=== PATIENT | male | born 1930 | race Caucasian/White ===

== ENCOUNTER 2017-09-05 17:10 | Inpatient (IN) | payer MEDICARE, OTHER ==
[~2017-09-05] VITALS: Ht 167.6 cm; Wt 72.6 kg
[2017-09-05] MEDS ORDERED: SOD CHLORIDE 0.9% 1,000 ML IV STA (19:30)
--- NOTE | 2017-09-05 19:33 | ERD ---
ER Documentation Chief Complaint Chief Complaint generalized weakness x 1 year, low heart rate x 2 months HPI This is an 86-year-old male here for generalized weakness and dizziness. He is here with his daughter who states that for the past 2 weeks is progressively getting worse. She says she has been feeling bad for 2 months now. The past 2 weeks however, he is getting gradually more weak to the point where today he has a hard time walking because he feels so weak and and balance. She said is not eating anymore and does not have much water intake as well. She says she thinks his urine output is going lower as well. He is having off-and-on headaches at times but none now. No chest pain or shortness of breath no cough no dysuria. No abdominal pain. The patient says he feels generalized weakness and dizziness when he stands and walks it feels like his legs might give out. The patient walks on his own without a walker. No recent falls. No focal neurological complaints ROS All systems reviewed and are negative except as per history of present illness. Medications Home Meds Reported Medications Metoprolol Succinate* (Toprol XL*) 25 Mg Tab.sr.24h, 25 MG PO DAILY, #30 TAB 09/05/17 Megestrol Acetate* (Megestrol Acetate*) 40 Mg Tablet, 40 MG PO TID, TAB 09/05/17 Finasteride* (Finasteride*) 5 Mg Tablet, 5 MG PO DAILY, TAB 09/05/17 Gemfibrozil* (Gemfibrozil*) 600 Mg Tablet, 600 MG PO DAILY, TAB 09/05/17 Memantine* (Namenda* XR) 28 Mg Cap.spr.24, 28 MG PO DAILY, #30 TAB 09/05/17 Folic Acid* (Folic Acid*) 1 Mg Tablet, 1 MG PO DAILY, TAB 09/05/17 Aspirin/Dipyridamole (Aspirin-Dipyridam ER 25-200 mg) 1 Each Cpmp.12hr, 1 EACH PO BID, CAP 09/05/17 Allergies Allergies: Coded Allergies: No Known Allergy (Unverified , 09/05/17) PMhx/Soc History of Surgery: Yes (Cataracts) Anesthesia Reaction: No Hx Cardiac Disorders: Yes (HTN) Hx Psychiatric Problems: Yes (Dementia, FTT) Hx Alcohol Use: No Hx Substance Use: No Hx Tobacco Use: No Smoking Status: Never smoker FmHx Family History: No coronary disease Physical Exam Vitals Vital Signs Date Time Temp Pulse Resp B/P Pulse Ox O2 Delivery O2 Flow Rate FiO2 09/05/17 21:00 98.8 80 20 141/86 98 Room Air 09/05/17 19:24 87 24 133/74 100 Room Air 09/05/17 17:28 98.0 48 18 160/72 98 Physical Exam Const: Well-developed, well-nourished Head: Atraumatic, normocephalic Eyes: Normal Conjunctiva, PERRLA, EOMI, normal sclera, no nystagmus ENT: Normal External Ears, Nose and Mouth, moist mucus membranes. Neck: Full range of motion. No meningismus, no lymphadenopathy. Resp: Clear to auscultation bilaterally, no wheezing, rhonchi, rales Cardio: Regular rate and rhythm, frequent ectopy consistent with bigeminy , no murmurs, S1 S2 present Abd: Soft, non tender x 4, non distended. Normal bowel sounds, no guarding or rebound, no pulsitile abdominal masses or bruits Skin: No petechiae or rashes, no ecchymosis , no maculopapular rash Back: No midline or flank tenderness Ext: No cyanosis, or edema, FROM x 4, normal inspection, neurovascularly intact x 4 Neur: Awake and alert, STR 5/5 x 4, sensation intact x 4, no focal findings, cerebellum intact Psych: Normal Mood and Affect Result Diagram: 09/05/17194409/05/171944 Results 24 hrs Laboratory Tests Test 09/05/17 19:45 White Blood Count 5.910^3/ul Red Blood Count 4.0710^6/ul Hemoglobin 11.7g/dl Hematocrit 37.4% Mean Corpuscular Volume 91.9fl Mean Corpuscular Hemoglobin 28.7pg Mean Corpuscular Hemoglobin Concent 31.3g/dl Red Cell Distribution Width 14.2% Platelet Count 13058^3/UL Mean Platelet Volume 10.4fl Neutrophils % % Segmented Neutrophils % (Manual) 57% Lymphocytes % % Lymphocytes % (Manual) 21% Monocytes % % Monocytes % (Manual) 4% Eosinophils % % Eosinophils % (Manual) 18% Basophils % % Nucleated Red Blood Cells % 0.0/100WBC Neutrophils # 10^3/ul Absolute Lymphocytes (Manual) 1.210^3/ul Lymphocytes # 10^3/ul Monocytes # 10^3/ul Absolute Monocytes (Manual) 0.210^3/ul Eosinophils # 10^3/ul Basophils # 10^3/ul Nucleated Red Blood Cells # 10^3/ul Platelet Estimate NORMAL Giant Platelets 2% Urine Color MARIELA Urine Clarity SLIGHTLY CLOUDY Urine pH 5.0 Urine Specific [place] 1.039 Urine Ketones TRACEmg/dL Urine Nitrite NEGATIVEmg/dL Urine Bilirubin 1+mg/dL Urine Urobilinogen 2+mg/dL Urine Leukocyte Esterase NEGATIVELeu/ul Urine Microscopic RBC 1/HPF Urine Microscopic WBC 1/HPF Urine Mucus FEW/HPF Urine Hemoglobin NEGATIVEmg/dL Urine Glucose NEGATIVEmg/dL Urine Total Protein 2+mg/dl Sodium Level 144mmol/L Potassium Level 4.0mmol/L Chloride Level 112mmol/L Carbon Dioxide Level 22mmol/L Anion Gap 14 Blood Urea Nitrogen 20mg/dl Creatinine 1.21mg/dl Glucose Level 101mg/dl Calcium Level 8.9mg/dl Total Bilirubin 0.2mg/dl Direct Bilirubin 0.00mg/dl Indirect Bilirubin 0.2mg/dl Aspartate Amino Transf (AST/SGOT) 10IU/L Alanine Aminotransferase (ALT/SGPT) 20IU/L Alkaline Phosphatase 61IU/L Troponin I < 0.012ng/ml Total Protein 6.8g/dl Albumin 3.6g/dl Globulin 3.20g/dl Albumin/Globulin Ratio 1.12 Current Medications Medications (Trade) Dose Ordered Sig/Jose Alberto Route PRN Reason Start Time Stop Time Status Last Admin Dose Admin Sodium Chloride (NS) 1,000 ml @ 1,000 mls/hr Q1H STAT IV 09/05/17 19:30 09/05/17 20:29 DC 09/05/17 19:49 Procedures/MDM EKG: Rate/Rhythm: Normal sinus rhythm with frequent ectopy consistent with bigeminy, left axis deviation, LVH QRS, ST, QT: NORMAL [place], QRS, QT] Impression: Abnormal EKG PROCEDURE: CT Head without contrast. CLINICAL INDICATION: Weakness TECHNIQUE: The study was performed utilizing a GE 64-slice multidetector CT scanner. Direct spiral axial CT images of the brain were obtained from the vertex to the skull base without contrast. Coronal and sagittal reformatted images are provided. The CTDI vol is 42.43 mGy and the DLP is 720.23 mGy-cm. The images were reviewed on a PACS workstation. One or more of the following dose reduction techniques were used: Automated exposure control. Adjustment of the mA and/or kV according to patient size. Use of iterative reconstruction technique. COMPARISON: No prior studies are available for comparison. FINDINGS: Mild diffuse atrophy is seen with a compensatory ventricular enlargement. Mild white matter disease in the periventricular and deep white matter is seen. Bilateral cerebral convexity extra-axial fluid collections are seen which are near CSF attenuation. The largest fluid collection is seen on the right cerebral convexity measuring 1.2 cm off the inner table of the calvarium. Approximately 3 mm of leftward midline shift is seen. The jeffrey-white matter differentiation is maintained. The visualized paranasal sinuses, mastoid air cells, orbits, and calvarium are unremarkable. Vascular calcifications are seen. IMPRESSION: 1. Bilateral cerebral convexity extra-axial fluid collections likely representing chronic subdural hematomas. The possibly of subdural hygromas should also be considered. 2. Approximately 3 mm of leftward midline shift. 3. Mild diffuse volume loss and mild chronic microvascular ischemic changes. Results were discussed with Matheus Vásquez at 09/05/2017 8:14:23 PM RPTAT: HPNM Physician Braulio Date Time Electronically viewed and signed by Physician Braulio on 09/05/2017 20 :15 / CC: MATHEUS VÁSQUEZ DO PROCEDURE: Portable chest x-ray. CLINICAL INDICATION: 86 years of age, male. Abdominal pain. TECHNIQUE: Portable AP view of the chest. COMPARISON: None available. FINDINGS: Atherosclerotic calcification and tortuosity of the thoracic aorta. Borderline heart size. Lungs are clear. Negative for pleural effusion or pneumothorax. Elevation of left diaphragm. There are gas-filled loops of bowel beneath bilateral diaphragms. Old healed fracture deformity left clavicle. IMPRESSION: 1. Negative for evidence of an acute chest process. 2. Nonspecific gas-filled loops of bowel in the upper abdomen. 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 He has no focal neurological deficits. We will admit to the hospital and consult Dr. Rodrigez surgery Departure Diagnosis: Primary Impression: Bilateral subdural hematomas Condition: Stable MATHEUS VÁSQUEZ DO Sep 05, 2017 19:33
[2017-09-05] MEDS ORDERED: FOLI-49 PO (19:47)
[2017-09-05] MEDS ORDERED: ASPI1CPM6 PO (19:47)
[2017-09-05] MEDS ORDERED: MEMA28CA PO (19:48)
[2017-09-05] MEDS ORDERED: FINA5TAB4 PO (19:48)
[2017-09-05] MEDS ORDERED: GEMF600T60 PO (19:48)
[2017-09-05] MEDS ORDERED: METO-335 PO (19:49)
[2017-09-05] MEDS ORDERED: MEGE40TA17 PO (19:49)
--- NOTE | 2017-09-05 20:15 | RADRPT ---
PROCEDURE: CT Head without contrast. CLINICAL INDICATION: Weakness TECHNIQUE: The study was performed utilizing a GE 64-slice multidetector CT scanner. Direct spiral axial CT images of the brain were obtained from the vertex to the skull base without contrast. [place] and sagittal reformatted images are provided. The CTDI vol is 42.43 mGy and the DLP is 720.23 mG y-cm. The images were reviewed on a PACS workstation. One or more of the following dose reduction techniques were used: Automated exposure control. Adjustment of the mA and/or kV according to patient size. Use of iterative reconstruction technique. COMPARISON: No prior studies are available for comparison. FINDINGS: Mild diffuse atrophy is seen with a compensatory ventricular enlargement. Mild white matter disease in the periventricular and deep white matter is seen. Bilateral cerebral convexity extra-axial flui d collections are seen which are near CSF attenuation. The largest fluid collection is seen on the r ight cerebral convexity measuring 1.2 cm off the inner table of the calvarium. Approximately 3 mm of leftward midline shift is seen. The jeffrey-white matter differentiation is maintained. The visualiz ed paranasal sinuses, mastoid air cells, orbits, and calvarium are unremarkable. Vascular calcificat ions are seen. IMPRESSION: 1. Bilateral cerebral convexity extra-axial fluid collections likely representing chronic subdural hematomas. The possibly of subdural hygromas should also be considered. 2. Approximately 3 mm of leftward midline shift. 3. Mild diffuse volume loss and mild chronic microvascular ischemic changes. Results were discussed with Matheus Jackman at 09/05/2017 8:14:23 PM RPTAT: HPNM Physician Braulio Date Time Electronically viewed and signed by Physician Braulio on 09/05/2017 20:15 /
--- NOTE | 2017-09-05 20:15 | RADRPT ---
PROCEDURE: Portable chest x-ray. CLINICAL INDICATION: 86 years of age, male. Abdominal pain. TECHNIQUE: Portable AP view of the chest. COMPARISON: None available. FINDINGS: Atherosclerotic calcification and tortuosity of the thoracic aorta. Borderline heart size. Lungs are clear. Negative for pleural effusion or pneumothorax. Elevation of left diaphragm. There are gas-filled loops of bowel beneath bilateral diaphragms. Old h ealed fracture deformity left clavicle. IMPRESSION: 1. Negative for evidence of an acute chest process. 2. Nonspecific gas-filled loops of bowel in the upper abdomen. RPTAT: HCTS Physician Dwayne Date Time Electronically viewed and signed by Physician Dwayne on 09/05/2017 20:15 CS/
[2017-09-05] MEDS ORDERED: SOD CHLORIDE 0.9% 1,000 ML IV SCH ×2 (21:13→23:55)
[2017-09-05] MEDS ORDERED: ACETAMINOPHEN 325 MG TAB PO PRN (21:30)
[2017-09-05] MEDS ORDERED: ONDANSETRON 4 MG INJ IV PRN (21:30)
[2017-09-06] VITALS (8 sets, daily range): BP systolic 128–155; BP diastolic 62–73; PULSE 43–95; RESP 18–20; TEMP 98.6; Ht 167.6 cm; Wt 72.6 kg
[2017-09-06] MEDS ORDERED: BISACODYL (EC) 5 MG TAB PO PRN
[2017-09-06] MEDS ORDERED: ONDANSETRON 4 MG INJ IV PRN
[2017-09-06] MEDS ORDERED: DOCUSATE SODIUM 100 MG CAP PO PRN
[2017-09-06] MEDS ORDERED: NACL 0.9% 3 ML SYG IV SCH
[2017-09-06] MEDS ORDERED: ACETAMINOPHEN 325 MG TAB PO PRN
[2017-09-06] MEDS: PANTOPRAZOLE 40 MG INJ IV SCH (06:00)
--- NOTE | 2017-09-06 06:18 | HP ---
Date/Time of Note Date/Time of Note DATE: 09/06/17 TIME: 06:07 Assessment/Plan VTE Prophylaxis VTE Prophylaxis Intervention: SCD's Assessment/Plan Chief Complaint/Hosp Course This is a 86-year-old male being admitted to the telemetry floor for: #1 subdural hematomas: This likely appear to be chronic in nature as suggested by the CT scan of the head. There also appears to be a 3 mm midline shift. Because of this likely could be the fall to the patient experienced 3 weeks ago however this also could be from earlier. Neurosurgery was consulted via the ED at the current time will monitor the patient in telemetry as per the recommendation. Will monitor blood pressure. Will put the patient on fall precautions and neuro checks every 4 hours. Zofran as needed for nausea. Will hold any anticoagulation and antiplatelet medication. Further recommendations as per neurosurgery recommendations. We will also consult neurology. Will also obtain an MRI of the brain.PT and OT evaluation. #2 Bradycardia: Patient rhythm was seen to be fluctuating in between the 40s- 60s. He was recently started on metoprolol as per the daughter. At the current time I will hold his medication secondary to his bradycardia. Will consult cardiology. He apparently was getting the medication just for blood pressure. #3 hypertension: We will continue monitor home blood pressure. Retina will hold metoprolol secondary to #2. Will start on another agent as indicated. #4 BPH: At the current time will hold the finasteride. #5 dementia: We will continue Namenda. #6 anemia, normocytic: We will check a fecal occult blood.. #6 DVT GI prophylaxis: SCDs, acid makayla further treatment strategy will be implemented as per the clinical course Problems: HPI/ROS Admit Date/Time Admit Date/Time Hx of Present Illness cc: weakness, dizziness x 2 weeks. PCP: Dr. Camp This is an 86-year-old male here for generalized weakness and dizziness. He is here with his daughter who states that for the past 2 weeks is progressively getting worse. She says she has been feeling bad for 2 months now. The past 2 weeks however, he is getting gradually more weak to the point where today he has a hard time walking because he feels so weak and and off-balance. Of note the daughter does state that the patient approximately fell 3 weeks ago, but it was unwittnessed. She said is not eating that well and does not have much water intake as well. She says she thinks his urine output is going lower as well. He is having off-and-on headaches at times but none now. No chest pain or shortness of breath no cough no dysuria. No abdominal pain. The patient says he feels generalized weakness and dizziness when he stands and walks it feels like his legs might give out. The patient walks on his own without a walker. No recent falls. No focal neurological complaints. Allergies: NKDA Medications: See JAN ROS Const: As per HPI Eyes : No pain discharge or redness or change in visual acuity ENT: No pain, sore throat, congestion, congestion, dysphagia or discharge Respiratory: No shortness of breath, cough, sputum, wheezing, or pleuritic pain Cardiovascular: No chest pain, palpitation, PND, or edema GI : no change in appetite, abdominal pain, nausea, vomiting, diarrhea, constipation, or change in the color his stool Genitourinary: No dysuria, hematuria, flank pain , discharge or CVA tenderness Musculoskeletal: No joint pain, back pain, neck pain, restricted range of motion in neck or joints Skin: No rash, bruising or hives Neuro: As per HPI Endocrine: No polyuria, polydipsia, temperature intolerance Psych: No hallucination, depression, anxiety or suicidal ideation PMH/Family/Social Past Medical History BPH, bradycardia, hypertension, dementia Past Surgical History Bilateral cataract surgery Family History Significant Family History: no pertinent family hx Social History Alcohol Use: none Smoking Status: Never smoker Drug Use: none Exam/Review of Systems Vital Signs Vitals Vital Signs Date Time Temp Pulse Resp B/P Pulse Ox O2 Delivery O2 Flow Rate FiO2 09/06/17 05:51 98.6 73 16 130/79 98 Room Air Exam Exam General: Patient is a well-developed male lying in bed in no acute distress HEENT: Atraumatic, normocephalic. The pupils are equal, round and reactive. Extraocular motor are intact Neck: Supple with full range of motion. No rigidity or meningismus Chest: Nontender Lungs: Clear to auscultation bilaterally no crackles rales or wheezing Heart: Normal S1-S2, Regular rhythm and rate. No overt murmurs appreciated Abdomen: Soft , nontender, nondistended , bowel sounds are present. No guarding no rebound tenderness , No masses or organomegaly. No costovertebral temporal angle mass Extremities: Normal to inspection, no edema no cyanosis Neurologic: Normal mental status, speech is normal cranial nerves II through XII intact, motor and sensory are intact, I did not perform a gait analysis as patient states that he is feeling weak at this time. Additional Comments PROCEDURE: CT Head without contrast. CLINICAL INDICATION: Weakness TECHNIQUE: The study was performed utilizing a GE 64-slice multidetector CT scanner. Direct spiral axial CT images of the brain were obtained from the vertex to the skull base without contrast. Coronal and sagittal reformatted images are provided. The CTDI vol is 42.43 mGy and the DLP is 720.23 mGy-cm. The images were reviewed on a PACS workstation. One or more of the following dose reduction techniques were used: Automated exposure control. Adjustment of the mA and/or kV according to patient size. Use of iterative reconstruction technique. COMPARISON: No prior studies are available for comparison. FINDINGS: Mild diffuse atrophy is seen with a compensatory ventricular enlargement. Mild white matter disease in the periventricular and deep white matter is seen. Bilateral cerebral convexity extra-axial fluid collections are seen which are near CSF attenuation. The largest fluid collection is seen on the right cerebral convexity measuring 1.2 cm off the inner table of the calvarium. Approximately 3 mm of leftward midline shift is seen. The jeffrey-white matter differentiation is maintained. The visualized paranasal sinuses, mastoid air cells, orbits, and calvarium are unremarkable. Vascular calcifications are seen. IMPRESSION: 1. Bilateral cerebral convexity extra-axial fluid collections likely representing chronic subdural hematomas. The possibly of subdural hygromas should also be considered. 2. Approximately 3 mm of leftward midline shift. 3. Mild diffuse volume loss and mild chronic microvascular ischemic changes. Results were discussed with Matheus Vásquez at 09/05/2017 8:14:23 PM RPTAT: HPNM Physician Braulio Date Time Electronically viewed and signed by Sreekanth Braun Physician on 09/05/2017 20 :15 / CC: MATHEUS VÁSQUEZ DO PROCEDURE: Portable chest x-ray. CLINICAL INDICATION: 86 years of age, male. Abdominal pain. TECHNIQUE: Portable AP view of the chest. COMPARISON: None available. FINDINGS: Atherosclerotic calcification and tortuosity of the thoracic aorta. Borderline heart size. Lungs are clear. Negative for pleural effusion or pneumothorax. Elevation of left diaphragm. There are gas-filled loops of bowel beneath bilateral diaphragms. Old healed fracture deformity left clavicle. IMPRESSION: 1. Negative for evidence of an acute chest process. 2. Nonspecific gas-filled loops of bowel in the upper abdomen. RPTAT: HCTS Jeevan Jason Physician Date Time Electronically viewed and signed by Jeevan Jason Physician on 09/05/2017 20: 15 CS/ CC: MATHEUS VÁSQUEZ DO Labs Result Diagram: 09/05/17194409/05/171944 Medications Medications Current Medications Sodium Chloride 1,000 ml @ 80 mls/hr [id number] IV Last administered on t 21:13; Admin Dose 80 MLS/HR; Start 09/05/17 at 21:13; Stop 09/06/17 at 09 :42 Sodium Chloride (NS) 1,000 ml @ 60 mls/hr [id number] IV ; Start 09/05/17 at 23:55 Ondansetron HCl (Zofran Inj) 4 mg Q6H PRN IV NAUSEA AND/OR VOMITING; Start at 00:00 Acetaminophen (Tylenol Tab) 650 mg Q6H PRN PO PAIN LEVEL 1-3 OR FEVER; Start 09/06/17 at 00:00 Docusate Sodium (Colace) 100 mg Q12H PRN PO CONSTIPATION; Start 09/06/17 at 00 :00 Bisacodyl (Dulcolax) 5 mg DAILY PRN PO CONSTIPATION; Start 09/06/17 at 00:00 Pantoprazole (Protonix Iv) 40 mg DAILY@06 IV ; Start 09/06/17 at 06:00 ADALBERTO HAMILTON Sep 06, 2017 06:18
[2017-09-06] MEDS: MEMANTINE 10 MG TAB PO SCH ×2 (09:00→21:22)
[2017-09-06] MEDS: MEGESTROL 40 MG TAB PO SCH ×3 (09:00→21:00)
[2017-09-06] MEDS: FOLIC ACID 1 MG TAB PO SCH (09:00)
--- NOTE | 2017-09-06 11:49 | RADRPT ---
PROCEDURE: MRA Head noncontrast. CLINICAL INDICATION: Subdural hematoma. TECHNIQUE: MRA of the head was performed with 3-D [id number] technique without contrast. MIP r econstructions were provided. COMPARISON: There are no similar studies submitted for comparison. Noncontrast CT of the head from September 05, 2017. FINDINGS: There is limited evaluation for intracranial hemorrhage and evaluation of the brain on MRA. There is a 9 mm right hemispheric subdural hemorrhage with stable 3 mm leftward midline shift given limitati ons. Evaluation is mildly limited due to motion degradation. Carotid arteries: There is limited evaluation of distal right cervical internal carotid artery with minimal flow visualized within this region at the skull base image 103 series 4). Otherwise the bila teral carotid arteries are patent without significant stenosis. Anterior cerebral arteries: Patent bilaterally without evidence of stenosis. Middle cerebral arteries: Patent bilaterally without evidence of stenosis. Posterior cerebral arteries: Patent bilaterally without evidence of stenosis. Anterior communicating artery: Present. Posterior communicating arteries: Not visualized bilaterally. Basilar artery: Patent without evidence of stenosis. Vertebral arteries: Patent bilaterally without evidence of stenosis. Vertebral artery dominance: Right. Aneurysm: No aneurysm is identified. IMPRESSION: Evaluation is mildly limited due to motion degradation. 1. Limited evaluation of distal right cervical internal carotid artery with minimal flow visualized within this region at the skull base. Otherwise the bilateral carotid arteries are patent without s ignificant stenosis. CTA of the head may be performed as clinically warranted. 2. No definite aneurysm. 3. Right hemispheric subdural hemorrhage as detailed above. Further findings as detailed above. RPTAT: PP .Praful Wolff MD, Date Time Electronically viewed and signed by .Praful Wolff MD, MD on 09/06/2017 11:48 .F/
--- NOTE | 2017-09-06 12:04 | CONS ---
Date/Time of Note Date/Time of Note DATE: 09/06/17 TIME: 11:59 Assessment/Plan Assessment/Plan Chief Complaint/Hosp Course 86 yo male w hx of dementia, HTN, chronic subdurals, increasing weakness and falls. Recommend: checking orthostatic vital signs may have autonomic sx associated w Parkinson's MRI Brain w/o contrast pending PT evaluation for gait balance training advised daughter to follow up with neurology as outpatient to further address Parkinson's Problems: Consultation Date/Type/Reason Admit Date/Time 09/06/17 Date of Consultation: Sep 06, 2017 Type of Consultation: Neurology Reason for Consultation evaluation for syncope bradycardia Referring Provider: ADALBERTO HAMILTON Hx of Present Illness 86 yo male with p/w history of dizziness and weakness with falls over the past 3 months difficulty with balance. 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 Per daughter he was started on medications for tremors in the past, she was advised he may have Parkinson's she stopped giving him the medications and is unable to provide the names of medications he was previously on. He was also recently started on metoprolol with bradycardia on this admission HR 40-60's, BB is being held. At home he ambulates without any assistive devices, she denies urinary issues. weakness tremors Social History Alcohol Use: none Smoking Status: Never smoker Drug Use: none Exam/Review of Systems Vital Signs Vitals Vital Signs Date Time Temp Pulse Resp B/P Pulse Ox O2 Delivery O2 Flow Rate FiO2 09/06/17 11:48 98.4 43 20 128/62 98 Room Air Exam awake and alert oriented to hospital daughter not to date follows simple commands masked facies CN: II-XII intact Motor: 5/5 throughout with UE cogwheeling in both extremities pill rolling tremor in left UE Coordination slow bilaterally with mild ataxia Reflexes 1+ throughout Results Result Diagram: 09/06/17 0550 09/06/17 0550 Results 24 hrs Laboratory Tests Test 09/05/17 19:45 09/05/17 21:45 09/06/17 05:50 White Blood Count 5.9 Red Blood Count 4.07 L Hemoglobin 11.7 L 10.4 L Hematocrit 37.4 L 32.9 L Mean Corpuscular Volume 91.9 Mean Corpuscular Hemoglobin 28.7 L Mean Corpuscular Hemoglobin Concent 31.3 L Red Cell Distribution Width 14.2 Platelet Count 147 Mean Platelet Volume 10.4 Neutrophils % Segmented Neutrophils % (Manual) 57 Lymphocytes % Lymphocytes % (Manual) 21 Monocytes % Monocytes % (Manual) 4 Eosinophils % Eosinophils % (Manual) 18 H Basophils % Nucleated Red Blood Cells % 0.0 Neutrophils # Absolute Lymphocytes (Manual) 1.2 Lymphocytes # Monocytes # Absolute Monocytes (Manual) 0.2 L Eosinophils # Basophils # Nucleated Red Blood Cells # Platelet Estimate NORMAL Giant Platelets 2 H Urine Color MARIELA Urine Clarity SLIGHTLY CLOUDY A Urine pH 5.0 Urine Specific [place] 1.039 H Urine Ketones TRACE A Urine Nitrite NEGATIVE Urine Bilirubin 1+ H Urine Urobilinogen 2+ H Urine Leukocyte Esterase NEGATIVE Urine Microscopic RBC 1 Urine Microscopic WBC 1 Urine Mucus FEW A Urine Hemoglobin NEGATIVE Urine Glucose NEGATIVE Urine Total Protein 2+ H Sodium Level 144 144 Potassium Level 4.0 3.7 Chloride Level 112 H 114 H Carbon Dioxide Level 22 20 L Anion Gap 14 14 Blood Urea Nitrogen 20 16 Creatinine 1.21 1.00 Glucose Level 101 75 Calcium Level 8.9 8.4 Total Bilirubin 0.2 0.5 Direct Bilirubin 0.00 0.00 Indirect Bilirubin 0.2 0.5 Aspartate Amino Transf (AST/SGOT) 10 L < 8 L Alanine Aminotransferase (ALT/SGPT) 20 20 Alkaline Phosphatase 61 54 Troponin I < 0.012 Total Protein 6.8 5.9 L Albumin 3.6 3.5 Globulin 3.20 2.40 Albumin/Globulin Ratio 1.12 1.45 Prothrombin Time 13.9 Prothrombin Time Ratio 1.1 INR International Normalized Ratio 1.07 Activated Partial Thromboplast Time 24.7 L Hemoglobin A1c 5.6 Triglycerides Level 78 Cholesterol Level 139 LDL Cholesterol, Calculated 92 HDL Cholesterol 31 Cholesterol/HDL Ratio 4.4 Thyroid Stimulating Hormone (TSH) 2.090 Medications Medications Current Medications Ondansetron HCl (Zofran Inj) 4 mg Q6H PRN IV NAUSEA AND/OR VOMITING; Start at 00:00 Acetaminophen (Tylenol Tab) 650 mg Q6H PRN PO PAIN LEVEL 1-3 OR FEVER; Start 09/06/17 at 00:00 Docusate Sodium (Colace) 100 mg Q12H PRN PO CONSTIPATION; Start 09/06/17 at 00 :00 Bisacodyl (Dulcolax) 5 mg DAILY PRN PO CONSTIPATION; Start 09/06/17 at 00:00 Pantoprazole (Protonix Iv) 40 mg DAILY@06 IV Last administered on 09/06/17 06 :00; Admin Dose 40 MG; Start 09/06/17 at 06:00 Folic Acid (Folic Acid) 1 mg DAILY PO Last administered on 09/06/17 09:00; Admin Dose 1 MG; Start 09/06/17 at 09:00 Megestrol Acetate (Megace) 40 mg TID PO Last administered on 09/06/17 09:00; Admin Dose 40 MG; Start 09/06/17 at 09:00 Memantine (Namenda) 10 mg BID PO Last administered on 09/06/17 09:00; Admin Dose 10 MG; Start 09/06/17 at 09:00 JOYCE IBARRA MD Sep 06, 2017 12:04
[2017-09-06] MEDS ORDERED: POTASSIUM CHLORIDE (SR) 20 MEQ TAB PO STA (17:08)
--- NOTE | 2017-09-06 17:17 | CONS ---
Date/Time of Note Date/Time of Note DATE: 09/06/17 TIME: 17:09 Assessment/Plan Assessment/Plan Chief Complaint/Hosp Course 1. BRADYCARDIA: due to frequent PVC/ventricular bigeminy 2. 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 3. Hypertension 4. Dementia 5. Possible Parkinson disease I will start the patient on amiodarone p.o. to try to reduce the PVCs and bigeminy's. Electrolyte including potassium will be replaced. Magnesium will be checked to be replaced as needed. Follow-up with neurology and neurosurgical recommendations. Echocardiogram has been ordered as well will evaluate once is done and ready to be reviewed. Thank you for his referral. I will continue to follow along with you. VIOLA GARAY MD [facility] Problems: Consultation Date/Type/Reason Admit Date/Time 09/06/17 Date of Consultation: Sep 06, 2017 Type of Consultation: card Reason for Consultation bradycardia Referring Provider: ADALBERTO HAMILTON of Present Illness CC: weakness. dizziness HPI: Thank you for his referral. History was obtained from the patient on discussion with his daughter discussion with his . Charts were reviewed as were discussed with the staff and physicians. This is a pleasant 86-year-old [place] gentleman with history of hypertension who has had increasing fatigue and tiredness and weakness. Patient has history of hypertension and is on metoprolol. According to the family patient has been bradycardic heart rate has been running around 30s and 40s at times. According to the patient has had falls but no symptoms syncopal episode. Patient himself denies any symptoms of shortness of breath chest pain palpitations presyncope to me. He has headache still. Workup including CT has shown subdural hematoma which is appeared to be probably chronic. Because of bradycardia was kindly asked to evaluate and treat the patient. Review of the rhythm strips shows that the patient has very frequent PVCs in a pattern of bigeminy. His pulse has been bradycardic although the heart rate on the monitor does not show so because of the frequent PVCs. ALLERGY NKDA Meds reviewed. SOCIAL HISTORY; NO ACUTE T/E/D. Lives with family. PMH: 1. Hypertension 2. Dementia Family history: No reported early coronary artery disease. ROS: as above only + frequent fall. he denies all others Social History Alcohol Use: none Smoking Status: Never smoker Drug Use: none Exam/Review of Systems Vital Signs Vitals Vital Signs Date Time Temp Pulse Resp B/P Pulse Ox O2 Delivery O2 Flow Rate FiO2 09/06/17 12:11 85 09/06/17 11:48 98.4 20 128/62 98 Room Air Exam General: no acute distress HEENT: NC/AT. pupils are equal. round. NECK: NO JVD. no stridor. CV: bradycardic. systolic murmur; no gallop or rubs. PULM: no wheezing or rhonchi. GI: SOFT, NT, ND, no rebound or guarding Extremity: trace B/L LE edema. no clubbing. neuro: awake and alert, OX2. Psych: calm and pleasant rectal: deferred ECG NSR frequent PVCs with bigeminy Results Result Diagram: 09/06/17 0550 09/06/17 0550 Results 24 hrs Laboratory Tests Test 09/05/17 19:45 09/05/17 21:45 09/06/17 05:50 White Blood Count 5.9 Red Blood Count 4.07 L Hemoglobin 11.7 L 10.4 L Hematocrit 37.4 L 32.9 L Mean Corpuscular Volume 91.9 Mean Corpuscular Hemoglobin 28.7 L Mean Corpuscular Hemoglobin Concent 31.3 L Red Cell Distribution Width 14.2 Platelet Count 147 Mean Platelet Volume 10.4 Neutrophils % Segmented Neutrophils % (Manual) 57 Lymphocytes % Lymphocytes % (Manual) 21 Monocytes % Monocytes % (Manual) 4 Eosinophils % Eosinophils % (Manual) 18 H Basophils % Nucleated Red Blood Cells % 0.0 Neutrophils # Absolute Lymphocytes (Manual) 1.2 Lymphocytes # Monocytes # Absolute Monocytes (Manual) 0.2 L Eosinophils # Basophils # Nucleated Red Blood Cells # Platelet Estimate NORMAL Giant Platelets 2 H Urine Color MARIELA Urine Clarity SLIGHTLY CLOUDY A Urine pH 5.0 Urine Specific [place] 1.039 H Urine Ketones TRACE A Urine Nitrite NEGATIVE Urine Bilirubin 1+ H Urine Urobilinogen 2+ H Urine Leukocyte Esterase NEGATIVE Urine Microscopic RBC 1 Urine Microscopic WBC 1 Urine Mucus FEW A Urine Hemoglobin NEGATIVE Urine Glucose NEGATIVE Urine Total Protein 2+ H Sodium Level 144 144 Potassium Level 4.0 3.7 Chloride Level 112 H 114 H Carbon Dioxide Level 22 20 L Anion Gap 14 14 Blood Urea Nitrogen 20 16 Creatinine 1.21 1.00 Glucose Level 101 75 Calcium Level 8.9 8.4 Total Bilirubin 0.2 0.5 Direct Bilirubin 0.00 0.00 Indirect Bilirubin 0.2 0.5 Aspartate Amino Transf (AST/SGOT) 10 L < 8 L Alanine Aminotransferase (ALT/SGPT) 20 20 Alkaline Phosphatase 61 54 Troponin I < 0.012 Total Protein 6.8 5.9 L Albumin 3.6 3.5 Globulin 3.20 2.40 Albumin/Globulin Ratio 1.12 1.45 Prothrombin Time 13.9 Prothrombin Time Ratio 1.1 INR International Normalized Ratio 1.07 Activated Partial Thromboplast Time 24.7 L Hemoglobin A1c 5.6 Triglycerides Level 78 Cholesterol Level 139 LDL Cholesterol, Calculated 92 HDL Cholesterol 31 Cholesterol/HDL Ratio 4.4 Thyroid Stimulating Hormone (TSH) 2.090 Medications Medications Current Medications Ondansetron HCl (Zofran Inj) 4 mg Q6H PRN IV NAUSEA AND/OR VOMITING; Start at 00:00 Acetaminophen (Tylenol Tab) 650 mg Q6H PRN PO PAIN LEVEL 1-3 OR FEVER; Start 09/06/17 at 00:00 Docusate Sodium (Colace) 100 mg Q12H PRN PO CONSTIPATION; Start 09/06/17 at 00 :00 Bisacodyl (Dulcolax) 5 mg DAILY PRN PO CONSTIPATION; Start 09/06/17 at 00:00 Pantoprazole (Protonix Iv) 40 mg DAILY@06 IV Last administered on 09/06/17 06 :00; Admin Dose 40 MG; Start 09/06/17 at 06:00 Folic Acid (Folic Acid) 1 mg DAILY PO Last administered on 09/06/17 09:00; Admin Dose 1 MG; Start 09/06/17 at 09:00 Megestrol Acetate (Megace) 40 mg TID PO Last administered on 09/06/17 16:46; Admin Dose 40 MG; Start 09/06/17 at 09:00 Memantine (Namenda) 10 mg BID PO Last administered on 09/06/17 09:00; Admin Dose 10 MG; Start 09/06/17 at 09:00 VIOLA GARAY MD Sep 06, 2017 17:17
[2017-09-06] MEDS: AMIODARONE 200 MG TAB PO SCH (21:22)
[2017-09-07] VITALS (8 sets, daily range): BP systolic 142–167; BP diastolic 64–82; PULSE 70–78; RESP 16–18
[2017-09-07] MEDS: PANTOPRAZOLE 40 MG INJ IV SCH (05:57)
--- NOTE | 2017-09-07 07:36 | RADRPT ---
Echocardiogram Report Patient Name: GINGER ARSHAD Gender: Male Date: 1930 Study Date: 06-Sep-2017 Crew Lead: Alivia [facility] Location: 3303 Ref. Physician: VIOLA COLMENARES Quality: Adequate Procedures: Transthoracic echocardiogram with complete 2D, M-Mode, and doppler examination. Indications: Bradycardia. 2D/M Mode Doppler Measurement Value Normal Ranges Measurement Value Normal Ranges LVIDd 2D 4.6 3.5 - 5.6 cm AV Peak Wesley 1.8 m/sec LVIDs 2D 3.1 2.1 - 4.1 cm AV Peak PG 12.0 mmHg FS 2D 32.1 % LVOT Peak Wesley 1.0 m/sec LVPWd 2D 1.3 0.6 - 1.1 cm LVOT Peak PG 4.0 mmHg IVSd 2D 1.3 0.6 - 1.1 cm MV E Peak Wesley 1.1 m/sec IVS/LVPW 2D 1.0 MV A Peak Wesley 0.9 m/sec AoR Diam 2D 3.6 2.0 - 3.7 cm MV E/A 1.2 LA/Ao 2D 1 0 - 1 MV Decel Time 236 msec EDV 2D 96.1 cm3 MV E/A 1.2 ESV 2D 30.1 cm3 MR Peak PG 120.0 mmHg LA Dimen 2D 4.1 2.3 - 4.0 cm MR Peak Wesley 5.5 m/sec TR Peak Wesley 2.9 m/sec TR Peak PG 33.0 mmHg RVSP 43.0 mmHg Findings Left Ventricle: Normal left ventricular cavity size. Mild concentric left ventricular hypertrophy. Mild left ventricular systolic dysfunction. Ejection fraction is visually estimated at 45 %. Abnormal Diastolic Function. Right Ventricle: Mild right ventricular systolic dysfunction. Left Atrium: There is mild enlargement of left atrium. Right Atrium: The right atrium is normal in size. Mitral Valve: Mild mitral leaflet calcification. Mild mitral annular calcification. Mild to moderate mitral valve regurgitation. Aortic Valve: Aortic sclerosis without stenosis. Mild to moderate aortic valve regurgitation. Tricuspid Valve: Normal appearance of the tricuspid valve. Estimated peak PA systolic pressure 43 mmHg. There is mild tricuspid regurgitation. Pulmonic Valve: Pulmonic valve not well visualized. There is trace pulmonic regurgitation. Pericardium: Normal pericardium with no significant pericardial effusion. Aorta: Normal aortic root. IVC: Dilated IVC with respiratory collapse consistent with elevated right atrial pressure. Conclusions 1.Normal left ventricular cavity size. Mild concentric left ventricular hypertrophy. Mild left ventricular systolic dysfunction. Ejection fraction is visually estimated at 45 %. Abnormal Diastolic Function. 2.There is mild enlargement of left atrium. 3.Mild mitral leaflet calcification. Mild mitral annular calcification. Mild to moderate mitral valve regurgitation. 4.Aortic sclerosis without stenosis. Mild to moderate aortic valve regurgitation. 5.Normal appearance of the tricuspid valve. Estimated peak PA systolic pressure 43 mmHg. There is mild tricuspid regurgitation. 6.Dilated IVC with respiratory collapse consistent with elevated right atrial pressure. 7.Normal pericardium with no significant pericardial effusion. Electronically Signed By: Viola Colmenares 07-Sep-2017 07:35:55 -0700 Patient Name: GINGER ARSHAD Study Date: 06-Sep-2017 [id number]
--- NOTE | 2017-09-07 07:36 | RADRPT ---
Echocardiogram Report Patient Name: GINGER ARSHAD Gender: Male Date: 1930 Study Date: 06-Sep-2017 Drug Inspector: Alivia [facility] Location: 3303 Ref. Physician: VIOLA COLMENARES Quality: Adequate Procedures: Transthoracic echocardiogram with complete 2D, M-Mode, and doppler examination. Indications: Bradycardia. 2D/M Mode Doppler Measurement Value Normal Ranges Measurement Value Normal Ranges LVIDd 2D 4.6 3.5 - 5.6 cm AV Peak Wesley 1.8 m/sec LVIDs 2D 3.1 2.1 - 4.1 cm AV Peak PG 12.0 mmHg FS 2D 32.1 % LVOT Peak Wesley 1.0 m/sec LVPWd 2D 1.3 0.6 - 1.1 cm LVOT Peak PG 4.0 mmHg IVSd 2D 1.3 0.6 - 1.1 cm MV E Peak Wesley 1.1 m/sec IVS/LVPW 2D 1.0 MV A Peak Wesley 0.9 m/sec AoR Diam 2D 3.6 2.0 - 3.7 cm MV E/A 1.2 LA/Ao 2D 1 0 - 1 MV Decel Time 236 msec EDV 2D 96.1 cm3 MV E/A 1.2 ESV 2D 30.1 cm3 MR Peak PG 120.0 mmHg LA Dimen 2D 4.1 2.3 - 4.0 cm MR Peak Wesley 5.5 m/sec TR Peak Wesley 2.9 m/sec TR Peak PG 33.0 mmHg RVSP 43.0 mmHg Findings Left Ventricle: Normal left ventricular cavity size. Mild concentric left ventricular hypertrophy. Mild left ventricular systolic dysfunction. Ejection fraction is visually estimated at 45 %. Abnormal Diastolic Function. Right Ventricle: Mild right ventricular systolic dysfunction. Left Atrium: There is mild enlargement of left atrium. Right Atrium: The right atrium is normal in size. Mitral Valve: Mild mitral leaflet calcification. Mild mitral annular calcification. Mild to moderate mitral valve regurgitation. Aortic Valve: Aortic sclerosis without stenosis. Mild to moderate aortic valve regurgitation. Tricuspid Valve: Normal appearance of the tricuspid valve. Estimated peak PA systolic pressure 43 mmHg. There is mild tricuspid regurgitation. Pulmonic Valve: Pulmonic valve not well visualized. There is trace pulmonic regurgitation. Pericardium: Normal pericardium with no significant pericardial effusion. Aorta: Normal aortic root. IVC: Dilated IVC with respiratory collapse consistent with elevated right atrial pressure. Conclusions 1.Normal left ventricular cavity size. Mild concentric left ventricular hypertrophy. Mild left ventricular systolic dysfunction. Ejection fraction is visually estimated at 45 %. Abnormal Diastolic Function. 2.There is mild enlargement of left atrium. 3.Mild mitral leaflet calcification. Mild mitral annular calcification. Mild to moderate mitral valve regurgitation. 4.Aortic sclerosis without stenosis. Mild to moderate aortic valve regurgitation. 5.Normal appearance of the tricuspid valve. Estimated peak PA systolic pressure 43 mmHg. There is mild tricuspid regurgitation. 6.Dilated IVC with respiratory collapse consistent with elevated right atrial pressure. 7.Normal pericardium with no significant pericardial effusion. Electronically Signed By: Viola Colmenares 07-Sep-2017 07:35:55 -0700 Patient Name: GINGER ARSHAD Study Date: 06-Sep-2017 [id number]
--- NOTE | 2017-09-07 07:36 | RADRPT ---
Echocardiogram Report Patient Name: GINGER ARSHAD Gender: Male Date: 1930 Study Date: 06-Sep-2017 Horizontal [employer]oring [employer] Set Up Operator: Alivia [facility] Location: 3303 Ref. Physician: VIOLA COLMENARES Quality: Adequate Procedures: Transthoracic echocardiogram with complete 2D, M-Mode, and doppler examination. Indications: Bradycardia. 2D/M Mode Doppler Measurement Value Normal Ranges Measurement Value Normal Ranges LVIDd 2D 4.6 3.5 - 5.6 cm AV Peak [place] 1.8 m/sec LVIDs 2D 3.1 2.1 - 4.1 cm AV Peak PG 12.0 mmHg FS 2D 32.1 % LVOT Peak [place] 1.0 m/sec LVPWd 2D 1.3 0.6 - 1.1 cm LVOT Peak PG 4.0 mmHg IVSd 2D 1.3 0.6 - 1.1 cm MV E Peak Wesley 1.1 m/sec IVS/LVPW 2D 1.0 MV A Peak Wesley 0.9 m/sec AoR Diam 2D 3.6 2.0 - 3.7 cm MV E/A 1.2 LA/Ao 2D 1 0 - 1 MV Decel Time 236 msec EDV 2D 96.1 cm3 MV E/A 1.2 ESV 2D 30.1 cm3 MR Peak PG 120.0 mmHg LA Dimen 2D 4.1 2.3 - 4.0 cm MR Peak Wesley 5.5 m/sec TR Peak Wesley 2.9 m/sec TR Peak PG 33.0 mmHg RVSP 43.0 mmHg Findings Left Ventricle: Normal left ventricular cavity size. Mild concentric left ventricular hypertrophy. Mild left ventricular systolic dysfunction. Ejection fraction is visually estimated at 45 %. Abnormal Diastolic Function. Right Ventricle: Mild right ventricular systolic dysfunction. Left Atrium: There is mild enlargement of left atrium. Right Atrium: The right atrium is normal in size. Mitral Valve: Mild mitral leaflet calcification. Mild mitral annular calcification. Mild to moderate mitral valve regurgitation. Aortic Valve: Aortic sclerosis without stenosis. Mild to moderate aortic valve regurgitation. Tricuspid Valve: Normal appearance of the tricuspid valve. Estimated peak PA systolic pressure 43 mmHg. There is mild tricuspid regurgitation. Pulmonic Valve: Pulmonic valve not well visualized. There is trace pulmonic regurgitation. Pericardium: Normal pericardium with no significant pericardial effusion. Aorta: Normal aortic root. IVC: Dilated IVC with respiratory collapse consistent with elevated right atrial pressure. Conclusions 1.Normal left ventricular cavity size. Mild concentric left ventricular hypertrophy. Mild left ventricular systolic dysfunction. Ejection fraction is visually estimated at 45 %. Abnormal Diastolic Function. 2.There is mild enlargement of left atrium. 3.Mild mitral leaflet calcification. Mild mitral annular calcification. Mild to moderate mitral valve regurgitation. 4.Aortic sclerosis without stenosis. Mild to moderate aortic valve regurgitation. 5.Normal appearance of the tricuspid valve. Estimated peak PA systolic pressure 43 mmHg. There is mild tricuspid regurgitation. 6.Dilated IVC with respiratory collapse consistent with elevated right atrial pressure. 7.Normal pericardium with no significant pericardial effusion. Electronically Signed By: Viola Colmenares 07-Sep-2017 07:35:55 -0700 Patient Name: GINGER ARSHAD Study Date: 06-Sep-2017 [id number]
[2017-09-07] MEDS: MEMANTINE 10 MG TAB PO SCH (09:10)
[2017-09-07] MEDS: MEGESTROL 40 MG TAB PO SCH (09:11)
[2017-09-07] MEDS: AMIODARONE 200 MG TAB PO SCH (09:11)
[2017-09-07] MEDS: FOLIC ACID 1 MG TAB PO SCH (09:11)
--- NOTE | 2017-09-07 09:25 | CONS ---
Date/Time of Note Date/Time of Note DATE: 09/07/17 TIME: 09:22 Consult Date/Type/Reason Admit Date/Time Sep 05, 2017 at 21:14 Initial Consult Date 09/06/17 Type of Consultation: card Ordering Provider: ADALBERTO HAMILTON Subjective CARDIOLOGY FOLLOW UP: S: D/w staff and rhythm was reviewed. pt remains in NSR but with frequent PVC. NO VT noted no cp or palpitations less dizzy,. d/w daughter. O: General: no acute distress HEENT: NC/AT. pupils are equal. round. NECK: NO JVD. no stridor. CV: bradycardic. systolic murmur; no gallop or rubs. PULM: no wheezing or rhonchi. GI: SOFT, NT, ND, no rebound or guarding Extremity: trace B/L LE edema. no clubbing. neuro: awake and alert, OX2. Psych: calm and pleasant rectal: deferred ECG NSR frequent PVCs with bigeminy Objective Vital Signs Date Time Temp Pulse Resp B/P Pulse Ox O2 Delivery O2 Flow Rate FiO2 09/07/17 07:52 98.3 69 17 145/82 96 09/06/17 11:48 Room Air Results/Medications Result Diagram: 09/06/17 0550 09/07/17 0745 Results 24 hrs Laboratory Tests Test 09/07/17 07:45 Sodium Level 144 Potassium Level 4.1 Chloride Level 114 H Carbon Dioxide Level 20 L Anion Gap 14 Blood Urea Nitrogen 14 Creatinine 0.98 Glucose Level 78 Calcium Level 8.9 Magnesium Level 1.8 Total Bilirubin 0.5 Direct Bilirubin 0.00 Indirect Bilirubin 0.5 Aspartate Amino Transf (AST/SGOT) 11 L Alanine Aminotransferase (ALT/SGPT) 26 Alkaline Phosphatase 49 Total Protein 6.3 Albumin 3.2 L Globulin 3.10 Albumin/Globulin Ratio 1.03 Thyroid Stimulating Hormone (TSH) 1.780 Free Thyroxine 1.58 Medications Current Medications Ondansetron HCl (Zofran Inj) 4 mg Q6H PRN IV NAUSEA AND/OR VOMITING; Start at 00:00 Acetaminophen (Tylenol Tab) 650 mg Q6H PRN PO PAIN LEVEL 1-3 OR FEVER; Start 09/06/17 at 00:00 Docusate Sodium (Colace) 100 mg Q12H PRN PO CONSTIPATION; Start 09/06/17 at 00 :00 Bisacodyl (Dulcolax) 5 mg DAILY PRN PO CONSTIPATION; Start 09/06/17 at 00:00 Pantoprazole (Protonix Iv) 40 mg DAILY@06 IV Last administered on 09/07/17 05: 57; Admin Dose 40 MG; Start 09/06/17 at 06:00 Folic Acid (Folic Acid) 1 mg DAILY PO Last administered on 09/07/17 09:11; Admin Dose 1 MG; Start 09/06/17 at 09:00 Megestrol Acetate (Megace) 40 mg TID PO Last administered on 09/07/17 09:11; Admin Dose 40 MG; Start 09/06/17 at 09:00 Memantine (Namenda) 10 mg BID PO Last administered on 09/07/17 09:10; Admin Dose 10 MG; Start 09/06/17 at 09:00 Amiodarone HCl (Cordarone) 200 mg BID PO Last administered on 09/07/17 09:11; Admin Dose 200 MG; Start 09/06/17 at 21:00 Assessment/Plan Chief Complaint/Hosp Course 1. BRADYCARDIA: due to frequent PVC/ventricular bigeminy 2. 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 3. Hypertension 4. Dementia 5. Possible Parkinson disease cont amiodarone p.o. to try to reduce the PVCs and bigeminy's. off of betabocker Electrolyte including potassium will be replaced prn Follow-up with neurology and neurosurgical recommendations. pt was scheduled to see me in office on 09/22/17 at 3;1`5 for follow up will f/u as outpt. ok to be discharged from cardiac stand point on amiodarone Thank you for his referral. I will continue to follow along with you. VIOLA GARAY MD [facility] Problems: VIOLA GARAY MD Sep 07, 2017 09:25
--- NOTE | 2017-09-07 10:46 | PDOCDIS ---
Discharge Instructions DIAGNOSIS Discharge Diagnosis Subdural hematoma CONDITION Patient Condition: Fair HOME CARE INSTRUCTIONS: Special Diet: Regular FOLLOW UP/APPOINTMENTS Follow-up Plan Follow up with primary care doctor within the next 1-2 weeks Return to the hospital if any concerning symptoms Stop taking aspirin or any blood thinners until you speak with your primary doctor and neurologist RONY AGUILA MD Sep 07, 2017 10:46
--- NOTE | 2017-09-07 12:37 | CONS ---
Date/Time of Note Date/Time of Note DATE: 09/07/17 TIME: 12:36 Assessment/Plan Assessment/Plan Additional Assessment/Plan Date of consultation: 09/06/2017 Requesting physician: Dr. Best with the emergency department Consultation service: Neurosurgery This 86-year-old male with past medical history significant for dementia, bradycardia, hypertension who was brought to the emergency room yesterday because the patient "was sleepy" according to the patient's daughter and . The daughter tells me that her dad is now back to his baseline. He can walk around the house without any assistance or walker. He has had some difficulty with his balance but that has been unchanged for the past number of months. When I asked the daughter that I was told that her dad has had multiple falls recently, the daughter tells me that the patient has only had "2 falls" over the past several months. The patient's daughter and deny noticing any focal weakness with the patient. He has not had any loss of consciousness, convulsions or seizures. They are asking whether they are able to take her dad home today. Past medical history: Please see above plus BPH Surgical history: Bilateral cataract surgery Social history: According to the family the patient does not smoke tobacco, does not drink alcoholic beverages and does not use illicit or recreational drugs. Family history: Noncontributory Allergies: No known drug allergies Review of systems: The patient is trached at this time and unable to speak. There have been no reported history of seizures. Physical examination: The patient is seen at bedside next to his family members including his and daughter. He is Singaporean speaking only. He is awake and alert and looks around. He looks comfortable. He has a flat affect. His face is symmetric. The patient is oriented to his name and place only. The patient is able to move his upper and lower extremities with a strength of at least 4 out of 5 bilaterally and equally. Muscle bulk is normal bilateral upper and lower extremities. Patient has some rigidity of bilateral upper extremities. There is a resting tremor of his upper extremities. Deep tendon reflexes are 1+ bilateral upper and lower extremities. Sensation to light touch appears to be grossly normal bilateral upper and lower extremities. Gait testing has been deferred per family's request. Imaging: The patient has a CT of the head without contrast that shows some cerebral atrophy. 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 There is mild effacement of the sulci on the right. He has no significant right to left midline shift. Basal cisterns are open. Assessment/plan: This is an elderly male with baseline history of dementia who lives at home with one of his daughters. The patient has had reportedly difficulty with his balance and 2 falls most recently. On examination the patient does have some signs and symptoms of possible Parkinson's disease that has also been alluded to in the neurology consult. The patient's bilateral extra-axial fluid collections likely chronic subdural hematomas greater on the right and left can further contribute to the patient's decreased balance. I have discussed with the patient's family about possible benefit from lilia hole craniectomy for evacuation of the subdural hematomas. However the patient's family tells me that they feel that the patient is currently at his baseline and the reason that they brought him in which was mostly related to him being sleepy yesterday has now resolved. They would like to take him home as soon as possible. I have relayed this information to the patient's nurse so that they can also contact the admitting hospitalist as well. Since the patient's family does not wish any acute neurosurgical intervention at this time, the patient can be discharged from a neurosurgical perspective. The patient can follow-up with neurosurgery in the next 2-3 weeks for reassessment and to rediscuss whether the patient can benefit from the evacuation of the chronic subdural hematoma especially on the right side. If the patient's neurologic exam does change the patient's family is to bring him back to the emergency department as soon as possible. GLORIA WISEMAN MD Sep 07, 2017 12:37
--- NOTE | 2017-09-07 15:57 | DS ---
Date/Time of Note Date/Time of Note DATE: 09/07/17 TIME: 15:56 Discharge Summary Admission/Discharge Info Admit Date/Time Sep 05, 2017 at 21:14 Discharge Date/Time Sep 07, 2017 at 14:00 Discharge Diagnosis Subdural hematoma Hx of Present Illness cc: weakness, dizziness x 2 weeks. PCP: Dr. Camp This is an 86-year-old male here for generalized weakness and dizziness. He is here with his daughter who states that for the past 2 weeks is progressively getting worse. She says she has been feeling bad for 2 months now. The past 2 weeks however, he is getting gradually more weak to the point where today he has a hard time walking because he feels so weak and and off-balance. Of note the daughter does state that the patient approximately fell 3 weeks ago, but it was unwittnessed. She said is not eating that well and does not have much water intake as well. She says she thinks his urine output is going lower as well. He is having off-and-on headaches at times but none now. No chest pain or shortness of breath no cough no dysuria. No abdominal pain. The patient says he feels generalized weakness and dizziness when he stands and walks it feels like his legs might give out. The patient walks on his own without a walker. No recent falls. No focal neurological complaints. Allergies: NKDA Medications: See [facility] Hospital Course 1. BRADYCARDIA: due to frequent PVC/ventricular bigeminy 2. 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 3. Hypertension 4. Dementia 5. Possible Parkinson disease cont amiodarone p.o. to try to reduce the PVCs and bigeminy's. off of betabocker Electrolyte including potassium will be replaced prn Follow-up with neurology and neurosurgical recommendations. pt was scheduled to see me in office on 09/22/17 at 3;1`5 for follow up will f/u as outpt. ok to be discharged from cardiac stand point on amiodarone Thank you for his referral. I will continue to follow along with you. VIOLA GARAY MD [facility] The pateint was found to have a chronic SDH. He was evaluated by Hugh Nayak and [place] who decided there was no need for acute surgical intervention. He was discharged with instruction to follow up with neurology and neurosurgery for further management of this problem Home Meds Reported Medications Megestrol Acetate* (Megestrol Acetate*) 40 Mg Tablet, 40 MG PO TID, TAB 09/05/17 Finasteride* (Finasteride*) 5 Mg Tablet, 5 MG PO DAILY, TAB 09/05/17 Gemfibrozil* (Gemfibrozil*) 600 Mg Tablet, 600 MG PO DAILY, TAB 09/05/17 Memantine* (Namenda* XR) 28 Mg Cap.spr.24, 28 MG PO DAILY, #30 TAB 09/05/17 Discontinued Reported Medications Metoprolol Succinate* (Toprol XL*) 25 Mg Tab.sr.24h, 25 MG PO DAILY, #30 TAB 09/05/17 Folic Acid* (Folic Acid*) 1 Mg Tablet, 1 MG PO DAILY, TAB 09/05/17 Aspirin/Dipyridamole (Aspirin-Dipyridam ER 25-200 mg) 1 Each Cpmp.12hr, 1 EACH PO BID, CAP 09/05/17 Follow-up Plan Follow up with primary care doctor within the next 1-2 weeks Return to the hospital if any concerning symptoms Stop taking aspirin or any blood thinners until you speak with your primary doctor and neurologist Primary Care Provider Care Physician No Primary Pending Labs Laboratory Tests Test 09/07/17 07:45 Sodium Level 144mmol/L (135-144) Potassium Level 4.1mmol/L (3.5-5.1) Chloride Level 114mmol/L (97-110) Carbon Dioxide Level 20mmol/L (21-31) Anion Gap 14 (8-16) Blood Urea Nitrogen 14mg/dl (7-20) Creatinine 0.98mg/dl (0.61-1.24) Glucose Level 78mg/dl (70-220) Calcium Level 8.9mg/dl (8.4-10.2) Magnesium Level 1.8mg/dl (1.7-2.5) Total Bilirubin 0.5mg/dl (0.2-1.3) Direct Bilirubin 0.00mg/dl (0.00-0.20) Indirect Bilirubin 0.5mg/dl (0-1.1) Aspartate Amino Transf (AST/SGOT) 11IU/L (15-46) Alanine Aminotransferase (ALT/SGPT) 26IU/L (13-69) Alkaline Phosphatase 49IU/L (42-121) Total Protein 6.3g/dl (6.1-8.1) Albumin 3.2g/dl (3.3-4.9) Globulin 3.10g/dl (1.3-3.2) Albumin/Globulin Ratio 1.03 Thyroid Stimulating Hormone (TSH) 1.780MIU/L (0.465-4.680) Free Thyroxine 1.58ng/dl (0.85-1.93) RONY AGUILA MD Sep 07, 2017 15:57
[2017-09-07] MEDS ORDERED: AMIO100T4 PO ×2 (16:14→16:16)
[2017-09-08] MEDS ORDERED: PANTOPRAZOLE (EC) 40 MG TAB PO SCH (06:00)
== END 2017-09-07 14:00 | disposition home or self-care (01) | DRG 87 ==
LOC: E/R 17:10 → UNDOADMIN 21:14 → MS3 21:14 → TEL 09-06 19:20
PROVIDERS: ADMIT Family Medicine; ATTEND Family Medicine
DX: S06.5X0A Traumatic subdural hemorrhage without loss of consciousness, initial encounter (principal); G20 Parkinson's disease; F03.90 Unspecified dementia, unspecified severity, without behavioral disturbance, psychotic disturbance, mood disturbance, and anxiety; R00.1 Bradycardia, unspecified; I10 Essential (primary) hypertension; I49.3 Ventricular premature depolarization; R27.8 Other lack of coordination; W18.30XA Fall on same level, unspecified, initial encounter; Y92.009 Unspecified place in unspecified non-institutional (private) residence as the place of occurrence of the external cause
CPT/HCPCS: 36415; 70450; 70544; 71010; 80053; 80061; 81001; 83036; 83735; 84439; 84443; 84484; 85014; 85018; 85025; 85610; 85730; 93005; 93306; 96374; C9113; J7030

== ENCOUNTER 2019-04-03 10:03 | Inpatient (IN) | payer MEDICARE, OTHER ==
[~2019-04-03] VITALS: Ht 170.2 cm; Wt 67.2 kg
[~2019-04-03 10:03] MED LIST: AMIO100T4 PO; FINA5TAB4 PO; GEMF600T8 PO; MEGE40TA2 PO; MEMA28CA PO
[2019-04-03 13:15] VITALS: BP 123/69; PULSE 78; RESP 20
[2019-04-03] MEDS ORDERED: AMAN100C96 PO (15:04)
[2019-04-03] MEDS ORDERED: DONE10TA7 PO (15:04)
[2019-04-03] MEDS ORDERED: RAMI2.5C36 PO (15:04)
[2019-04-03] MEDS ORDERED: FOLI-49 PO (15:04)
[2019-04-03] MEDS ORDERED: SIN50200 PO (15:04)
--- NOTE | 2019-04-03 15:07 | HP ---
Date/Time of Note Date/Time of Note DATE: 04/03/19 TIME: 14:55 Assessment/Plan VTE Prophylaxis SCD contraindicated: other (on.) Pharmacological prophylaxis: other (Will hold until GI procedures done.) Lines/Catheters IV Catheter Type (from Nrs): Peripheral IV Central line still needed: No Urinary Cath still in place: No Reason Cath still needed: urinary retention Assessment/Plan Assessment/Plan 1. Melena last 7 days on and off still continues. 2. Weight loss more than 15 pounds during the last 2 months 3. Status post fall due to the severe weakness deconditioning and muscular wasting 4. Anemia chronic disease with a recent loss 5. Status post right-sided school trepanation with removal of subdural hematoma in the [facility] about 1/2 years ago. Patient had a subdural hematoma on the left side to which was not peak and it was not removed.6. 6. Ischemic heart disease angina. 7. Unstable gait with recurrent episodes of fall. 8. Deconditioning 9. Status post cataract ectomy 10. Constant snacking and chewing movements involuntarily being unable to stop mainly during last 3-4 months. 11. Bradycardia with history of syncopal episodes 12 osteoporosis and osteoarthritis 13. Dizziness 14. Hearing impairment 15. Dysphagia on and off 16. BPH with episodes of urinary incontinence 17. Dyslipidemia HPI/ROS Admit Date/Time Admit Date/Time April 03, 2019 at 12:57 Hx of Present Illness Melena. Diarrhea. Weight loss. Altered level of consciousness on and off. Unable to get up. History of falls. I was called by his for patient that the patient can come to the office if I can see him at home. I made a home visit on Tuesday and found the patient being sitting in arm chair being weak fatigued with poor concentration. According to the and daughter of patient the patient had a dark stool for the last week including the day where he was there. Positive for anorexia nausea however no vomiting. The patient had multiple other medical problems please see the problem list, I have decided to admit the patient mainly secondary to establishing the cause of upper GI bleeding change of mental status anemia and because of her recurrent falls. ROS Subjective hx not possible: other (Most information is taken from the and the daughter with patient he is able to provide only limited information with being a very pleasant respectful man.) Constitutional: fatigue, nausea, poor po, weight change; No no complaints, No improved, No chills, No diaphoresis, No disoriented, No febrile, No other Eyes: redness (Paleness.); No no complaints, No pain, No discharge, No visual change, No other ENT: bleeding, congestion, dysphagia; No no complaints, No pain, No discharge, No sore throat, No other Respiratory: cough, pleuritic pain, shortness of breath; No no complaints, No pain, No sputum, No wheezing, No other Cardiovascular: chest pain, edema, lightheadedness, orthopenea, palpitations; No no complaints, No paroxysmal nocturnal dyspnea, No other Gastrointestinal: blood (In the form of melena.), diarrhea, flatus, nausea, passing stool, vomiting; No no complaints, No pain, No constipation, No decreased appetite, No other Genitourinary: dysuria; No no complaints, No bleeding, No discharge, No flank pain, No hematuria, No other Musculoskeletal: back pain, bone/joint pain, neck pain; No no complaints, No restricted range of motion, No swelling, No other Skin: No no complaints, No bruising, No erythema, No laceration, No pruritis, No rash, No skin lesions, No other Neurologic: dizziness, headache, syncope; No no complaints, No confusion, No focal-weakness, No seizure, No other Endocrine: polyuria, polydypsia; No no complaints, No dry skin, No temp intolerance, No weight change, No other Lymphatic: No no complaints, No adenopathy, No tender nodes, No lymphadema, No other Psychological: anxiety, other (Forgetful depressed.); No no complaints, No nl mood/affect, No confusion, No depression, No suicidal Immunologic: No no complaints, No immunodeficiency, No pruritis, No rhinitis, No urticaria, No other PMH/Family/Social Past Medical History Medical History: angina, congestive heart failure, coronary artery disease, GERD, GI bleed, hepatitis, high cholesterol, hypertension, peptic ulcer disease, urinary tract infection Coded Allergies: No Known Allergy (Unverified , 09/05/17) Past Surgical History Past Surgical Hx: other (Status post cataract ectomy. Status post right temporoparietal trepanation and removal of subdural hematoma.) Family History Significant Family History: no pertinent family hx, heart disease, COPD, hypertension Social History Alcohol Use: none Smoking Status: Former smoker Drug Use: none Exam/Review of Systems Vital Signs Vitals Vital Signs Date Temp Pulse Resp B/P (MAP) Pulse Ox O2 O2 Flow FiO2 Time Delivery Rate 04/03/19 98.3 78 20 123/69 98 13:15 (87) Exam Constitutional: alert, oriented (Not in time.), well developed, non-verbal, distress, frail, other Psych: anxiety; No no complaints, No nl mood/affect, No confusion, No depression, No suicidal, No other Head: normocephalic, atraumatic; No lacerations, No hematomas, No other Eyes: PERRL; No nl conjunctiva, No nl lids, No nl sclera, No icteric, No fundi, disc, No other ENMT: nl external ears & nose; No nl lips & teeth, No nl nasal mucosa & septum, No mucosa pink and moist, No intubated, No tympanic membranes, No other Neck: jvd, bruits, thyromegaly, nuchal rigidity; No supple, No non-tender, No masses, No other Respiratory: clear to auscultation, normal air movement, diminished breath sounds; No congested cough, No crackles/rales, No intercostal retraction, No labored breathing, No respirations, No tactile fremitus, No wheezing, No other Cardiovascular: regular rate and rhythm, bruits, edema, jugular venous distention (JVD), systolic murmur Gastrointestinal: soft, ascites; No nl liver, spleen, No non-tender, No bowel sounds, No distended, No firm, No hepatomegaly, No mass, No rebound or guarding, No splenomegaly, No surgical scars, No tender, No other Genitourinary - Male: nl penis, nl scrotum Musculoskeletal: joint tenderness, muscle tone, muscle weakness; No nl extremities to inspection, No nl gait and stance, No range of motion, No spine non-tender, No swelling, No other Extremities: normal pulses; No calf tenderness, No cyanosis, No clubbing, No edema, No pitting pedal edema, No palpable cord, No tenderness, No other 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: RIB[employer] IN[employer] II-XII intact, numbness; No nl mental status, No nl speech, No nl strength, No confused, No DTR's symmetric, No focal weakness, No lethargic, No reflexes, No unresponsive, No other Skin: nl turgor; No rash or lesions, No diaphoresis, No ecchymosis, No laceration, No puncture, No other Lymph: No nl lymph nodes, No enlarged, No nontender, No other BROOKLYNN OCASIO MD April 03, 2019 15:06
[2019-04-03 15:15] VITALS: Ht 170.2 cm; Wt 67.2 kg
[2019-04-03] MEDS ORDERED: BARIUM SULF 2% 450 ML BTL (BERRY SMOOTHIE) PO ONE (16:30)
--- NOTE | 2019-04-03 18:46 | CONS ---
DATE OF ADMISSION: 04/03/2019 DATE OF CONSULTATION: 04/03/2019 HISTORY OF PRESENT ILLNESS: An 88-year-old gentleman was admitted directly from home for altered lev el of consciousness and passing black colored stool for the last 3 to 4 days. The patient also is an orexic and lost significant weight. 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 No nausea, no vomiting. PAST MEDICAL HISTORY: He had evacuation of the subdural hematoma, unstable gait with recurrent falls , ischemic heart disease, hearing impairment, BPH, dyslipidemia. ALLERGIES: NONE. REVIEW OF SYSTEMS: As per the and daughter by the side of the patient, no much information is g athered other than what is described in the history of present illness. SOCIAL HISTORY: Former smoker, does not drink. No recreational drug. PHYSICAL EXAMINATION: GENERAL: Alert, awake, not in distress. VITAL SIGNS: Stable. HEENT: Unremarkable. NECK: Supple, no thyromegaly, no lymphadenopathy. CARDIOVASCULAR: No murmur, gallop or click. LUNGS: Clear. ABDOMEN: Benign. EXTREMITIES: No edema. CENTRAL NERVOUS SYSTEM: Grossly within normal limits. LABORATORY DATA: The patient is a direct admit. No lab is available at this point. IMPRESSION: 1. stool. 2. Weakness. 3. Weight loss of 15 pounds. 4. Anorexia. 5. Status post subdural hematoma evacuation. 6. Intermittent dysphagia. 7. Benign prostatic hypertrophy. 8. Gastrectomy. 9. Unstable gait. 10. Ischemic heart disease. PLAN: At this point, is to continue with PPI, review the labs, monitor hemoglobin and hematocrit and will proceed with EGD. Dictated By: WADE HARRIS/ROCK Conf#: [id number] DID#: [id number] CC: BROOKLYNN OCASIO MD;*EndCC*
[2019-04-03] MEDS ORDERED: SOD CHLORIDE 0.9% 100 ML ONE (19:27)
[2019-04-03] MEDS ORDERED: IODIXANOL LOCM 100 ML BTL ONE (19:27)
[2019-04-03 20:28] VITALS: BP 159/77; PULSE 72; RESP 18
[2019-04-03] MEDS: PANTOPRAZOLE 40 MG INJ IV SCH (20:36)
[2019-04-04] VITALS (12 sets, daily range): BP systolic 113–162; BP diastolic 61–74; PULSE 60–73; RESP 10–23
[2019-04-04] MEDS: LEVETIRACETAM 250 MG TAB PO SCH ×3 (00:11→20:13)
[2019-04-04] MEDS: DEXTROSE 5%-0.9% NACL 1,000 ML IV SCH (06:23)
[2019-04-04] MEDS: PANTOPRAZOLE 40 MG INJ IV SCH ×2 (06:28→17:06)
[2019-04-04] MEDS ORDERED: LIDOCAINE 2% (SDV) 5 ML INJ ONE (07:00)
--- NOTE | 2019-04-04 07:28 | PN ---
Date/Time of Note Date/Time of Note DATE: 04/04/19 TIME: 07:20 Assessment/Plan VTE Prophylaxis Risk score (from Ns)>0 risk: 5 SCD applied (from [facility]): Yes SCD contraindicated: other (on.) Pharmacological prophylaxis: other (no) Lines/Catheters IV C[facility]ter Type (from [facility] [place] [employer] line still needed: No Urinary Cath still in place: No Reason Cath still needed: urinary retention Assessment/Plan Assessment/Plan 1. Melena last 7 days on and off still continues. 2. Weight loss more than 15 pounds during the last 2 months 3. Status post fall due to the severe weakness deconditioning and muscular wasting 4. Anemia chronic disease with a recent loss-iron level 28. 5. Status post right-sided adal trepanation with removal of subdural hematoma in the [facility] about 1/2 years ago. Patient had a subdural hematoma on the left side too.New on the top of the old subdural hematoma onthe right on mri. 6. Ischemic heart disease angina. 7. Unstable gait with recurrent episodes of fall. 8. Deconditioning 9. Status post cataract ectomy 10. Constant snacking and chewing movements involuntarily being unable to stop mainly during last 3-4 months. 11. Bradycardia with history of syncopal episodes 12 osteoporosis and osteoarthritis 13. Dizziness 14. Hearing impairment 15. Dysphagia on and off 16. BPH with episodes of urinary incontinence 17. Dyslipidemia 18.S/p left clavicular FX(old, healed). Result Diagram: 04/03/19181804/03/191818 Results 24hrs Laboratory Tests Test 04/03/19 18:19 04/03/19 20:30 White Blood Count 6.3 Red Blood Count 3.63 L Hemoglobin 10.9 L Hematocrit 34.5 L Mean Corpuscular Volume 95.0 Mean Corpuscular Hemoglobin 30.0 Mean Corpuscular Hemoglobin Concent 31.6 L Red Cell Distribution Width 14.0 Platelet Count 204 # Mean Platelet Volume 9.1 Immature Granulocytes % 0.300 Neutrophils % 61.0 Lymphocytes % 21.3 Monocytes % 8.1 Eosinophils % 8.7 H Basophils % 0.6 Nucleated Red Blood Cells % 0.0 Immature Granulocytes # 0.020 Neutrophils # 3.9 Lymphocytes # 1.4 Monocytes # 0.5 Eosinophils # 0.6 H Basophils # 0.0 Nucleated Red Blood Cells # 0.0 Prothrombin Time 13.7 Prothrombin Time Ratio 1.1 INR International Normalized Ratio 1.04 Sodium Level 140 Potassium Level 4.3 Chloride Level 107 Carbon Dioxide Level 26 Anion Gap 7 Blood Urea Nitrogen 16 Creatinine 1.15 Est Glomerular Filtrat Rate mL/min Glucose Level 89 Calcium Level 8.8 Magnesium Level 2.1 Iron Level 28 L Total Iron Binding Capacity 238 L Percent Iron Saturation 12 L Total Bilirubin 0.5 Direct Bilirubin 0.00 Indirect Bilirubin 0.5 Aspartate Amino Transf (AST/SGOT) 10 L Alanine Aminotransferase (ALT/SGPT) 9 L Alkaline Phosphatase 71 Total Protein 6.5 Albumin 3.5 Globulin 3.00 Albumin/Globulin Ratio 1.16 Carcinoembryonic Antigen 0.9 Prostate Specific Antigen 0.9 Thyroid Stimulating Hormone (TSH) 2.530 Urine Color STRAW Urine Clarity CLEAR Urine pH 6.0 Urine Specific [place] 1.008 Urine Ketones NEGATIVE Urine Nitrite NEGATIVE Urine Bilirubin NEGATIVE Urine Urobilinogen NEGATIVE Urine Leukocyte Esterase NEGATIVE Urine Microscopic RBC 1 Urine Microscopic WBC 0 Urine Hemoglobin 1+ H Urine Glucose NEGATIVE Urine Total Protein NEGATIVE Subjective 24 Hr Interval Summary Free Text/Dictation Weakness. Forgetfulness. Constitutional: improved, poor po, requiring O2; No no complaints, No chills, No diaphoresis, No disoriented, No febrile, No requiring IVF, No other Eyes: No no complaints, No pain, No discharge, No redness, No visual change, No other ENT: No no complaints, No bleeding, No pain, No congestion, No discharge, No dysphagia, No sore throat, No other Respiratory: pleuritic pain; No no complaints, No pain, No cough, No shortness of breath, No sputum, No wheezing, No other Cardiovascular: chest pain, orthopenea; No no complaints, No edema, No lightheadedness, No palpitations, No paroxysmal nocturnal dyspnea, No other Gastrointestinal: No no complaints, No pain, No blood, No constipation, No decreased appetite, No diarrhea, No flatus, No nausea, No passing stool, No vomiting, No other Genitourinary: dysuria; No no complaints, No bleeding, No discharge, No flank pain, No hematuria, No other Musculoskeletal: back pain, bone/joint pain; No no complaints, No neck pain, No restricted range of motion, No swelling, No other Neurologic: confusion, dizziness; No no complaints, No focal-weakness, No headache, No syncope, No seizure, No other Exam/Review of Systems Exam Vitals Vital Signs Date Temp Pulse Resp B/P (MAP) Pulse Ox O2 O2 Flow FiO2 Time Delivery Rate 04/04/19 98.4 73 18 126/61 97 01:32 (82) Constitutional: alert, oriented ( in time and place on and off.), well developed, frail; No non-verbal, No distress, No obese, No other Psych: anxiety, confusion (on and off.); No no complaints, No nl mood/affect, No depression, No suicidal, No other Head: normocephalic, atraumatic Eyes: EOMI, nl lids, PERRL, icteric (pale.); No nl conjunctiva, No nl sclera, No fundi, disc, No other ENMT: nl external ears & nose, nl lips & teeth (dentures.), nl nasal mucosa & septum, tympanic membranes; No mucosa pink and moist, No intubated, No other Neck: bruits, nuchal rigidity; No supple, No non-tender, No jvd, No masses, No thyromegaly, No other Respiratory: clear to auscultation, diminished breath sounds; No normal air movement, No congested cough, No crackles/rales, No intercostal retraction, No labored breathing, No respirations, No tactile fremitus, No wh eezing, No other Cardiovascular: regular rate and rhythm, nl pulses, bruits, systolic murmur; No diastolic murmur, No edema, No gallop, No irregular rhythm, No jugular venous distention (JVD), No murmurs/extra sounds, No rub, No S3, No S4, No other Gastrointestinal: soft, nl liver, spleen, bowel sounds, distended; No non-tender, No ascites, No firm, No hepatomegaly, No mass, No rebound or guarding, No splenomegaly, No surgical scars, No tender, No other Genitourinary - Male: nl penis, nl scrotum; No CVA tenderness, No discharge, No other Musculoskeletal: nl extremities to inspection, joint tenderness, muscle tone, muscle weakness Extremities: normal pulses; No calf tenderness, No cyanosis, No clubbing, No edema, No pitting pedal edema, No palpable cord, No tenderness, No other 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: NEWSPAPER OR PERIODICAL EDITOR II-XII intact (hearing impairment.), confused; No nl mental status, No nl speech, No nl strength, No DTR's symmetric, No focal weakness, No lethargic, No numbness, No reflexes, No unresponsive, No other Skin: nl turgor (decreased.); No rash or lesions, No diaphoresis, No ecchymosis, No laceration, No puncture, No other Lymph: nl lymph nodes; No enlarged, No nontender, No other Results Results 24hrs Laboratory Tests Test 04/03/19 18:19 04/03/19 20:30 White Blood Count 6.3 Red Blood Count 3.63 L Hemoglobin 10.9 L Hematocrit 34.5 L Mean Corpuscular Volume 95.0 Mean Corpuscular Hemoglobin 30.0 Mean Corpuscular Hemoglobin Concent 31.6 L Red Cell Distribution Width 14.0 Platelet Count 204 # Mean Platelet Volume 9.1 Immature Granulocytes % 0.300 Neutrophils % 61.0 Lymphocytes % 21.3 Monocytes % 8.1 Eosinophils % 8.7 H Basophils % 0.6 Nucleated Red Blood Cells % 0.0 Immature Granulocytes # 0.020 Neutrophils # 3.9 Lymphocytes # 1.4 Monocytes # 0.5 Eosinophils # 0.6 H Basophils # 0.0 Nucleated Red Blood Cells # 0.0 Prothrombin Time 13.7 Prothrombin Time Ratio 1.1 INR International Normalized Ratio 1.04 Sodium Level 140 Potassium Level 4.3 Chloride Level 107 Carbon Dioxide Level 26 Anion Gap 7 Blood Urea Nitrogen 16 Creatinine 1.15 Est Glomerular Filtrat Rate mL/min Glucose Level 89 Calcium Level 8.8 Magnesium Level 2.1 Iron Level 28 L Total Iron Binding Capacity 238 L Percent Iron Saturation 12 L Total Bilirubin 0.5 Direct Bilirubin 0.00 Indirect Bilirubin 0.5 Aspartate Amino Transf (AST/SGOT) 10 L Alanine Aminotransferase (ALT/SGPT) 9 L Alkaline Phosphatase 71 Total Protein 6.5 Albumin 3.5 Globulin 3.00 Albumin/Globulin Ratio 1.16 Carcinoembryonic Antigen 0.9 Prostate Specific Antigen 0.9 Thyroid Stimulating Hormone (TSH) 2.530 Urine Color STRAW Urine Clarity CLEAR Urine pH 6.0 Urine Specific [place] 1.008 Urine Ketones NEGATIVE Urine Nitrite NEGATIVE Urine Bilirubin NEGATIVE Urine Urobilinogen NEGATIVE Urine Leukocyte Esterase NEGATIVE Urine Microscopic RBC 1 Urine Microscopic WBC 0 Urine Hemoglobin 1+ H Urine Glucose NEGATIVE Urine Total Protein NEGATIVE Medications Medication Current Medications Pantoprazole (Protonix Iv) 40 mg BID@06,18 IV Last administered on 04/04/19at 06:28; Admin Dose 40 MG; Start 04/03/19 at 20:00 Levetiracetam (Keppra) 250 mg BID PO Last administered on 04/04/19at 00:11; Admin Dose 250 MG; Start 04/03/19 at 23:30 Dextrose/Sodium Chloride 1,000 ml @ 50 mls/hr Q20H IV Last administered on at 06:23; Admin Dose 50 MLS/HR; Start 04/04/19 at 06:00 BROOKLYNN OCASIO MD April 04, 2019 07:28
--- NOTE | 2019-04-04 08:54 | RADRPT ---
Vent Rate: 68 bpm RR Interval: 880 msec VA Interval: 154 msec QRS Duration: 90 msec QT Interval: 516 msec QTC Interval: 550 msec P-R-T [place]: 19 - -31 - 33 degrees Sinus rhythm. with PVC, Ventricular trigeminy... Left axis deviation... Low voltage, precordial leads...precordial leads <1.0mV Consider anterior infarct...Q >30mS in V2-V5 Prolonged QT interval...QTc >500mS ABNORMAL ECG Electronically Signed By: Desmond Colmenares
--- NOTE | 2019-04-04 11:56 | PREAC ---
Date/Time of Note Date/Time of Note DATE: 04/04/19 TIME: 11:53 Anesthesia Eval and Record Evaluation Time Pre-Procedure Interview DATE: 04/04/19 TIME: 11:53 Age 88 Sex male NPO: 8 hrs Preoperative diagnosis MELENA, WEIGHT LOSS, DYSPHAGIA Planned procedure EGD Past Medical History Past Medical History: Includes Cardio: Dyslipidemia, Other (ISCHEMIC HEART DISEASE, EF 45%, MILD LV DYSFUNCTION ) Neuro: Other (S/P SUBDURAL HEMATOMA EVACUATION ) Musculoskeletal: Other (GENERALIZED WEAKNESS ) Renal: BPH GI: Other (ANOREXIA) Surgery & Anesthesia Issues No known issue Meds Anticoagulation: No Beta Mayur within 24 hr: No Reason Beta Mayur not given: Pt. not on B-Mayur Active Scripts Amiodarone Hcl* (Amiodarone Hcl*) 100 Mg Tablet, 100 MG PO DAILY, #30 TAB Prov:RONY AGUILA MD 09/07/17 Reported Medications Amantadine Hcl* (Amantadine Hcl*) 100 Mg Capsule, 100 MG PO BID, #60 CAP 04/03/19 Carbidopa-Levodopa* (Sinemet CR*) 50-200 Mg Tabsr, 1 TAB PO TID, TAB 04/03/19 Folic Acid* (Folic Acid*) 1 Mg Tablet, 1 MG PO DAILY, TAB 04/03/19 Donepezil* (Donepezil*) 10 Mg Tablet, 10 MG PO DAILY, #30 TAB 04/03/19 Ramipril (Ramipril) 2.5 Mg Capsule, 2.5 MG PO DAILY, CAP 04/03/19 Megestrol Acetate* (Megestrol Acetate*) 40 Mg Tablet, 40 MG PO TID, TAB 09/05/17 Finasteride* (Finasteride*) 5 Mg Tablet, 5 MG PO DAILY, TAB 09/05/17 Gemfibrozil* (Gemfibrozil*) 600 Mg Tablet, 600 MG PO DAILY, TAB 09/05/17 Memantine* (Namenda* XR) 28 Mg Cap.spr.24, 28 MG PO DAILY, #30 TAB 09/05/17 Current Medications Pantoprazole (Protonix Iv) 40 mg BID@06,18 IV Last administered on 04/04/19at 06:28; Admin Dose 40 MG; Start 04/03/19 at 20:00 Levetiracetam (Keppra) 250 mg BID PO Last administered on 04/04/19at 00:11; Admin Dose 250 MG; Start 04/03/19 at 23:30 Dextrose/Sodium Chloride 1,000 ml @ 50 mls/hr Q20H IV Last administered on 04/04/19at 06:23; Admin Dose 50 MLS/HR; Start 04/04/19 at 06:00 Ferric Sodium Gluconate Complex 125 mg/Sodium Chloride 100 ml @ 100 mls/hr DAILY@1300 IVPB ; Start 04/04/19 at 13:00; Stop 04/06/19 at 13:59 Meds reviewed: Yes Allergies Coded Allergies: No Known Allergy (Unverified , 09/05/17) Allergies Reviewed: Yes Labs/Studies Labs Reviewed: Reviewed by anesthesiologist Result Diagram: 04/03/19 1819 04/03/191818 Laboratory Tests 04/03/19 18:19 test: N/A Studies: ECG, 2D Echo (2016) Pre-procedure Exam Last vitals Vital Signs Date Temp Pulse Resp B/P (MAP) Pulse Ox O2 O2 Flow FiO2 Time Delivery Rate 04/04/19 98.3 60 17 132/63 97 Room Air 07:57 (86) Airway: Adequate mouth opening, Adequate thyromental dist Mallampati: Mallampati II Teeth: Normal Lung: Normal Heart: Normal ASA Physical Status ASA physical status: 3 Emergency: E Planned Anesthetic General/MAC: MAC, TIVA Planned Pain Management Parenteral pain med Pre-operative Attestations Prior to commencing anesthesia and surgery, the patient was re-evaluated, there was verification of: *The patient's identity *The results of appropriate recent lab work and preoperative vital signs *The above evaluation not changing prior to induction *Anesthetic plan, risk benefits, alternative and complications discussed with patient/family; questions answered; patient/family understands, accepts and wishes to proceed. RICK MARQUIS April 04, 2019 11:56
[2019-04-04] MEDS ORDERED: PROPOFOL 20 ML ONE (12:23)
--- NOTE | 2019-04-04 13:15 | PAC ---
Date/Time of Note Date/Time of Note DATE: 04/04/19 TIME: 13:15 Post-Anesthesia Notes Post-Anesthesia Note Last documented vital signs Vital Signs Date Temp Pulse Resp B/P (MAP) Pulse Ox O2 O2 Flow FiO2 Time Delivery Rate 04/04/19 62 18 136/71 100 Nasal 2.0 13:10 (92) Cannula 04/04/19 97.9 13:00 Activity: WNL Respiratory function: WNL Cardiovascular function: WNL Mental status: Baseline Pain reasonably controlled: Yes Hydration appropriate: Yes Nausea/Vomiting absent: Yes RICK MARQUIS April 04, 2019 13:15
[2019-04-04] MEDS ORDERED: ONDANSETRON 4 MG INJ IV PRN (13:30)
[2019-04-04] MEDS ORDERED: FENTAnyl 50 MCG/ML VIAL IV PRN ×3 (13:30)
[2019-04-04] MEDS: SOD FERRIC GLUC COMPLX 125 MG in SOD CHLORIDE 0.9% 100 ML IVPB SCH (14:50)
--- NOTE | 2019-04-04 15:48 | CONS ---
DATE OF ADMISSION: 04/03/2019 DATE OF CONSULTATION: HISTORY OF PRESENT ILLNESS: The patient is 88 years old who has a past medical history of subdural h ematoma about 6 months ago in which the patient went to [facility], in which the patient was admitted to the hospital with acute dizzy spells, GI bleed, weight loss, several falls in the last f ew weeks with muscle wasting, anemia, ischemic heart disease, syncopal attack, dizziness. MEDICATIONS: Include: 1. Protonix 40 mg IV once a day. 2. IV fluid. 3. Sodium chloride as needed. 4. Valium as needed prior to CT scan. The patient is accompanied by his family today. SOCIAL HISTORY: The patient does not smoke. He is a former smoker, does not drink, does not use any street drugs. FAMILY HISTORY: Notable for heart disease. No history of hypertension, COPD or heart disease. PAST SURGICAL HISTORY: Status post cataract surgery, right temporoparietal subdural hematoma removal . PAST MEDICAL HISTORY: Includes angina, congestive heart failure, coronary artery disease, GERD, GI b leed, hepatitis, hypercholesterolemia, hypertension, peptic ulcer disease, urinary tract infection. PHYSICAL EXAMINATION: NEUROLOGIC: The patient is alert, awake and follows simple commands; however, difficult to follow se cond or third-step commands. CRANIAL NERVES: Cranial nerve II: Pupils are equal both sides, reactive to light. Cranial nerves I II, IV and : Extraocular muscles are intact without nystagmus. Cranial nerve V: Equal sensation to face. Cranial nerve VII: Symmetrical face. Cranial nerve VIII: Decreased hearing bilaterally. Cranial IX and X: Elevates palate. Cranial XI: Elevates shoulder, 5/5. Cranial nerve XII: With straight tongue. 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 Sensation is decreased for glove and sock area for light to uch and temperature. COORDINATION: [id number] test intact. HEART: Regular rate and rhythm. LUNGS: Equal breath sounds. ABDOMEN: Soft, relaxed. ASSESSMENT AND PLAN: 1. The patient is an 88-year-old status post history of subdural hematoma 6 months ago with surgical removal. Follow up the patient with electroencephalogram. 2. Gait difficulty probably secondary to #1. Follow up the patient with fall precaution for now and seizure precaution. Follow up the patient with physical therapy, probably secondary to muscle weakn ess and follow up the patient with electromyogram as an outpatient when he is stable enough. 3. Underlying gastrointestinal bleed in which the patient is scheduled for colonoscopy and he is n.p .o. after midnight. 4. The fact that the patient has hypercholesterolemia, hypertension and dyslipidemia with the possib ility of underlying transient ischemic attack; however because of the gastrointestinal bleed and subd ural hematoma, we will hold any antiplatelet medication for now. Again thank you, Dr. Ocasio, for asking me to see the patient with you. Dictated By: JESSICA MILLER MD NA/NTS Conf#: [id number] DID#: [id number] CC: BROOKLYNN OCASIO MD;*EndCC*
[2019-04-04] MEDS ORDERED: IOHEXOL 300MG/ML 150 ML BTL ONE (20:42)
[2019-04-04] MEDS ORDERED: SOD CHLORIDE 0.9% 100 ML ONE (20:42)
--- NOTE | 2019-04-04 21:02 | HKNOTE ---
DATE OF SERVICE: HISTORY OF PRESENT ILLNESS: The patient is 88 years old status post dizziness, subdural hematoma, ga it difficulty, acute dizzy spells, and GI bleed with loss. CURFRENT MEDICATIONS: 1. Keppra 250 mg twice a day. 2. Protonix 40 mg once a day. 3. Zofran 4 mg every 4 hours. 4. Fentanyl 75 mg once a day as protocol. PHYSICAL EXAMINATION: GENERAL: Today, the patient is alert, awake, oriented, following simple commands. NEUROLOGIC: Cranial nerve II: Pupils equal on both sides, reactive to light. Cranial nerves III, I V and : Extraocular muscles are intact without nystagmus. Cranial nerve V: Equal sensation to fa ce. Cranial nerve VII: Symmetrical face. Cranial nerve VIII: Decreased hearing bilaterally. Cran ial IX, X, and XI: : Elevates shoulder 5/5. Cranial nerve XII: With straight tongue. 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 Sensation decreased for glove and sock area for light t ouch and temperature. Coordination: [id number] test intact. HEART: Regular rate and rhythm. LUNGS: Equal breath sounds. ABDOMEN: Soft, relaxed. ASSESSMENT AND PLAN: 1. The patient is 88 years old status post subdural hematoma 6 months ago with surgical interference . 2. Possibility of underlying seizure. We will start the patient on Keppra 250 mg twice a day. Foll ow up the patient with electroencephalogram on seizure precaution from now and MRI over her brain or CAT scan if she is not compatible with MRI. 3. Gait difficulty. Follow up the patient with physical therapy and gait balance and keep the patie nt under fall precautions. 4. Underlying GI bleeding in which the patient is waiting for colonoscopy. 5. Status post dyslipidemia, hypertension, and hypercholesterolemia with the possibility of underlyi ng transient ischemic; however, the patient had GI bleed and subdural hematoma in which we did not st art any medication for TIA at this point. Dictated By: JESSICA MILLER MD NA/NTS Conf#: [id number] DID#: [id number] CC: BROOKLYNN OCASIO MD;*EndCC*
[2019-04-05] VITALS (10 sets, daily range): BP systolic 110–161; BP diastolic 55–78; PULSE 69–86; RESP 16–18
[2019-04-05] MEDS: DEXTROSE 5%-0.9% NACL 1,000 ML IV SCH ×2 (02:00→09:12)
[2019-04-05] MEDS: PANTOPRAZOLE 40 MG INJ IV SCH ×2 (06:03→17:54)
[2019-04-05] MEDS: LEVETIRACETAM 250 MG TAB PO SCH ×2 (09:09→20:24)
--- NOTE | 2019-04-05 09:11 | PN ---
Date/Time of Note Date/Time of Note DATE: 04/05/19 TIME: 09:05 Assessment/Plan VTE Prophylaxis Risk score (from Ns)>0 risk: 3 SCD applied (from Ns): Yes SCD contraindicated: other (on.) Pharmacological prophylaxis: other (Planning a craniotomy.) Lines/Catheters IV Catheter Type (from [facility]): Peripheral IV Central line still needed: No Urinary Cath still in place: No Reason Cath still needed: urinary retention Assessment/Plan Assessment/Plan 1. Melena on and off still continues. 2. Weight loss more than 15 pounds during the last 2 months 3. Status post fall due to the severe weakness deconditioning and muscular wasting 4. Anemia chronic disease with a recent loss-iron level 28. Total drop of hematocrit 2 points during the last 2 days. 5. Status post right-sided adal trepanation with removal of subdural hematoma in the [facility] about 1-2 years ago. Patient had a subdural hematoma on the left side too.New on the top of the old subdural hematoma on the right on mri. CT no new findings. 6. Ischemic heart disease angina. 7. Unstable gait with recurrent episodes of fall. 8. Deconditioning 9. Status post cataract ectomy 10. Constant snacking and chewing movements involuntarily being unable to stop mainly during last 3-4 months. 11. Bradycardia with history of syncopal episodes 12 osteoporosis and osteoarthritis 13. Dizziness 14. Hearing impairment 15. Dysphagia on and off 16. BPH with episodes of urinary incontinence 17. Dyslipidemia 18.S/p left clavicular FX(old, healed). 19. 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 Diverticulosis. 21. 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 22. Progressive memory impairment. Result Diagram: 04/05/19 0509 04/03/19 1819 Results 24hrs Laboratory Tests Test 04/05/19 05:09 White Blood Count 5.6 Red Blood Count 3.46 L Hemoglobin 10.2 L Hematocrit 32.3 L Mean Corpuscular Volume 93.4 Mean Corpuscular Hemoglobin 29.5 Mean Corpuscular Hemoglobin Concent 31.6 L Red Cell Distribution Width 14.0 Platelet Count 198 Mean Platelet Volume 9.1 Immature Granulocytes % 0.400 Neutrophils % 57.7 Lymphocytes % 24.0 Monocytes % 7.8 Eosinophils % 9.4 H Basophils % 0.7 Nucleated Red Blood Cells % 0.0 Immature Granulocytes # 0.020 Neutrophils # 3.2 Lymphocytes # 1.4 Monocytes # 0.4 Eosinophils # 0.5 Basophils # 0.0 Nucleated Red Blood Cells # 0.0 Carcinoembryonic Antigen 0.8 Subjective 24 Hr Interval Summary Free Text/Dictation Weakness. Inability to control involuntary movements of the jaw and repeated movements of chewing. According to patient he does not know how it is coming. And he is not aware how it is going away. He has no control. Constitutional: improved, poor po, requiring O2; No no complaints, No chills, No diaphoresis, No disoriented, No febrile, No requiring IVF, No other Eyes: No no complaints, No pain, No discharge, No redness, No visual change, No other ENT: dysphagia (Hearing impairment.), other; No no complaints, No bleeding, No pain, No congestion, No discharge, No sore throat Respiratory: No no complaints, No pain, No cough, No pleuritic pain, No shortness of breath, No sputum, No wheezing, No other Cardiovascular: chest pain, lightheadedness, orthopenea, palpitations; No no complaints, No edema, No paroxysmal nocturnal dyspnea, No other Gastrointestinal: constipation, flatus, nausea, passing stool; No no complaints, No pain, No blood, No decreased appetite, No diarrhea, No v omiting, No other Genitourinary: dysuria; No no complaints, No bleeding, No discharge, No flank pain, No hematuria, No other Musculoskeletal: back pain, bone/joint pain; No no complaints, No neck pain, No restricted range of motion, No swelling, No other Skin: erythema, pruritis, rash; No no complaints, No bruising, No laceration, No skin lesions, No other Neurologic: confusion, headache; No no complaints, No dizziness, No focal-weakness, No syncope, No seizure, No other Endocrine: No no complaints, No polyuria, No polydypsia, No dry skin, No temp intolerance, No other Lymphatic: No no complaints, No adenopathy, No tender nodes, No lymphadema, No other Psychological: anxiety, confusion; No no complaints, No nl mood/affect, No depression, No suicidal, No other Immunologic: No no complaints, No immunodeficiency, No pruritis, No rhinitis, No urticaria, No other Exam/Review of Systems Exam Vitals Vital Signs Date Temp Pulse Resp B/P (MAP) Pulse Ox O2 O2 Flow FiO2 Time Delivery Rate 04/05/19 97.3 69 18 139/72 97 08:32 (94) 04/04/19 Nasal 2.0 14:50 Cannula Intake and Output 04/04/19 04/04/19 04/05/19 1515:00 23:00 07:00 IntakeIntake Total 1300 ml 300 ml BalanceBalance 1300 ml 300 ml Constitutional: alert, oriented (Not in a time place. The daughter with patient is 24 hours nearby of the father. On and off he thinks that he is at home), well developed, distress, frail Psych: anxiety, confusion; No no complaints, No nl mood/affect, No depression, No suicidal, No other Head: normocephalic, atraumatic; No lacerations, No hematomas, No other Eyes: nl conjunctiva, nl lids, PERRL; No EOMI, No nl sclera, No icteric, No fundi, disc, No other ENMT: nl nasal mucosa & septum, mucosa pink and moist; No nl external ears & nose, No nl lips & teeth, No intubated, No tympanic membranes, No other Neck: jvd, bruits, thyromegaly, nuchal rigidity; No supple, No non-tender, No masses, No other Respiratory: normal air movement; No clear to auscultation, No congested cough, No crackles/rales, No diminished breath sounds, No intercostal retraction, No labored breathing, No respirations, No tactile fremitus, No wheezing, No other Cardiovascular: regular rate and rhythm, bruits; No nl pulses, No diastolic murmur, No edema, No gallop, No irregular rhythm, No jugular venous distention (JVD), No murmurs/extra sounds, No rub, No systolic murmur, No S3, No S4, No other Gastrointestinal: soft, nl liver, spleen, bowel sounds, distended; No non-tender, No ascites, No firm, No hepatomegaly, No mass, No rebound or guarding, No splenomegaly, No surgical scars, No tender, No other Genitourinary - Male: nl penis, nl scrotum Musculoskeletal: joint tenderness, muscle tone, muscle weakness; No nl extremities to inspection, No nl gait and stance, No range of motion, No spine non-tender, No swelling, No other Extremities: normal pulses; No calf tenderness, No cyanosis, No clubbing, No edema, No pitting pedal agustin ma, No palpable cord, No tenderness, No other 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: COLD MEAT CHEF II-XII intact (Hearing impairment visual impairment swallowing impairment.), nl speech (Slurred speech.), nl strength (Decreased muscular tone.); No nl mental status, No confused, No DTR's symmetric, No focal weakness, No lethargic, No numbness, No reflexes, No unresponsive, No other Skin: nl turgor (Decreased.); No rash or lesions, No diaphoresis, No ecchymosis, No laceration, No punc ture, No other Lymph: nl lymph nodes; No enlarged, No nontender, No other Results Results 24hrs Laboratory Tests Test 04/05/19 05:09 White Blood Count 5.6 Red Blood Count 3.46 L Hemoglobin 10.2 L Hematocrit 32.3 L Mean Corpuscular Volume 93.4 Mean Corpuscular Hemoglobin 29.5 Mean Corpuscular Hemoglobin Concent 31.6 L Red Cell Distribution Width 14.0 Platelet Count 198 Mean Platelet Volume 9.1 Immature Granulocytes % 0.400 Neutrophils % 57.7 Lymphocytes % 24.0 Monocytes % 7.8 Eosinophils % 9.4 H Basophils % 0.7 Nucleated Red Blood Cells % 0.0 Immature Granulocytes # 0.020 Neutrophils # 3.2 Lymphocytes # 1.4 Monocytes # 0.4 Eosinophils # 0.5 Basophils # 0.0 Nucleated Red Blood Cells # 0.0 Carcinoembryonic Antigen 0.8 Medications Medication Current Medications Pantoprazole (Protonix Iv) 40 mg BID@06,18 IV Last administered on 04/05/19at 06:03; Admin Dose 40 MG; Start 04/03/19 at 20:00 Levetiracetam (Keppra) 250 mg BID PO Last administered on 04/04/19at 20:13; Admin Dose 250 MG; Start 04/03/19 at 23:30 Dextrose/Sodium Chloride 1,000 ml @ 50 mls/hr Q20H IV Last administered on 04/04/19at 06:23; Admin Dose 50 MLS/HR; Start 04/04/19 at 06:00 Ferric Sodium Gluconate Complex 125 mg/Sodium Chloride 100 ml @ 100 mls/hr DAILY@1300 IVPB Last administered on 04/04/19at 14:50; Admin Dose 100 MLS/HR; Start 04/04/19 at 13:00; Stop 04/06/19 at 13:59 BROOKLYNN OCASIO MD April 05, 2019 09:11
--- NOTE | 2019-04-05 12:14 | CONS ---
Assessment/Plan Assessment/Plan Assessment/Plan (Daily) IMPRESSION: 1. _Melanotic stool. 2. Weakness. 3. Weight loss of 15 pounds. 4. Anorexia. 5. Status post subdural hematoma evacuation. 6. Intermittent dysphagia. 7. Benign prostatic hypertrophy. 8. Gastrectomy. 9. Unstable gait. 10. Ischemic heart disease. 11. New subdural hematoma Plan Neurosurgical consult has been called Patient will need colonoscopy in the near future Consultation Date/Type/Reason Admit Date/Time April 03, 2019 at 12:57 Initial Consult Date Date/Time of Note DATE: 04/05/19 TIME: 12:13 24 HR Interval Summary Constitutional: no complaints Exam/Review of Systems Exam Vitals Vital Signs Date Temp Pulse Resp B/P (MAP) Pulse Ox O2 O2 Flow FiO2 Time Delivery Rate 04/05/19 97.3 69 18 139/72 97 08:32 (94) 04/04/19 Nasal 2.0 14:50 Cannula Intake and Output 04/04/19 04/04/19 04/05/19 1515:00 23:00 07:00 IntakeIntake Total 1300 ml 300 ml BalanceBalance 1300 ml 300 ml Constitutional: alert, oriented, well developed Psych: no complaints, nl mood/affect Head: normocephalic, atraumatic Eyes: nl conjunctiva, EOMI, nl lids, nl sclera, PERRL ENMT: nl external ears & nose, nl lips & teeth, nl nasal mucosa & septum Neck: supple, non-tender Respiratory: clear to auscultation, normal air movement Cardiovascular: regular rate and rhythm, nl pulses Gastrointestinal: soft, nl liver, spleen, non-tender Musculoskeletal: nl extremities to inspection, nl gait and stance Extremities: normal pulses 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: CONFECTIONERY MAKER II-XII intact, nl mental status, nl speech, nl strength Skin: nl turgor; No rash or lesions Lymph: nl lymph nodes Results Result Diagram: 04/05/19 0509 04/03/19 1819 Results 24hrs Laboratory Tests Test 04/05/19 05:09 White Blood Count 5.6 Red Blood Count 3.46 L Hemoglobin 10.2 L Hematocrit 32.3 L Mean Corpuscular Volume 93.4 Mean Corpuscular Hemoglobin 29.5 Mean Corpuscular Hemoglobin Concent 31.6 L Red Cell Distribution Width 14.0 Platelet Count 198 Mean Platelet Volume 9.1 Immature Granulocytes % 0.400 Neutrophils % 57.7 Lymphocytes % 24.0 Monocytes % 7.8 Eosinophils % 9.4 H Basophils % 0.7 Nucleated Red Blood Cells % 0.0 Immature Granulocytes # 0.020 Neutrophils # 3.2 Lymphocytes # 1.4 Monocytes # 0.4 Eosinophils # 0.5 Basophils # 0.0 Nucleated Red Blood Cells # 0.0 Carcinoembryonic Antigen 0.8 Medications Medication Current Medications Pantoprazole (Protonix Iv) 40 mg BID@06,18 IV Last administered on 04/05/19at 06:03; Admin Dose 40 MG; Start 04/03/19 at 20:00 Levetiracetam (Keppra) 250 mg BID PO Last administered on 04/05/19at 09:09; Admin Dose 250 MG; Start 04/03/19 at 23:30 Dextrose/Sodium Chloride 1,000 ml @ 50 mls/hr Q20H IV Last administered on 04/05/19at 09:12; Admin Dose 50 MLS/HR; Start 04/04/19 at 06:00 Ferric Sodium Gluconate Complex 125 mg/Sodium Chloride 100 ml @ 100 mls/hr SOPHIE LY@1300 IVPB Last administered on 04/04/19at 14:50; Admin Dose 100 MLS/HR; Start 04/04/19 at 13:00; Stop 04/06/19 at 13:59 WADE SHARMA MD April 05, 2019 12:14
[2019-04-05] MEDS: SOD FERRIC GLUC COMPLX 125 MG in SOD CHLORIDE 0.9% 100 ML IVPB SCH (13:18)
--- NOTE | 2019-04-05 22:24 | CONS ---
Assessment/Plan Assessment/Plan Assessment/Plan (Daily) Date of consultation:04/05/2019 Requesting physician:Dr. Enriquez Consulting service: Neurosurgery This is a 88-year-old male with multiple medical problems including baseline dementia and Parkinson's disease who developed weight loss, diarrhea and dark stool suspected to be melena as well as altered level of consciousness in the past several weeks. Neurosurgery was consulted after the patient was found to have a left frontal parietal temporal subdural hematoma. The patient apparently underwent GI workup of his suspected bloody stool and was not found to have a source of GI bleeding with scoping. According to the patient's daughter and brother who are at bedside, the patient at baseline has dementia and has difficulty recalling family members at times. He is able to take a few steps with the walker with assistance but requires significant help to do his activities of daily living. He also has Parkinson's at baseline and takes Parkinson's medications. The family has noted several minor falls recently due to gait difficulty and imbalance. They have not noticed any loss of consciousness, convulsions or seizures. The patient's speech also seems to be somewhat depressed compared to a few weeks ago. The patient was apparently found to have a right frontal parietal subdural hematoma approximately 2 years ago where he underwent a right-sided craniotomy for evacuation of the subdural hematoma at another hospital with some improvement of his symptomatology. The family has noticed over the past several weeks further depressed speech, fu rther decreased balance and difficulty with gait and overall weakness and fatigue. Past medical history: Coronary artery disease, Parkinson's disease, dementia, bradycardia with syncope, osteoporosis hearing impairment, dysphagia, BPH with urinary incontinence, dyslipidemia, GERD, hepatitis (of unknown kind), hypertension, prior history of UTI, cataract surgery, right frontoparietal craniotomy for evacuation of subdural hematoma Allergies:No known drug allergies Review of systems: The patient is unable to respond to questions involving review of systems coherently. Family history: Not contributory Social history: Former smoker, no current history of use of EtOH, illicit or recreational drugs. Physical examination: This is a elderly male sitting in bed. The patient wakes up to voice, looks around and can say his first and last name. He is not oriented to the date or place. The patient overall seems to be quite deconditioned and fragile. His language is not fluent. Face is symmetric. Extraocular movements are grossly normal. Pupils are equally round and reactive to light bilaterally. Tongue is midline. Muscle bulk is symmetrically diminished bilateral upper and lower extremity's. There is some rigidity of his hands bilaterally. Deep tendon reflexes are 1+ bilateral upper and lower extremities. Sensory testing is not readily reproducible in the patient. Motor strength left upper and lower extremities is 4 out of 5 proximally and distally. Motor strength right upper and lower extremity is 4- out of 5 proximally and distally. There is no Zoya sign present bilaterally. Toe testing is equivocal. There is a right pronator drift. Gait testing has been deferred as the patient has difficulty ambulating. Imaging: MRI brain without contrast and CT of head without contrast: There is overall moderate generalized brain atrophy with prior evidence of lacunar infarcts involving the coronary radiata and the cerebellar hemispheres. There is prior evidence right frontoparietal craniotomy. 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 The basal cisterns are open. Assessment/plan: I have reviewed the above imaging studies in great detail with the patient's son and daughter. The patient himself has dementia and is unable to fully comprehend his condition. 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 However, the patient at baseline has dementia, Parkinson's and pre-existing gait difficulty. The patient can be a candidate for neurosurgical intervention i.e. left frontoparietal bur hole craniectomy versus full craniotomy for evacuation of the subdural hematoma. This operation may help improve some of the patient's new neurologic deterioration. I have discussed the risks and benefits of the above operation in great detail to the patient's daughter and son with the risks including bleeding, infection, weakness, numbness, paralysis, bowel or bladder dysfunction, comatose state, difficulty with vision, difficulty with speech, cerebrospinal fluid leak failure of improvement of symptoms or worsening of symptoms, need for further surgeries including redo craniotomy for evacuation of hematoma or need for cerebrospinal fluid diversion i.e. POOL HALL INSPECTOR shunt as well as those risks associated with surgery and general anesthesia including deep venous thrombosis, pulmonary embolism, heart attack, stroke and . The patient's son and daughter fully understand the above discussion. They would like to discuss the above issues in further detail amongst themselves as well as speak with the patient's primary care physician, Dr. Enriquez. They will get back to me with their decision. If the family decides to proceed with the above opera tion, I would then recommend obtaining preoperative cardiac clearance as well. GLORIA WISEMAN MD April 05, 2019 22:24
[2019-04-06] VITALS (9 sets, daily range): BP systolic 116–153; BP diastolic 61–78; PULSE 62–82; RESP 18
--- NOTE | 2019-04-06 02:57 | CONS ---
DATE OF ADMISSION: 04/03/2019 DATE OF CONSULTATION: 04/05/2019 TYPE OF CONSULTATION: Cardiology. REASON FOR CONSULTATION: History of bradycardia, recurrent falls, syncopal episodes. REQUESTING PHYSICIAN: Brooklynn Enriquez MD HISTORY OF PRESENT ILLNESS: Mr. Mckeon is an 88-year-old male with history of subdural hematomas, ischemic heart disease, bradycardia, syncopal episodes, hearing impairment, BPH, dyslipidemia, unstable gait, who presented with melena on and off for week with associated weight loss of 15 pounds for 2 months and now recent fall. The patient subsequently presented to [facility] on 04/03/2019 where upon arrival, temperature was 98.3, blood pressure 124/65, pulse 78, respiratory rate 20, saturating 98%. The patient's labs were notable for white blood cell count of 10.3, hemoglobin 10.9, platelet count 204, sodium 140, potassium 4.3, creatinine 1.1, BUN 16, AST 10, ALT 9, magnesium 2.1, TSH of 2.53, INR of 1.1. UA negative. The patient underwent chest x-ray revealing atherosclerosis, old healed fracture of the mid left clavicle; abdominal pelvic CT that revealed extensive motion artifact, aortic atherosclerotic calcifications, sigmoid diverticulosis without diverticulitis, mild retained fecal material, mildly enlarged prostate, no bowel obstruction. The patient's labs today were notable for UA, sodium 140, potassium 4.3, creatinine 1.1, AST 10, ALT 9, hemoglobin 10.3, white cell count 5.6, platelet count 198. The patient's electrocardiogram revealed sinus rhythm, rate of 68, normal axis, normal intervals, with frequent PVCs, nonspecific ST-T abnormalities diffusely. The patient was subsequently admitted to the floor and since admit to the floor, he was monitored, white blood cell count went from 10.9 to 10.2, MCV of 95. The patient has been evaluated by the neurology services and GI service with plans for patient to undergo colonoscopy. PAST MEDICAL HISTORY: As above in HPI. MEDICATIONS CURRENTLY IN HOSPITAL: 1. Sodium chloride. 2. IV fluid hydration 50 mL an hour. 3. Keppra 250 mg b.i.d. 4. Protonix 40 mg IV b.i.d. ALLERGIES: NO KNOWN DRUG ALLERGIES. SOCIAL HISTORY: No current tobacco, EtOH or illicit drug use. FAMILY HISTORY: No history of sudden cardiac or early CAD. REVIEW OF SYSTEMS: As above in HPI. CONSTITUTIONAL: No fevers, chills. PULMONARY: No current shortness of breath. CARDIOVASCULAR: History of bradycardia. GASTROINTESTINAL: No vomiting. GENITOURINARY: Melena. PSYCHIATRIC: No documented psych history. NEUROLOGIC: Recurrent falls, subdural hematomas, gait difficulty. PHYSICAL EXAMINATION: VITAL SIGNS: Temperature 97.9, blood pressure 130/71, pulse 70, respiratory rate 16, satting 100%. GENERAL: The patient is alert, awake, in no acute distress. NECK: JVP is approximately 8 to 9 cm of water. CHEST: Fair air movement throughout. HEART: Regular rate and rhythm. Normal S1, S2, I/ systolic murmur. Nondisplaced PMI. ABDOMEN: Positive bowel sounds, soft. EXTREMITIES: No edema, 1+ pulses, posterior tibial. LABORATORIES: Most recently today, white blood cell count 5.6, hemoglobin 10.3, platelet 198. Sodium 140, potassium 4.3, creatinine 1.1, BUN 16, AST 10, ALT 9. INR 1.1. IMAGING STUDIES: As above in HPI with brain MRI from 04/04/2019 revealing large left subdural hematomas of varying ages a moderate, generalized volume loss, microvascular changes. Head CT revealing mixed subacute and chronic left subdural hematomas, generalized atrophy. IMPRESSION: 1. Abnormal electrocardiogram, assess for acute coronary syndrome. 2. History of bradycardia with recurrent falls and a recent fall. 3. History of subdural hematomas with varying ages of subdural hematomas by MRI and CT. 4. Premature ventricular contractions on EKG. Assess for acute coronary syndrome. 5. Melena consistent with gastrointestinal bleed. 6. Anemia. 7. Recent weight loss of 15 pounds over 2 months. 8. Dizziness recurrent. 9. Osteoporosis. 10. Degenerative joint disease. RECOMMENDATIONS: 1. At this time, we would check serial EKGs to discern the patient's current rhythm. 2. We would check TSH to assess subclinical hyperthyroidism is not contributing to bouts of bradyarrhythmias. 3. Pending colonoscopy for evaluation of melena. 4. Follow the patient's hemoglobin closely. 5. Check orthostatics as possible to assess for orthostasis considering the patient's fall. 6. Complete the patient's rule out myocardial infarction to ensure this patient's EKG abnormalities and PVCs are not due to any recent acute coronary syndromes. 7. Check a 2D echo to further assess the patient's ejection fraction, wall motion, rule out any major valve abnormalities. 8. Keep patient's potassium greater than 4 and magnesium greater than 2 as possible. Thank you for allowing me to take part to take part in the care of this patient. I will continue to follow him very closely with you with further recommendations will be made as the patient progresses his inpatient hospital clinical course. Dictated By: RACHEAL BARKSDALE/ROCK Conf#: [id number] DID#: [id number] CC: VIOLA GARAY MD; BROOKLYNN ENRIQUEZ MD;*JohnCC* MTDD
--- NOTE | 2019-04-06 03:40 | HKNOTE ---
DATE OF SERVICE: HISTORY OF PRESENT ILLNESS: The patient is 88 years old status post dizzy spells, subdural hematoma, possible seizure, in which I ordered for the patient MRI as well as EEG. 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 Madhu Onofre, neurosurgery. The patie nt also was admitted with melena, in which the patient was seen by Dr. Hurd for melena, weight loss of 15 pounds, anorexia, in which we will hold the colonoscopy until we get the head fixed and see ab out the neurosurgery plan. CURRENT MEDICATIONS: Include: 1. Keppra 250 mg twice a day. 2. Protonix 40 mg once a day. 3. Zofran 4 mg every 4 hours as needed. 4. Fentanyl 75 mcg once a day as needed. PHYSICAL EXAMINATION: NEUROLOGIC: Today, the patient is alert, awake and follows simple commands, looks confused, have dif ficulty following second or third-step commands. CRANIAL NERVES: Cranial nerve II: Pupils are equal on both sides, reactive to light. Cranial nerve s III, IV and : Extraocular muscles are intact. No nystagmus. Cranial nerve V: Equal sensation to face. Cranial nerve VII: Symmetrical face. Cranial nerve VIII: Decreased hearing bilaterally. Cranial nerve IX and X: Elevates palate. Cranial nerve XI: Elevates shoulder 5/5. Cranial nerve XII: With straight tongue. 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 Sensation decreased for glove and sock area for light touch and temperature. COORDINATION: [id number] test is intact. CARDIOVASCULAR: Regular rate and rhythm. LUNGS: Equal breath sounds. ABDOMEN: Soft, relaxed. ASSESSMENT AND PLAN: 1. The patient is 88 years old status post subdural hematoma with possible 9 mm acute collection wit h maximum 2.5 cm at the left frontoparietal temporal convexity, in which the patient is followed by [facility], Dr. Madhu Onofre for more evaluation. 2. Underlying seizure. We will keep the patient on Keppra 250 mg twice a day and keep the patient u nder seizure precaution and we will follow up the patient with EEG. 3. Gait difficulty, probably secondary to all of the above. Follow up the patient with physical the rapy and ambulation with assistance and fall precaution. 4. Status post melena, in which the patient might follow with colonoscopy. 5. Underlying lacunar infarction with possible transient ischemic attack; however because of subdura l hematoma as well as the gastrointestinal bleed, we will hold any medication for antiplatelet or ant icoagulant at this point and we will follow up the patient with neurosurgery. Again thank you, Dr. Enriquez, for asking me to see the patient with you. Dictated By: JESSICA MILLER MD NA/NTS Conf#: [id number] DID#: [id number] CC: BROOKLYNN ENRIQUEZ MD; VIOLA GARAY MD;*EndCC*
[2019-04-06] MEDS: DEXTROSE 5%-0.9% NACL 1,000 ML IV SCH (06:04)
[2019-04-06] MEDS: PANTOPRAZOLE 40 MG INJ IV SCH ×2 (06:04→18:05)
--- NOTE | 2019-04-06 07:06 | RADRPT ---
Vent Rate: 73 bpm RR Interval: 820 msec SC Interval: 163 msec QRS Duration: 91 msec QT Interval: 461 msec QTC Interval: 509 msec P-R-T [place]: 34 - -19 - 57 degrees Sinus rhythm..with Ventricular premature complex. nonspecific T wave abnormalities Prolonged QT interval Electronically Signed By: Desmond Colmenares
--- NOTE | 2019-04-06 08:58 | PN ---
Date/Time of Note Date/Time of Note DATE: 04/06/19 TIME: 08:57 Assessment/Plan VTE Prophylaxis Risk score (from Nsg)>0 risk: 3 SCD applied (from Ns): Yes SCD contraindicated: other (on.) Pharmacological prophylaxis: other (prep. for surgery.) Lines/Catheters IV Catheter Type (from [facility]): Peripheral IV Central line still needed: No Urinary Cath still in place: No Reason Cath still needed: urinary retention Assessment/Plan Assessment/Plan 1. Melena on and off still continues. 2. Weight loss more than 15 pounds during the last 2 months 3. Status post fall due to the severe weakness deconditioning and muscular wasting 4. Anemia chronic disease with a recent loss-iron level 28. 5. Status post right-sided adal trepanation with removal of subdural hematoma in the [facility] about 1/2 years ago. Patient had a subdural hematoma on the left side too.New on the top of the old subdural hematoma on the left on mri. 6. Ischemic heart disease angina. 7. Unstable gait with recurrent episodes of fall. 8. Deconditioning 9. Status post cataract ectomy 10. Constant snacking and chewing movements involuntarily being unable to stop mainly during last 3-4 months. 11. Bradycardia with history of syncopal episodes 12 osteoporosis and osteoarthritis 13. Dizziness 14. Hearing impairment 15. Dysphagia on and off 16. BPH with episodes of urinary incontinence 17. Dyslipidemia 18.S/p left clavicular FX(old, healed). Result Diagram: 04/05/19 0509 04/03/19 1819 Results 24hrs Laboratory Tests Test 04/06/19 00:24 04/06/19 04:53 Troponin I < 0.012 < 0.012 Triglycerides Level 75 Cholesterol Level 111 LDL Cholesterol, Calculated 67 HDL Cholesterol 29 L Cholesterol/HDL Ratio 3.8 Subjective 24 Hr Interval Summary Free Text/Dictation Lethargic arousable. Barely expresses sounds in the form of the morning thank you. Become evident that he recognized me and he responds better to the questions of her daughter which was nearby. Subjective hx not possible: other (Unobtainable. He denies fever and chills denies nausea vomiting he wants to sleep.) Constitutional: disoriented, poor po, requiring IVF, requiring O2; No no complaints, No improved, No chills, No diaphoresis, No febrile, No other Exam/Review of Systems Exam Vitals Vital Signs Date Temp Pulse Resp B/P (MAP) Pulse Ox O2 O2 Flow FiO2 Time Delivery Rate 04/06/19 97.8 74 18 135/69 98 07:33 (91) 04/04/19 Nasal 2.0 14:50 Cannula Intake and Output 04/05/19 04/05/19 04/06/19 1515:00 23:00 07:00 IntakeIntake Total 640 ml 970 ml 650 ml BalanceBalance 640 ml 970 ml 650 ml Constitutional: frail, other (Lethargic arousable.); No alert, No oriented, No well developed, No non-verbal, No distress, No obese Psych: No no complaints, No nl mood/affect, No anxiety, No confusion, No depression, No suicidal, No other Head: normocephalic, atraumatic; No lacerations, No hematomas, No other Eyes: nl lids; No nl conjunctiva, No EOMI, No nl sclera, No PERRL, No icteric, No fundi, disc, No other ENMT: No nl external ears & nose, No nl lips & teeth, No nl nasal mucosa & septum, No mucosa pink and moist, No intubated, No tympanic membranes, No other Neck: jvd, bruits; No supple, No non-tender, No masses, No thyromegaly, No nuchal rigidity, No other Respiratory: congested cough; No clear to auscultation, No normal air movement, No crackles/rales, No diminished breath sounds, No intercostal retraction, No labored breathing, No respirations, No tactile fremitus, No wheezing, No other Cardiovascular: regular rate and rhythm, edema, systolic murmur; No nl pulses, No bruits, No diastolic murmur, No gallop, No irregular rhythm, No jugular venous distention (JVD), No murmurs/extra sounds, No rub, No S3, No S4, No other Gastrointestinal: soft, distended; No nl liver, spleen, No non-tender, No ascites, No bowel sounds, No firm, No hepatomegaly, No mass, No rebound or guarding, No splenomegaly, No surgical scars, No tender, No other Genitourinary - Male: nl penis, nl scrotum; No CVA tenderness, No discharge, No other Musculoskeletal: joint tenderness; No nl extremities to inspection, No nl gait and stance, No muscle tone, No muscle weakness, No range of motion, No spine non-tender, No swelling, No other Extremities: No normal pulses, No calf tenderness, No cyanosis, No clubbing, No edema, No pitting pedal edema, No palpable cord, No tenderness, No other 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: 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 (Evidence of hearing impairment visual impairment denies weakness of extremities reflexes unable to elicit, brachioradialis triceps.); No nl mental status, No nl speech, No nl strength, No confused, No DTR's symmetric, No focal weakness, No lethargic, No numbness, No reflexes, No unresponsive, No other Skin: nl turgor; No rash or lesions, No diaphoresis, No ecchymosis, No laceration, No puncture, No other Lymph: nl lymph nodes; No enlarged, No nontender, No other Results Results 24hrs Laboratory Tests Test 04/06/19 00:24 04/06/19 04:53 Troponin I < 0.012 < 0.012 Triglycerides Level 75 Cholesterol Level 111 LDL Cholesterol, Calculated 67 HDL Cholesterol 29 L Cholesterol/HDL Ratio 3.8 Medications Medication Current Medications Pantoprazole (Protonix Iv) 40 mg BID@06,18 IV Last administered on 04/06/19at 06:04; Admin Dose 40 MG; Start 04/03/19 at 20:00 Levetiracetam (Keppra) 250 mg BID PO Last administered on 04/05/19at 20:24; Admin Dose 250 MG; Start 04/03/19 at 23:30 Dextrose/Sodium Chloride 1,000 ml @ 50 mls/hr Q20H IV Last administered on 03/09 06:04; Admin Dose 50 MLS/HR; Start 04/04/19 at 06:00 Ferric Sodium Gluconate Complex 125 mg/Sodium Chloride 100 ml @ 100 mls/hr DAILY@1300 IVPB Last administered on 04/05/19at 13:18; Admin Dose 100 MLS/HR; Start 04/04/19 at 13:00; Stop 04/06/19 at 13:59 BROOKLYNN OCASIO MD April 06, 2019 08:58
--- NOTE | 2019-04-06 09:07 | CONS ---
Consult Date/Type/Reason Admit Date/Time April 03, 2019 at 12:57 Initial Consult Date Type of Consultation: cv Reason for Consultation cv preop Requesting Provider: GLORIA WISEMAN MD Date/Time of Note DATE: 04/06/19 TIME: 09:00 Subjective Interventional cardiology progress note Subjective: Case discussed with the daughter. Case discussed with staff. Discussed with Dr. Rodrigez who stated that patient may need to have neurosurgical intervention for his subdural hematoma. Cardiovascular preop evaluation was requested. Patient is very well-known to me from previous admission to the hospital as well as office visits. No report of any chest pain or pressure. No report of syncope or presyncope however patient has been for a long time very unsteady and has had multiple falls. No report of any PND orthopnea Objective: General: no acute distress HEENT: NC/AT. pupils are equal. round. NECK: NO JVD. no stridor. CV: Bradycardic with frequent extra beats noted. systolic murmur; no gallop or rubs. PULM: no wheezing or rhonchi. GI: SOFT, NT, ND, no rebound or guarding Extremity: trace B/L LE edema. no clubbing. neuro: awake and alert, responds appropriately. Psych: calm and pleasant rectal: deferred : normal EKG done today shows normal sinus rhythm with PVC. Nonspecific T wave abnormalities Of the old chart shows that echocardiogram done in my office on 10/02/2018 has shown ejection fraction about 40 to 45% LVH with mild to moderate aortic insufficiency diastolic dysfunction mild MR and TR MRI of the brain done April 04, 2019 shows: MRI of the brain demonstrates a large left subdural hematoma with varying ages however there is a 9 mm acute component with the overall measurement measuring up to 2.2 cm resulting in diffuse left cerebral mass effect with minimal [id number] midline shift. 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 Objective Vitals Vital Signs Date Temp Pulse Resp B/P (MAP) Pulse Ox O2 O2 Flow FiO2 Time Delivery Rate 04/06/19 97.8 74 18 135/69 98 07:33 (91) 04/04/19 Nasal 2.0 14:50 Cannula Intake and Output 04/05/19 04/05/19 04/06/19 1515:00 23:00 07:00 IntakeIntake Total 640 ml 970 ml 650 ml BalanceBalance 640 ml 970 ml 650 ml Results/Medications Result Diagram: 04/05/19 0509 04/03/19 1819 Results 24 hrs Laboratory Tests Test 04/06/19 00:24 04/06/19 04:53 Troponin I < 0.012 < 0.012 Triglycerides Level 75 Cholesterol Level 111 LDL Cholesterol, Calculated 67 HDL Cholesterol 29 L Cholesterol/HDL Ratio 3.8 Home Meds Active Scripts Amiodarone Hcl* (Amiodarone Hcl*) 100 Mg Tablet, 100 MG PO DAILY, #30 TAB Prov:RONY AGUILA MD 09/07/17 Reported Medications Amantadine Hcl* (Amantadine Hcl*) 100 Mg Capsule, 100 MG PO BID, #60 CAP 04/03/19 Carbidopa-Levodopa* (Sinemet CR*) 50-200 Mg Tabsr, 1 TAB PO TID, TAB 04/03/19 Folic Acid* (Folic Acid*) 1 Mg Tablet, 1 MG PO DAILY, TAB 04/03/19 Donepezil* (Donepezil*) 10 Mg Tablet, 10 MG PO DAILY, #30 TAB 04/03/19 Ramipril (Ramipril) 2.5 Mg Capsule, 2.5 MG PO DAILY, CAP 04/03/19 Megestrol Acetate* (Megestrol Acetate*) 40 Mg Tablet, 40 MG PO TID, TAB 09/05/17 Finasteride* (Finasteride*) 5 Mg Tablet, 5 MG PO DAILY, TAB 09/05/17 Gemfibrozil* (Gemfibrozil*) 600 Mg Tablet, 600 MG PO DAILY, TAB 09/05/17 Memantine* (Namenda* XR) 28 Mg Cap.spr.24, 28 MG PO DAILY, #30 TAB 09/05/17 Medications Current Medications Pantoprazole (Protonix Iv) 40 mg BID@06,18 IV Last administered on 04/06/19at 06:04; Admin Dose 40 MG; Start 04/03/19 at 20:00 Levetiracetam (Keppra) 250 mg BID PO Last administered on 04/05/19at 20:24; Admin Dose 250 MG; Start 04/03/19 at 23:30 Dextrose/Sodium Chloride 1,000 ml @ 50 mls/hr Q20H IV Last administered on 04/06/19at 06:04; Admin Dose 50 MLS/HR; Start 04/04/19 at 06:00 Ferric Sodium Gluconate Complex 125 mg/Sodium Chloride 100 ml @ 100 mls/hr DAILY@1300 IVPB Last administered on 04/05/19at 13:18; Admin Dose 100 MLS/HR; Start 04/04/19 at 13:00; Stop 04/06/19 at 13:59 Assessment/Plan Hospital Course (Demo Recall) 1. Cardiovascular preop evaluation 2. Recurrent subdural hematoma and falls 3. History of marked bradycardia mostly secondary to frequent PVCs: Previously has been significantly improved on amiodarone p.o. 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 Aortic insufficiency 6. Anemia 7. Chronic kidney disease 8. Ventricular arrhythmias with very frequent PVCs as well as bigeminy's Recommendations I will resume patient's home cardiac medications including amiodarone 100 mg p.o. daily as well as ramipril No further cardiac work-up would be indicated prior to his neurosurgical intervention. Patient has multiple risk factors and advanced age he would place him at moderate risk of cardiovascular event. However no further cardiac work- up would be felt to be beneficial to the patient prior to the needed procedure. From anesthesia standpoint patient has had very frequent PVCs and episodes of marked bradycardia but he has been tolerating it well with no recurrent symptoms with it. I expect that the anesthesiologist will also note very frequent PVCs and bigeminy's during the surgery though. We will correct electrolyte including potassium magnesium and try to keep his magnesium level more than 2 to minimize arrhythmias as much as possible. Thank you for his referral. We will continue to follow along with you VIOLA GARAY MD [facility] VIOLA GARAY MD April 06, 2019 09:07
[2019-04-06] MEDS: LEVETIRACETAM 250 MG TAB PO SCH ×2 (09:13→21:13)
--- NOTE | 2019-04-06 09:17 | RADRPT ---
Echocardiogram Report Patient Name: GINGER ARSHADPatient ID: [id number] : 1930 (88y 6m)Study Date: 04/06/2019 8:05:19 AM Gender: MAccession #: [id number] Tech: Yaakov Reinoso [facility] Location: 9266 Ref.Physician: VIOLA COLMENARES Height(Cm): BSA: Weight(Kg): Quality: Technically Difficult StudyOrder Physician: RACHEAL FLORES Account #: Procedures: Echocardiographic Report: Transthoracic echocardiogram with complete 2D, M-Mode, and doppler examination. Indications: Cardiomyopathy. Measurements: 2D/M Mode Doppler Measurement Value Normal Range Measurement Value Normal Range LVIDd 2D 4.1 [ 4.2 - 5.8 ] cm AV Peak Wesley 1.7 [ 100.0 - 170.0 ] cm/sec LVIDs 2D 2.7 [ 2.5 - 4.0 ] cm AV Peak PG 11.0 [ 2.0 - 9.0 ] mmHg LVPWd 2D 1.0 [ 0.6 - 1.0 ] cm AI Peak PG 58.0 mmHg IVSd 2D 1.1 [ 0.6 - 1.0 ] cm AI Peak Wesley 3.8 cm/sec AoR Diam 2D 3.5 [ 2.6 - 3.4 ] cm AI PHT 655.0 msec EDV 2D 73.8 [ 62.0 - 150.0 ] ml LVOT Peak Wesley 0.8 [ 70.0 - 110.0 ] cm/sec ESV 2D 28.0 [ 21.0 - 61.0 ] ml LVOT Peak PG 3.0 [ 2.0 - 6.0 ] mmHg EF 2D 62.1 [ 52.0 - 72.0 ] percent MV E Peak Wesley 0.7 [ 60.0 - 130.0 ] cm/sec LA Dimen 2D 3.1 [ 3.0 - 4.0 ] cm MV A Peak Wesley 1.2 [ 100.0 - 120.0 ] cm/sec MV E/A 0.6 [ 0.8 - 1.5 ] ratio MV Decel Time 275 [ 104 - 258 ] msec Lat E` Wesley 0.1 [ 10.0 - 15.0 ] cm/sec Lateral E/E` 12.5 [ 1.0 - 2.0 ] ratio MV E/A 0.6 [ 0.8 - 1.5 ] ratio TR Peak Wesley 1.8 [ 100.0 - 280.0 ] cm/sec TR Peak PG 13.0 mmHg RVSP 23.0 [ 10.0 - 36.0 ] mmHg RA Pressure 10.0 mmHg Findings: Left Ventricle: Normal left ventricular cavity size. Mild concentric left ventricular hypertrophy. Mild left ventricular systolic dysfunction. Paradoxical septal motion consistent with IVCD or bundle branch block. Ejection fraction is visually estimated at 45-50 %. Tissue Doppler/Mitral Doppler indices are consistent with impaired relaxation (Stage I diastolic dysfunction). Right Ventricle: Normal right ventricular size. Normal right ventricular systolic function. Left Atrium: The left atrium is normal in size. Right Atrium: The right atrium is normal in size. Mitral Valve: Mitral valve leaflets appear mildly thickened. Mild mitral annular calcification. Trace mitral regurgitation. Aortic Valve: No hemodynamically significant aortic stenosis by doppler. Aortic cusps appear mildly calcified. Mild to moderate aortic valve regurgitation. Tricuspid Valve: Normal appearance of the tricuspid valve. The estimated Peak RVSP is 23 mmHg. There is trace tricuspid regurgitation. Pulmonic Valve: Pulmonic valve not well visualized. Pericardium: Normal pericardium with no significant pericardial effusion. Aorta: Normal aortic root. IVC: Normal size and normal respiratory collapse consistent with normal right atrial pressure. Conclusions: Normal left ventricular cavity size. Mild concentric left ventricular hypertrophy. Mild left ventricular systolic dysfunction. Paradoxical septal motion consistent with IVCD or bundle branch block. Ejection fraction is visually estimated at 45-50 %. Tissue Doppler/Mitral Doppler indices are consistent with impaired relaxation (Stage I diastolic dysfunction). Mitral valve leaflets appear mildly thickened. Mild mitral annular calcification. Trace mitral regurgitation. No hemodynamically significant aortic stenosis by doppler. Aortic cusps appear mildly calcified. Mild to moderate aortic valve regurgitation. Normal appearance of the tricuspid valve. The estimated Peak RVSP is 23 mmHg. There is trace tricuspid regurgitation. Normal size and normal respiratory collapse consistent with normal right atrial pressure. Electronically Signed By: Viola Colmenares 2019-04-06 09:17:27 PDT
[2019-04-06] MEDS ORDERED: MAGNESIUM SULFATE 2 GM/50 ML 50 ML IVPB ONE (10:30)
[2019-04-06] MEDS: AMIODARONE 200 MG TAB PO SCH (10:34)
--- NOTE | 2019-04-06 12:06 | CONS ---
Assessment/Plan Assessment/Plan Assessment/Plan (Daily) Date of progress note: 04/06/2019 The patient's neurologic status remains unchanged. The patient is oriented to his first and last name only. He opens his eyes spontaneously intermittently and seems to respond to simple one-step commands including moving his upper and lower extremities. The patient overall seems to be quite deconditioned and fragile. His language is not fluent. Face is symmetric. Extraocular movements are grossly normal. Pupils are equally round and reactive to light bilaterally. Muscle bulk is symmetrically diminished bilateral upper and lower extremity's. There is some rigidity of his hands bilaterally. Motor strength left upper and lower extremities is 4 out of 5 proximally and distally. Motor strength right upper and lower extremity is 4- out of 5 proximally and distally. Gait testing has been deferred as the patient has difficulty ambulating. His hemoglobin is stable at 10. I have again discussed the risks and benefits of left frontoparietal bur hole craniectomy versus full craniotomy for evacuation of the subdural hematoma in detail with the patient's son and daughter. The patient's children fully understand the above discussion and wish to proceed with the surgery tomorrow. The patient has already been evaluated by his regular run boat operator in an inpatient setting and been cleared for surgery tomorrow. The patient's children have had all their questions answered. GLORIA WISEMAN MD April 06, 2019 12:06
[2019-04-06] MEDS: SOD FERRIC GLUC COMPLX 125 MG in SOD CHLORIDE 0.9% 100 ML IVPB SCH (13:25)
--- NOTE | 2019-04-06 16:12 | CONS ---
Assessment/Plan Assessment/Plan Assessment/Plan (Daily) Assessment/Plan Assessment/Plan Assessment/Plan (Daily) IMPRESSION: 1. _Melanotic stool. 2. Weakness. 3. Weight loss of 15 pounds. 4. Anorexia. 5. Status post subdural hematoma evacuation. 6. Intermittent dysphagia. 7. Benign prostatic hypertrophy. 8. Gastrectomy. 9. Unstable gait. 10. Ischemic heart disease. 11. New subdural hematoma Plan Neurosurgical consult has been called Patient is scheduled for surgery tomorrow for the evacuation of subdural he matoma Consultation Date/Type/Reason Admit Date/Time April 03, 2019 at 12:57 Initial Consult Date Requesting Provider: GLORIA WISEMAN MD Date/Time of Note DATE: 04/06/19 TIME: 16:11 24 HR Interval Summary Constitutional: no complaints Exam/Review of Systems Exam Vitals Vital Signs Date Temp Pulse Resp B/P (MAP) Pulse Ox O2 O2 Flow FiO2 Time Delivery Rate 04/06/19 98.2 74 18 129/74 99 13:35 (92) 04/04/19 Nasal 2.0 14:50 Cannula Intake and Output 04/05/19 04/05/19 04/06/19 1515:00 23:00 07:00 IntakeIntake Total 640 ml 970 ml 650 ml BalanceBalance 640 ml 970 ml 650 ml Constitutional: alert, oriented, well developed Psych: no complaints, nl mood/affect Head: normocephalic, atraumatic Eyes: nl conjunctiva, EOMI, nl lids, nl sclera, PERRL ENMT: nl external ears & nose, nl lips & teeth, nl nasal mucosa & septum Neck: supple, non-tender Respiratory: clear to auscultation, normal air movement Cardiovascular: regular rate and rhythm, nl pulses Gastrointestinal: soft, nl liver, spleen, non-tender Musculoskeletal: nl extremities to inspection, nl gait and stance Extremities: normal pulses 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: DISPATCH MACHINE RUNNER II-XII intact, nl mental status, nl speech, nl strength Skin: nl turgor; No rash or lesions Lymph: nl lymph nodes Results Result Diagram: 04/05/19 0509 04/03/19 1819 Results 24hrs Laboratory Tests Test 04/06/19 00:24 04/06/19 04:53 04/06/19 11:45 Troponin I < 0.012 < 0.012 < 0.012 Triglycerides Level 75 Cholesterol Level 111 LDL Cholesterol, Calculated 67 HDL Cholesterol 29 L Cholesterol/HDL Ratio 3.8 Medications Medication Current Medications Pantoprazole (Protonix Iv) 40 mg BID@06,18 IV Last administered on 04/06/19at 06:04; Admin Dose 40 MG; Start 04/03/19 at 20:00 Levetiracetam (Keppra) 250 mg BID PO Last administered on 04/06/19at 09:13; Admin Dose 250 MG; Start 04/03/19 at 23:30 Dextrose/Sodium Chloride 1,000 ml @ 50 mls/hr Q20H IV Last administered on 04/06/19at 06:04; Admin Dose 50 MLS/HR; Start 04/04/19 at 06:00 Amiodarone HCl (Cordarone) 200 mg DAILY PO Last administered on 04/06/19at 10:34; Admin Dose 200 MG; Start 04/06/19 at 09:30 Losartan Potassium (Cozaar) 12.5 mg DAILY PO ; Start 04/07/19 at 09:00 WADE SHARMA MD April 06, 2019 16:12
[2019-04-07] VITALS (21 sets, daily range): BP systolic 121–165; BP diastolic 61–99; PULSE 65–113; RESP 10–22
[2019-04-07] MEDS: PANTOPRAZOLE 40 MG INJ IV SCH ×2 (06:10→19:40)
[2019-04-07] MEDS: LEVETIRACETAM 250 MG TAB PO SCH ×2 (08:28→21:00)
[2019-04-07] MEDS: LOSARTAN 25 MG TAB PO SCH (08:29)
[2019-04-07] MEDS: AMIODARONE 200 MG TAB PO SCH (08:29)
--- NOTE | 2019-04-07 09:50 | CONS ---
Assessment/Plan Assessment/Plan Assessment/Plan (Daily) Assessment/Plan (Daily) IMPRESSION: 1. _Melanotic stool. Stool for occult blood was positive 2. Weakness. 3. Weight loss of 15 pounds. 4. Anorexia. 5. Status post subdural hematoma evacuation. 6. Intermittent dysphagia. 7. Benign prostatic hypertrophy. 8. Gastrectomy. 9. Unstable gait. History of multiple falls 10. Ischemic heart disease. 11. New subdural hematoma Plan Neurosurgical consult has been called Patient is scheduled for surgery today for the evacuation of subdural hematoma Consultation Date/Type/Reason Admit Date/Time April 03, 2019 at 12:57 Initial Consult Date Requesting Provider: GLORIA WISEMAN MD Date/Time of Note DATE: 04/07/19 TIME: 09:49 24 HR Interval Summary Free Text/Dictation Discussed with her daughter no complaints no GI bleeding Constitutional: no complaints Exam/Review of Systems Exam Vitals Vital Signs Date Temp Pulse Resp B/P (MAP) Pulse Ox O2 O2 Flow FiO2 Time Delivery Rate 04/07/19 98.8 74 20 121/76 97 Room Air 07:23 (91) 04/04/19 2.0 14:50 Intake and Output 04/06/19 04/06/19 04/07/19 1515:00 23:00 07:00 IntakeIntake Total 150 ml 650 ml 300 ml BalanceBalance 150 ml 650 ml 300 ml Constitutional: alert, oriented, well developed Psych: no complaints, nl mood/affect Head: normocephalic, atraumatic Eyes: nl conjunctiva, EOMI, nl lids, nl sclera, PERRL ENMT: nl external ears & nose, nl lips & teeth, nl nasal mucosa & septum Neck: supple, non-tender Respiratory: clear to auscultation, normal air movement Cardiovascular: regular rate and rhythm, nl pulses Gastrointestinal: soft, nl liver, spleen, non-tender Musculoskeletal: nl extremities to inspection, nl gait and stance Extremities: normal pulses 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: WASHER ENGINEER II-XII intact, nl mental status, nl speech, nl strength Skin: nl turgor; No rash or lesions Lymph: nl lymph nodes Results Result Diagram: 04/07/19 0612 04/07/19 0612 Results 24hrs Laboratory Tests Test 04/06/19 11:45 04/07/19 06:12 Troponin I < 0.012 White Blood Count 6.2 Red Blood Count 3.44 L Hemoglobin 10.1 L Hematocrit 32.3 L Mean Corpuscular Volume 93.9 Mean Corpuscular Hemoglobin 29.4 Mean Corpuscular Hemoglobin Concent 31.3 L Red Cell Distribution Width 14.2 Platelet Count 201 Mean Platelet Volume 8.9 Immature Granulocytes % 0.300 Neutrophils % 59.0 Lymphocytes % 23.1 Monocytes % 8.3 Eosinophils % 8.5 H Basophils % 0.8 Nucleated Red Blood Cells % 0.0 Immature Granulocytes # 0.020 Neutrophils # 3.7 Lymphocytes # 1.4 Monocytes # 0.5 Eosinophils # 0.5 Basophils # 0.1 Nucleated Red Blood Cells # 0.0 Sodium Level 140 Potassium Level 4.0 Chloride Level 112 H Carbon Dioxide Level 23 Anion Gap 5 Blood Urea Nitrogen 14 Creatinine 0.91 Est Glomerular Filtrat Rate mL/min Glucose Level 85 Calcium Level 8.4 Magnesium Level 2.2 Total Bilirubin 0.6 Direct Bilirubin 0.00 Indirect Bilirubin 0.6 Aspartate Amino Transf (AST/SGOT) < 8 L Alanine Aminotransferase (ALT/SGPT) 10 L Alkaline Phosphatase 58 Total Protein 5.5 L Albumin 3.0 L Globulin 2.50 Albumin/Globulin Ratio 1.20 Medications Medication Current Medications Pantoprazole (Protonix Iv) 40 mg BID@06,18 IV Last administered on 04/07/19at 06:10; Admin Dose 40 MG; Start 04/03/19 at 20:00 Levetiracetam (Keppra) 250 mg BID PO Last administered on 04/07/19at 08:28; Admin Dose 250 MG; Start 04/03/19 at 23:30 Amiodarone HCl (Cordarone) 200 mg DAILY PO Last administered on 04/07/19at 08:29; Admin Dose 200 MG; Start 04/06/19 at 09:30 Losartan Potassium (Cozaar) 12.5 mg DAILY PO Last administered on 04/07/19at 08:29; Admin Dose 12.5 MG; Start 04/07/19 at 09:00 WADE SHARMA MD Apr 07, 2019 09:50
--- NOTE | 2019-04-07 16:15 | CONS ---
Assessment/Plan Assessment/Plan Assessment/Plan (Daily) Date of progress note: 04/07/2019 The patient's neurologic status remains unchanged. The patient is oriented to his first and last name only. He opens his eyes spontaneously intermittently and seems to respond to simple one-step commands including moving his upper and lower extremities with baseline right hemiparesis as before. The patient's son and daughter are at bedside. I have again discussed the risks and benefits (as I had previosuly) of left frontoparietal bur hole craniectomy versus full craniotomy for evacuation of the subdural hematoma in detail with the patient's son and daughter. The risks include bleeding, infection, weakness, numbness, paralysis, bowel or bladder dysfunction, comatose state, difficulty with vision, difficulty with speech, cerebrospinal fluid leak failure of improvement of symptoms or worsening of symptoms, need for further surgeries including redo craniotomy for evacuation of recurrent hematoma or need for cerebrospinal fluid diversion i.e. TALENT AGENT shunt as well as those risks associated with surgery and g eneral anesthesia including deep venous thrombosis, pulmonary embolism, heart attack, stroke and . The patient's son and daughter at bedside fully understand the above discussion and wish to proceed with the surgery today. The patient's admitting physician, Dr. Enriquez also agrees with the plan. GLORIA WISEMAN MD Apr 07, 2019 16:15
--- NOTE | 2019-04-07 16:21 | PREAC ---
Date/Time of Note Date/Time of Note DATE: 04/07/19 TIME: 16:12 Anesthesia Eval and Record Evaluation Time Pre-Procedure Interview DATE: 04/07/19 TIME: 16:12 Age 88 Sex male NPO: 8 hrs Preoperative diagnosis Lt frontal subdural Hematoma Planned procedure Lt fronto-parietal Burhole placement craniotomy Past Medical History Past Medical History: Includes Cardio: HTN, Dyslipidemia Pulm: COPD Surgery & Anesthesia Issues No known issue Meds Anticoagulation: No Beta Mayur within 24 hr: No Reason Beta Mayur not given: Pt. not on B-Mayur Active Scripts Amiodarone Hcl* (Amiodarone Hcl*) 100 Mg Tablet, 100 MG PO DAILY, #30 TAB Prov:RONY AGUILA MD 09/07/17 Reported Medications Amantadine Hcl* (Amantadine Hcl*) 100 Mg Capsule, 100 MG PO BID, #60 CAP 04/03/19 Carbidopa-Levodopa* (Sinemet CR*) 50-200 Mg Tabsr, 1 TAB PO TID, TAB 04/03/19 Folic Acid* (Folic Acid*) 1 Mg Tablet, 1 MG PO DAILY, TAB 04/03/19 Donepezil* (Donepezil*) 10 Mg Tablet, 10 MG PO DAILY, #30 TAB 04/03/19 Ramipril (Ramipril) 2.5 Mg Capsule, 2.5 MG PO DAILY, CAP 04/03/19 Megestrol Acetate* (Megestrol Acetate*) 40 Mg Tablet, 40 MG PO TID, TAB 09/05/17 Finasteride* (Finasteride*) 5 Mg Tablet, 5 MG PO DAILY, TAB 09/05/17 Gemfibrozil* (Gemfibrozil*) 600 Mg Tablet, 600 MG PO DAILY, TAB 09/05/17 Memantine* (Namenda* XR) 28 Mg Cap.spr.24, 28 MG PO DAILY, #30 TAB 09/05/17 Current Medications Pantoprazole (Protonix Iv) 40 mg BID@06,18 IV Last administered on 04/07/19at 06:10; Admin Dose 40 MG; Start 04/03/19 at 20:00 Levetiracetam (Keppra) 250 mg BID PO Last administered on 04/07/19at 08:28; Admin Dose 250 MG; Start 04/03/19 at 23:30 Amiodarone HCl (Cordarone) 200 mg DAILY PO Last administered on 04/07/19at 08:29; Admin Dose 200 MG; Start 04/06/19 at 09:30 Losartan Potassium (Cozaar) 12.5 mg DAILY PO Last administered on 04/07/19at 08:29; Admin Dose 12.5 MG; Start 04/07/19 at 09:00 Meds reviewed: Yes Allergies Coded Allergies: No Known Allergy (Unverified , 09/05/17) Allergies Reviewed: Yes Labs/Studies Labs Reviewed: Reviewed by anesthesiologist Result Diagram: 04/07/1912 04/07/19611 Laboratory Tests 04/07/19 06:12 test: N/A Studies: ECG Pre-procedure Exam Last vitals Vital Signs Date Temp Pulse Resp B/P (MAP) Pulse Ox O2 O2 Flow FiO2 Time Delivery Rate 04/07/19 98.4 69 20 139/61 98 Room Air 15:21 (87) 04/04/19 2.0 14:50 Airway: Adequate mouth opening, Adequate thyromental dist Mallampati: Mallampati II Teeth: Normal Lung: Normal Heart: Normal ASA Physical Status ASA physical status: 4 Emergency: E Planned Anesthetic General/MAC: ETT Planned Pain Management Parenteral pain med Pre-operative Attestations Prior to commencing anesthesia and surgery, the patient was re-evaluated, there was verification of: *The patient's identity *The results of appropriate recent lab work and preoperative vital signs *The above evaluation not changing prior to induction *Anesthetic plan, risk benefits, alternative and complications discussed with patient/family; questions answered; patient/family understands, accepts and wishes to proceed. MILI AMADO MD Apr 07, 2019 16:21
[2019-04-07] MEDS ORDERED: MIDAZOLAM 1 MG/ML 2 ML INJ ONE (16:36)
[2019-04-07] MEDS ORDERED: FENTAnyl 50 MCG/ML VIAL ONE (16:36)
[2019-04-07] MEDS ORDERED: THROMBIN 5000 UNIT VIAL ONE (16:40)
[2019-04-07] MEDS ORDERED: GELATIN SIZE 100 SPONGE ONE (16:40)
[2019-04-07] MEDS ORDERED: LIDOCAINE 0.5% (SDV) 50 ML INJ ONE (16:41)
[2019-04-07] MEDS ORDERED: BUPIVACAINE 0.5%/EPI (SDV) 30 ML INJ ONE (16:41)
[2019-04-07] MEDS ORDERED: POLYMYXIN/BACITRACIN 1L IRRIG ONE (16:41)
[2019-04-07] MEDS ORDERED: POLYMYXIN B 500000 UNIT INJ ONE (17:59)
[2019-04-07] MEDS ORDERED: BACITRACIN/POLYMYXIN 28.35 GM OINT TOP ONE (18:14)
[2019-04-07] MEDS ORDERED: POLYMYXIN/BACITRACIN 1L IRRIG IRR ONE (18:25)
[2019-04-07] MEDS ORDERED: BACITRACIN 50000 UNITS INJ IRR ONE (18:26)
[2019-04-07] MEDS ORDERED: ETOMIDATE 20 MG INJ ONE (18:30)
[2019-04-07] MEDS ORDERED: NEOSTIGMINE 3 MG/3 ML SYRINGE ONE (18:30)
[2019-04-07] MEDS ORDERED: GLYCOPYRROLATE 0.4 MG INJ ONE (18:30)
[2019-04-07] MEDS ORDERED: LIDOCAINE 2% (SDV) 5 ML INJ ONE (18:30)
[2019-04-07] MEDS ORDERED: CEFAZOLIN 1 GM INJ ONE (18:30)
[2019-04-07] MEDS ORDERED: ROCURONIUM 50 MG INJ ONE (18:30)
[2019-04-07] MEDS ORDERED: ONDANSETRON 4 MG INJ ONE (18:31)
--- NOTE | 2019-04-07 18:47 | SIPON ---
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
--- NOTE | 2019-04-07 18:48 | OPR ---
Date/Time of Note Date/Time of Note DATE: 04/07/19 TIME: 18:47 Operative Report Procedure Date: Apr 07, 2019 Preoperative Diagnosis Please see below. Postoperative Diagnosis Please see below. Operation/Procedure Performed Please see below. Surgeon see signature line Transitions Manager None Anesthesia Type: general Estimated Blood Loss: 0 - 10 ml's (10cc) Transfusion none Specimen None Grafts/Implants none Tubes/Drains Please see below. Complications none Pt Condition Post Procedure: stable Disposition: other (ICU) Procedure Description Date of operation: 04/07/2019 Operating surgeon: Madhu Wiseman M.D. 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 The risks and benefits of the above operation were again explained to the patient's daughter and son in great detail who are at bedside in the preoperative area. They understand that the patient can have recurrent subdural hematomas which may require further operative intervention in addition to the other risks associated with surgery including bleeding, infection weakness, numbness, paralysis, difficulty with vision, difficulty with speech, comatose state, failure of improvement of symptoms or worsening of symptoms, need for further surgeries, as well as those risks associated with surgery and general anesthesia including deep venous thrombosis, pulmonary embolism, heart attack, stroke and . The family fully understands the above discussion and wish to have the patient proceed with the above surgery. The patient at baseline has dementia and does not fully understand his condition. Description of operative procedure: The patient was brought to the operating room and placed supine on the operating table. After general anesthesia was obtained, the patient's head was placed on a doughnut foam and his head was rotated towards the right exposing the left tommy-scalp. A small linear incision at the left frontal just behind the hairline and over the left parietal region close to the parietal boss along the left superior temporal line was marked. After the skin was prepped and draped under standard sterile fashion, local anesthetics were infiltrated into the 2 marked incisions. The skin was then incised down to the level of the skull at both incisions. Self-retaining retractors were placed inside. Using the high-speed drill we then performed bur hole craniectomies down to the level of the dura at both sides. The dura was coagulated and opened up in a cruciate fashion. Dark red blood consistent with subacute subdural hematoma was seen coming out under relatively low pressure. The craniectomies were slightly extended to make the opening bigger. The dural opening was also extended. We encountered several layers of pseudomembrane over both the left frontal and parietal craniectomies and the pseudomembranes were coagulated and opened revealing more subdural hematoma. We then began irrigating the subdural space with antibiotic solution by inserting a red David feeding catheter into the subdural spaces without resistance. More subacute subdural blood was seen coming out. Subsequently, yellowish subdural fluid consistent with chronic subdural hematoma was then seen coming out. Over a l iter of antibiotic solution was irrigated into the subdural spaces onto clear fluid was seen coming out from the subdural spaces. The underlying brain became completely pulsatile and decompressed however the brain did not readily expand out and fill the large subdural space likely related to the patient's cerebral atrophy at baseline. A size 10 round JULIA drain was then inserted through the left frontal opening into the subdural space without resistance and the other end of it was brought out of the skin away from the incision site. A piece of Gelfoam was placed over each of the craniectomy sites after the subdural space was filled with irrigation to eliminate air in the subdural space as much as possible. The galeal layer was reapproximated with interrupted sutures. The galea layer was reapproximated with interrupted sutures. The skin was reapproximated with a simple running Rapide 3-0 suture at both incision sites. Antibiotic ointment was placed over each of the incision sites. The left subdural drain was secured to the skin at its exit site with a suture and connected to a JULIA bulb and activated. The patient was then woken up, extubated and transported to the ICU in stable condition. The patient was awake and moving his upper and lower extremities similar to his preoperative baseline in the ICU. Estimated blood loss: 10 cc Blood products administered: None Packs/drains: Size 10 JULIA drain Type of anesthesia: General Incision: Left frontal and parietal Skin closure: Simple running Rapide 3-0 suture Wound classification: Clean Specimen removed: None Patient's condition: Stable Prognosis: Good MADHU WISEMAN MD Apr 07, 2019 18:47
--- NOTE | 2019-04-07 18:54 | PAC ---
Date/Time of Note Date/Time of Note DATE: 04/07/19 TIME: 18:53 Post-Anesthesia Notes Post-Anesthesia Note Last documented vital signs Vital Signs Date Temp Pulse Resp B/P (MAP) Pulse Ox O2 O2 Flow FiO2 Time Delivery Rate 04/07/19 98.0 18:51 04/07/19 69 20 139/61 98 Room Air 15:21 (87) 04/04/19 2.0 14:50 Activity: WNL Respiratory function: WNL Cardiovascular function: WNL Mental status: Baseline Pain reasonably controlled: Yes Hydration appropriate: Yes Nausea/Vomiting absent: Yes Comments BP:146/67, P:78, Spo2:100%, T:98,8 MILI AMADO MD Apr 07, 2019 18:54
[2019-04-07] MEDS ORDERED: HYDROCODONE/APAP (5/325) TAB PO PRN (19:00)
[2019-04-07] MEDS ORDERED: morphine 2 MG INJ IV PRN (19:00)
[2019-04-07] MEDS ORDERED: ONDANSETRON 4 MG INJ IV PRN ×2 (19:00)
[2019-04-07] MEDS ORDERED: NALOXONE (0.4 MG/ML) INJ IV PRN (19:00)
[2019-04-07] MEDS ORDERED: BISACODYL 10 MG SUPP PR PRN (19:00)
[2019-04-07] MEDS ORDERED: LABETALOL HCL 20MG INJ IV PRN (19:00)
[2019-04-07] MEDS ORDERED: HYDROmorphONE 1 MG/5 ML IV SYRINGE IV PRN ×2 (19:00)
[2019-04-07] MEDS ORDERED: DIPHENHYDRAMINE 50 MG INJ IV PRN (19:00)
[2019-04-07] MEDS ORDERED: FENTAnyl 50 MCG/ML VIAL IV PRN (19:00)
[2019-04-07] MEDS ORDERED: METOCLOPRAMIDE 10 MG INJ IV PRN (19:00)
[2019-04-07] MEDS ORDERED: hydrALAzine 20 MG INJ IV PRN (19:00)
[2019-04-07] MEDS: D5W-0.45 NACL + KCL 20 MEQ 1,000 ML IV SCH (19:40)
[2019-04-07] MEDS: CEFAZOLIN 1 GM/50 ML (PMX) 50 ML IVPB SCH (19:40)
[2019-04-07] MEDS: DOCUSATE SODIUM 100 MG CAP PO SCH (21:00)
[2019-04-07] MEDS: NEOMYC/POLYMYX/BACIT 30 GM OINT TOP SCH (23:25)
[2019-04-07] MEDS: HYDROmorphONE 0.5 MG/0.5 ML SYG IV PRN (23:27)
[2019-04-08] VITALS (22 sets, daily range): BP systolic 116–157; BP diastolic 58–99; PULSE 83–104; RESP 8–17
[2019-04-08] MEDS: CEFAZOLIN 1 GM/50 ML (PMX) 50 ML IVPB SCH ×2 (03:49→10:34)
[2019-04-08] MEDS: HYDROmorphONE 0.5 MG/0.5 ML SYG IV PRN ×2 (03:50→09:11)
[2019-04-08] MEDS: PANTOPRAZOLE 40 MG INJ IV SCH ×2 (06:15→17:40)
[2019-04-08] MEDS: D5W-0.45 NACL + KCL 20 MEQ 1,000 ML IV SCH ×2 (06:15→16:34)
[2019-04-08] MEDS: DOCUSATE SODIUM 100 MG CAP PO SCH ×2 (09:00→20:09)
[2019-04-08] MEDS: LEVETIRACETAM 250 MG TAB PO SCH ×2 (09:00→20:09)
[2019-04-08] MEDS: LOSARTAN 25 MG TAB PO SCH (09:00)
[2019-04-08] MEDS: AMIODARONE 200 MG TAB PO SCH (09:00)
[2019-04-08] MEDS: NEOMYC/POLYMYX/BACIT 30 GM OINT TOP SCH ×2 (09:11→21:00)
--- NOTE | 2019-04-08 12:19 | PN ---
Date/Time of Note Date/Time of Note DATE: 04/08/19 TIME: 11:57 Assessment/Plan VTE Prophylaxis Risk score (from Ns)>0 risk: 9 [place] [facility] [place] contraindicated: other Pharmacological prophylaxis: LMWH Lines/Catheters IV Catheter Type (from [facility]): Peripheral IV Central line still needed: No Urinary Cath still in place: Yes Reason Cath still needed: urinary retention Assessment/Plan Assessment/Plan 1. Melena on and off still continues. 2. Weight loss more than 15 pounds during the last 2 months 3. Status post fall due to the severe weakness deconditioning and muscular wasting 4. Anemia chronic disease with a recent loss-iron level 28. 5. Status post right-sided adal trepanation with removal of subdural hematoma in the [facility] about 1/2 years ago. Patient had a subdural hematoma on the left side too.New on the top of the old subdural hematoma on the left on mri.S/P trephination and 2-3 cc of serous fluid in a bag. 6. Ischemic heart disease angina. 7. Unstable gait with recurrent episodes of fall. 8. Deconditioning 9. Status post cataract ectomy 10. Constant snacking and chewing movements involuntarily being unable to stop mainly during last 3-4 months. 11. Bradycardia with history of syncopal episodes 12 osteoporosis and osteoarthritis 13. Dizziness 14. Hearing impairment 15. Dysphagia on and off 16. BPH with episodes of urinary incontinence 17. Dyslipidemia 18.S/p left clavicular FX(old, healed). Result Diagram: 04/08/19 0457 04/08/19 0721 Results 24hrs Laboratory Tests Test 04/07/19 15:30 04/07/19 22:39 04/08/19 04:57 04/08/19 07:21 Urine Color YELLOW Urine Clarity CLEAR Urine pH 6.0 Urine Specific [place] 1.015 Urine Ketones NEGATIVE Urine Nitrite NEGATIVE Urine Bilirubin NEGATIVE Urine Urobilinogen 1+ H Urine Leukocyte Esterase NEGATIVE Urine Microscopic RBC 3 Urine Microscopic WBC 2 Urine Hemoglobin 1+ H Urine Glucose NEGATIVE Urine Total Protein NEGATIVE Sodium Level 140 139 Potassium Level 4.2 4.1 Chloride Level 111 H 108 Carbon Dioxide Level 23 25 Anion Gap 6 6 Blood Urea Nitrogen 13 11 Creatinine 0.97 0.91 Est Glomerular Filtrat Rate mL/min Glucose Level 98 117 Calcium Level 8.4 8.3 L Phosphorus Level 3.7 Magnesium Level 2.1 White Blood Count 6.8 Red Blood Count 3.19 L Hemoglobin 9.4 L Hematocrit 30.5 L Mean Corpuscular Volume 95.6 Mean Corpuscular 29.5 Hemoglobin Mean Corpuscular 30.8 L Hemoglobin Concent Red Cell Distribution 14.0 Width Platelet Count 180 Mean Platelet Volume 9.2 Immature Granulocytes % 0.400 Neutrophils % 71.9 Lymphocytes % 12.6 L Monocytes % 8.0 Eosinophils % 6.5 Basophils % 0.6 Nucleated Red Blood 0.0 Cells % Immature Granulocytes # 0.030 Neutrophils # 4.9 Lymphocytes # 0.9 Monocytes # 0.5 Eosinophils # 0.4 Basophils # 0.0 Nucleated Red Blood 0.0 Cells # Subjective 24 Hr Interval Summary Free Text/Dictation No complains. Constitutional: improved, disoriented, poor po, requiring O2; No no complaints, No chills, No diaphoresis, No febrile, No requiring IVF, No other Eyes: No no complaints, No pain, No discharge, No redness, No visual change, No other ENT: No no complaints, No bleeding, No pain, No congestion, No discharge, No dysphagia, No sore throat, No other Respiratory: cough; No no complaints, No pain, No pleuritic pain, No shortness of breath, No sputum, No wheezing, No other Cardiovascular: chest pain, palpitations; No no complaints, No edema, No lightheadedness, No orthopenea, No paroxysmal nocturnal dyspnea, No other Gastrointestinal: constipation, flatus, nausea; No no complaints, No pain, No blood, No decreased appetite, No diarrhea, No passing stool, No vomiting, No other Genitourinary: No no complaints, No bleeding, No dysuria, No discharge, No flank pain, No hematuria, No other Musculoskeletal: No no complaints, No back pain, No bone/joint pain, No neck pain, No restricted range of motion, No swelling, No other Skin: pruritis, rash; No no complaints, No bruising, No erythema, No laceration, No skin lesions, No other Neurologic: No no complaints, No confusion, No dizziness, No focal-weakness, No headache, No syncope, No seizure, No other Exam/Review of Systems Exam Vitals Vital Signs Date Temp Pulse Resp B/P (MAP) Pulse Ox O2 O2 Flow FiO2 Time Delivery Rate 04/08/19 104 14 143/99 100 Nasal 2.0 11:00 (114) Cannula 04/08/19 99.2 08:00 Intake and Output 04/07/19 04/07/19 04/08/19 1515:00 23:00 07:00 IntakeIntake Total 50 ml 1385 ml 715 ml OutputOutput Total 660 ml 705 ml BalanceBalance 50 ml 725 ml 10 ml Constitutional: alert, oriented (in people and place. Not in time.), well developed, frail; No non-verbal, No distress, No obese, No other Psych: No no complaints, No nl mood/affect, No anxiety, No confusion, No depression, No suicidal, No other Head: No normocephalic, No atraumatic, No lacerations, No hematomas, No other Eyes: EOMI, nl lids, PERRL ENMT: nl nasal mucosa & septum; No nl external ears & nose, No nl lips & teeth, No mucosa pink and moist, No intubated, No tympanic membranes, No other Neck: supple, bruits, nuchal rigidity (mild.); No non-tender, No jvd, No masses, No thyromegaly, No other Respiratory: clear to auscultation, normal air movement; No congested cough, No crackles/rales, No diminished breath sounds, No intercostal retraction, No labored breathing, No respirations, No tactile fremitus, No wheezing, No other Cardiovascular: nl pulses, systolic murmur; No regular rate and rhythm, No bruits, No diastolic murmur, No edema, No gal lop, No irregular rhythm, No jugular venous distention (JVD), No murmurs/extra sounds, No rub, No S3, No S4, No other Gastrointestinal: soft, nl liver, spleen, non-tender, bowel sounds; No ascites, No distended, No firm, No hepatomegaly, No mass, No rebound or guarding, No splenomegaly, No surgical scars, No tender, No other Genitourinary - Male: nl penis, nl scrotum; No CVA tenderness, No discharge, No other Musculoskeletal: joint tenderness, muscle tone, muscle weakness; No nl extremities to inspection, No nl gait and stance, No range of motion, No spine non-tender, No swelling, No other Extremities: normal pulses; No calf tenderness, No cyanosis, No clubbing, No edema, No pitting pedal edema, No palpable cord, No tenderness, No other 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: [employer]-X[employer] intact, nl mental status, nl strength (weak.), lethargic (on and off.); No nl speech, No confused, No DTR's symmetric, No focal weakness, No numbness, No reflexes, No unresponsive, No other Skin: nl turgor Lymph: No nl lymph nodes, No enlarged, No nontender, No other Results Results 24hrs Laboratory Tests Test 04/07/19 15:30 04/07/19 22:39 04/08/19 04:57 04/08/19 07:21 Urine Color YELLOW Urine Clarity CLEAR Urine pH 6.0 Urine Specific [place] 1.015 Urine Ketones NEGATIVE Urine Nitrite NEGATIVE Urine Bilirubin NEGATIVE Urine Urobilinogen 1+ H Urine Leukocyte Esterase NEGATIVE Urine Microscopic RBC 3 Urine Microscopic WBC 2 Urine Hemoglobin 1+ H Urine Glucose NEGATIVE Urine Total Protein NEGATIVE Sodium Level 140 139 Potassium Level 4.2 4.1 Chloride Level 111 H 108 Carbon Dioxide Level 23 25 Anion Gap 6 6 Blood Urea Nitrogen 13 11 Creatinine 0.97 0.91 Est Glomerular Filtrat Rate mL/min Glucose Level 98 117 Calcium Level 8.4 8.3 L Phosphorus Level 3.7 Magnesium Level 2.1 White Blood Count 6.8 Red Blood Count 3.19 L Hemoglobin 9.4 L Hematocrit 30.5 L Mean Corpuscular Volume 95.6 Mean Corpuscular 29.5 Hemoglobin Mean Corpuscular 30.8 L Hemoglobin Concent Red Cell Distribution 14.0 Width Platelet Count 180 Mean Platelet Volume 9.2 Immature Granulocytes % 0.400 Neutrophils % 71.9 Lymphocytes % 12.6 L Monocytes % 8.0 Eosinophils % 6.5 Basophils % 0.6 Nucleated Red Blood 0.0 Cells % Immature Granulocytes # 0.030 Neutrophils # 4.9 Lymphocytes # 0.9 Monocytes # 0.5 Eosinophils # 0.4 Basophils # 0.0 Nucleated Red Blood 0.0 Cells # Medications Medication Current Medications Pantoprazole (Protonix Iv) 40 mg BID@06,18 IV Last administered on 04/08/19at 06:15; Admin Dose 40 MG; Start 04/03/19 at 20:00 Levetiracetam (Keppra) 250 mg BID PO Last administered on 04/07/19 08:28; Admin Dose 250 MG; Start 04/03/19 at 23:30 Amiodarone HCl (Cordarone) 200 mg DAILY PO Last administered on 04/07/19 08:29; Admin Dose 200 MG; Start 04/06/19 at 09:30 Losartan Potassium (Cozaar) 12.5 mg DAILY PO Last administered on 04/07/19 08:29; Admin Dose 12.5 MG; Start 04/07/19 at 09:00 Potassium Chloride/Dextrose/ Sod Cl 1,000 ml @ 100 mls/hr Q10H IV Last administered on 04/08/19 06:15; Admin Dose 100 MLS/HR; Start 04/07/19 at 18:32 Acetaminophen/ Hydrocodone Bitart ([place] (5/325)) 1 tab Q4H PRN PO .PAIN 1-5; Start 04/07/19 at 19:00 Hydromorphone HCl (Dilaudid) 0.2 mg Q1H PRN IV .BREAKTHROUGH PAIN Last administered on 04/08/19at 09:11; Admin Dose 0.2 MG; Start 04/07/19 at 19:00 Ondansetron HCl (Zofran Inj) 4 mg Q6H PRN IV NAUSEA/VOMITING; Start 04/07/19 at 19:00 Bisacodyl (Dulcolax Supp) 10 mg DAILY PRN [place] .CONSTIPATION; Start 04/07/19 at 19:00 Docusate Sodium (Colace) 100 mg BID PO ; Start 04/07/19 at 21:00 Naloxone HCl (Narcan) 0.2 mg Q2M PRN IV .RR 8 BREATHS/MIN OR LESS; Start 04/07/19 at 19:00 Neomycin/ Polymyxin/ Bacitracin (Neosporin Topical Oint) 1 applic BID TOP Last administered on 04/08/19 09:11; Admin Dose 1 APPLIC; Start 04/07/19 at 21:00 BROOKLYNN OCASIO MD Apr 08, 2019 12:09
[2019-04-08] MEDS: CLONIDINE 0.1 MG/24 HR PATCH TRANSDERM SCH (12:26)
[2019-04-09] VITALS (12 sets, daily range): BP systolic 120–147; BP diastolic 64–89; PULSE 88–103; RESP 17–20
[2019-04-09] MEDS: D5W-0.45 NACL + KCL 20 MEQ 1,000 ML IV SCH ×3 (03:00→20:32)
[2019-04-09] MEDS: PANTOPRAZOLE 40 MG INJ IV SCH ×2 (06:17→17:50)
--- NOTE | 2019-04-09 07:14 | PN ---
DATE: 04/08/2019 SUBJECTIVE: The patient is sleepy. He is transferred to intensive care unit after the surgery on hi s head. OBJECTIVE: VITAL SIGNS: Stable. ABDOMEN: Benign. LUNGS: Clear. EXTREMITIES: No edema. CENTRAL NERVOUS SYSTEM: The patient moves eyes, does not communicate because of the language barrier . IMPRESSION: 1. Status post left frontoparietal lilia hole craniotomy and evacuation of subdural hematoma. 2. Anemia. 3. Positive stool guaiac. 4. History of multiple falls. 5. Benign prostatic hypertrophy. 6. Hearing impairment. PLAN: To continue postoperative care, continue to monitor hematocrit and also monitor for active GI bleeding. Dictated By: WADE SHARMA MD PJ/NTS Conf#: [id number] DID#: [id number] CC: VIOLA GARAY MD; BROOKLYNN OCASIO MD;*EndCC*
--- NOTE | 2019-04-09 07:39 | CONS ---
Assessment/Plan Assessment/Plan Hospital Course (Demo Recall) 88 yo male with melena, s/p EGD and left frontoparietal lilia hole craniotomy and evacuation of subdural hematoma 1. Status post left frontoparietal lilia hole craniotomy and evacuation of subdu ral hematoma. 2. Anemia. 3. Positive stool guaiac. 4. History of multiple falls. 5. Benign prostatic hypertrophy. 6. Hearing impairment. 7. Chronic gastritis 8. Positive Gram negative rods in urine Gastric biopsies: -- Moderate superficial chronic gastritis with focal lymphoid hyperplasia. -- A Giemsa stain with an appropriate control, is negative for H. pylori organisms (please see comment). -- No dysplasia or intestinal metaplasia is identified. PLAN: PPI Normal CEA levels Consider colonoscopy once pt stable and if continues to have severe anemia and melanotic stools, brought up the possibility of doing colonoscopy at some point, daughter does not want. We will monitor the situation Monitor HH and for active GI bleeding Pt examined and plan of care discussed with Dr. Hurd Consultation Date/Type/Reason Admit Date/Time April 03, 2019 at 12:57 Initial Consult Date Requesting Provider: GLORIA WISEMAN MD Date/Time of Note DATE: 04/09/19 TIME: 07:32 24 HR Interval Summary Free Text/Dictation Pending am labs. No bm since 04/07. Spoke with daughter who states he is improving neurologically, has been tolerating PO diet. I also spoke with daughter about the possibility of doing a colonoscopy which she does not want to do. Exam/Review of Systems Exam Vitals Vital Signs Date Temp Pulse Resp B/P (MAP) Pulse Ox O2 O2 Flow FiO2 Time Delivery Rate 04/09/19 98.5 93 18 134/64 95 04:15 (87) 04/08/19 Nasal 2.0 20:00 Cannula Intake and Output 04/08/19 04/08/19 04/09/19 1515:00 23:00 07:00 IntakeIntake Total 760 ml 420 ml 40 ml OutputOutput Total 800 ml 300 ml 800 ml BalanceBalance -40 ml 120 ml -760 ml Constitutional: alert Eyes: nl sclera, PERRL Respiratory: normal air movement Cardiovascular: regular rate and rhythm Gastrointestinal: soft, non-tender, bowel sounds 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: other (pt does not respond to my commands or questions) Results Result Diagram: 04/08/19 0457 04/08/19 0721 Medications Medication Current Medications Pantoprazole (Protonix Iv) 40 mg BID@06,18 IV Last administered on 04/09/19at 0 6:17; Admin Dose 40 MG; Start 04/03/19 at 20:00 Levetiracetam (Keppra) 250 mg BID PO Last administered on 04/08/19 20:09; Admin Dose 250 MG; Start 04/03/19 at 23:30 Amiodarone HCl (Cordarone) 200 mg DAILY PO Last administered on 04/07/19 08:29; Admin Dose 200 MG; Start 04/06/19 at 09:30 Losartan Potassium (Cozaar) 12.5 mg DAILY PO Last administered on 04/07/19 08:29; Admin Dose 12.5 MG; Start 04/07/19 at 09:00 Potassium Chloride/Dextrose/ Sod Cl 1,000 ml @ 100 mls/hr Q10H IV Last administered on 04/09/19 03:00; Admin Dose 100 MLS/HR; Start 04/07/19 at 18:32 Acetaminophen/ Hydrocodone Bitart ([place] (5/325)) 1 tab Q4H PRN PO .PAIN 1-5 Last administered on 04/08/19 15:55; Admin Dose 1 TAB; Start 04/07/19 at 19:00 Hydromorphone HCl (Dilaudid) 0.2 mg Q1H PRN IV .BREAKTHROUGH PAIN Last admin istered on 04/08/19 09:11; Admin Dose 0.2 MG; Start 04/07/19 at 19:00 Ondansetron HCl (Zofran Inj) 4 mg Q6H PRN IV NAUSEA/VOMITING; Start 04/07/19 at 19:00 Bisacodyl (Dulcolax Supp) 10 mg DAILY PRN [place] .CONSTIPATION; Start 04/07/19 at 19:00 Docusate Sodium (Colace) 100 mg BID PO Last administered on 04/08/19 20:09; Admin Dose 100 MG; Start 04/07/19 at 21:00 Naloxone HCl (Narcan) 0.2 mg Q2M PRN IV .RR 8 BREATHS/MIN OR LESS; Start 04/07/19 at 19:00 Neomycin/ Polymyxin/ Bacitracin (Neosporin Topical Oint) 1 applic BID TOP Last administered on 04/08/19at 21:00; Admin Dose 1 APPLIC; Start 04/07/19 at 21:00 Clonidine HCl (Catapres-Tts 1 Patch) 1 patch [place]@1000 TRANSDERM Last administered on 04/08/19at 12:26; Admin Dose 1 PATCH; Start 04/08/19 at 12:00 MELYSSA LERMA Apr 09, 2019 07:39
[2019-04-09] MEDS: DOCUSATE SODIUM 100 MG CAP PO SCH ×3 (08:35→21:16)
[2019-04-09] MEDS: LEVETIRACETAM 250 MG TAB PO SCH ×2 (08:36→21:13)
[2019-04-09] MEDS: AMIODARONE 200 MG TAB PO SCH (08:36)
[2019-04-09] MEDS: NEOMYC/POLYMYX/BACIT 30 GM OINT TOP SCH ×2 (08:37→21:18)
[2019-04-09] MEDS: LOSARTAN 25 MG TAB PO SCH (08:37)
--- NOTE | 2019-04-09 15:46 | CONS ---
Consult Date/Type/Reason Admit Date/Time April 03, 2019 at 12:57 Initial Consult Date Type of Consultation: cv Requesting Provider: GLORIA WISEMAN MD Date/Time of Note DATE: 04/09/19 TIME: 15:42 Subjective Interventional cardiology progress note Subjective: Case discussed with the daughter. Case discussed with staff. TELE WAS reviewed. pt remains in NSR/ sinus tachy s/p burhole and evacuation of SDH on 04/07/19 pt does not talk today per daughter report Objective: General: no acute distress HEENT: NC, s/p burhole .. pupils are equal. round. NECK: NO JVD. no stridor. CV: RRR. systolic murmur; no gallop or rubs. PULM: no wheezing or rhonchi. GI: SOFT, NT, ND, no rebound or guarding Extremity: trace B/L LE edema. no clubbing. neuro: awake and follows basic command and moves extremities. but does not speak Psych: calm and pleasant rectal: deferred : normal EKG done today shows normal sinus rhythm with PVC. Nonspecific T wave abnor malities Of the old chart shows that echocardiogram done in my office on 10/02/2018 has shown ejection fraction about 40 to 45% LVH with mild to moderate aortic insufficiency diastolic dysfunction mild MR and TR MRI of the brain done April 04, 2019 shows: MRI of the brain demonstrates a large left subdural hematoma with varying ages however there is a 9 mm acute component with the overall measurement measuring up to 2.2 cm resulting in diffuse left cerebral mass effect with minimal [id number] midline shift. 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 Objective Vitals Vital Signs Date Temp Pulse Resp B/P (MAP) Pulse Ox O2 O2 Flow FiO2 Time Delivery Rate 04/09/19 91 12:01 04/09/19 98.2 18 138/72 98 Room Air 11:53 (94) 04/09/19 2.0 08:00 Intake and Output 04/08/19 04/08/19 04/09/19 1515:00 23:00 07:00 IntakeIntake Total 760 ml 420 ml 40 ml OutputOutput Total 800 ml 300 ml 800 ml BalanceBalance -40 ml 120 ml -760 ml Results/Medications Result Diagram: 04/09/19 0711 04/09/19 0711 Results 24 hrs Laboratory Tests Test 04/09/19 07:11 White Blood Count 8.5 # Red Blood Count 3.58 L Hemoglobin 10.5 L Hematocrit 33.4 L Mean Corpuscular Volume 93.3 Mean Corpuscular Hemoglobin 29.3 Mean Corpuscular Hemoglobin Concent 31.4 L Red Cell Distribution Width 13.6 Platelet Count 198 Mean Platelet Volume 9.2 Immature Granulocytes % 0.600 H Neutrophils % 73.8 Lymphocytes % 11.5 L Monocytes % 8.1 Eosinophils % 5.6 Basophils % 0.4 Nucleated Red Blood Cells % 0.0 Immature Granulocytes # 0.050 H Neutrophils # 6.3 Lymphocytes # 1.0 Monocytes # 0.7 Eosinophils # 0.5 Basophils # 0.0 Nucleated Red Blood Cells # 0.0 Sodium Level 135 Potassium Level 4.4 Chloride Level 105 Carbon Dioxide Level 22 Anion Gap 8 Blood Urea Nitrogen 11 Creatinine 0.89 Est Glomerular Filtrat Rate mL/min Glucose Level 121 Calcium Level 8.4 Magnesium Level 1.7 Total Bilirubin 1.0 Direct Bilirubin 0.00 Indirect Bilirubin 1.0 Aspartate Amino Transf (AST/SGOT) 10 L Alanine Aminotransferase (ALT/SGPT) 14 Alkaline Phosphatase 66 Total Protein 5.9 L Albumin 3.1 L Globulin 2.80 Albumin/Globulin Ratio 1.10 Home Meds Active Scripts Amiodarone Hcl* (Amiodarone Hcl*) 100 Mg Tablet, 100 MG PO DAILY, #30 TAB Prov:RONY AGUILA MD 09/07/17 Reported Medications Amantadine Hcl* (Amantadine Hcl*) 100 Mg Capsule, 100 MG PO BID, #60 CAP 04/03/19 Carbidopa-Levodopa* (Sinemet CR*) 50-200 Mg Tabsr, 1 TAB PO TID, TAB 04/03/19 Folic Acid* (Folic Acid*) 1 Mg Tablet, 1 MG PO DAILY, TAB 04/03/19 Donepezil* (Donepezil*) 10 Mg Tablet, 10 MG PO DAILY, #30 TAB 04/03/19 Ramipril (Ramipril) 2.5 Mg Capsule, 2.5 MG PO DAILY, CAP 04/03/19 Megestrol Acetate* (Megestrol Acetate*) 40 Mg Tablet, 40 MG PO TID, TAB 10/30/17 Finasteride* (Finasteride*) 5 Mg Tablet, 5 MG PO DAILY, TAB 09/05/17 Gemfibrozil* (Gemfibrozil*) 600 Mg Tablet, 600 MG PO DAILY, TAB 09/05/17 Memantine* (Namenda* XR) 28 Mg Cap.spr.24, 28 MG PO DAILY, #30 TAB 09/05/17 Medications Current Medications Pantoprazole (Protonix Iv) 40 mg BID@06,18 IV Last administered on 04/09/19 06:17; Admin Dose 40 MG; Start 04/03/19 at 20:00 Levetiracetam (Keppra) 250 mg BID PO Last administered on 04/09/19 08:36; Admin Dose 250 MG; Start 04/03/19 at 23:30 Amiodarone HCl (Cordarone) 200 mg DAILY PO Last administered on 04/09/19 08:36; Admin Dose 200 MG; Start 04/06/19 at 09:30 Losartan Potassium (Cozaar) 12.5 mg DAILY PO Last administered on 04/09/19 08:37; Admin Dose 12.5 MG; Start 04/07/19 at 09:00 Potassium Chloride/Dextrose/ Sod Cl 1,000 ml @ 100 mls/hr Q10H IV Last adm inistered on 04/09/19 13:09; Admin Dose 100 MLS/HR; Start 04/07/19 at 18:32 Acetaminophen/ Hydrocodone Bitart ([place] (5/325)) 1 tab Q4H PRN PO .PAIN 1-5 Last administered on 04/08/19 15:55; Admin Dose 1 TAB; Start 04/07/19 at 19:00 Hydromorphone HCl (Dilaudid) 0.2 mg Q1H PRN IV .BREAKTHROUGH PAIN Last administered on 04/08/19 09:11; Admin Dose 0.2 MG; Start 04/07/19 at 19:00 Ondansetron HCl (Zofran Inj) 4 mg Q6H PRN IV NAUSEA/VOMITING; Start 04/07/19 at 19:00 Bisacodyl (Dulcolax Supp) 10 mg DAILY PRN [place] .CONSTIPATION; Start 04/07/19 at 19:00 Docusate Sodium (Colace) 100 mg BID PO Last administered on 6/2/19at 20:09; Admin Dose 100 MG; Start 04/07/19 at 21:00 Naloxone HCl (Narcan) 0.2 mg Q2M PRN IV .RR 8 BREATHS/MIN OR LESS; Start 04/07/19 at 19:00 Neomycin/ Polymyxin/ Bacitracin (Neosporin Topical Oint) 1 applic BID TOP Last administered on 04/09/19 08:37; Admin Dose 1 APPLIC; Start 04/07/19 at 21:00 Clonidine HCl (Catapres-Tts 1 Patch) 1 patch [place]@1000 TRANSDERM Last administered on 04/08/19at 12:26; Admin Dose 1 PATCH; Start 04/08/19 at 12:00 Assessment/Plan Hospital Course (Demo Recall) 1. Cardiovascular preop evaluation, now s/p Left frontal and parietal burhole craniectomy for evacuation of SDH 04/07/19 2. Recurrent subdural hematoma and falls 3. History of marked bradycardia mostly secondary to frequent PVCs: Previously has been significantly improved on amiodarone p.o. 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 Aortic insufficiency 6. Anemia 7. Chronic kidney disease 8. Ventricular arrhythmias with very frequent PVCs as well as bigeminy's Recommendations correct lytes prn will order CT head now. cont tele monitoring Thank you for his referral. We will continue to follow along with you VIOLA GARAY MD [facility] VIOLA GARAY MD Apr 09, 2019 15:46
[2019-04-09] MEDS ORDERED: MAGNESIUM SULFATE 3 GM in DEXTROSE 5% 100 ML IVPB ONE (16:30)
[2019-04-09] MEDS: ACETAMINOPHEN 500 MG TAB PO PRN (18:37)
--- NOTE | 2019-04-09 20:16 | PN ---
Date/Time of Note Date/Time of Note DATE: 04/09/19 TIME: 20:11 Assessment/Plan VTE Prophylaxis Risk score (from Ns)>0 risk: 5 SCD applied (from [facility]): Yes SCD contraindicated: other (on.) Pharmacological prophylaxis: NA/contraindicated, other Pharm contraindication: bleeding, hemorrhagic infarct, other (Subdural hematoma.) Lines/Catheters IV C[facility]ter Type (from [facility]): Peripheral IV Central line still needed: No Urinary Cath still in place: Yes Reason Cath still needed: urinary retention Assessment/Plan Assessment/Plan 1. Melena on and off still continues. 2. Weight loss more than 15 pounds during the last 2 months 3. Status post fall due to the severe weakness deconditioning and muscular wasting 4. Anemia chronic disease with a recent loss-iron level 28. 5. Status post right-sided adal trepanation with removal of subdural hematoma in the [facility] about 1/2 years ago. Patient had a subdural hematoma on the left side too.New on the top of the old subdural hematoma on the left on mri.S/P trephination and 2-3 cc of serous fluid in a bag. Altered level of consciousness but continues to be responsive without focal symptoms And CT evidence of recommendation of the fluid possible hemorrhagic component. 6. Ischemic heart disease angina. 7. Unstable gait with recurrent episodes of fall. 8. Deconditioning 9. Status post cataract ectomy 10. Constant snacking and chewing movements involuntarily being unable to stop mainly during last 3-4 months. 11. Bradycardia with history of syncopal episodes 12 osteoporosis and osteoarthritis 13. Dizziness 14. Hearing impairment 15. Dysphagia on and off 16. BPH with episodes of urinary incontinence 17. Dyslipidemia 18.S/p left clavicular FX(old, healed). Result Diagram: 04/09/19 0711 04/09/19 0711 Results 24hrs Laboratory Tests Test 04/09/19 07:11 White Blood Count 8.5 # Red Blood Count 3.58 L Hemoglobin 10.5 L Hematocrit 33.4 L Mean Corpuscular Volume 93.3 Mean Corpuscular Hemoglobin 29.3 Mean Corpuscular Hemoglobin Concent 31.4 L Red Cell Distribution Width 13.6 Platelet Count 198 Mean Platelet Volume 9.2 Immature Granulocytes % 0.600 H Neutrophils % 73.8 Lymphocytes % 11.5 L Monocytes % 8.1 Eosinophils % 5.6 Basophils % 0.4 Nucleated Red Blood Cells % 0.0 Immature Granulocytes # 0.050 H Neutrophils # 6.3 Lymphocytes # 1.0 Monocytes # 0.7 Eosinophils # 0.5 Basophils # 0.0 Nucleated Red Blood Cells # 0.0 Sodium Level 135 Potassium Level 4.4 Chloride Level 105 Carbon Dioxide Level 22 Anion Gap 8 Blood Urea Nitrogen 11 Creatinine 0.89 Est Glomerular Filtrat Rate mL/min Glucose Level 121 Calcium Level 8.4 Magnesium Level 1.7 Total Bilirubin 1.0 Direct Bilirubin 0.00 Indirect Bilirubin 1.0 Aspartate Amino Transf (AST/SGOT) 10 L Alanine Aminotransferase (ALT/SGPT) 14 Alkaline Phosphatase 66 Total Protein 5.9 L Albumin 3.1 L Globulin 2.80 Albumin/Globulin Ratio 1.10 Subjective 24 Hr Interval Summary Free Text/Dictation He is alert but unable to talk but he is able to respond to questions with 1-2 words yes no head movements. Denies fever chills denies nausea vomiting denies headache denies dizziness. Constitutional: no complaints, improved (Initial improvement now got more obtunded.), poor po, requiring O2; No chills, No diaphoresis, No disoriented, No febrile, No requiring IVF, No other Eyes: No no complaints, No pain, No discharge, No redness, No visual change, No other ENT: congestion; No no complaints, No bleeding, No pain, No discharge, No dysphagia, No sore throat, No other Respiratory: cough, pleuritic pain; No no complaints, No pain, No shortness of breath, No sputum, No wheezing, No other Cardiovascular: No no complaints, No chest pain, No edema, No lightheadedness, No orthopenea, No palpitations, No paroxysmal nocturnal dyspnea, No other Gastrointestinal: No no complaints, No pain, No blood, No constipation, No decreased appetite, No diarrhea, No flatus, No nausea, No passing stool, No vomiting, No other Neurologic: confusion (Oriented her daughter who is nearby the father almost 24 hours a day become more confused and sleepy today after that the CT of the head was ordered which showed a recommendation of the fluid.); No no complaints, No dizziness, No focal-weakness, No headache, No syncope, No seizure, No other Exam/Review of Systems Exam Vitals Vital Signs Date Temp Pulse Resp B/P (MAP) Pulse Ox O2 O2 Flow FiO2 Time Delivery Rate 04/09/19 98.4 99 20 127/68 97 Room Air 16:04 (87) 04/09/19 2.0 08:00 Intake and Output 04/08/19 04/08/19 04/09/19 1515:00 23:00 07:00 IntakeIntake Total 760 ml 420 ml 40 ml OutputOutput Total 800 ml 300 ml 800 ml BalanceBalance -40 ml 120 ml -760 ml Constitutional: alert, other (Is able to communicate with family members with very low voice and with me getting to sleep after about 1 to 2 minutes of being alert.); No oriented, No well developed, No non-verbal, No distress, No frail, No obese Psych: confusion; No no complaints, No nl mood/affect, No anxiety, No depression, No suicidal, No other Head: normocephalic, atraumatic, other (Left frontotemporal area trephination site without signs of infection.) Eyes: EOMI, nl lids, PERRL; No nl conjunctiva, No nl sclera, No icteric, No fundi, disc, No other ENMT: nl external ears & nose, nl nasal mucosa & septum; No nl lips & teeth, No mucosa pink and moist, No intubated, No tympanic membranes, No other Neck: jvd, thyromegaly, nuchal rigidity; No supple, No non-tender, No bruits, No masses, No other Respiratory: clear to auscultation, normal air movement, congested cough, diminished breath sounds; No crackles/rales, No intercostal retraction, No labored breathing, No respirations, No tactile fremitus, No wheezing, No other Cardiovascular: regular rate and rhythm; No nl pulses, No bruits, No diastolic murmur, No edema, No gallop, No irregular rhythm, No jugular venous distention (JVD), No murmurs/extra sounds, No rub, No systolic murmur, No S3, No S4, No other Gastrointestinal: soft, nl liver, spleen, bowel sounds; No non-tender, No ascites, No distended, No firm, No hepatomegaly, No mass, No rebound or guarding, No splenomegaly, No surgical scars, No tender, No other Genitourinary - Male: nl penis, nl scrotum Musculoskeletal: joint tenderness; No nl extremities to inspection, No nl gait and stance, No muscle tone, No muscle weakness, No range of motion, No spine non-tender, No swelling, No other Extremities: normal pulses; No calf tenderness, No cyanosis, No clubbing, No edema, No pitting pedal edema, No palpable cord, No tenderness, No other 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: SUPERVIS[employer] CHANNEL PROCESS II-XII intact, nl speech (Very expresses couple of words. It appears that he understands the questions. Yes and no question he is answering by head movements), confused (On and off.); No nl mental status, No nl strength, No DTR's symmetric, No focal weakness, No lethargic, No numbness, No reflexes, No unresponsive, No other Results Results 24hrs Laboratory Tests Test 04/09/19 07:11 White Blood Count 8.5 # Red Blood Count 3.58 L Hemoglobin 10.5 L Hematocrit 33.4 L Mean Corpuscular Volume 93.3 Mean Corpuscular Hemoglobin 29.3 Mean Corpuscular Hemoglobin Concent 31.4 L Red Cell Distribution Width 13.6 Platelet Count 198 Mean Platelet Volume 9.2 Immature Granulocytes % 0.600 H Neutrophils % 73.8 Lymphocytes % 11.5 L Monocytes % 8.1 Eosinophils % 5.6 Basophils % 0.4 Nucleated Red Blood Cells % 0.0 Immature Granulocytes # 0.050 H Neutrophils # 6.3 Lymphocytes # 1.0 Monocytes # 0.7 Eosinophils # 0.5 Basophils # 0.0 Nucleated Red Blood Cells # 0.0 Sodium Level 135 Potassium Level 4.4 Chloride Level 105 Carbon Dioxide Level 22 Anion Gap 8 Blood Urea Nitrogen 11 Creatinine 0.89 Est Glomerular Filtrat Rate mL/min Glucose Level 121 Calcium Level 8.4 Magnesium Level 1.7 Total Bilirubin 1.0 Direct Bilirubin 0.00 Indirect Bilirubin 1.0 Aspartate Amino Transf (AST/SGOT) 10 L Alanine Aminotransferase (ALT/SGPT) 14 Alkaline Phosphatase 66 Total Protein 5.9 L Albumin 3.1 L Globulin 2.80 Albumin/Globulin Ratio 1.10 Medications Medication Current Medications Pantoprazole (Protonix Iv) 40 mg BID@06,18 IV Last administered on 04/09/19at 17 :50; Admin Dose 40 MG; Start 04/03/19 at 20:00 Levetiracetam (Keppra) 250 mg BID PO Last administered on 04/09/19 08:36; Admin Dose 250 MG; Start 04/03/19 at 23:30 Amiodarone HCl (Cordarone) 200 mg DAILY PO Last administered on 04/09/19 08:36; Admin Dose 200 MG; Start 04/06/19 at 09:30 Losartan Potassium (Cozaar) 12.5 mg DAILY PO Last administered on 04/09/19 08:37; Admin Dose 12.5 MG; Start 04/07/19 at 09:00 Potassium Chloride/Dextrose/ Sod Cl 1,000 ml @ 100 mls/hr Q10H IV Last administered on 04/09/19 13:09; Admin Dose 100 MLS/HR; Start 04/07/19 at 18:32 Acetaminophen/ Hydrocodone Bitart ([place] (5/325)) 1 tab Q4H PRN PO .PAIN 4-5 Last administered on 04/08/19 15:55; Admin Dose 1 TAB; Start 04/07/19 at 19:00 Hydromorphone HCl (Dilaudid) 0.2 mg Q1H PRN IV .BREAKTHROUGH PAIN Last admini stered on 04/08/19 09:11; Admin Dose 0.2 MG; Start 04/07/19 at 19:00 Ondansetron HCl (Zofran Inj) 4 mg Q6H PRN IV NAUSEA/VOMITING; Start 04/07/19 at 19:00 Bisacodyl (Dulcolax Supp) 10 mg DAILY PRN [place] .CONSTIPATION; Start 04/07/19 at 19:00 Docusate Sodium (Colace) 100 mg BID PO Last administered on 04/08/19 20:09; Admin Dose 100 MG; Start 04/07/19 at 21:00 Naloxone HCl (Narcan) 0.2 mg Q2M PRN IV .RR 8 BREATHS/MIN OR LESS; Start 04/07/19 at 19:00 Neomycin/ Polymyxin/ Bacitracin (Neosporin Topical Oint) 1 applic BID TOP Last administered on 04/09/19 08:37; Admin Dose 1 APPLIC; Start 04/07/19 at 21:00 Clonidine HCl (Catapres-Tts 1 Patch) 1 patch Castaneda@1000 TRANSDERM Last administered on 6/2/19at 12:26; Admin Dose 1 PATCH; Start 04/08/19 at 12:00 Acetaminophen (Tylenol Tab) 500 mg Q6H PRN PO MILD PAIN(1-3)OR ELEVATED TEMP Last administered on 04/09/19at 18:37; Admin Dose 500 MG; Start 04/09/19 at 18:30 BROOKLYNN OCASIO MD Apr 09, 2019 20:16
[2019-04-09] MEDS: ALBUMIN HUMAN 25% 100 ML IV SCH (21:16)
--- NOTE | 2019-04-09 23:04 | CONS ---
Assessment/Plan Assessment/Plan Assessment/Plan (Daily) Date of progress note: 04/08/2019 The patient is POD#1 status post left frontal and parietal bur hole craniectomy for evacuation of subdural hematoma in the ICU. The patient has been flat in bed and the patient's left subdural drain was initially putting out red tinged drainage overnight but has now changed to yellowish clear fluid more consistent with CSF. His daughter is at bedside and tells me that her dad is now speaking more readily and more easily. He is awake and alert and looks around and oriented to first and last name. He moves his upper and lower extremities equally. His postop CT of the head shows evacuation of the hyperdense extra-axial fluid over the left frontoparietal region. There is now some pneumocephalus as well as hypodense fluid more consistent with CSF in the left frontoparietal subdural space. The [id number] midline shift has also diminished. The left subdural drain has been removed at bedside. The patient no longer needs to be flat in bed. He may sit up. Physical therapy can be started. From a neurosurgical standpoint, the patient may be transferred out of the ICU later today. GLORIA WISEMAN MD Apr 09, 2019 23:04
--- NOTE | 2019-04-09 23:05 | CONS ---
Assessment/Plan Assessment/Plan Assessment/Plan (Daily) Date of progress note: 04/09/2019 The patient is POD#2 status post left frontal and parietal bur hole craniectomy for evacuation of subdural hematoma in the ICU. The patient has now been transferred out of the ICU. The patient's daughter tells me that starting this morning the patient has been less talkative and less alert and moving his upper and lower extremities less than yesterday. The patient received some pain medications yesterday but does not appear to have had any pain medications today. The patient seems to be comfortably resting and according to the daughter being as he does every night at home. He readily wakes up to voice and looks around prior to going back to sleep. He can say his first name only but slowly. He is able to follow simple one-step commands with bilateral upper and lower extremities with motor strength of at least 3 out of 5. The patient's left frontal and parietal incisions are clean dry and intact. A new CT of the head without contrast was ordered by the patient's dehydrogenation operator this morning given the patient's change in status. I have reviewed the above imaging studies in detail with the patient's daughter and shown her the actual images. The new CT scan does not show any evidence of hyper dense fluid in the left frontoparietal area. There is some pneumocephalus related to the patient's recent surgery. There is hypodense fluid in the left frontal parietal subdural space at is most consistent with CSF. This is likely related to the patient's older age and less elasticity of his brain with less ability for his brain to reexpand and fill the subdural space. I would not recommend any acute neurosurgical intervention at this point. I have further asked the daughter about the patient's baseline history of dementia and Parkinson's and she tells me that he takes multiple medications for his dementia and Parkinson's including carbidopa/levodopa. However the patient has not been started on these medications since his hospital admission. I have spoken to the patient's nurse and these medications will be restarted overnight. These 2 conditions untreated with his baseline medications can certainly contribute to his current condition. The patient will be again reassessed. GLORIA WISEMAN MD Apr 09, 2019 23:05
[2019-04-10] VITALS (12 sets, daily range): BP systolic 110–131; BP diastolic 59–66; PULSE 18–88; RESP 18–20
[2019-04-10] MEDS: AMANTADINE 100 MG CAP PO SCH ×3 (00:49→21:24)
[2019-04-10] MEDS: ACETAMINOPHEN 500 MG TAB PO PRN (01:43)
[2019-04-10] MEDS: CARBIDOPA/LEVODOPA 50-200 (CR) TAB PO SCH ×4 (01:43→21:24)
[2019-04-10] MEDS: DONEPEZIL 10 MG TAB PO SCH (01:56)
[2019-04-10] MEDS: D5W-0.45 NACL + KCL 20 MEQ 1,000 ML IV SCH ×2 (03:29→17:20)
[2019-04-10] MEDS: ALBUMIN HUMAN 25% 100 ML IV SCH ×2 (04:55→11:53)
[2019-04-10] MEDS: PANTOPRAZOLE 40 MG INJ IV SCH ×2 (06:03→17:20)
--- NOTE | 2019-04-10 07:53 | CONS ---
Assessment/Plan Assessment/Plan Hospital Course (Demo Recall) 88 yo male with melena, s/p EGD and left frontoparietal lilia hole craniotomy and evacuation of subdural hematoma 1. Status post left frontoparietal lilia hole craniotomy and evacuation of subdu ral hematoma. -Per CT 04/09: New midline shift from left to right, New mildly increased left subdural mixed attenuation collection status post removal of the drain. Cannot exclude an acute versus recent hemorrhagic component at the left parietal subdural space. 2. Anemia. -HH has trended up and stable 3. Positive stool guaiac. -Normal CEA levels 4. History of multiple falls. 5. Benign prostatic hypertrophy. 6. Hearing impairment. 7. Chronic gastritis 8. Positive Gram negative rods in urine Follow up CT 04/09: IMPRESSION: 1. Interval removal of previously seen left subdural drain. 2. New mildly increased left subdural mixed attenuation collection status post removal of the drain. 3. Cannot exclude an acute versus recent hemorrhagic component at the left parietal subdural space. 4. 4 mm [id number] midline shift, new over interval. Gastric biopsies: -- Moderate superficial chronic gastritis with focal lymphoid hyperplasia. -- A Giemsa stain with an appropriate control, is negative for H. pylori organisms (please see comment). -- No dysplasia or intestinal metaplasia is identified. PLAN: Aspiration precautions PPI Consider colonoscopy once pt stable and if continues to have severe anemia and melanotic stools, brought up the possibility of doing colonoscopy at some point, daughter does not want. We will monitor the situation Monitor HH and for active GI bleeding Pt examined and plan of care discussed with Dr. Hurd Consultation Date/Type/Reason Admit Date/Time April 03, 2019 at 12:57 Initial Consult Date Requesting Provider: GLORIA WISEMAN MD Date/Time of Note DATE: 04/10/19 TIME: 07:51 24 HR Interval Summary Free Text/Dictation Daughter states he did not speak to her yesterday but did speak the day before. Subdural drain was DC d on 04/[address] done 04/09 shows: 1. Interval removal of previously seen left subdural drain. 2. New mildly increased left subdural mixed attenuation collection status post removal of the drain. 3. Cannot exclude an acute versus recent hemorrhagic component at the left parietal subdural space. 4. 4 mm [id number] midline shift, new over interval. D eloisa states pt had a small bm last night which she states RN said was black. His HH is stable and increased from yesterday. He is tolerating soft PO diet which daughter feeds him. Exam/Review of Systems Exam Vitals Vital Signs Date Temp Pulse Resp B/P (MAP) Pulse Ox O2 O2 Flow FiO2 Time Delivery Rate 04/10/19 97.4 80 20 121/65 98 07:35 (83) 04/09/19 Nasal 2.0 20:50 Cannula Intake and Output 04/09/19 04/09/19 04/10/19 1515:00 23:00 07:00 IntakeIntake Total 1000 ml 1100 ml OutputOutput Total 1500 ml 1700 ml BalanceBalance -500 ml -600 ml Constitutional: other (Pt is asleep, NAD) Head: normocephalic ENMT: nl lips & teeth Respiratory: normal air movement Gastrointestinal: soft, non-tender, bowel sounds Results Result Diagram: 04/09/19 0711 04/09/19 0711 Medications Medication Current Medications Pantoprazole (Protonix Iv) 40 mg BID@06,18 IV Last administered on 04/10/19 06:03; Admin Dose 40 MG; Start 04/03/19 at 20:00 Levetiracetam (Keppra) 250 mg BID PO Last administered on 04/09/19 21:13; Admin Dose 250 MG; Start 04/03/19 at 23:30 Amiodarone HCl (Cordarone) 200 mg DAILY PO Last administered on 04/09/19 08:36; Admin Dose 200 MG; Start 04/06/19 at 09:30 Losartan Potassium (Cozaar) 12.5 mg DAILY PO Last administered on 04/09/19 08:37; Admin Dose 12.5 MG; Start 04/07/19 at 09:00 Potassium Chloride/Dextrose/ Sod Cl 1,000 ml @ 100 mls/hr Q10H IV Last administered on 04/10/19 03:29; Admin Dose 100 MLS/HR; Start 04/07/19 at 18:32 Hydromorphone HCl (Dilaudid) 0.2 mg Q1H PRN IV .BREAKTHROUGH PAIN Last administered on 04/08/19 09:11; Admin Dose 0.2 MG; Start 04/07/19 at 19:00 Ondansetron HCl (Zofran Inj) 4 mg Q6H PRN IV NAUSEA/VOMITING; Start 04/07/19 at 19:00 Bisacodyl (Dulcolax Supp) 10 mg DAILY PRN [place] .CONSTIPATION; Start 04/07/19 at 19:00 Docusate Sodium (Colace) 100 mg BID PO Last administered on 04/09/19at 21:16; Admin Dose 100 MG; Start 04/07/19 at 21:00 Naloxone HCl (Narcan) 0.2 mg Q2M PRN IV .RR 8 BREATHS/MIN OR LESS; Start 04/07/19 at 19:00 Neomycin/ Polymyxin/ Bacitracin (Neosporin Topical Oint) 1 applic BID TOP Last administered on 04/09/19at 21:18; Admin Dose 1 APPLIC; Start 04/07/19 at 21:00 Clonidine HCl (Catapres-Tts 1 Patch) 1 patch Castaneda@1000 TRANSDERM Last administered on 04/08/19at 12:26; Admin Dose 1 PATCH; Start 04/08/19 at 12:00 Acetaminophen (Tylenol Tab) 500 mg Q6H PRN PO MILD PAIN(1-3)OR ELEVATED TEMP Last administered on 04/10/19at 01:43; Admin Dose 500 MG; Start 04/09/19 at 18:30 Ferric Sodium Gluconate Complex 125 mg/Sodium Chloride 100 ml @ 100 mls/hr DAILY@1300 IVPB ; Start 04/10/19 at 13:00; Stop 04/12/19 at 13:59 Albumin Human 100 ml @ 100 mls/hr Q8H IV Last administered on 04/10/19at 04:55; Admin Dose 100 MLS/HR; Start 04/09/19 at 20:30; Stop 04/10/19 at 13:29 Amantadine HCl (Symmetrel) 100 mg BID PO Last administered on 04/10/19at 00:49; Admin Dose 100 MG; Start 04/09/19 at 23:30 Miscellaneous Information 28 mg DAILY PO ; Start 04/10/19 at 09:00; Status UNV Benazepril HCl (Lotensin) 10 mg DAILY PO ; Start 04/10/19 at 09:00 Carbidopa/Levodopa (Sinemet Cr (50/ 200)) 1 tab TID PO Last administered on 04/10/19at 01:43; Admin Dose 1 TAB; Start 04/10/19 at 01:40 Donepezil HCl (Aricept) 10 mg DAILY PO Last administered on 04/10/19at 01:56; Admin Dose 10 MG; Start 04/10/19 at 01:30 MELYSSA LERMA Apr 10, 2019 07:53
[2019-04-10] MEDS ORDERED: DONEPEZIL 10 MG TAB PO SCH (09:00)
[2019-04-10] MEDS ORDERED: RAMIPRIL 2.5 MG PO SCH (09:00)
[2019-04-10] MEDS ORDERED: CARBIDOPA/LEVODOPA 50-200 (CR) TAB PO SCH (09:00)
--- NOTE | 2019-04-10 09:09 | PN ---
Date/Time of Note Date/Time of Note DATE: 04/10/19 TIME: 09:08 Assessment/Plan VTE Prophylaxis Risk score (from Ns)>0 risk: 13 SCD applied (from [facility] [place]): Yes SCD contraindicated: other Pharmacological prophylaxis: other (Subdural hematoma.) Pharm contraindication: surgical contra, other Lines/Catheters IV Catheter Type (from [facility]): Peripheral IV Central line still needed: No Urinary Cath still in place: Yes Reason Cath still needed: urinary retention Assessment/Plan Assessment/Plan 1. Melena on and off still continues. 2. Weight loss more than 15 pounds during the last 2 months 3. Status post fall due to the severe weakness deconditioning and muscular wasting 4. Anemia chronic disease with a recent loss-iron level 28. 5. Status post right-sided adal trepanation with removal of subdural hematoma in the [facility] about 1/2 years ago. Patient had a subdural hematoma on the left side too.New on the top of the old subdural hematoma on the left on mri.S/P trephination and 2-3 cc of serous fluid in a bag. Altered level of consciousness but continues to be responsive without focal symptoms And CT evidence of recommendation of the fluid possible hemorrhagic component. 6. Ischemic heart disease angina. 7. Unstable gait with recurrent episodes of fall. 8. Deconditioning 9. Status post cataract ectomy 10. Constant snacking and chewing movements involuntarily being unable to stop mainly during last 3-4 months. 11. Bradycardia with history of syncopal episodes 12 osteoporosis and osteoarthritis 13. Dizziness 14. Hearing impairment 15. Dysphagia on and off 16. BPH with episodes of urinary incontinence 17. Dyslipidemia 18.S/p left clavicular FX(old, healed). Result Diagram: 04/10/19 0731 04/10/19 0731 Results 24hrs Laboratory Tests Test 04/10/19 07:31 White Blood Count 6.5 # Red Blood Count 2.89 L Hemoglobin 8.8 L Hematocrit 27.1 L Mean Corpuscular Volume 93.8 Mean Corpuscular Hemoglobin 30.4 Mean Corpuscular Hemoglobin Concent 32.5 Red Cell Distribution Width 13.8 Platelet Count 168 Mean Platelet Volume 8.8 Immature Granulocytes % 0.600 H Neutrophils % 65.3 Lymphocytes % 18.0 Monocytes % 9.2 Eosinophils % 6.6 Basophils % 0.3 Nucleated Red Blood Cells % 0.0 Immature Granulocytes # 0.040 H Neutrophils # 4.2 Lymphocytes # 1.2 Monocytes # 0.6 Eosinophils # 0.4 Basophils # 0.0 Nucleated Red Blood Cells # 0.0 Sodium Level 136 Potassium Level 4.3 Chloride Level 105 Carbon Dioxide Level 24 Anion Gap 7 Blood Urea Nitrogen 15 Creatinine 0.97 Est Glomerular Filtrat Rate mL/min Glucose Level 105 Calcium Level 8.2 L Magnesium Level 2.2 Total Bilirubin 0.8 Direct Bilirubin 0.00 Indirect Bilirubin 0.8 Aspartate Amino Transf (AST/SGOT) < 8 L Alanine Aminotransferase (ALT/SGPT) 10 L Alkaline Phosphatase 46 Total Protein 5.6 L Albumin 3.3 Globulin 2.30 Albumin/Globulin Ratio 1.43 Subjective 24 Hr Interval Summary Free Text/Dictation Lethargic. Arousable. Able to express couple words. Smiles. Denies fever denies chills. Denies any visual changes. Family nearby; very tense. Discussed. Constitutional: improved, poor po, requiring IVF, requiring O2, other (Comparing with yesterday he is more communicable smiling showing emotions and able to answer yes no type questions.); No no complaints, No chills, No diaphoresis, No disoriented, No febrile Eyes: No no complaints, No pain, No discharge, No redness, No visual change, No other ENT: No no complaints, No bleeding, No pain, No congestion, No discharge, No dysphagia, No sore throat, No other Respiratory: cough, shortness of breath; No no complaints, No pain, No pleuritic pain, No sputum, No wheezing, No other Cardiovascular: No no complaints, No chest pain, No edema, No lightheadedness, No orthopenea, No palpitations, No paroxysmal nocturnal dyspnea, No other Neurologic: confusion; No no complaints, No dizziness, No focal-weakness, No headache, No syncope, No seizure, No other Lymphatic: No no complaints, No adenopathy, No tender nodes, No lymphadema, No other Psychological: anxiety; No no complaints, No nl mood/affect, No confusion, No depression, No suicidal, No other Immunologic: No no complaints, No immunodeficiency, No pruritis, No rhinitis, No urticaria, No other Exam/Review of Systems Exam Vitals Vital Signs Date Temp Pulse Resp B/P (MAP) Pulse Ox O2 O2 Flow FiO2 Time Delivery Rate 04/10/19 79 08:14 04/10/19 97.4 20 121/65 98 07:35 (83) 04/09/19 Nasal 2.0 20:50 Cannula Intake and Output 04/09/19 04/09/19 04/10/19 1515:00 23:00 07:00 IntakeIntake Total 1000 ml 1100 ml OutputOutput Total 1500 ml 1700 ml BalanceBalance -500 ml -600 ml Constitutional: distress, frail, other (Lethargic.); No alert, No oriented, No well developed, No non-verbal, No obese Psych: anxiety, confusion; No no complaints, No nl mood/affect, No depression, No suicidal, No other Head: normocephalic, atraumatic Eyes: EOMI, nl lids, PERRL ENMT: nl nasal mucosa & septum, tympanic membranes; No nl external ears & nose, No nl lips & teeth, No mucosa pink and moist, No intubated, No other Neck: bruits; No supple, No non-tender, No jvd, No masses, No thyromegaly, No nuchal rigidity, No other Respiratory: normal air movement, congested cough, diminished breath sounds; No clear to auscultation, No crackles/rales, No intercostal retraction, No labored breathing, No respirations, No tactile fremitus, No wheezing, No other Cardiovascular: regular rate and rhythm, jugular venous distention (JVD); No nl pulses, No bruits, No diastolic murmur, No edema, No gallop, No irregular rhythm, No murmurs/extra sounds, No rub, No systolic murmur, No S3, No S4, No other Gastrointestinal: soft, non-tender, bowel sounds, distended, rebound or guarding; No nl liver, spleen, No ascites, No firm, No hepatomegaly, No mass, No splenomegaly, No surgical scars, No tender, No other Genitourinary - Male: nl penis, nl scrotum Musculoskeletal: joint tenderness; No nl extremities to inspection, No nl gait and stance, No muscle tone, No muscle weakness, No range of motion, No spine non-tender, No swelling, No other Extremities: cyanosis (Week, cold.); No normal pulses, No calf tenderness, No clubbing, No edema, No pitting pedal edema, No palpable cord, No tenderness, No other 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: POLICE SPECIALIST II-XII intact, nl mental status (Lethargic able to respond to yes no type questions no focal deficit.); No nl speech, No nl strength, No confused, No DTR's symmetric, No focal weakness, No lethargic, No numbness, No reflexes, No unresponsive, No other Skin: nl turgor (Decreased.), ecchymosis; No rash or lesions, No diaphoresis, No laceration, No puncture, No other Lymph: No nl lymph nodes, No enlarged, No nontender, No other Results Results 24hrs Laboratory Tests Test 04/10/19 07:31 White Blood Count 6.5 # Red Blood Count 2.89 L Hemoglobin 8.8 L Hematocrit 27.1 L Mean Corpuscular Volume 93.8 Mean Corpuscular Hemoglobin 30.4 Mean Corpuscular Hemoglobin Concent 32.5 Red Cell Distribution Width 13.8 Platelet Count 168 Mean Platelet Volume 8.8 Immature Granulocytes % 0.600 H Neutrophils % 65.3 Lymphocytes % 18.0 Monocytes % 9.2 Eosinophils % 6.6 Basophils % 0.3 Nucleated Red Blood Cells % 0.0 Immature Granulocytes # 0.040 H Neutrophils # 4.2 Lymphocytes # 1.2 Monocytes # 0.6 Eosinophils # 0.4 Basophils # 0.0 Nucleated Red Blood Cells # 0.0 Sodium Level 136 Potassium Level 4.3 Chloride Level 105 Carbon Dioxide Level 24 Anion Gap 7 Blood Urea Nitrogen 15 Creatinine 0.97 Est Glomerular Filtrat Rate mL/min Glucose Level 105 Calcium Level 8.2 L Magnesium Level 2.2 Total Bilirubin 0.8 Direct Bilirubin 0.00 Indirect Bilirubin 0.8 Aspartate Amino Transf (AST/SGOT) < 8 L Alanine Aminotransferase (ALT/SGPT) 10 L Alkaline Phosphatase 46 Total Protein 5.6 L Albumin 3.3 Globulin 2.30 Albumin/Globulin Ratio 1.43 Medications Medication Current Medications Pantoprazole (Protonix Iv) 40 mg BID@06,18 IV Last administered on 04/10/19at 06:03; Admin Dose 40 MG; Start 04/03/19 at 20:00 Levetiracetam (Keppra) 250 mg BID PO Last administered on 04/09/19at 21:13; Admin Dose 250 MG; Start 04/03/19 at 23:30 Amiodarone HCl (Cordarone) 200 mg DAILY PO Last administered on 04/09/19 08:36; Admin Dose 200 MG; Start 04/06/19 at 09:30 Losartan Potassium (Cozaar) 12.5 mg DAILY PO Last administered on 04/09/19 08:37; Admin Dose 12.5 MG; Start 04/07/19 at 09:00 Potassium Chloride/Dextrose/ Sod Cl 1,000 ml @ 100 mls/hr Q10H IV Last administered on 04/10/19 03:29; Admin Dose 100 MLS/HR; Start 04/07/19 at 18:32 Hydromorphone HCl (Dilaudid) 0.2 mg Q1H PRN IV .BREAKTHROUGH PAIN Last administered on 04/08/19 09:11; Admin Dose 0.2 MG; Start 04/07/19 at 19:00 Ondansetron HCl (Zofran Inj) 4 mg Q6H PRN IV NAUSEA/VOMITING; Start 04/07/19 at 19:00 Bisacodyl (Dulcolax Supp) 10 mg DAILY PRN [place] .CONSTIPATION; Start 04/07/19 at 19:00 Docusate Sodium (Colace) 100 mg BID PO Last administered on 04/09/19 21:16; Admin Dose 100 MG; Start 04/07/19 at 21:00 Naloxone HCl (Narcan) 0.2 mg Q2M PRN IV .RR 8 BREATHS/MIN OR LESS; Start 04/07/19 at 19:00 Neomycin/ Polymyxin/ Bacitracin (Neosporin Topical Oint) 1 applic BID TOP Last administered on 04/09/19 21:18; Admin Dose 1 APPLIC; Start 04/07/19 at 21:00 Clonidine HCl (Catapres-Tts 1 Patch) 1 patch Castaneda@1000 TRANSDERM Last admini stered on 04/08/19 12:26; Admin Dose 1 PATCH; Start 04/08/19 at 12:00 Acetaminophen (Tylenol Tab) 500 mg Q6H PRN PO MILD PAIN(1-3)OR ELEVATED TEMP Last administered on 04/10/19 01:43; Admin Dose 500 MG; Start 04/09/19 at 18:30 Ferric Sodium Gluconate Complex 125 mg/Sodium Chloride 100 ml @ 100 mls/hr DAILY@1300 IVPB ; Start 04/10/19 at 13:00; Stop 04/12/19 at 13:59 Albumin Human 100 ml @ 100 mls/hr Q8H IV Last administered on 04/10/19at 04:55; Admin Dose 100 MLS/HR; Start 04/09/19 at 20:30; Stop 04/10/19 at 13:29 Amantadine HCl (Symmetrel) 100 mg BID PO Last administered on 04/10/19at 00:49; Admin Dose 100 MG; Start 04/09/19 at 23:30 Memantine (Namenda) 10 mg BID PO ; Start 04/10/19 at 09:00 Benazepril HCl (Lotensin) 10 mg DAILY PO ; Start 04/10/19 at 09:00 Carbidopa/Levodopa (Sinemet Cr (50/ 200)) 1 tab TID PO Last administered on 04/10/19at 01:43; Admin Dose 1 TAB; Start 04/10/19 at 01:40 Donepezil HCl (Aricept) 10 mg DAILY PO Last administered on 04/10/19at 01:56; Admin Dose 10 MG; Start 04/10/19 at 01:30 BROOKLYNN OCASIO MD Apr 10, 2019 09:09
[2019-04-10] MEDS: MEMANTINE 10 MG TAB PO SCH ×2 (09:11→21:24)
[2019-04-10] MEDS: LEVETIRACETAM 250 MG TAB PO SCH ×2 (09:11→21:24)
[2019-04-10] MEDS: DOCUSATE SODIUM 100 MG CAP PO SCH ×2 (09:12→21:24)
[2019-04-10] MEDS: LOSARTAN 25 MG TAB PO SCH (09:12)
[2019-04-10] MEDS: BENAZEPRIL 10 MG TAB PO SCH (09:12)
--- NOTE | 2019-04-10 09:12 | CONS ---
Consult Date/Type/Reason Admit Date/Time April 03, 2019 at 12:57 Initial Consult Date Type of Consultation: cv Requesting Provider: GLORIA ONOFRE MD Date/Time of Note DATE: 04/10/19 TIME: 09:10 Subjective Interventional cardiology progress note Subjective: Case discussed with the daughter. Case discussed with staff. Dw PHYSICIANS including Dr Onofre and Dr Camp. TELE WAS reviewed. pt remains in NSR with occasinoal but less frequent PVC Patient is more verbal and able to speak now s/p burhole and evacuation of SDH on 04/07/19 pt does not talk today per daughter report Objective: General: no acute distress HEENT: NC, s/p burhole .. pupils are equal. round. NECK: NO JVD. no stridor. CV: RRR. systolic murmur; no gallop or rubs. PULM: no wheezing or rhonchi. GI: SOFT, NT, ND, no rebound or guarding Extremity: trace B/L LE edema. no clubbing. neuro: awake and alert. Responds appropriately Psych: calm and pleasant rectal: deferred : normal EKG done today shows normal sinus rhythm with PVC. Nonspecific T wave abnormalities Of the old chart shows that echocardiogram done in my office on 10/02/2018 has shown ejection fraction about 40 to 45% LVH with mild to moderate aortic insufficiency diastolic dysfunction mild MR and TR MRI of the brain done April 04, 2019 shows: MRI of the brain demonstrates a large left subdural hematoma with varying ages however there is a 9 mm acute component with the overall measurement measuring up to 2.2 cm resulting in diffuse left cerebral mass effect with minimal [id number] midline shift. 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 Objective Vitals Vital Signs Date Temp Pulse Resp B/P (MAP) Pulse Ox O2 O2 Flow FiO2 Time Delivery Rate 04/10/19 79 08:14 04/10/19 97.4 20 121/65 98 07:35 (83) 04/09/19 Nasal 2.0 20:50 Cannula Intake and Output 04/09/19 04/09/19 04/10/19 1515:00 23:00 07:00 IntakeIntake Total 1000 ml 1100 ml OutputOutput Total 1500 ml 1700 ml BalanceBalance -500 ml -600 ml Results/Medications Result Diagram: 04/10/19 0731 04/10/19 0731 Results 24 hrs Laboratory Tests Test 04/10/19 07:31 White Blood Count 6.5 # Red Blood Count 2.89 L Hemoglobin 8.8 L Hematocrit 27.1 L Mean Corpuscular Volume 93.8 Mean Corpuscular Hemoglobin 30.4 Mean Corpuscular Hemoglobin Concent 32.5 Red Cell Distribution Width 13.8 Platelet Count 168 Mean Platelet Volume 8.8 Immature Granulocytes % 0.600 H Neutrophils % 65.3 Lymphocytes % 18.0 Monocytes % 9.2 Eosinophils % 6.6 Basophils % 0.3 Nucleated Red Blood Cells % 0.0 Immature Granulocytes # 0.040 H Neutrophils # 4.2 Lymphocytes # 1.2 Monocytes # 0.6 Eosinophils # 0.4 Basophils # 0.0 Nucleated Red Blood Cells # 0.0 Sodium Level 136 Potassium Level 4.3 Chloride Level 105 Carbon Dioxide Level 24 Anion Gap 7 Blood Urea Nitrogen 15 Creatinine 0.97 Est Glomerular Filtrat Rate mL/min Glucose Level 105 Calcium Level 8.2 L Magnesium Level 2.2 Total Bilirubin 0.8 Direct Bilirubin 0.00 Indirect Bilirubin 0.8 Aspartate Amino Transf (AST/SGOT) < 8 L Alanine Aminotransferase (ALT/SGPT) 10 L Alkaline Phosphatase 46 Total Protein 5.6 L Albumin 3.3 Globulin 2.30 Albumin/Globulin Ratio 1.43 Home Meds Active Scripts Amiodarone Hcl* (Amiodarone Hcl*) 100 Mg Tablet, 100 MG PO DAILY, #30 TAB Prov:RONY AGUILA MD 09/07/17 Reported Medications Amantadine Hcl* (Amantadine Hcl*) 100 Mg Capsule, 100 MG PO BID, #60 CAP 04/03/19 Carbidopa-Levodopa* (Sinemet CR*) 50-200 Mg Tabsr, 1 TAB PO TID, TAB 04/03/19 Folic Acid* (Folic Acid*) 1 Mg Tablet, 1 MG PO DAILY, TAB 04/03/19 Donepezil* (Donepezil*) 10 Mg Tablet, 10 MG PO DAILY, #30 TAB 04/03/19 Ramipril (Ramipril) 2.5 Mg Capsule, 2.5 MG PO DAILY, CAP 04/03/19 Megestrol Acetate* (Megestrol Acetate*) 40 Mg Tablet, 40 MG PO TID, TAB 09/05/17 Finasteride* (Finasteride*) 5 Mg Tablet, 5 MG PO DAILY, TAB 09/05/17 Gemfibrozil* (Gemfibrozil*) 600 Mg Tablet, 600 MG PO DAILY, TAB 09/05/17 Memantine* (Namenda* XR) 28 Mg Cap.spr.24, 28 MG PO DAILY, #30 TAB 09/05/17 Medications Current Medications Pantoprazole (Protonix Iv) 40 mg BID@06,18 IV Last administered on 04/10/19 06:03; Admin Dose 40 MG; Start 04/03/19 at 20:00 Levetiracetam (Keppra) 250 mg BID PO Last administered on 04/09/19 21:13; Admin Dose 250 MG; Start 04/03/19 at 23:30 Amiodarone HCl (Cordarone) 200 mg DAILY PO Last administered on 04/09/19 08:36; Admin Dose 200 MG; Start 04/06/19 at 09:30 Losartan Potassium (Cozaar) 12.5 mg DAILY PO Last administered on 04/09/19 08:37; Admin Dose 12.5 MG; Start 04/07/19 at 09:00 Potassium Chloride/Dextrose/ Sod Cl 1,000 ml @ 100 mls/hr Q10H IV Last administered on 04/10/19 03:29; Admin Dose 100 MLS/HR; Start 04/07/19 at 18:32 Hydromorphone HCl (Dilaudid) 0.2 mg Q1H PRN IV .BREAKTHROUGH PAIN Last administered on 04/08/19 09:11; Admin Dose 0.2 MG; Start 04/07/19 at 19:00 Ondansetron HCl (Zofran Inj) 4 mg Q6H PRN IV NAUSEA/VOMITING; Start 04/07/19 at 19:00 Bisacodyl (Dulcolax Supp) 10 mg DAILY PRN [place] .CONSTIPATION; Start 04/07/19 at 19:00 Docusate Sodium (Colace) 100 mg BID PO Last administered on 04/09/19 21:16; Admin Dose 100 MG; Start 04/07/19 at 21:00 Naloxone HCl (Narcan) 0.2 mg Q2M PRN IV .RR 8 BREATHS/MIN OR LESS; Start 04/07/19 at 19:00 Neomycin/ Polymyxin/ Bacitracin (Neosporin Topical Oint) 1 applic BID TOP Last administered on 04/09/19at 21:18; Admin Dose 1 APPLIC; Start 04/07/19 at 21:00 Clonidine HCl (Catapres-Tts 1 Patch) 1 patch Castaneda@1000 TRANSDERM Last administered on 04/08/19at 12:26; Admin Dose 1 PATCH; Start 04/08/19 at 12:00 Acetaminophen (Tylenol Tab) 500 mg Q6H PRN PO MILD PAIN(1-3)OR ELEVATED TEMP Last administered on 04/10/19at 01:43; Admin Dose 500 MG; Start 04/09/19 at 18:30 Ferric Sodium Gluconate Complex 125 mg/Sodium Chloride 100 ml @ 100 mls/hr DAILY@1300 IVPB ; Start 04/10/19 at 13:00; Stop 04/12/19 at 13:59 Albumin Human 100 ml @ 100 mls/hr Q8H IV Last administered on 04/10/19at 04:55; Admin Dose 100 MLS/HR; Start 04/09/19 at 20:30; Stop 04/10/19 at 13:29 Amantadine HCl (Symmetrel) 100 mg BID PO Last administered on 04/10/19at 00:49; Admin Dose 100 MG; Start 04/09/19 at 23:30 Memantine (Namenda) 10 mg BID PO ; Start 04/10/19 at 09:00 Benazepril HCl (Lotensin) 10 mg DAILY PO ; Start 04/10/19 at 09:00 Carbidopa/Levodopa (Sinemet Cr (50/ 200)) 1 tab TID PO Last administered on 04/10/19at 01:43; Admin Dose 1 TAB; Start 04/10/19 at 01:40 Donepezil HCl (Aricept) 10 mg DAILY PO Last administered on 04/10/19at 01:56; Admin Dose 10 MG; Start 04/10/19 at 01:30 Assessment/Plan Hospital Course (Demo Recall) 1. Cardiovascular preop evaluation, now s/p Left frontal and parietal burhole craniectomy for evacuation of SDH 04/07/19 2. Recurrent subdural hematoma and falls 3. History of marked bradycardia mostly secondary to frequent PVCs: Previously has been significantly improved on amiodarone p.o. 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 Aortic insufficiency 6. Anemia 7. Chronic kidney disease 8. Ventricular arrhythmias with very frequent PVCs as well as bigeminy's 9. Parkinson disease Recommendations correct lytes prn Follow-up with neurosurgery recommendation cont tele monitoring Continue with the Parkinson medication to be adjusted as per internal medicine. Consider neurology consultation as well Thank you for his referral. We will continue to follow along with you VIOLA GARAY MD [facility] VIOLA GARAY MD Apr 10, 2019 09:11
[2019-04-10] MEDS: NEOMYC/POLYMYX/BACIT 30 GM OINT TOP SCH ×2 (09:13→21:23)
[2019-04-10] MEDS: AMIODARONE 200 MG TAB PO SCH (09:13)
[2019-04-10] MEDS: SOD FERRIC GLUC COMPLX 125 MG in SOD CHLORIDE 0.9% 100 ML IVPB SCH (13:13)
--- NOTE | 2019-04-10 17:43 | CONS ---
DATE OF ADMISSION: 04/03/2019 DATE OF CONSULTATION: REASON FOR CONSULTATION: Shortness of breath. Thank you, Dr. Ocasio, for this consultation. HISTORY OF PRESENT ILLNESS: This is a 60-year-old gentleman with a history of Parkinson disease, mul tiple ground level fall, found to have subdural hematoma requiring emergent evacuation. The patient has a history of similar falls, status post trepidation with removal of right subdural hematoma 6 mon ths ago. He has experienced some mild respiratory distress and dyspnea over the past few days, possi oswaldo secondary to aspiration. He denies any fever or chills; however, has been a poor historian. PAST MEDICAL HISTORY: 1. GI bleed, workup for melena at present. 2. Anemia of chronic disease. 3. History of subdural hematomas. 4. Parkinson disease. 5. Coronary artery disease. 6. Prior history of tobacco use. MEDICATIONS: Per chart. ALLERGIES: NONE. SOCIAL HISTORY: Nonsmoker, no alcohol, no history of drug use. FAMILY HISTORY: Noncontributory. SYSTEMS REVIEW: A 12-point review of systems currently negative other than that mentioned above. PHYSICAL EXAMINATION: GENERAL: Well-nourished, well-developed gentleman, comfortable at rest, in no acute distress. VITAL SIGNS: Currently afebrile, pulse is 85, blood pressure 110/59, O2 saturation 96% on 2 L nasal cannula. NECK: Supple. No JVD or lymphadenopathy. CARDIAC: S1, S2, no added sounds or murmurs. CHEST: Diminished air entry bilaterally. ABDOMEN: Soft, nontender. No guarding or rebound. EXTREMITIES: No cyanosis, clubbing, edema. NEUROLOGIC: Generalized weakness. LABORATORY DATA: White count 6.5, hemoglobin 8.8, platelets 168. BUN 15, creatinine 0.97. Urinalys is unremarkable. DIAGNOSTIC STUDIES: Chest CT performed on 04/04 demonstrated coronary artery disease with calcificat ion. No focal infiltrates. IMPRESSION: 1. Likely mild congestive heart failure. 2. Coronary artery disease. 3. Subdural hematomas. 4. Parkinson disease with multiple falls. PLAN: Consider a more palliative approach given the patient's multiple comorbidities including discu ssion about code status. Dictated By: IAN NARVAEZ/ROCK Conf#: [id number] [facility]#: [id number] CC: BROOKLYNN OCASIO MD;*End*
[2019-04-11] VITALS (10 sets, daily range): BP systolic 110–134; BP diastolic 58–68; PULSE 51–85; RESP 16–18
[2019-04-11] MEDS: PANTOPRAZOLE 40 MG INJ IV SCH ×2 (04:29→17:00)
[2019-04-11] MEDS: ACETAMINOPHEN 500 MG TAB PO PRN (04:29)
[2019-04-11] MEDS: DONEPEZIL 10 MG TAB PO SCH (08:43)
[2019-04-11] MEDS: LEVETIRACETAM 250 MG TAB PO SCH ×2 (08:43→21:21)
[2019-04-11] MEDS: CARBIDOPA/LEVODOPA 50-200 (CR) TAB PO SCH ×3 (08:43→21:21)
[2019-04-11] MEDS: AMANTADINE 100 MG CAP PO SCH ×2 (08:43→21:21)
[2019-04-11] MEDS: DOCUSATE SODIUM 100 MG CAP PO SCH ×2 (08:43→21:21)
[2019-04-11] MEDS: AMIODARONE 200 MG TAB PO SCH (08:44)
[2019-04-11] MEDS: BENAZEPRIL 10 MG TAB PO SCH (08:45)
[2019-04-11] MEDS: MEMANTINE 10 MG TAB PO SCH ×2 (08:51→21:21)
[2019-04-11] MEDS: NEOMYC/POLYMYX/BACIT 30 GM OINT TOP SCH ×2 (08:52→21:21)
[2019-04-11] MEDS: LOSARTAN 25 MG TAB PO SCH (08:58)
--- NOTE | 2019-04-11 09:19 | PN ---
Date/Time of Note Date/Time of Note DATE: 04/11/19 TIME: 09:15 Assessment/Plan VTE Prophylaxis Risk score (from Ns)>0 risk: 6 SCD applied (from Ns): Yes SCD contraindicated: other (on.) Pharmacological prophylaxis: other (Subdural hematoma.) Pharm contraindication: bleeding Lines/Catheters IV C[facility]ter Type [facility]from [facility] [place] line still needed: No Urinary Cath still in place: Yes Reason Cath still needed: urinary retention Assessment/Plan Assessment/Plan 1. Melena on and off still continues. 2. Weight loss more than 15 pounds during the last 2 months 3. Status post fall due to the severe weakness deconditioning and muscular wasting 4. Anemia chronic disease with a recent loss-iron level 28. Hematocrit is 27. 5. Status post right-sided adal trepanation with removal of subdural hematoma in the [facility] about 1/2 years ago. Patient had a subdural hematoma on the left side too.New on the top of the old subdural hematoma on the left on mri.S/P trephination and 2-3 cc of serous fluid in a bag. Altered level of consciousness but continues to be responsive without focal symptoms And CT evidence of recommendation of the fluid possible hemorrhagic component. Recommendation of his cerebrospinal fluid in the left subdural area after removal of the hematoma. 6. Ischemic heart disease angina. 7. Unstable gait with recurrent episodes of fall. 8. Deconditioning 9. Status post cataract ectomy 10. Constant snacking and chewing movements involuntarily being unable to stop mainly during last 3-4 months. 11. Bradycardia with history of syncopal episodes 12 osteoporosis and osteoarthritis 13. Dizziness 14. Hearing impairment 15. Dysphagia on and off 16. BPH with episodes of urinary incontinence 17. Dyslipidemia 18.S/p left clavicular FX(old, healed). Result Diagram: 04/10/19 0731 04/10/19 0731 Subjective 24 Hr Interval Summary Free Text/Dictation Discussed with Dr. Molina the strategy of weight and watch. Explained the daughter current strategy. The patient denies pain no dizziness. He continues to be lethargic arousable. Able to respond yes and no type questions and with very slow but audible voice response to simple questions too. Constitutional: no complaints, requiring O2; No improved, No chills, No diaphoresis, No disoriented, No febrile, No poor po, No requiring IVF, No other Exam/Review of Systems Exam Vitals Vital Signs Date Temp Pulse Resp B/P (MAP) Pulse Ox O2 O2 Flow FiO2 Time Delivery Rate 04/11/19 70 08:39 04/11/19 98.0 18 114/62 98 Room Air 07:52 (79) 04/11/19 2.0 07:49 Intake and Output 04/10/19 04/10/19 04/11/19 1515:00 23:00 07:00 IntakeIntake Total 100 ml 1600 ml 400 ml OutputOutput Total 3 ml BalanceBalance 100 ml 1597 ml 400 ml Constitutional: frail; No alert, No oriented, No well developed, No non-verbal, No distress, No obese, No other Psych: No no complaints, No nl mood/affect, No anxiety, No confusion, No depression, No suicidal, No other Head: normocephalic, atraumatic; No lacerations, No hematomas, No other Eyes: EOMI, PERRL; No nl conjunctiva, No nl lids, No nl sclera, No icteric, No fundi, disc, No other ENMT: nl external ears & nose, nl lips & teeth, nl nasal mucosa & septum, mucosa pink and moist; No intubated, No tympanic membranes, No other Neck: supple; No non-tender, No jvd, No bruits, No masses, No thyromegaly, No nuchal rigidity, No other Respiratory: No clear to auscultation, No normal air movement, No congested cough, No crackles/rales, No diminished breath sounds, No intercostal retraction, No labored breathing, No respirations, No tactile fremitus, No wheezing, No other Cardiovascular: regular rate and rhythm, bruits; No nl pulses, No diastolic murmur, No edema, No gallop, No irregular rhythm, No jugular venous distention (JVD), No murmurs/extra sounds, No rub, No systolic murmur, No S3, No S4, No other Gastrointestinal: No soft, No nl liver, spleen, No non-tender, No ascites, No bowel sounds, No distended, No firm, No hepatomegaly, No mass, No rebound or guarding, No splenomegaly, No surgical scars, No tender, No other Genitourinary - Male: nl penis, nl scrotum Musculoskeletal: muscle tone, muscle weakness; No nl extremities to inspection, No nl gait and stance, No joint tenderness, No range of motion, No spine non-tender, No swelling, No other 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: BENZOL OPERATOR II-XII intact; No nl mental status, No nl speech, No nl strength, No confused, No DTR's symmetric, No focal weakness, No lethargic, No numbness, No reflexes, No unresponsive, No other Medications Medication Current Medications Pantoprazole (Protonix Iv) 40 mg BID@06,18 IV Last administered on 04/11/19 04:29; Admin Dose 40 MG; Start 04/03/19 at 20:00 Levetiracetam (Keppra) 250 mg BID PO Last administered on 04/11/19 08:43; Admin Dose 250 MG; Start 04/03/19 at 23:30 Amiodarone HCl (Cordarone) 200 mg DAILY PO Last administered on 04/11/19 08:44; Admin Dose 200 MG; Start 04/06/19 at 09:30 Losartan Potassium (Cozaar) 12.5 mg DAILY PO Last administered on 04/11/19 08:58; Admin Dose 12.5 MG; Start 04/07/19 at 09:00 Hydromorphone HCl (Dilaudid) 0.2 mg Q1H PRN IV .BREAKTHROUGH PAIN Last administered on 04/08/19 09:11; Admin Dose 0.2 MG; Start 04/07/19 at 19:00 Ondansetron HCl (Zofran Inj) 4 mg Q6H PRN IV NAUSEA/VOMITING; Start 04/07/19 at 19:00 Bisacodyl (Dulcolax Supp) 10 mg DAILY PRN [place] .CONSTIPATION; Start 04/07/19 at 19:00 Docusate Sodium (Colace) 100 mg BID PO Last administered on 04/10/19 21:24; Admin Dose 100 MG; Start 04/07/19 at 21:00 Naloxone HCl (Narcan) 0.2 mg Q2M PRN IV .RR 8 BREATHS/MIN OR LESS; Start 04/07/19 at 19:00 Neomycin/ Polymyxin/ Bacitracin (Neosporin Topical Oint) 1 applic BID TOP Last administered on 04/11/19 08:52; Admin Dose 1 APPLIC; Start 04/07/19 at 21:00 Clonidine HCl (Catapres-Tts 1 Patch) 1 patch Castaneda@1000 TRANSDERM Last administered on 04/08/19 12:26; Admin Dose 1 PATCH; Start 04/08/19 at 12:00 Acetaminophen (Tylenol Tab) 500 mg Q6H PRN PO MILD PAIN(1-3)OR ELEVATED TEMP Last administered on 04/11/19 04:29; Admin Dose 500 MG; Start 04/09/19 at 18:30 Ferric Sodium Gluconate Complex 125 mg/Sodium Chloride 100 ml @ 100 mls/hr DAILY@1300 IVPB Last administered on 04/10/19 13:13; Admin Dose 100 MLS/HR; Start 04/10/19 at 13:00; Stop 04/12/19 at 13:59 Amantadine HCl (Symmetrel) 100 mg BID PO Last administered on 04/11/19 08:43; Admin Dose 100 MG; Start 04/09/19 at 23:30 Memantine (Namenda) 10 mg BID PO Last administered on 04/11/19 08:51; Admin Dose 10 MG; Start 04/10/19 at 09:00 Benazepril HCl (Lotensin) 10 mg DAILY PO Last administered on 04/11/19 08:45; Admin Dose 10 MG; Start 04/10/19 at 09:00 Carbidopa/Levodopa (Sinemet Cr (50/ 200)) 1 tab TID PO Last administered on 04/11/19 08:43; Admin Dose 1 TAB; Start 04/10/19 at 01:40 Donepezil HCl (Aricept) 10 mg DAILY PO Last administered on 04/11/19 08:43; Admin Dose 10 MG; Start 04/10/19 at 01:30 BROOKLYNN OCASIO MD Apr 11, 2019 09:19
--- NOTE | 2019-04-11 09:31 | CONS ---
Consult Date/Type/Reason Admit Date/Time April 03, 2019 at 12:57 Initial Consult Date Type of Consultation: cv Requesting Provider: GLORIA WISEMAN MD Date/Time of Note DATE: 04/11/19 TIME: 09:29 Subjective Interventional cardiology progress note Subjective: Case discussed with the daughter. Case discussed with staff. Dw physicians TELE WAS reviewed. pt remains in NSR with occasional PVC Patient did not sleep well last night and is a sleeping up her daughter's report. Events noted s/p burhole and evacuation of SDH on 04/07/19 Objective: General: no acute distress HEENT: NC, s/p burhole .. pupils are equal. round. NECK: NO JVD. no stridor. CV: RRR. systolic murmur; no gallop or rubs. PULM: no wheezing or rhonchi. GI: SOFT, NT, ND, no rebound or guarding Extremity: trace B/L LE edema. no clubbing. neuro: Sleeping but arousable and responds appropriately Psych: calm and pleasant rectal: deferred : normal EKG done today shows normal sinus rhythm with PVC. Nonspecific T wave abnormalities Of the old chart shows that echocardiogram done in my office on 10/02/2018 has shown ejection fraction about 40 to 45% LVH with mild to moderate aortic insufficiency diastolic dysfunction mild MR and TR MRI of the brain done April 04, 2019 shows: MRI of the brain demonstrates a large left subdural hematoma with varying ages however there is a 9 mm acute component with the overall measurement measuring up to 2.2 cm resulting in diffuse left cerebral mass effect with minimal [id number]-[id number] midline shift. 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 Objective Vitals Vital Signs Date Temp Pulse Resp B/P (MAP) Pulse Ox O2 O2 Flow FiO2 Time Delivery Rate 04/11/19 70 08:39 04/11/19 98.0 18 114/62 98 Room Air 07:52 (79) 04/11/19 2.0 07:49 Intake and Output 04/10/19 04/10/19 04/11/19 1515:00 23:00 07:00 IntakeIntake Total 100 ml 1600 ml 400 ml OutputOutput Total 3 ml BalanceBalance 100 ml 1597 ml 400 ml Results/Medications Result Diagram: 04/10/19 0731 04/10/19 0731 Home Meds Active Scripts Amiodarone Hcl* (Amiodarone Hcl*) 100 Mg Tablet, 100 MG PO DAILY, #30 TAB Prov:RONY AGUILA MD 09/07/17 Reported Medications Amantadine Hcl* (Amantadine Hcl*) 100 Mg Capsule, 100 MG PO BID, #60 CAP 04/03/19 Carbidopa-Levodopa* (Sinemet CR*) 50-200 Mg Tabsr, 1 TAB PO TID, TAB 04/03/19 Folic Acid* (Folic Acid*) 1 Mg Tablet, 1 MG PO DAILY, TAB 04/03/19 Donepezil* (Donepezil*) 10 Mg Tablet, 10 MG PO DAILY, #30 TAB 04/03/19 Ramipril (Ramipril) 2.5 Mg Capsule, 2.5 MG PO DAILY, CAP 04/03/19 Megestrol Acetate* (Megestrol Acetate*) 40 Mg Tablet, 40 MG PO TID, TAB 09/05/17 Finasteride* (Finasteride*) 5 Mg Tablet, 5 MG PO DAILY, TAB 09/05/17 Gemfibrozil* (Gemfibrozil*) 600 Mg Tablet, 600 MG PO DAILY, TAB 09/05/17 Memantine* (Namenda* XR) 28 Mg Cap.spr.24, 28 MG PO DAILY, #30 TAB 09/05/17 Medications Current Medications Pantoprazole (Protonix Iv) 40 mg BID@06,18 IV Last administered on 04/11/19at 04:29; Admin Dose 40 MG; Start 04/03/19 at 20:00 Levetiracetam (Keppra) 250 mg BID PO Last administered on 04/11/19at 08:43; Admin Dose 250 MG; Start 04/03/19 at 23:30 Amiodarone HCl (Cordarone) 200 mg DAILY PO Last administered on 04/11/19at 08:44; Admin Dose 200 MG; Start 04/06/19 at 09:30 Losartan Potassium (Cozaar) 12.5 mg DAILY PO Last administered on 04/11/19at 08:58; Admin Dose 12.5 MG; Start 04/07/19 at 09:00 Hydromorphone HCl (Dilaudid) 0.2 mg Q1H PRN IV .BREAKTHROUGH PAIN Last administered on 04/08/19 09:11; Admin Dose 0.2 MG; Start 04/07/19 at 19:00 Ondansetron HCl (Zofran Inj) 4 mg Q6H PRN IV NAUSEA/VOMITING; Start 04/07/19 at 19:00 Bisacodyl (Dulcolax Supp) 10 mg DAILY PRN [place] .CONSTIPATION; Start 04/07/19 at 19:00 Docusate Sodium (Colace) 100 mg BID PO Last administered on 04/10/19 21:24; Admin Dose 100 MG; Start 04/07/19 at 21:00 Naloxone HCl (Narcan) 0.2 mg Q2M PRN IV .RR 8 BREATHS/MIN OR LESS; Start 04/07/19 at 19:00 Neomycin/ Polymyxin/ Bacitracin (Neosporin Topical Oint) 1 applic BID TOP Last administered on 04/11/19 08:52; Admin Dose 1 APPLIC; Start 04/07/19 at 21:00 Clonidine HCl (Catapres-Tts 1 Patch) 1 patch Castaneda@1000 TRANSDERM Last administered on 04/08/19 12:26; Admin Dose 1 PATCH; Start 04/08/19 at 12:00 Acetaminophen (Tylenol Tab) 500 mg Q6H PRN PO MILD PAIN(1-3)OR ELEVATED TEMP Last administered on 04/11/19 04:29; Admin Dose 500 MG; Start 04/09/19 at 18:30 Ferric Sodium Gluconate Complex 125 mg/Sodium Chloride 100 ml @ 100 mls/hr DAILY@1300 IVPB Last administered on 04/10/19 13:13; Admin Dose 100 MLS/HR; Start 04/10/19 at 13:00; Stop 04/12/19 at 13:59 Amantadine HCl (Symmetrel) 100 mg BID PO Last administered on 04/11/19 08:43; Admin Dose 100 MG; Start 04/09/19 at 23:30 Memantine (Namenda) 10 mg BID PO Last administered on 04/11/19 08:51; Admin Dose 10 MG; Start 04/10/19 at 09:00 Benazepril HCl (Lotensin) 10 mg DAILY PO Last administered on 04/11/19 08:45; Admin Dose 10 MG; Start 04/10/19 at 09:00 Carbidopa/Levodopa (Sinemet Cr (50/ 200)) 1 tab TID PO Last administered on 04/11/19at 08:43; Admin Dose 1 TAB; Start 04/10/19 at 01:40 Donepezil HCl (Aricept) 10 mg DAILY PO Last administered on 04/11/19at 08:43; A dmin Dose 10 MG; Start 04/10/19 at 01:30 Assessment/Plan Hospital Course (Demo Recall) 1. Cardiovascular preop evaluation, now s/p Left frontal and parietal burhole craniectomy for evacuation of SDH 04/07/19 2. Recurrent subdural hematoma and falls 3. History of marked bradycardia mostly secondary to frequent PVCs: Previously has been significantly improved on amiodarone p.o. 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 Aortic insufficiency 6. Anemia 7. Chronic kidney disease 8. Ventricular arrhythmias with very frequent PVCs as well as bigeminy's 9. Parkinson disease Recommendations correct lytes prn Follow-up with neurosurgery recommendation cont tele monitoring Continue with the Parkinson medication to be adjusted as per internal medicine. Thank you for his referral. We will continue to follow along with you VIOLA GARAY MD [facility] VIOLA GARAY MD Apr 11, 2019 09:31
[2019-04-11] MEDS: SOD FERRIC GLUC COMPLX 125 MG in SOD CHLORIDE 0.9% 100 ML IVPB SCH (13:07)
--- NOTE | 2019-04-11 15:58 | CONS ---
Assessment/Plan Assessment/Plan Assessment/Plan (Daily) Assessment/Plan Assessment/Plan Hospital Course (Demo Recall) 88 yo male with melena, s/p EGD and left frontoparietal lilia hole craniotomy and evacuation of subdural hematoma 1. Status post left frontoparietal lilia hole craniotomy and evacuation of subdural hematoma. -Per CT 04/09: New midline shift from left to right, New mildly increased left subdural mixed attenuation collection status post removal of the drain. Cannot exclude an acute versus recent hemorrhagic component at the left parietal subdural space. 2. Anemia. -HH has trended up and stable 3. Positive stool guaiac. -Normal CEA levels 4. History of multiple falls. 5. Benign prostatic hypertrophy. 6. Hearing impairment. 7. Chronic gastritis 8. Positive Gram negative rods in urine Follow up CT 04/09: IMPRESSION: 1. Interval removal of previously seen left subdural drain. 2. New mildly increased left subdural mixed attenuation collection status post removal of the drain. 3. Cannot exclude an acute versus recent hemorrhagic component at the left parietal subdural space. 4. 4 mm [id number] midline shift, new over interval. Gastric biopsies: -- Moderate superficial chronic gastritis with focal lymphoid hyperplasia. -- A Giemsa stain with an appropriate control, is negative for H. pylori organisms (please see comment). -- No dysplasia or intestinal metaplasia is identified. PLAN: Aspiration precautions PPI Consider colonoscopy once pt stable and if continues to have severe anemia and melanotic stools, brought up the possibility of doing colonoscopy at some point, daughter does not want. We will monitor the situation Monitor HH and for active GI bleeding. Hematocrit dropped down to 27. We will monitor H&H Consultation Date/Type/Reason Admit Date/Time April 03, 2019 at 12:57 Initial Consult Date Requesting Provider: GLORIA WISEMAN MD Date/Time of Note DATE: 04/11/19 TIME: 15:57 24 HR Interval Summary Free Text/Dictation Discussed with the daughter patient has no abdominal pain no nausea no vomiting no gross GI bleeding Exam/Review of Systems Exam Vitals Vital Signs Date Temp Pulse Resp B/P (MAP) Pulse Ox O2 O2 Flow FiO2 Time Delivery Rate 04/11/19 97.6 66 16 110/58 99 Room Air 15:37 (75) 04/11/19 2.0 07:49 Intake and Output 04/10/19 04/10/19 04/11/19 1515:00 23:00 07:00 IntakeIntake Total 100 ml 1600 ml 400 ml OutputOutput Total 3 ml BalanceBalance 100 ml 1597 ml 400 ml Constitutional: alert Neck: supple, non-tender Musculoskeletal: nl extremities to inspection, nl gait and stance Results Result Diagram: 04/10/19 0731 04/10/19 0731 Medications Medication Current Medications Pantoprazole (Protonix Iv) 40 mg BID@,18 IV Last administered on 04/11/19 04:29; Admin Dose 40 MG; Start 04/03/19 at 20:00 Levetiracetam (Keppra) 250 mg BID PO Last administered on 04/11/19 08:43; Admin Dose 250 MG; Start 04/03/19 at 23:30 Amiodarone HCl (Cordarone) 200 mg DAILY PO Last administered on 04/11/19 08:44; Admin Dose 200 MG; Start 04/06/19 at 09:30 Losartan Potassium (Cozaar) 12.5 mg DAILY PO Last administered on 04/11/19 08:58; Admin Dose 12.5 MG; Start 04/07/19 at 09:00 Hydromorphone HCl (Dilaudid) 0.2 mg Q1H PRN IV .BREAKTHROUGH PAIN Last administered on 04/08/19 09:11; Admin Dose 0.2 MG; Start 04/07/19 at 19:00 Ondansetron HCl (Zofran Inj) 4 mg Q6H PRN IV NAUSEA/VOMITING; Start 04/07/19 at 19:00 Bisacodyl (Dulcolax Supp) 10 mg DAILY PRN [place] .CONSTIPATION; Start 04/07/19 at 19:00 Docusate Sodium (Colace) 100 mg BID PO Last administered on 04/10/19 21:24; Admin Dose 100 MG; Start 04/07/19 at 21:00 Naloxone HCl (Narcan) 0.2 mg Q2M PRN IV .RR 8 BREATHS/MIN OR LESS; Start 04/07/19 at 19:00 Neomycin/ Polymyxin/ Bacitracin (Neosporin Topical Oint) 1 applic BID TOP Last administered on 04/11/19 08:52; Admin Dose 1 APPLIC; Start 04/07/19 at 21:00 Clonidine HCl (Catapres-Tts 1 Patch) 1 patch Castaneda@1000 TRANSDERM Last administered on 04/08/19 12:26; Admin Dose 1 PATCH; Start 04/08/19 at 12:00 Acetaminophen (Tylenol Tab) 500 mg Q6H PRN PO MILD PAIN(1-3)OR ELEVATED TEMP Last administered on 04/11/19 04:29; Admin Dose 500 MG; Start 04/09/19 at 18:30 Ferric Sodium Gluconate Complex 125 mg/Sodium Chloride 100 ml @ 100 mls/hr DAILY@1300 IVPB Last administered on 04/11/19 13:07; Admin Dose 100 MLS/HR; Start 04/10/19 at 13:00; Stop 04/12/19 at 13:59 Amantadine HCl (Symmetrel) 100 mg BID PO Last administered on 04/11/19 08:43; Admin Dose 100 MG; Start 04/09/19 at 23:30 Memantine (Namenda) 10 mg BID PO Last administered on 04/11/19 08:51; Admin Dos e 10 MG; Start 04/10/19 at 09:00 Benazepril HCl (Lotensin) 10 mg DAILY PO Last administered on 04/11/19 08:45; Admin Dose 10 MG; Start 04/10/19 at 09:00 Carbidopa/Levodopa (Sinemet Cr (50/ 200)) 1 tab TID PO Last administered on 04/11/19 13:07; Admin Dose 1 TAB; Start 04/10/19 at 01:40 Donepezil HCl (Aricept) 10 mg DAILY PO Last administered on 04/11/19 08:43; Admin Dose 10 MG; Start 04/10/19 at 01:30 WADE SHARMA MD Apr 11, 2019 15:58
[2019-04-12] VITALS (11 sets, daily range): BP systolic 115–147; BP diastolic 62–73; PULSE 62–79; RESP 16–18
[2019-04-12] MEDS: PANTOPRAZOLE 40 MG INJ IV SCH ×2 (05:49→18:13)
--- NOTE | 2019-04-12 08:07 | CONS ---
Consult Date/Type/Reason Admit Date/Time April 03, 2019 at 12:57 Initial Consult Date Type of Consultation: cv Requesting Provider: GLORIA WISEMAN MD Date/Time of Note DATE: 04/12/19 TIME: 08:06 Subjective Interventional cardiology progress note Subjective: Case discussed with the daughter. d/w staff TELE WAS reviewed. pt remains in NSR with occasional PVC no cp or pressure or palpitations Events noted s/p burhole and evacuation of SDH on 04/07/19 Objective: General: no acute distress HEENT: NC, s/p burhole .. pupils are equal. round. NECK: NO JVD. no stridor. CV: RRR. systolic murmur; no gallop or rubs. PULM: no wheezing or rhonchi. GI: SOFT, NT, ND, no rebound or guarding Extremity: trace B/L LE edema. no clubbing. neuro: awake and alert and responds appropriately Psych: calm and pleasant rectal: deferred : normal EKG done today shows normal sinus rhythm with PVC. Nonspecific T wave abnormalities Of the old chart shows that echocardiogram done in my office on 10/02/2018 has shown ejection fraction about 40 to 45% LVH with mild to moderate aortic insufficiency diastolic dysfunction mild MR and TR MRI of the brain done April 04, 2019 shows: MRI of the brain demonstrates a large left subdural hematoma with varying ages however there is a 9 mm acute component with the overall measurement measuring up to 2.2 cm resulting in diffuse left cerebral mass effect with minimal [id number] midline shift. 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 Objective Vitals Vital Signs Date Temp Pulse Resp B/P (MAP) Pulse Ox O2 O2 Flow FiO2 Time Delivery Rate 04/12/19 98.2 62 18 142/67 93 Room Air 07:41 (92) 04/11/19 2.0 07:49 Intake and Output 04/11/19 04/11/19 04/12/19 1515:00 23:00 07:00 IntakeIntake Total 400 ml 200 ml BalanceBalance 400 ml 200 ml Results/Medications Result Diagram: 04/10/1973004/10/19730 Home Meds Active Scripts Amiodarone Hcl* (Amiodarone Hcl*) 100 Mg Tablet, 100 MG PO DAILY, #30 TAB Prov:RONY AGUILA MD 09/07/17 Reported Medications Amantadine Hcl* (Amantadine Hcl*) 100 Mg Capsule, 100 MG PO BID, #60 CAP 04/03/19 Carbidopa-Levodopa* (Sinemet CR*) 50-200 Mg Tabsr, 1 TAB PO TID, TAB 04/03/19 Folic Acid* (Folic Acid*) 1 Mg Tablet, 1 MG PO DAILY, TAB 04/03/19 Donepezil* (Donepezil*) 10 Mg Tablet, 10 MG PO DAILY, #30 TAB 04/03/19 Ramipril (Ramipril) 2.5 Mg Capsule, 2.5 MG PO DAILY, CAP 04/03/19 Megestrol Acetate* (Megestrol Acetate*) 40 Mg Tablet, 40 MG PO TID, TAB 09/05/17 Finasteride* (Finasteride*) 5 Mg Tablet, 5 MG PO DAILY, TAB 09/05/17 Gemfibrozil* (Gemfibrozil*) 600 Mg Tablet, 600 MG PO DAILY, TAB 09/05/17 Memantine* (Namenda* XR) 28 Mg Cap.spr.24, 28 MG PO DAILY, #30 TAB 09/05/17 Medications Current Medications Pantoprazole (Protonix Iv) 40 mg BID@06,18 IV Last administered on 04/12/19at 05:49; Admin Dose 40 MG; Start 04/03/19 at 20:00 Levetiracetam (Keppra) 250 mg BID PO Last administered on 04/11/19at 21:21; Admin Dose 250 MG; Start 04/03/19 at 23:30 Amiodarone HCl (Cordarone) 200 mg DAILY PO Last administered on 04/11/19at 08:44; Admin Dose 200 MG; Start 04/06/19 at 09:30 Losartan Potassium (Cozaar) 12.5 mg DAILY PO Last administered on 04/11/19at 08:58; Admin Dose 12.5 MG; Start 04/07/19 at 09:00 Hydromorphone HCl (Dilaudid) 0.2 mg Q1H PRN IV .BREAKTHROUGH PAIN Last administered on 04/08/19at 09:11; Admin Dose 0.2 MG; Start 04/07/19 at 19:00 Ondansetron HCl (Zofran Inj) 4 mg Q6H PRN IV NAUSEA/VOMITING; Start 04/07/19 at 19:00 Bisacodyl (Dulcolax Supp) 10 mg DAILY PRN [place] .CONSTIPATION; Start 04/07/19 at 19:00 Docusate Sodium (Colace) 100 mg BID PO Last administered on 04/11/19 21:21; Admin Dose 100 MG; Start 04/07/19 at 21:00 Naloxone HCl (Narcan) 0.2 mg Q2M PRN IV .RR 8 BREATHS/MIN OR LESS; Start 04/07/19 at 19:00 Neomycin/ Polymyxin/ Bacitracin (Neosporin Topical Oint) 1 applic BID TOP Last administered on 04/11/19 21:21; Admin Dose 1 APPLIC; Start 04/07/19 at 21:00 Clonidine HCl (Catapres-Tts 1 Patch) 1 patch Castaneda@1000 TRANSDERM Last administered on 04/08/19 12:26; Admin Dose 1 PATCH; Start 04/08/19 at 12:00 Acetaminophen (Tylenol Tab) 500 mg Q6H PRN PO MILD PAIN(1-3)OR ELEVATED TEMP Last administered on 04/11/19 04:29; Admin Dose 500 MG; Start 04/09/19 at 18:30 Ferric Sodium Gluconate Complex 125 mg/Sodium Chloride 100 ml @ 100 mls/hr DAILY@1300 IVPB Last administered on 04/11/19 13:07; Admin Dose 100 MLS/HR; Start 04/10/19 at 13:00; Stop 04/12/19 at 13:59 Amantadine HCl (Symmetrel) 100 mg BID PO Last administered on 04/11/19 21:21; Admin Dose 100 MG; Start 04/09/19 at 23:30 Memantine (Namenda) 10 mg BID PO Last administered on 04/11/19 21:21; Admin Dose 10 MG; Start 04/10/19 at 09:00 Benazepril HCl (Lotensin) 10 mg DAILY PO Last administered on 04/11/19 08:45; Admin Dose 10 MG; Start 04/10/19 at 09:00 Carbidopa/Levodopa (Sinemet Cr (50/ 200)) 1 tab TID PO Last administered on 6/5/19at 21:21; Admin Dose 1 TAB; Start 04/10/19 at 01:40 Donepezil HCl (Aricept) 10 mg DAILY PO Last administered on 04/11/19at 08:43; Admin Dose 10 MG; Start 04/10/19 at 01:30 Assessment/Plan Hospital Course (Demo Recall) 1. Cardiovascular preop evaluation, now s/p Left frontal and parietal burhole craniectomy for evacuation of SDH 04/07/19 2. Recurrent subdural hematoma and falls 3. History of marked bradycardia mostly secondary to frequent PVCs: Previously has been significantly improved on amiodarone p.o. 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 Aortic insufficiency 6. Anemia 7. Chronic kidney disease 8. Ventricular arrhythmias with very frequent PVCs as well as bigeminy's 9. Parkinson disease Recommendations correct lytes prn Follow-up with neurosurgery recommendation cont tele monitoring Continue with the Parkinson medication to be adjusted as per internal medicine. PT as tolerated Thank you for his referral. We will continue to follow along with you VIOLA GARAY MD [facility] VIOLA GARAY MD Apr 12, 2019 08:07
[2019-04-12] MEDS: DOCUSATE SODIUM 100 MG CAP PO SCH ×2 (09:00→21:00)
[2019-04-12] MEDS: AMANTADINE 100 MG CAP PO SCH ×2 (09:24→21:32)
[2019-04-12] MEDS: AMIODARONE 200 MG TAB PO SCH (09:25)
[2019-04-12] MEDS: LEVETIRACETAM 250 MG TAB PO SCH ×2 (09:25→21:32)
[2019-04-12] MEDS: BENAZEPRIL 10 MG TAB PO SCH (09:26)
[2019-04-12] MEDS: DONEPEZIL 10 MG TAB PO SCH (09:26)
[2019-04-12] MEDS: MEMANTINE 10 MG TAB PO SCH ×2 (09:26→21:32)
[2019-04-12] MEDS: LOSARTAN 25 MG TAB PO SCH (09:27)
[2019-04-12] MEDS: CARBIDOPA/LEVODOPA 50-200 (CR) TAB PO SCH ×3 (09:33→21:32)
[2019-04-12] MEDS: NEOMYC/POLYMYX/BACIT 30 GM OINT TOP SCH ×2 (09:33→21:33)
--- NOTE | 2019-04-12 09:39 | PN ---
Date/Time of Note Date/Time of Note DATE: 04/12/19 TIME: 09:38 Assessment/Plan VTE Prophylaxis Risk score (from Ns)>0 risk: 6 SCD applied (from Ns): Yes SCD contraindicated: other Pharmacological prophylaxis: LMWH Pharm contraindication: bleeding Lines/Catheters IV [facility]from [facility] [place] [employer] line still needed: Yes Urinary Cath still in place: No Reason Cath still needed: urinary retention Assessment/Plan Assessment/Plan 1. Melena on and off still continues. 2. Weight loss more than 15 pounds during the last 2 months 3. Status post fall due to the severe weakness deconditioning and muscular wasting 4. Anemia chronic disease with a recent loss-iron level 28. 5. Status post right-sided adal trepanation with removal of subdural hematoma in the [facility] about 1/2 years ago. Patient had a subdural hematoma on the left side too.New on the top of the old subdural hematoma on the left on mri.S/P trephination and 2-3 cc of serous fluid in a bag. Altered level of consciousness but continues to be responsive without focal symptoms And CT evidence of recommendation of the fluid possible hemorrhagic component. 6. Ischemic heart disease angina. 7. Unstable gait with recurrent episodes of fall. 8. Deconditioning 9. Status post cataract ectomy 10. Constant snacking and chewing movements involuntarily being unable to stop mainly during last 3-4 months. 11. Bradycardia with history of syncopal episodes 12 osteoporosis and osteoarthritis 13. Dizziness 14. Hearing impairment 15. Dysphagia on and off 16. BPH with episodes of urinary incontinence 17. Dyslipidemia 18.S/p left clavicular FX(old, healed). Result Diagram: 04/10/19 0731 04/10/19 0731 Subjective 24 Hr Interval Summary Free Text/Dictation Lethargic.Responds verbaL COMMAND.Gets sleeppy. Asked a daughter to bring his cloths to wear them, but he bearily elevates his hands. Subjective hx not possible: pt critical Constitutional: disoriented, poor po, requiring O2; No no complaints, No improved, No chills, No diaphoresis, No febrile, No requiring IVF, No other Eyes: No no complaints, No pain, No discharge, No redness, No visual change, No other ENT: No no complaints, No bleeding, No pain, No congestion, No discharge, No dysphagia, No sore throat, No other Respiratory: No no complaints, No pain, No cough, No pleuritic pain, No shortness of breath, No sputum, No wheezing, No other Cardiovascular: No no complaints, No chest pain, No edema, No lightheadedness, No orthopenea, No palpitations, No paroxysmal nocturnal dyspnea, No other Gastrointestinal: No no complaints, No pain, No blood, No constipation, No decreased appetite, No diarrhea, No flatus, No nausea, No passing stool, No vomiting, No other Genitourinary: dysuria; No no complaints, No bleeding, No discharge, No flank pain, No hematuria, No other Musculoskeletal: bone/joint pain; No no complaints, No back pain, No neck pain, No restricted range of motion, No swelling, No other Skin: No no complaints, No bruising, No erythema, No laceration, No pruritis, No rash, No skin lesions, No other Neurologic: confusion; No no complaints, No dizziness, No focal-weakness, No headache, No syncope, No seizure, No other Exam/Review of Systems Exam Vitals Vital Signs Date Temp Pulse Resp B/P (MAP) Pulse Ox O2 O2 Flow FiO2 Time Delivery Rate 04/12/19 79 08:00 04/12/19 98.2 18 142/67 93 Room Air 07:41 (92) 04/11/19 2.0 07:49 Intake and Output 04/11/19 04/11/19 04/12/19 1515:00 23:00 07:00 IntakeIntake Total 400 ml 200 ml BalanceBalance 400 ml 200 ml Constitutional: well developed, frail, other (zarousable.); No alert, No oriented, No non-verbal, No distress, No obese Psych: anxiety; No no complaints, No nl mood/affect, No confusion, No depression, No suicidal, No other Head: normocephalic, atraumatic Eyes: EOMI; No nl conjunctiva, No nl lids, No nl sclera, No PERRL, No icteric, No fundi, disc, No other ENMT: No nl external ears & nose, No nl lips & teeth, No nl nasal mucosa & septum, No mucosa pink and moist, No intubated, No tympanic membranes, No other Neck: supple, jvd, bruits; No non-tender, No masses, No thyromegaly, No nuchal rigidity, No other Respiratory: crackles/rales; No clear to auscultation, No normal air movement, No congested cough, No diminished breath sounds, No intercostal retraction, No labored breathing, No respirations, No tactile fremitus, No wheezing, No other Cardiovascular: regular rate and rhythm, bruits, systolic murmur; No nl pulses, No diastolic murmur, No edema, No gallop, No irregular rhythm, No jugular venous distention (JVD), No murmurs/extra sounds, No rub, No S3, No S4, No other Gastrointestinal: soft, nl liver, spleen, bowel sounds, distended; No non-tender, No ascites, No firm, No hepatomegaly, No mass, No rebound or guarding, No splenomegaly, No surgical scars, No tender, No other Genitourinary - Male: nl penis, nl scrotum; No CVA tenderness, No discharge, No other Musculoskeletal: muscle tone, muscle weakness Extremities: normal pulses 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: 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, numbness; No nl mental status, No nl speech, No nl strength, No confused, No DTR's symmetric, No focal weakness, No reflexes, No unresponsive, No other Medications Medication Current Medications Pantoprazole (Protonix Iv) 40 mg BID@06,18 IV Last administered on 04/12/19 05:49; Admin Dose 40 MG; Start 04/03/19 at 20:00 Levetiracetam (Keppra) 250 mg BID PO Last administered on 04/12/19 09:25; Admin Dose 250 MG; Start 04/03/19 at 23:30 Amiodarone HCl (Cordarone) 200 mg DAILY PO Last administered on 04/12/19 09:25; Admin Dose 200 MG; Start 04/06/19 at 09:30 Losartan Potassium (Cozaar) 12.5 mg DAILY PO Last administered on 04/12/19 09:27; Admin Dose 12.5 MG; Start 04/07/19 at 09:00 Hydromorphone HCl (Dilaudid) 0.2 mg Q1H PRN IV .BREAKTHROUGH PAIN Last administered on 04/08/19 09:11; Admin Dose 0.2 MG; Start 04/07/19 at 19:00 Ondansetron HCl (Zofran Inj) 4 mg Q6H PRN IV NAUSEA/VOMITING; Start 04/07/19 at 19:00 Bisacodyl (Dulcolax Supp) 10 mg DAILY PRN [place] .CONSTIPATION; Start 04/07/19 at 19:00 Docusate Sodium (Colace) 100 mg BID PO Last administered on 04/11/19 21:21; Admin Dose 100 MG; Start 04/07/19 at 21:00 Naloxone HCl (Narcan) 0.2 mg Q2M PRN IV .RR 8 BREATHS/MIN OR LESS; Start 04/07/19 at 19:00 Neomycin/ Polymyxin/ Bacitracin (Neosporin Topical Oint) 1 applic BID TOP Last administered on 04/12/19 09:33; Admin Dose 1 APPLIC; Start 04/07/19 at 21:00 Clonidine HCl (Catapres-Tts 1 Patch) 1 patch Castaneda@1000 TRANSDERM Last administered on 04/08/19 12:26; Admin Dose 1 PATCH; Start 04/08/19 at 12:00 Acetaminophen (Tylenol Tab) 500 mg Q6H PRN PO MILD PAIN(1-3)OR ELEVATED TEMP Last administered on 04/11/19 04:29; Admin Dose 500 MG; Start 04/09/19 at 18:30 Ferric Sodium Gluconate Complex 125 mg/Sodium Chloride 100 ml @ 100 mls/hr DAILY@1300 IVPB Last administered on 04/11/19 13:07; Admin Dose 100 MLS/HR; Start 04/10/19 at 13:00; Stop 04/12/19 at 13:59 Amantadine HCl (Symmetrel) 100 mg BID PO Last administered on 04/12/19 09:24; Admin Dose 100 MG; Start 04/09/19 at 23:30 Memantine (Namenda) 10 mg BID PO Last administered on 04/12/19 09:26; Admin Dose 10 MG; Start 04/10/19 at 09:00 Benazepril HCl (Lotensin) 10 mg DAILY PO Last administered on 04/12/19 09:26; Admin Dose 10 MG; Start 04/10/19 at 09:00 Carbidopa/Levodopa (Sinemet Cr (50/ 200)) 1 tab TID PO Last administered on 04/12/19at 09:33; Admin Dose 1 TAB; Start 04/10/19 at 01:40 Donepezil HCl (Aricept) 10 mg DAILY PO Last administered on 04/12/19at 09:26; Admin Dose 10 MG; Start 04/10/19 at 01:30 BROOKLYNN OCASIO MD Apr 12, 2019 09:39
[2019-04-12] MEDS: SOD FERRIC GLUC COMPLX 125 MG in SOD CHLORIDE 0.9% 100 ML IVPB SCH (14:03)
--- NOTE | 2019-04-12 21:14 | CONS ---
Assessment/Plan Assessment/Plan Assessment/Plan (Daily) Assessment/Plan Hospital Course (Demo Recall) 88 yo male with melena, s/p EGD and left frontoparietal lilia hole craniotomy and evacuation of subdural hematoma 1. Status post left frontoparietal lilia hole craniotomy and evacuation of subdural hematoma. -Per CT 04/09: New midline shift from left to right, New mildly increased left subdural mixed attenuation collection status post removal of the drain. Cannot exclude an acute versus recent hemorrhagic component at the left parietal subdural space. 2. Anemia. -HH has trended up and stable 3. Positive stool guaiac. -Normal CEA levels 4. History of multiple falls. 5. Benign prostatic hypertrophy. 6. Hearing impairment. 7. Chronic gastritis 8. Positive Gram negative rods in urine Follow up CT 04/09: IMPRESSION: 1. Interval removal of previously seen left subdural drain. 2. New mildly increased left subdural mixed attenuation collection status post removal of the drain. 3. Cannot exclude an acute versus recent hemorrhagic component at the left parietal subdural space. 4. 4 mm [id number] midline shift, new over interval. Gastric biopsies: -- Moderate superficial chronic gastritis with focal lymphoid hyperplasia. -- A Giemsa stain with an appropriate control, is negative for H. pylori organisms (please see comment). -- No dysplasia or intestinal metaplasia is identified. PLAN: Aspiration precautions PPI Consider colonoscopy once pt stable and if continues to have severe anemia and melanotic stools, brought up the possibility of doing colonoscopy at some point, daughter does not want. We will monitor the situation Monitor HH and for active GI bleeding. Hematocrit dropped down to 27. We will monitor H&H Clinically patient looks much better. Educated the family regarding the color of the stool Consultation Date/Type/Reason Admit Date/Time April 03, 2019 at 12:57 Initial Consult Date Requesting Provider: GLORIA WISEMAN MD Date/Time of Note DATE: 04/12/19 TIME: 21:14 24 HR Interval Summary Free Text/Dictation Cussed with the no further bleeding Constitutional: improved Exam/Review of Systems Exam Vitals Vital Signs Date Temp Pulse Resp B/P (MAP) Pulse Ox O2 O2 Flow FiO2 Time Delivery Rate 04/12/19 98.0 75 16 125/64 96 20:21 (84) 04/12/19 Room Air 15:54 04/12/19 2.0 08:00 Intake and Output 04/11/19 04/11/19 04/12/19 1515:00 23:00 07:00 IntakeIntake Total 400 ml 200 ml BalanceBalance 400 ml 200 ml Constitutional: alert, oriented, well developed Psych: no complaints, nl mood/affect Head: normocephalic, atraumatic Eyes: nl conjunctiva, EOMI, nl lids, nl sclera, PERRL ENMT: nl external ears & nose, nl lips & teeth, nl nasal mucosa & septum Neck: supple, non-tender Respiratory: clear to auscultation, normal air movement Cardiovascular: regular rate and rhythm, nl pulses Gastrointestinal: soft, nl liver, spleen, non-tender Musculoskeletal: nl extremities to inspection, nl gait and stance Extremities: normal pulses 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: MATHEMATICAL STATISTICIAN II-XII intact, nl mental status, nl speech, nl strength Skin: nl turgor; No rash or lesions Lymph: nl lymph nodes Results Result Diagram: 04/10/1931 04/10/19 0731 Results 24hrs Laboratory Tests Test 04/12/19 17:15 Urine Color YELLOW Urine Clarity CLEAR Urine pH 6.0 Urine Specific [place] 1.013 Urine Ketones TRACE A Urine Nitrite NEGATIVE Urine Bilirubin NEGATIVE Urine Urobilinogen 1+ H Urine Leukocyte Esterase NEGATIVE Urine Microscopic RBC 1 Urine Microscopic WBC 1 Urine Hemoglobin 1+ H Urine Glucose NEGATIVE Urine Total Protein NEGATIVE Medications Medication Current Medications Pantoprazole (Protonix Iv) 40 mg BID@06,18 IV Last administered on 04/12/19 18:13; Admin Dose 40 MG; Start 04/03/19 at 20:00 Levetiracetam (Keppra) 250 mg BID PO Last administered on 04/12/19 09:25; Admin Dose 250 MG; Start 04/03/19 at 23:30 Amiodarone HCl (Cordarone) 200 mg DAILY PO Last administered on 04/12/19 09:25; Admin Dose 200 MG; Start 04/06/19 at 09:30 Losartan Potassium (Cozaar) 12.5 mg DAILY PO Last administered on 04/12/19at 09:27; Admin Dose 12.5 MG; Start 04/07/19 at 09:00 Hydromorphone HCl (Dilaudid) 0.2 mg Q1H PRN IV .BREAKTHROUGH PAIN Last adminis tered on 04/08/19 09:11; Admin Dose 0.2 MG; Start 04/07/19 at 19:00 Ondansetron HCl (Zofran Inj) 4 mg Q6H PRN IV NAUSEA/VOMITING; Start 04/07/19 at 19:00 Bisacodyl (Dulcolax Supp) 10 mg DAILY PRN [place] .CONSTIPATION; Start 04/07/19 at 19:00 Docusate Sodium (Colace) 100 mg BID PO Last administered on 04/11/19 21:21; Admin Dose 100 MG; Start 04/07/19 at 21:00 Naloxone HCl (Narcan) 0.2 mg Q2M PRN IV .RR 8 BREATHS/MIN OR LESS; Start 04/07/19 at 19:00 Neomycin/ Polymyxin/ Bacitracin (Neosporin Topical Oint) 1 applic BID TOP Last administered on 04/12/19 09:33; Admin Dose 1 APPLIC; Start 04/07/19 at 21:00 Clonidine HCl (Catapres-Tts 1 Patch) 1 patch Castaneda@1000 TRANSDERM Last administered on 04/08/19 12:26; Admin Dose 1 PATCH; Start 04/08/19 at 12:00 Acetaminophen (Tylenol Tab) 500 mg Q6H PRN PO MILD PAIN(1-3)OR ELEVATED TEMP Last administered on 04/11/19 04:29; Admin Dose 500 MG; Start 04/09/19 at 18:30 Amantadine HCl (Symmetrel) 100 mg BID PO Last administered on 04/12/19 09:24; Admin Dose 100 MG; Start 04/09/19 at 23:30 Memantine (Namenda) 10 mg BID PO Last administered on 04/12/19 09:26; Admin Dose 10 MG; Start 04/10/19 at 09:00 Benazepril HCl (Lotensin) 10 mg DAILY PO Last administered on 04/12/19 09:26; Admin Dose 10 MG; Start 04/10/19 at 09:00 Carbidopa/Levodopa (Sinemet Cr (50/ 200)) 1 tab TID PO Last administered on 04/12/19 13:08; Admin Dose 1 TAB; Start 04/10/19 at 01:40 Donepezil HCl (Aricept) 10 mg DAILY PO Last administered on 04/12/19at 09:26; Admin Dose 10 MG; Start 04/10/19 at 01:30 WADE SHARMA MD Apr 12, 2019 21:14
[2019-04-13] VITALS (12 sets, daily range): BP systolic 104–138; BP diastolic 56–76; PULSE 55–81; RESP 16–20
[2019-04-13] MEDS: PANTOPRAZOLE 40 MG INJ IV SCH ×2 (06:15→17:38)
--- NOTE | 2019-04-13 08:19 | CONS ---
Consult Date/Type/Reason Admit Date/Time April 03, 2019 at 12:57 Initial Consult Date Type of Consultation: cv Requesting Provider: GLORIA WISEMAN MD Date/Time of Note DATE: 04/13/19 TIME: 08:16 Subjective Interventional cardiology progress note Subjective: Case discussed with the daughter. d/w staff TELE WAS reviewed. pt remains in NSR with rare PVC no cp or pressure or palpitations Events noted s/p burhole and evacuation of SDH on 04/07/19 Objective: General: no acute distress HEENT: NC, s/p burhole .. pupils are equal. round. NECK: NO JVD. no stridor. CV: RRR. systolic murmur; no gallop or rubs. PULM: no wheezing or rhonchi. GI: SOFT, NT, ND, no rebound or guarding Extremity: trace B/L LE edema. no clubbing. neuro: awake and alert and responds appropriately Psych: calm and pleasant rectal: deferred : normal EKG done today shows normal sinus rhythm with PVC. Nonspecific T wave abnormalities Of the old chart shows that echocardiogram done in my office on 10/02/2018 has shown ejection fraction about 40 to 45% LVH with mild to moderate aortic insufficiency diastolic dysfunction mild MR and TR MRI of the brain done April 04, 2019 shows: MRI of the brain demonstrates a large left subdural hematoma with varying ages however there is a 9 mm acute component with the overall measurement measuring up to 2.2 cm resulting in diffuse left cerebral mass effect with minimal [id number] midline shift. 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 Objective Vitals Vital Signs Date Temp Pulse Resp B/P (MAP) Pulse Ox O2 O2 Flow FiO2 Time Delivery Rate 04/13/19 98.4 68 16 138/71 97 Room Air 07:56 (93) 04/12/19 2.0 20:30 Intake and Output 04/12/19 04/12/19 04/13/19 1515:00 23:00 07:00 IntakeIntake Total 100 ml BalanceBalance 100 ml Results/Medications Result Diagram: 04/10/19 0731 04/10/19 0731 Results 24 hrs Laboratory Tests Test 04/12/19 17:15 Urine Color YELLOW Urine Clarity CLEAR Urine pH 6.0 Urine Specific [place] 1.013 Urine Ketones TRACE A Urine Nitrite NEGATIVE Urine Bilirubin NEGATIVE Urine Urobilinogen 1+ H Urine Leukocyte Esterase NEGATIVE Urine Microscopic RBC 1 Urine Microscopic WBC 1 Urine Hemoglobin 1+ H Urine Glucose NEGATIVE Urine Total Protein NEGATIVE Home Meds Active Scripts Amiodarone Hcl* (Amiodarone Hcl*) 100 Mg Tablet, 100 MG PO DAILY, #30 TAB Prov:RONY AGUILA MD 09/07/17 Reported Medications Amantadine Hcl* (Amantadine Hcl*) 100 Mg Capsule, 100 MG PO BID, #60 CAP 04/03/19 Carbidopa-Levodopa* (Sinemet CR*) 50-200 Mg Tabsr, 1 TAB PO TID, TAB 04/03/19 Folic Acid* (Folic Acid*) 1 Mg Tablet, 1 MG PO DAILY, TAB 04/03/19 Donepezil* (Donepezil*) 10 Mg Tablet, 10 MG PO DAILY, #30 TAB 04/03/19 Ramipril (Ramipril) 2.5 Mg Capsule, 2.5 MG PO DAILY, CAP 04/03/19 Megestrol Acetate* (Megestrol Acetate*) 40 Mg Tablet, 40 MG PO TID, TAB 09/05/17 Finasteride* (Finasteride*) 5 Mg Tablet, 5 MG PO DAILY, TAB 09/05/17 Gemfibrozil* (Gemfibrozil*) 600 Mg Tablet, 600 MG PO DAILY, TAB 09/05/17 Memantine* (Namenda* XR) 28 Mg Cap.spr.24, 28 MG PO DAILY, #30 TAB 09/05/17 Medications Current Medications Pantoprazole (Protonix Iv) 40 mg BID@06,18 IV Last administered on 04/13/19at 06:15; Admin Dose 40 MG; Start 04/03/19 at 20:00 Levetiracetam (Keppra) 250 mg BID PO Last administered on 04/12/19at 21:32; Admin Dose 250 MG; Start 04/03/19 at 23:30 Amiodarone HCl (Cordarone) 200 mg DAILY PO Last administered on 04/12/19at 09:25; Admin Dose 200 MG; Start 04/06/19 at 09:30 Losartan Potassium (Cozaar) 12.5 mg DAILY PO Last administered on 04/12/19at 09:27; Admin Dose 12.5 MG; Start 04/07/19 at 09:00 Hydromorphone HCl (Dilaudid) 0.2 mg Q1H PRN IV .BREAKTHROUGH PAIN Last administered on 04/08/19 09:11; Admin Dose 0.2 MG; Start 04/07/19 at 19:00 Ondansetron HCl (Zofran Inj) 4 mg Q6H PRN IV NAUSEA/VOMITING; Start 04/07/19 at 19:00 Bisacodyl (Dulcolax Supp) 10 mg DAILY PRN [place] .CONSTIPATION; Start 04/07/19 at 19:00 Docusate Sodium (Colace) 100 mg BID PO Last administered on 04/11/19 21:21; Admin Dose 100 MG; Start 04/07/19 at 21:00 Naloxone HCl (Narcan) 0.2 mg Q2M PRN IV .RR 8 BREATHS/MIN OR LESS; Start 04/07/19 at 19:00 Neomycin/ Polymyxin/ Bacitracin (Neosporin Topical Oint) 1 applic BID TOP Last administered on 04/12/19 21:33; Admin Dose 1 APPLIC; Start 04/07/19 at 21:00 Clonidine HCl (Catapres-Tts 1 Patch) 1 patch Castaneda@1000 TRANSDERM Last administered on 04/08/19 12:26; Admin Dose 1 PATCH; Start 04/08/19 at 12:00 Acetaminophen (Tylenol Tab) 500 mg Q6H PRN PO MILD PAIN(1-3)OR ELEVATED TEMP Last administered on 04/11/19 04:29; Admin Dose 500 MG; Start 04/09/19 at 18:30 Amantadine HCl (Symmetrel) 100 mg BID PO Last administered on 04/12/19 21:32; Admin Dose 100 MG; Start 04/09/19 at 23:30 Memantine (Namenda) 10 mg BID PO Last administered on 04/12/19 21:32; Admin Dose 10 MG; Start 04/10/19 at 09:00 Benazepril HCl (Lotensin) 10 mg DAILY PO Last administered on 04/12/19 09:26; Admin Dose 10 MG; Start 04/10/19 at 09:00 Carbidopa/Levodopa (Sinemet Cr (50/ 200)) 1 tab TID PO Last administered on 6/6/19at 21:32; Admin Dose 1 TAB; Start 04/10/19 at 01:40 Donepezil HCl (Aricept) 10 mg DAILY PO Last administered on 04/12/19at 09:26; Admin Dose 10 MG; Start 04/10/19 at 01:30 Assessment/Plan Hospital Course (Demo Recall) 1. Cardiovascular preop evaluation, now s/p Left frontal and parietal burhole craniectomy for evacuation of SDH 04/07/19 2. Recurrent subdural hematoma and falls 3. History of marked bradycardia mostly secondary to frequent PVCs: Previously has been significantly improved on amiodarone p.o. 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 Aortic insufficiency 6. Anemia 7. Chronic kidney disease 8. Ventricular arrhythmias with very frequent PVCs as well as bigeminy's 9. Parkinson disease Recommendations correct lytes prn Follow-up with neurosurgery recommendation cont tele monitoring Continue with the Parkinson medication to be adjusted as per internal medicine. PT as tolerated ok to dc tele from cardiac stand point Thank you for his referral. We will continue to follow along with you VIOLA GARAY MD [facility] VIOLA GARAY MD Apr 13, 2019 08:19
[2019-04-13] MEDS: DOCUSATE SODIUM 100 MG CAP PO SCH ×2 (09:00→21:00)
[2019-04-13] MEDS: AMANTADINE 100 MG CAP PO SCH ×2 (09:48→21:30)
[2019-04-13] MEDS: LOSARTAN 25 MG TAB PO SCH (09:49)
[2019-04-13] MEDS: MEMANTINE 10 MG TAB PO SCH ×2 (09:49→21:30)
[2019-04-13] MEDS: BENAZEPRIL 10 MG TAB PO SCH (09:49)
[2019-04-13] MEDS: DONEPEZIL 10 MG TAB PO SCH (09:49)
[2019-04-13] MEDS: LEVETIRACETAM 250 MG TAB PO SCH ×2 (09:49→21:30)
[2019-04-13] MEDS: CARBIDOPA/LEVODOPA 50-200 (CR) TAB PO SCH ×3 (09:49→21:30)
[2019-04-13] MEDS: AMIODARONE 200 MG TAB PO SCH (09:50)
[2019-04-13] MEDS: NEOMYC/POLYMYX/BACIT 30 GM OINT TOP SCH ×2 (16:15→21:30)
--- NOTE | 2019-04-13 17:23 | CONS ---
Assessment/Plan Assessment/Plan Assessment/Plan (Daily) Assessment/Plan (Daily) Assessment/Plan Hospital Course (Demo Recall) 88 yo male with melena, s/p EGD and left frontoparietal lilia hole craniotomy and evacuation of subdural hematoma 1. Status post left frontoparietal lilia hole craniotomy and evacuation of subdural hematoma. -Per CT 04/09: New midline shift from left to right, New mildly increased left subdural mixed attenuation collection status post removal of the drain. Cannot exclude an acute versus recent hemorrhagic component at the left parietal subdural space. 2. Anemia. -HH has trended up and stable 3. Positive stool guaiac. -Normal CEA levels 4. History of multiple falls. 5. Benign prostatic hypertrophy. 6. Hearing impairment. 7. Chronic gastritis 8. Positive Gram negative rods in urine Follow up CT 04/09: IMPRESSION: 1. Interval removal of previously seen left subdural drain. 2. New mildly increased left subdural mixed attenuation collection status post removal of the drain. 3. Cannot exclude an acute versus recent hemorrhagic component at the left parietal subdural space. 4. 4 mm [id number] midline shift, new over interval. Gastric biopsies: -- Moderate superficial chronic gastritis with focal lymphoid hyperplasia. -- A Giemsa stain with an appropriate control, is negative for H. pylori organisms (please see comment). -- No dysplasia or intestinal metaplasia is identified. PLAN: Aspiration precautions PPI Consider colonoscopy once pt stable and if continues to have severe anemia and melanotic stools, brought up the possibility of doing colonoscopy at some point, daughter does not want. We will monitor the situation Monitor HH and for active GI bleeding. Hematocrit dropped down to 27. We will monitor H&H Clinically patient looks much better. Educated the family regarding the color of the stool PT AWAKE AND FOLLOWING COMMAND Consultation Date/Type/Reason Admit Date/Time April 03, 2019 at 12:57 Initial Consult Date Requesting Provider: GLORIA WISEMAN MD Date/Time of Note DATE: 04/13/19 TIME: 17:22 24 HR Interval Summary Constitutional: no complaints, improved Exam/Review of Systems Exam Vitals Vital Signs Date Temp Pulse Resp B/P (MAP) Pulse Ox O2 O2 Flow FiO2 Time Delivery Rate 04/13/19 68 16:36 04/13/19 97.3 16 130/68 98 Room Air 16:05 (88) 04/13/19 2.0 09:30 Intake and Output 04/12/19 04/12/19 04/13/19 1515:00 23:00 07:00 IntakeIntake Total 100 ml BalanceBalance 100 ml Constitutional: alert, oriented, well developed Psych: no complaints, nl mood/affect Head: normocephalic, atraumatic Eyes: nl conjunctiva, EOMI, nl lids, nl sclera, PERRL ENMT: nl external ears & nose, nl lips & teeth, nl nasal mucosa & septum Neck: supple, non-tender Respiratory: clear to auscultation, normal air movement Cardiovascular: regular rate and rhythm, nl pulses Gastrointestinal: soft, nl liver, spleen, non-tender Musculoskeletal: nl extremities to inspection, nl gait and stance Extremities: normal pulses 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: LEADLIGHTER II-XII intact, nl mental status, nl speech, nl strength Skin: nl turgor; No rash or lesions Lymph: nl lymph nodes Results Result Diagram: 04/13/19 0854 04/13/19 0854 Results 24hrs Laboratory Tests Test 04/13/19 08:54 White Blood Count 5.6 Red Blood Count 3.41 L Hemoglobin 10.0 L Hematocrit 31.2 L Mean Corpuscular Volume 91.5 Mean Corpuscular Hemoglobin 29.3 Mean Corpuscular Hemoglobin Concent 32.1 Red Cell Distribution Width 13.5 Platelet Count 226 # Mean Platelet Volume 9.0 Immature Granulocytes % 0.700 H Neutrophils % 58.5 Lymphocytes % 22.2 Monocytes % 6.7 Eosinophils % 11.2 H Basophils % 0.7 Nucleated Red Blood Cells % 0.0 Immature Granulocytes # 0.040 H Neutrophils # 3.3 Lymphocytes # 1.3 Monocytes # 0.4 Eosinophils # 0.6 H Basophils # 0.0 Nucleated Red Blood Cells # 0.0 Sodium Level 137 Potassium Level 4.2 Chloride Level 103 Carbon Dioxide Level 24 Anion Gap 10 Blood Urea Nitrogen 14 Creatinine 0.87 Est Glomerular Filtrat Rate mL/min Glucose Level 105 Calcium Level 8.9 Total Bilirubin 0.5 Direct Bilirubin 0.00 Indirect Bilirubin 0.5 Aspartate Amino Transf (AST/SGOT) 11 L Alanine Aminotransferase (ALT/SGPT) 14 Alkaline Phosphatase 57 Total Protein 6.3 Albumin 3.4 Globulin 2.90 Albumin/Globulin Ratio 1.17 Medications Medication Current Medications Pantoprazole (Protonix Iv) 40 mg BID@06,18 IV Last administered on 04/13/19 06:15; Admin Dose 40 MG; Start 04/03/19 at 20:00 Levetiracetam (Keppra) 250 mg BID PO Last administered on 04/13/19 09:49; Admin Dose 250 MG; Start 04/03/19 at 23:30 Amiodarone HCl (Cordarone) 200 mg DAILY PO Last administered on 04/13/19 09:50; Admin Dose 200 MG; Start 04/06/19 at 09:30 Losartan Potassium (Cozaar) 12.5 mg DAILY PO Last administered on 04/13/19 09:49; Admin Dose 12.5 MG; Start 04/07/19 at 09:00 Hydromorphone HCl (Dilaudid) 0.2 mg Q1H PRN IV .BREAKTHROUGH PAIN Last administered on 04/08/19 09:11; Admin Dose 0.2 MG; Start 04/07/19 at 19:00 Ondansetron HCl (Zofran Inj) 4 mg Q6H PRN IV NAUSEA/VOMITING; Start 04/07/19 at 19:00 Bisacodyl (Dulcolax Supp) 10 mg DAILY PRN [place] .CONSTIPATION; Start 04/07/19 at 19:00 Docusate Sodium (Colace) 100 mg BID PO Last administered on 04/11/19 21:21; Admin Dose 100 MG; Start 04/07/19 at 21:00 Naloxone HCl (Narcan) 0.2 mg Q2M PRN IV .RR 8 BREATHS/MIN OR LESS; Start 04/07/19 at 19:00 Neomycin/ Polymyxin/ Bacitracin (Neosporin Topical Oint) 1 applic BID TOP Last administered on 04/13/19 16:15; Admin Dose 1 APPLIC; Start 04/07/19 at 21:00 Clonidine HCl (Catapres-Tts 1 Patch) 1 patch Castaneda@1000 TRANSDERM Last administered on 04/08/19 12:26; Admin Dose 1 PATCH; Start 04/08/19 at 12:00 Acetaminophen (Tylenol Tab) 500 mg Q6H PRN PO MILD PAIN(1-3)OR ELEVATED TEMP Last administered on 04/11/19 04:29; Admin Dose 500 MG; Start 04/09/19 at 18:30 Amantadine HCl (Symmetrel) 100 mg BID PO Last administered on 04/13/19 09:48; Admin Dose 100 MG; Start 04/09/19 at 23:30 Memantine (Namenda) 10 mg BID PO Last administered on 04/13/19 09:49; Admin Dose 10 MG; Start 04/10/19 at 09:00 Benazepril HCl (Lotensin) 10 mg DAILY PO Last administered on 04/13/19 09:49; Admin Dose 10 MG; Start 04/10/19 at 09:00 Carbidopa/Levodopa (Sinemet Cr (50/ 200)) 1 tab TID PO Last administered on 04/13/19 14:29; Admin Dose 1 TAB; Start 04/10/19 at 01:40 Donepezil HCl (Aricept) 10 mg DAILY PO Last administered on 04/13/19 09:49; Admin Dose 10 MG; Start 04/10/19 at 01:30 WADE SHARMA MD Apr 13, 2019 17:23
--- NOTE | 2019-04-13 21:11 | PN ---
Date/Time of Note Date/Time of Note DATE: 04/13/19 TIME: 21:08 Assessment/Plan VTE Prophylaxis Risk score (from Ns)>0 risk: 7 [place] [facility] [place] Pharmacological prophylaxis: LMWH Lines/Catheters IV Catheter Type (from [facility] [place] [employer] line still needed: No Urinary Cath still in place: No Reason Cath still needed: urinary retention Assessment/Plan Assessment/Plan 1. Melena on and off still continues. 2. Weight loss more than 15 pounds during the last 2 months 3. Status post fall due to the severe weakness deconditioning and muscular wasting 4. Anemia chronic disease with a recent loss-iron level 28. 5. Status post right-sided adal trepanation with removal of subdural hematoma in the [facility] about 1/2 years ago. Patient had a subdural hematoma on the left side too.New on the top of the old subdural hematoma on the left on mri.S/P trephination and 2-3 cc of serous fluid in a bag. Altered level of consciousness but continues to be responsive without focal symptoms And CT evidence of recommendation of the fluid possible hemorrhagic component. 6. Ischemic heart disease angina. 7. Unstable gait with recurrent episodes of fall. 8. Deconditioning 9. Status post cataract ectomy 10. Constant snacking and chewing movements involuntarily being unable to stop mainly during last 3-4 months. 11. Bradycardia with history of syncopal episodes 12 osteoporosis and osteoarthritis 13. Dizziness 14. Hearing impairment 15. Dysphagia on and off 16. BPH with episodes of urinary incontinence 17. Dyslipidemia 18.S/p left clavicular FX(old, healed). Result Diagram: 04/13/19 0854 04/13/19 0854 Results 24hrs Laboratory Tests Test 04/13/19 08:54 White Blood Count 5.6 Red Blood Count 3.41 L Hemoglobin 10.0 L Hematocrit 31.2 L Mean Corpuscular Volume 91.5 Mean Corpuscular Hemoglobin 29.3 Mean Corpuscular Hemoglobin Concent 32.1 Red Cell Distribution Width 13.5 Platelet Count 226 # Mean Platelet Volume 9.0 Immature Granulocytes % 0.700 H Neutrophils % 58.5 Lymphocytes % 22.2 Monocytes % 6.7 Eosinophils % 11.2 H Basophils % 0.7 Nucleated Red Blood Cells % 0.0 Immature Granulocytes # 0.040 H Neutrophils # 3.3 Lymphocytes # 1.3 Monocytes # 0.4 Eosinophils # 0.6 H Basophils # 0.0 Nucleated Red Blood Cells # 0.0 Sodium Level 137 Potassium Level 4.2 Chloride Level 103 Carbon Dioxide Level 24 Anion Gap 10 Blood Urea Nitrogen 14 Creatinine 0.87 Est Glomerular Filtrat Rate mL/min Glucose Level 105 Calcium Level 8.9 Total Bilirubin 0.5 Direct Bilirubin 0.00 Indirect Bilirubin 0.5 Aspartate Amino Transf (AST/SGOT) 11 L Alanine Aminotransferase (ALT/SGPT) 14 Alkaline Phosphatase 57 Total Protein 6.3 Albumin 3.4 Globulin 2.90 Albumin/Globulin Ratio 1.17 Subjective 24 Hr Interval Summary Free Text/Dictation Weakness tiredness unable to move without help. States feels better goes back to sleep after 30 seconds maximum total smiles shows that her he recognized me. Constitutional: improved, poor po, requiring O2; No no complaints, No chills, No diaphoresis, No disoriented, No febrile, No requiring IVF, No other Eyes: No no complaints, No pain, No discharge, No redness, No visual change, No other ENT: congestion; No no complaints, No bleeding, No pain, No discharge, No dysphagia, No sore throat, No other Respiratory: pleuritic pain, shortness of breath; No no complaints, No pain, No cough, No sputum, No wheezing, No other Cardiovascular: chest pain, lightheadedness, orthopenea, palpitations, paroxysmal nocturnal dyspnea; No no complaints, No edema, No other Gastrointestinal: decreased appetite; No no complaints, No pain, No blood, No constipation, No diarrhea, No flatus, No nausea, No passing stool, No vomiting, No other Genitourinary: dysuria; No no complaints, No bleeding, No discharge, No flank pain, No hematuria, No other Musculoskeletal: back pain, bone/joint pain, neck pain Skin: pruritis; No no complaints, No bruising, No erythema, No laceration, No rash, No skin lesions, No other Neurologic: dizziness; No no complaints, No confusion, No focal-weakness, No headache, No syncope, No seizure, No other Lymphatic: No no complaints, No adenopathy, No tender nodes, No lymphadema, No other Psychological: No no complaints, No nl mood/affect, No anxiety, No confusion, No depression, No suicidal, No other Exam/Review of Systems Exam Vitals Vital Signs Date Temp Pulse Resp B/P (MAP) Pulse Ox O2 O2 Flow FiO2 Time Delivery Rate 04/13/19 97.6 76 18 131/64 98 20:00 (86) 04/13/19 Room Air 16:05 04/13/19 2.0 09:30 Intake and Output 04/12/19 04/12/19 04/13/19 1515:00 23:00 07:00 IntakeIntake Total 100 ml BalanceBalance 100 ml Constitutional: oriented, distress, frail, other (Arousable.); No alert, No well developed, No non-verbal, No obese Psych: anxiety; No no complaints, No nl mood/affect, No confusion, No depression, No suicidal, No other Head: normocephalic, atraumatic; No lacerations, No hematomas, No other Eyes: EOMI, nl lids; No nl conjunctiva, No nl sclera, No PERRL, No icteric, No fundi, disc, No other ENMT: No nl external ears & nose, No nl lips & teeth, No nl nasal mucosa & septum, No mucosa pink and moist, No intubated, No tympanic membranes, No other Neck: jvd, bruits, thyromegaly, nuchal rigidity; No supple, No non-tender, No masses, No other Respiratory: clear to auscultation, congested cough, diminished breath sounds Cardiovascular: regular rate and rhythm, nl pulses, edema, systolic murmur; No bruits, No diastolic murmur, No gallop, No irregular rhythm, No jugular venous distention (JVD), No murmurs/extra sounds, No rub, No S3, No S4, No other Gastrointestinal: soft, nl liver, spleen, bowel sounds, distended; No non-tender, No ascites, No firm, No hepatomegaly, No mass, No rebound or guarding, No splenomegaly, No surgical scars, No tender, No other Genitourinary - Male: nl penis, nl scrotum Musculoskeletal: joint tenderness, muscle tone, muscle weakness, other (Unable to get up by himself without help even hand movements is creating significant tension in him.); No nl extremities to inspection, No nl gait and stance, No range of motion, No spine non-tender, No swelling Extremities: normal pulses; No calf tenderness, No cyanosis, No clubbing, No edema, No pitting pedal edema, No palpable cord, No tenderness, No other 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, confused, DTR's symmetric, numbness Results Results 24hrs Laboratory Tests Test 04/13/19 08:54 White Blood Count 5.6 Red Blood Count 3.41 L Hemoglobin 10.0 L Hematocrit 31.2 L Mean Corpuscular Volume 91.5 Mean Corpuscular Hemoglobin 29.3 Mean Corpuscular Hemoglobin Concent 32.1 Red Cell Distribution Width 13.5 Platelet Count 226 # Mean Platelet Volume 9.0 Immature Granulocytes % 0.700 H Neutrophils % 58.5 Lymphocytes % 22.2 Monocytes % 6.7 Eosinophils % 11.2 H Basophils % 0.7 Nucleated Red Blood Cells % 0.0 Immature Granulocytes # 0.040 H Neutrophils # 3.3 Lymphocytes # 1.3 Monocytes # 0.4 Eosinophils # 0.6 H Basophils # 0.0 Nucleated Red Blood Cells # 0.0 Sodium Level 137 Potassium Level 4.2 Chloride Level 103 Carbon Dioxide Level 24 Anion Gap 10 Blood Urea Nitrogen 14 Creatinine 0.87 Est Glomerular Filtrat Rate mL/min Glucose Level 105 Calcium Level 8.9 Total Bilirubin 0.5 Direct Bilirubin 0.00 Indirect Bilirubin 0.5 Aspartate Amino Transf (AST/SGOT) 11 L Alanine Aminotransferase (ALT/SGPT) 14 Alkaline Phosphatase 57 Total Protein 6.3 Albumin 3.4 Globulin 2.90 Albumin/Globulin Ratio 1.17 Medications Medication Current Medications Pantoprazole (Protonix Iv) 40 mg BID@06,18 IV Last administered on 04/13/19at 17:38; Admin Dose 40 MG; Start 04/03/19 at 20:00 Levetiracetam (Keppra) 250 mg BID PO Last administered on 04/13/19at 09:49; Admin Dose 250 MG; Start 04/03/19 at 23:30 Amiodarone HCl (Cordarone) 200 mg DAILY PO Last administered on 04/13/19at 09:50; Admin Dose 200 MG; Start 04/06/19 at 09:30 Losartan Potassium (Cozaar) 12.5 mg DAILY PO Last administered on 04/13/19at 09:49; Admin Dose 12.5 MG; Start 04/07/19 at 09:00 Hydromorphone HCl (Dilaudid) 0.2 mg Q1H PRN IV .BREAKTHROUGH PAIN Last administered on 04/08/19 09:11; Admin Dose 0.2 MG; Start 04/07/19 at 19:00 Ondansetron HCl (Zofran Inj) 4 mg Q6H PRN IV NAUSEA/VOMITING; Start 04/07/19 at 19:00 Bisacodyl (Dulcolax Supp) 10 mg DAILY PRN [place] .CONSTIPATION; Start 04/07/19 at 19:00 Docusate Sodium (Colace) 100 mg BID PO Last administered on 04/11/19 21:21; Admin Dose 100 MG; Start 04/07/19 at 21:00 Naloxone HCl (Narcan) 0.2 mg Q2M PRN IV .RR 8 BREATHS/MIN OR LESS; Start 04/07/19 at 19:00 Neomycin/ Polymyxin/ Bacitracin (Neosporin Topical Oint) 1 applic BID TOP Last administered on 04/13/19 16:15; Admin Dose 1 APPLIC; Start 04/07/19 at 21:00 Clonidine HCl (Catapres-Tts 1 Patch) 1 patch Castaneda@1000 TRANSDERM Last adminis tered on 04/08/19 12:26; Admin Dose 1 PATCH; Start 04/08/19 at 12:00 Acetaminophen (Tylenol Tab) 500 mg Q6H PRN PO MILD PAIN(1-3)OR ELEVATED TEMP Last administered on 04/11/19 04:29; Admin Dose 500 MG; Start 04/09/19 at 18:30 Amantadine HCl (Symmetrel) 100 mg BID PO Last administered on 04/13/19 09:48; Admin Dose 100 MG; Start 04/09/19 at 23:30 Memantine (Namenda) 10 mg BID PO Last administered on 04/13/19 09:49; Admin Dose 10 MG; Start 04/10/19 at 09:00 Benazepril HCl (Lotensin) 10 mg DAILY PO Last administered on 04/13/19 09:49; Admin Dose 10 MG; Start 04/10/19 at 09:00 Carbidopa/Levodopa (Sinemet Cr (50/ 200)) 1 tab TID PO Last administered on 04/13/19 14:29; Admin Dose 1 TAB; Start 04/10/19 at 01:40 Donepezil HCl (Aricept) 10 mg DAILY PO Last administered on 04/13/19at 09:49; Admin Dose 10 MG; Start 04/10/19 at 01:30 BROOKLYNN OCASIO MD Apr 13, 2019 21:11
[2019-04-14] VITALS (11 sets, daily range): BP systolic 100–130; BP diastolic 55–66; PULSE 62–81; RESP 18–20
[2019-04-14] MEDS: PANTOPRAZOLE 40 MG INJ IV SCH ×2 (05:38→17:30)
[2019-04-14] MEDS: DOCUSATE SODIUM 100 MG CAP PO SCH ×2 (08:30→21:00)
[2019-04-14] MEDS: AMANTADINE 100 MG CAP PO SCH ×2 (08:32→21:46)
[2019-04-14] MEDS: DONEPEZIL 10 MG TAB PO SCH (08:32)
[2019-04-14] MEDS: MEMANTINE 10 MG TAB PO SCH ×2 (08:32→21:46)
[2019-04-14] MEDS: NEOMYC/POLYMYX/BACIT 30 GM OINT TOP SCH ×2 (08:32→21:46)
[2019-04-14] MEDS: CARBIDOPA/LEVODOPA 50-200 (CR) TAB PO SCH ×3 (08:32→21:47)
[2019-04-14] MEDS: LEVETIRACETAM 250 MG TAB PO SCH ×2 (08:32→21:46)
[2019-04-14] MEDS: BENAZEPRIL 10 MG TAB PO SCH (08:33)
[2019-04-14] MEDS: AMIODARONE 200 MG TAB PO SCH (08:33)
[2019-04-14] MEDS: LOSARTAN 25 MG TAB PO SCH (08:33)
--- NOTE | 2019-04-14 08:42 | PN ---
Date/Time of Note Date/Time of Note DATE: 04/14/19 TIME: 08:39 Assessment/Plan VTE Prophylaxis Risk score (from Ns)>0 risk: 4 SCD applied (from [facility]): Yes SCD contraindicated: other (on) Pharmacological prophylaxis: other (bleeding.) Pharm contraindication: bleeding Lines/Catheters IV C[facility]ter Type (from [facility] Saline Lock Central line still needed: No Urinary Cath still in place: No Reason Cath still needed: urinary retention Assessment/Plan Assessment/Plan 1. Melena on and off still continues. 2. Weight loss more than 15 pounds during the last 2 months 3. Status post fall due to the severe weakness deconditioning and muscular wasting 4. Anemia chronic disease with a recent loss-iron level 28. 5. Status post right-sided adal trepanation with removal of subdural hematoma in the [facility] about 1/2 years ago. Patient had a subdural hematoma on the left side too.New on the top of the old subdural hematoma on the left on mri.S/P trephination and 2-3 cc of serous fluid in a bag. Altered level of consciousness but continues to be responsive without focal symptoms And CT evidence of recommendation of the fluid possible hemorrhagic component. 6. Ischemic heart disease angina. 7. Unstable gait with recurrent episodes of fall. 8. Deconditioning 9. Status post cataract ectomy 10. Constant snacking and chewing movements involuntarily being unable to stop mainly during last 3-4 months. 11. Bradycardia with history of syncopal episodes 12 osteoporosis and osteoarthritis 13. Dizziness 14. Hearing impairment 15. Dysphagia on and off 16. BPH with episodes of urinary incontinence 17. Dyslipidemia 18.S/p left clavicular FX(old, healed). Result Diagram: 04/13/19 0854 04/13/19 0854 Results 24hrs Laboratory Tests Test 04/13/19 08:54 White Blood Count 5.6 Red Blood Count 3.41 L Hemoglobin 10.0 L Hematocrit 31.2 L Mean Corpuscular Volume 91.5 Mean Corpuscular Hemoglobin 29.3 Mean Corpuscular Hemoglobin Concent 32.1 Red Cell Distribution Width 13.5 Platelet Count 226 # Mean Platelet Volume 9.0 Immature Granulocytes % 0.700 H Neutrophils % 58.5 Lymphocytes % 22.2 Monocytes % 6.7 Eosinophils % 11.2 H Basophils % 0.7 Nucleated Red Blood Cells % 0.0 Immature Granulocytes # 0.040 H Neutrophils # 3.3 Lymphocytes # 1.3 Monocytes # 0.4 Eosinophils # 0.6 H Basophils # 0.0 Nucleated Red Blood Cells # 0.0 Sodium Level 137 Potassium Level 4.2 Chloride Level 103 Carbon Dioxide Level 24 Anion Gap 10 Blood Urea Nitrogen 14 Creatinine 0.87 Est Glomerular Filtrat Rate mL/min Glucose Level 105 Calcium Level 8.9 Total Bilirubin 0.5 Direct Bilirubin 0.00 Indirect Bilirubin 0.5 Aspartate Amino Transf (AST/SGOT) 11 L Alanine Aminotransferase (ALT/SGPT) 14 Alkaline Phosphatase 57 Total Protein 6.3 Albumin 3.4 Globulin 2.90 Albumin/Globulin Ratio 1.17 Subjective 24 Hr Interval Summary Free Text/Dictation I fell better. Constitutional: improved, requiring O2; No no complaints, No chills, No diaphoresis, No disoriented, No febrile, No poor po, No requiring IVF, No other Eyes: No no complaints, No pain, No discharge, No redness, No visual change, No other ENT: congestion, dysphagia; No no complaints, No bleeding, No pain, No discharge, No sore throat, No other Respiratory: cough, pleuritic pain, shortness of breath; No no complaints, No pain, No sputum, No wheezing, No other Cardiovascular: No no complaints, No chest pain, No edema, No lightheadedness, No orthopenea, No palpitations, No paroxysmal nocturnal dyspnea, No other Gastrointestinal: constipation, decreased appetite; No no complaints, No pain, No blood, No diarrhea, No flatus, No nausea, No passing stool, No vomiting, No other Genitourinary: dysuria; No no complaints, No bleeding, No discharge, No flank pain, No hematuria, No other Musculoskeletal: back pain, bone/joint pain; No no complaints, No neck pain, No restricted range of motion, No swelling, No other Skin: No no complaints, No bruising, No erythema, No laceration, No pruritis, No rash, No skin lesions, No other Neurologic: dizziness; No no complaints, No confusion, No focal-weakness, No headache, No syncope, No seizure, No other Endocrine: dry skin; No no complaints, No polyuria, No polydypsia, No temp intolerance, No other Psychological: anxiety; No no complaints, No nl mood/affect, No confusion, No depression, No suicidal, No other Exam/Review of Systems Exam Vitals Vital Signs Date Temp Pulse Resp B/P (MAP) Pulse Ox O2 O2 Flow FiO2 Time Delivery Rate 04/14/19 98.0 67 18 120/66 95 Nasal 2.0 08:03 (84) Cannula Intake and Output 04/13/19 04/13/19 04/14/19 1515:00 23:00 07:00 IntakeIntake Total 300 ml 900 ml 400 ml BalanceBalance 300 ml 900 ml 400 ml Constitutional: alert, oriented, well developed, distress, frail Psych: anxiety; No no complaints, No nl mood/affect, No confusion, No depression, No suicida l, No other Head: normocephalic, atraumatic; No lacerations, No hematomas, No other Eyes: EOMI, nl lids; No nl conjunctiva, No nl sclera, No PERRL, No icteric, No fundi, disc, No other ENMT: No nl external ears & nose, No nl lips & teeth, No nl nasal mucosa & septum, No mucosa pink and moist, No intubated, No tympanic membranes, No other Neck: jvd, bruits; No supple, No non-tender, No masses, No thyromegaly, No nuchal rigidity, No other Respiratory: normal air movement, congested cough; No clear to auscultation, No crackles/rales, No diminished breath sounds, No intercostal retraction, No labored breathing, No respirations, No tactile fremitus, No wheezing, No other Cardiovascular: bruits, edema, systolic murmur; No regular rate and rhythm, No nl pulses, No diastolic murmur, No gallop, No irregular rhythm, No jugular venous distention (JVD), No murmurs/extra sounds, No rub, No S3, No S4, No other Gastrointestinal: soft, bowel sounds, distended; No nl liver, spleen, No non-tender, No ascites, No firm, No hepatomegaly, No mass, No rebound or guarding, No splenomegaly, No surgical scars, No tender, No other Genitourinary - Male: nl penis, nl scrotum Musculoskeletal: joint tenderness, muscle tone, muscle weakness; No nl extremities to inspection, No nl gait and stance, No range of motion, No spine non-tender, No swelling, No other Extremities: normal pulses; No calf tenderness, No cyanosis, No clubbing, No edema, No pitting pedal edema, No palpable cord, No tenderness, No other 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: 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 Results Results 24hrs Laboratory Tests Test 04/13/19 08:54 White Blood Count 5.6 Red Blood Count 3.41 L Hemoglobin 10.0 L Hematocrit 31.2 L Mean Corpuscular Volume 91.5 Mean Corpuscular Hemoglobin 29.3 Mean Corpuscular Hemoglobin Concent 32.1 Red Cell Distribution Width 13.5 Platelet Count 226 # Mean Platelet Volume 9.0 Immature Granulocytes % 0.700 H Neutrophils % 58.5 Lymphocytes % 22.2 Monocytes % 6.7 Eosinophils % 11.2 H Basophils % 0.7 Nucleated Red Blood Cells % 0.0 Immature Granulocytes # 0.040 H Neutrophils # 3.3 Lymphocytes # 1.3 Monocytes # 0.4 Eosinophils # 0.6 H Basophils # 0.0 Nucleated Red Blood Cells # 0.0 Sodium Level 137 Potassium Level 4.2 Chloride Level 103 Carbon Dioxide Level 24 Anion Gap 10 Blood Urea Nitrogen 14 Creatinine 0.87 Est Glomerular Filtrat Rate mL/min Glucose Level 105 Calcium Level 8.9 Total Bilirubin 0.5 Direct Bilirubin 0.00 Indirect Bilirubin 0.5 Aspartate Amino Transf (AST/SGOT) 11 L Alanine Aminotransferase (ALT/SGPT) 14 Alkaline Phosphatase 57 Total Protein 6.3 Albumin 3.4 Globulin 2.90 Albumin/Globulin Ratio 1.17 Medications Medication Current Medications Pantoprazole (Protonix Iv) 40 mg BID@06,18 IV Last administered on 04/14/19at 05:38; Admin Dose 40 MG; Start 04/03/19 at 20:00 Levetiracetam (Keppra) 250 mg BID PO Last administered on 04/14/19 08:32; Admin Dose 250 MG; Start 04/03/19 at 23:30 Amiodarone HCl (Cordarone) 200 mg DAILY PO Last administered on 04/14/19 08:33; Admin Dose 200 MG; Start 04/06/19 at 09:30 Losartan Potassium (Cozaar) 12.5 mg DAILY PO Last administered on 04/14/19 08:33; Admin Dose 12.5 MG; Start 04/07/19 at 09:00 Hydromorphone HCl (Dilaudid) 0.2 mg Q1H PRN IV .BREAKTHROUGH PAIN Last administered on 04/08/19 09:11; Admin Dose 0.2 MG; Start 04/07/19 at 19:00 Ondansetron HCl (Zofran Inj) 4 mg Q6H PRN IV NAUSEA/VOMITING; Start 04/07/19 at 19:00 Bisacodyl (Dulcolax Supp) 10 mg DAILY PRN [place] .CONSTIPATION; Start 04/07/19 at 19:00 Docusate Sodium (Colace) 100 mg BID PO Last administered on 04/11/19 21:21; Admin Dose 100 MG; Start 04/07/19 at 21:00 Naloxone HCl (Narcan) 0.2 mg Q2M PRN IV .RR 8 BREATHS/MIN OR LESS; Start 04/07/19 at 19:00 Neomycin/ Polymyxin/ Bacitracin (Neosporin Topical Oint) 1 applic BID TOP Last administered on 04/14/19 08:32; Admin Dose 1 APPLIC; Start 04/07/19 at 21:00 Clonidine HCl (Catapres-Tts 1 Patch) 1 patch Castaneda@1000 TRANSDERM Last administered on 04/08/19 12:26; Admin Dose 1 PATCH; Start 04/08/19 at 12:00 Acetaminophen (Tylenol Tab) 500 mg Q6H PRN PO MILD PAIN(1-3)OR ELEVATED TEMP Last administered on 04/11/19 04:29; Admin Dose 500 MG; Start 04/09/19 at 18:30 Amantadine HCl (Symmetrel) 100 mg BID PO Last administered on 04/14/19 08:32; Admin Dose 100 MG; Start 04/09/19 at 23:30 Memantine (Namenda) 10 mg BID PO Last administered on 04/14/19 08:32; Admin Dose 10 MG; Start 04/10/19 at 09:00 Benazepril HCl (Lotensin) 10 mg DAILY PO Last administered on 04/14/19 08:33; Admin Dose 10 MG; Start 04/10/19 at 09:00 Carbidopa/Levodopa (Sinemet Cr (50/ 200)) 1 tab TID PO Last administered on 04/14/19 08:32; Admin Dose 1 TAB; Start 04/10/19 at 01:40 Donepezil HCl (Aricept) 10 mg DAILY PO Last administered on 04/14/19at 08:32; Admin Dose 10 MG; Start 04/10/19 at 01:30 BROOKLYNN OCASIO MD Apr 14, 2019 08:42
--- NOTE | 2019-04-14 14:00 | CONS ---
Assessment/Plan Assessment/Plan Assessment/Plan (Daily) Assessment/Plan (Daily) Assessment/Plan Hospital Course (Demo Recall) 88 yo male with melena, s/p EGD and left frontoparietal lilia hole craniotomy and evacuation of subdural hematoma 1. Status post left frontoparietal lilia hole craniotomy and evacuation of subdural hematoma. -Per CT 04/09: New midline shift from left to right, New mildly increased left subdural mixed attenuation collection status post removal of the drain. Cannot exclude an acute versus recent hemorrhagic component at the left parietal subdural space. 2. Anemia. -HH has trended up and stable 3. Positive stool guaiac. -Normal CEA levels 4. History of multiple falls. 5. Benign prostatic hypertrophy. 6. Hearing impairment. 7. Chronic gastritis 8. Positive Gram negative rods in urine Follow up CT 04/09: IMPRESSION: 1. Interval removal of previously seen left subdural drain. 2. New mildly increased left subdural mixed attenuation collection status post removal of the drain. 3. Cannot exclude an acute versus recent hemorrhagic component at the left parietal subdural space. 4. 4 mm [id number] midline shift, new over interval. Gastric biopsies: -- Moderate superficial chronic gastritis with focal lymphoid hyperplasia. -- A Giemsa stain with an appropriate control, is negative for H. pylori organisms (please see comment). -- No dysplasia or intestinal metaplasia is identified. PLAN: Aspiration precautions PPI Consider colonoscopy once pt stable and if continues to have severe anemia and melanotic stools, brought up the possibility of doing colonoscopy at some point, daughter does not want. We will monitor the situation Monitor HH and for active GI bleeding. Hematocrit dropped down to 27. We will monitor H&H Clinically patient looks much better. Educated the family regarding the color of the stool PT AWAKE AND FOLLOWING COMMAND Consultation Date/Type/Reason Admit Date/Time April 03, 2019 at 12:57 Initial Consult Date Requesting Provider: GLORIA WISEMAN MD Date/Time of Note DATE: 04/14/19 TIME: 14:00 24 HR Interval Summary Free Text/Dictation Patient is in good spirit and also wants to go to bathroom on his own Constitutional: improved Exam/Review of Systems Exam Vitals Vital Signs Date Temp Pulse Resp B/P (MAP) Pulse Ox O2 O2 Flow FiO2 Time Delivery Rate 04/14/19 98.4 77 18 100/55 95 Nasal 2.0 11:57 (70) Cannula Intake and Output 04/13/19 04/13/19 04/14/19 1515:00 23:00 07:00 IntakeIntake Total 300 ml 900 ml 400 ml BalanceBalance 300 ml 900 ml 400 ml Constitutional: alert, oriented, well developed Psych: no complaints, nl mood/affect Head: normocephalic, atraumatic Eyes: nl conjunctiva, EOMI, nl lids, nl sclera, PERRL ENMT: nl external ears & nose, nl lips & teeth, nl nasal mucosa & septum Neck: supple, non-tender Respiratory: clear to auscultation, normal air movement Cardiovascular: regular rate and rhythm, nl pulses Gastrointestinal: soft, nl liver, spleen, non-tender Musculoskeletal: nl extremities to inspection, nl gait and stance Extremities: normal pulses 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: KEYSEATER OPERATOR II-XII intact, nl mental status, nl speech, nl strength Skin: nl turgor; No rash or lesions Lymph: nl lymph nodes Results Result Diagram: 04/13/19 0854 04/13/19 0854 Medications Medication Current Medications Pantoprazole (Protonix Iv) 40 mg BID@06,18 IV Last administered on 04/14/19at 05:38; Admin Dose 40 MG; Start 04/03/19 at 20:00 Levetiracetam (Keppra) 250 mg BID PO Last administered on 04/14/19at 08:32; Admin Dose 250 MG; Start 04/03/19 at 23:30 Amiodarone HCl (Cordarone) 200 mg DAILY PO Last administered on 04/14/19at 08:33; Admin Dose 200 MG; Start 04/06/19 at 09:30 Losartan Potassium (Cozaar) 12.5 mg DAILY PO Last administered on 04/14/19at 08:33; Admin Dose 12.5 MG; Start 04/07/19 at 09:00 Hydromorphone HCl (Dilaudid) 0.2 mg Q1H PRN IV .BREAKTHROUGH PAIN Last administered on 04/08/19at 09:11; Admin Dose 0.2 MG; Start 04/07/19 at 19:00 Ondansetron HCl (Zofran Inj) 4 mg Q6H PRN IV NAUSEA/VOMITING; Start 04/07/19 at 19:00 Bisacodyl (Dulcolax Supp) 10 mg DAILY PRN [place] .CONSTIPATION; Start 04/07/19 at 19:00 Docusate Sodium (Colace) 100 mg BID PO Last administered on 04/11/19 21:21; Admin Dose 100 MG; Start 04/07/19 at 21:00 Naloxone HCl (Narcan) 0.2 mg Q2M PRN IV .RR 8 BREATHS/MIN OR LESS; Start 04/07/19 at 19:00 Neomycin/ Polymyxin/ Bacitracin (Neosporin Topical Oint) 1 applic BID TOP Last administered on 04/14/19 08:32; Admin Dose 1 APPLIC; Start 04/07/19 at 21:00 Clonidine HCl (Catapres-Tts 1 Patch) 1 patch Castaneda@1000 TRANSDERM Last administered on 04/08/19 12:26; Admin Dose 1 PATCH; Start 04/08/19 at 12:00 Acetaminophen (Tylenol Tab) 500 mg Q6H PRN PO MILD PAIN(1-3)OR ELEVATED TEMP L ast administered on 04/11/19 04:29; Admin Dose 500 MG; Start 04/09/19 at 18:30 Amantadine HCl (Symmetrel) 100 mg BID PO Last administered on 04/14/19 08:32; Admin Dose 100 MG; Start 04/09/19 at 23:30 Memantine (Namenda) 10 mg BID PO Last administered on 04/14/19 08:32; Admin Dose 10 MG; Start 04/10/19 at 09:00 Benazepril HCl (Lotensin) 10 mg DAILY PO Last administered on 04/14/19 08:33; Admin Dose 10 MG; Start 04/10/19 at 09:00 Carbidopa/Levodopa (Sinemet Cr (50/ 200)) 1 tab TID PO Last administered on 04/14/19 12:42; Admin Dose 1 TAB; Start 04/10/19 at 01:40 Donepezil HCl (Aricept) 10 mg DAILY PO Last administered on 04/14/19 08:32; Admin Dose 10 MG; Start 04/10/19 at 01:30 WADE SHARMA MD Apr 14, 2019 14:00
[2019-04-15] VITALS (12 sets, daily range): BP systolic 83–121; BP diastolic 52–64; PULSE 63–80; RESP 20
[2019-04-15] MEDS: PANTOPRAZOLE 40 MG INJ IV SCH ×2 (06:00→18:00)
[2019-04-15] MEDS: DOCUSATE SODIUM 100 MG CAP PO SCH ×2 (09:00→20:29)
[2019-04-15] MEDS: CARBIDOPA/LEVODOPA 50-200 (CR) TAB PO SCH ×3 (09:10→20:26)
[2019-04-15] MEDS: BENAZEPRIL 10 MG TAB PO SCH (09:11)
[2019-04-15] MEDS: MEMANTINE 10 MG TAB PO SCH ×2 (09:11→20:26)
[2019-04-15] MEDS: LEVETIRACETAM 250 MG TAB PO SCH ×2 (09:11→20:25)
[2019-04-15] MEDS: AMIODARONE 200 MG TAB PO SCH (09:11)
[2019-04-15] MEDS: DONEPEZIL 10 MG TAB PO SCH (09:11)
[2019-04-15] MEDS: AMANTADINE 100 MG CAP PO SCH ×2 (09:11→20:26)
[2019-04-15] MEDS: NEOMYC/POLYMYX/BACIT 30 GM OINT TOP SCH ×3 (09:12→21:00)
[2019-04-15] MEDS: LOSARTAN 25 MG TAB PO SCH (09:12)
[2019-04-15] MEDS: CLONIDINE 0.1 MG/24 HR PATCH TRANSDERM SCH (10:00)
--- NOTE | 2019-04-15 11:33 | PN ---
Date/Time of Note Date/Time of Note DATE: 04/15/19 TIME: 11:29 Assessment/Plan VTE Prophylaxis Risk score (from Ns)>0 risk: 6 SCD applied (from [facility]): Yes SCD contraindicated: other Pharmacological prophylaxis: NA/contraindicated Pharm contraindication: bleeding Lines/Catheters IV [facility] (from [facility] Saline Lock Central line still needed: No Urinary Cath still in place: No Reason Cath still needed: urinary retention Assessment/Plan Assessment/Plan 1. Melena on and off still continues. 2. Weight loss more than 15 pounds during the last 2 months 3. Status post fall due to the severe weakness deconditioning and muscular wasting 4. Anemia chronic disease with a recent loss-iron level 28. 5. Status post right-sided adal trepanation with removal of subdural hematoma in the [facility] about 1/2 years ago. Patient had a subdural hematoma on the left side too.New on the top of the old subdural hematoma on the left on mri.S/P trephination and 2-3 cc of serous fluid in a bag. Altered level of consciousness but continues to be responsive without focal symptoms And CT evidence of recommendation of the fluid possible hemorrhagic component. 6. Ischemic heart disease angina. 7. Unstable gait with recurrent episodes of fall. 8. Deconditioning 9. Status post cataract ectomy 10. Constant snacking and chewing movements involuntarily being unable to stop mainly during last 3-4 months. 11. Bradycardia with history of syncopal episodes 12 osteoporosis and osteoarthritis 13. Dizziness 14. Hearing impairment 15. Dysphagia on and off 16. BPH with episodes of urinary incontinence 17. Dyslipidemia 18.S/p left clavicular FX(old, healed). Result Diagram: 04/13/19 0854 04/13/19 0854 Subjective 24 Hr Interval Summary Free Text/Dictation I feel much better; my appetite is good. Shortness of breath improved. I am very weak. Constitutional: improved, diaphoresis, poor po; No no complaints, No chills, No disoriented, No febrile, No requiring IVF, No requiring O2, No other Eyes: No no complaints, No pain, No discharge, No redness, No visual change, No other ENT: congestion, dysphagia (Now less frequently than before.), sore throat; No no complaints, No bleeding, No pain, No discharge, No other Respiratory: cough; No no complaints, No pain, No pleuritic pain, No shortness of breath, No sputum, No wheezing, No other Gastrointestinal: constipation, flatus, nausea; No no complaints, No pain, No blood, No decreased appetite, No diarrhea, No passing stool, No vomiting, No other Genitourinary: dysuria; No no complaints, No bleeding, No discharge, No flank pain, No hematuria, No other Musculoskeletal: back pain, bone/joint pain, neck pain; No no complaints, No restricted range of motion, No swelling, No other Skin: No no complaints, No bruising, No erythema, No laceration, No pruritis, No rash, No skin lesions, No other Neurologic: confusion, dizziness, headache, syncope; No no complaints, No focal-weakness, No seizure, No other Endocrine: No no complaints, No polyuria, No polydypsia, No dry skin, No temp intolerance, No other Psychological: anxiety, confusion; No no complaints, No nl mood/affect, No depression, No suicidal, No other Exam/Review of Systems Exam Vitals Vital Signs Date Temp Pulse Resp B/P (MAP) Pulse Ox O2 O2 Flow FiO2 Time Delivery Rate 04/15/19 98.2 77 20 83/52 (62) 93 11:22 04/15/19 Room Air 08:38 04/14/19 2.0 20:00 Intake and Output 04/14/19 04/14/19 04/15/19 1515:00 23:00 07:00 IntakeIntake Total 400 ml 400 ml BalanceBalance 400 ml 400 ml Constitutional: alert, oriented (Not in a time.), well developed, frail, other; No non-verbal, No distress, No obese Psych: anxiety; No no complaints, No nl mood/affect, No confusion, No depression, No suicidal, No other Head: normocephalic, atraumatic (Left side of frontoparietal area trephination site intact.); No lacerations, No hematomas, No other ENMT: mucosa pink and moist, tympanic membranes; No nl external ears & nose, No nl lips & teeth, No nl nasal mucosa & septum, No intubated, No other Neck: supple; No non-tender, No jvd, No bruits, No masses, No thyromegaly, No nuchal rigidity, No other Respiratory: congested cough, diminished breath sounds, intercostal retraction; No clear to auscultation, No normal air movement, No crackles/rales, No labored breathing, No respirations, No tactile fremitus, No wheezing, No other Cardiovascular: regular rate and rhythm, systolic murmur; No nl pulses, No bruits, No diastolic murmur, No edema, No gallop, No irregular rhythm, No jugular venous distention (JVD), No murmurs/extra sounds, No rub, No S3, No S4, No other Gastrointestinal: soft, bowel sounds, distended; No nl liver, spleen, No non-tender, No ascites, No firm, No hepatomegaly, No mass, No rebound or guarding, No splenomegaly, No surgical scars, No tender, No other Genitourinary - Male: nl penis, nl scrotum Musculoskeletal: nl gait and stance, joint tenderness; No nl extremities to inspection, No muscle tone, No muscle weakness, No range of motion, No spine non-tender, No swelling, No other Extremities: No normal pulses, No calf tenderness, No cyanosis, No clubbing, No edema, No pitting pedal edema, No palpable cord, No tenderness, No other 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: nl mental status (Forgetful.), nl speech (Very slow such as words very pleasant very decreased voice but more comprehensible and now with emotions too.), numbness; No ESCORT CAR DRIVER II-XII intact, No nl strength, No confused, No DTR's symmetric, No focal weakness, No lethargic, No reflexes, No unresponsive, No other Medications Medication Current Medications Pantoprazole (Protonix Iv) 40 mg BID@06,18 IV Last administered on 04/14/19at 05:38; Admin Dose 40 MG; Start 04/03/19 at 20:00 Levetiracetam (Keppra) 250 mg BID PO Last administered on 04/15/19at 09:11; Admin Dose 250 MG; Start 04/03/19 at 23:30 Amiodarone HCl (Cordarone) 200 mg DAILY PO Last administered on 04/15/19at 09:11; Admin Dose 200 MG; Start 04/06/19 at 09:30 Losartan Potassium (Cozaar) 12.5 mg DAILY PO Last administered on 04/15/19 09:12; Admin Dose 12.5 MG; Start 04/07/19 at 09:00 Hydromorphone HCl (Dilaudid) 0.2 mg Q1H PRN IV .BREAKTHROUGH PAIN Last admi nistered on 04/08/19 09:11; Admin Dose 0.2 MG; Start 04/07/19 at 19:00 Ondansetron HCl (Zofran Inj) 4 mg Q6H PRN IV NAUSEA/VOMITING; Start 04/07/19 at 19:00 Bisacodyl (Dulcolax Supp) 10 mg DAILY PRN [place] .CONSTIPATION; Start 04/07/19 at 19:00 Docusate Sodium (Colace) 100 mg BID PO Last administered on 04/11/19 21:21; Admin Dose 100 MG; Start 04/07/19 at 21:00 Naloxone HCl (Narcan) 0.2 mg Q2M PRN IV .RR 8 BREATHS/MIN OR LESS; Start 04/07/19 at 19:00 Neomycin/ Polymyxin/ Bacitracin (Neosporin Topical Oint) 1 applic BID TOP Last administered on 04/15/19 09:13; Admin Dose 1 APPLIC; Start 04/07/19 at 21:00 Clonidine HCl (Catapres-Tts 1 Patch) 1 patch Castaneda@1000 TRANSDERM Last administered on 04/08/19 12:26; Admin Dose 1 PATCH; Start 04/08/19 at 12:00 Acetaminophen (Tylenol Tab) 500 mg Q6H PRN PO MILD PAIN(1-3)OR ELEVATED TEMP Last administered on 04/11/19 04:29; Admin Dose 500 MG; Start 04/09/19 at 18:30 Amantadine HCl (Symmetrel) 100 mg BID PO Last administered on 04/15/19 09:11; Admin Dose 100 MG; Start 04/09/19 at 23:30 Memantine (Namenda) 10 mg BID PO Last administered on 04/15/19 09:11; Admin Dose 10 MG; Start 04/10/19 at 09:00 Benazepril HCl (Lotensin) 10 mg DAILY PO Last administered on 04/15/19 09:11; Admin Dose 10 MG; Start 04/10/19 at 09:00 Carbidopa/Levodopa (Sinemet Cr (50/ 200)) 1 tab TID PO Last administered on 04/15/19at 09:10; Admin Dose 1 TAB; Start 04/10/19 at 01:40 Donepezil HCl (Aricept) 10 mg DAILY PO Last administered on 04/15/19at 09:11; Admin Dose 10 MG; Start 04/10/19 at 01:30 BROOKLYNN OCASIO MD Apr 15, 2019 11:33
--- NOTE | 2019-04-15 19:27 | CONS ---
Assessment/Plan Assessment/Plan Assessment/Plan (Daily) Assessment/Plan (Daily) Assessment/Plan Hospital Course (Demo Recall) 88 yo male with melena, s/p EGD and left frontoparietal lilia hole craniotomy and evacuation of subdural hematoma 1. Status post left frontoparietal lilia hole craniotomy and evacuation of subdural hematoma. -Per CT 04/09: New midline shift from left to right, New mildly increased left subdural mixed attenuation collection status post removal of the drain. Cannot exclude an acute versus recent hemorrhagic component at the left parietal subdural space. 2. Anemia. -HH has trended up and stable 3. Positive stool guaiac. -Normal CEA levels 4. History of multiple falls. 5. Benign prostatic hypertrophy. 6. Hearing impairment. 7. Chronic gastritis 8. Positive Gram negative rods in urine Follow up CT 04/09: IMPRESSION: 1. Interval removal of previously seen left subdural drain. 2. New mildly increased left subdural mixed attenuation collection status post removal of the drain. 3. Cannot exclude an acute versus recent hemorrhagic component at the left parietal subdural space. 4. 4 mm [id number] midline shift, new over interval. Gastric biopsies: -- Moderate superficial chronic gastritis with focal lymphoid hyperplasia. -- A Giemsa stain with an appropriate control, is negative for H. pylori organisms (please see comment). -- No dysplasia or intestinal metaplasia is identified. PLAN: Aspiration precautions PPI Consider colonoscopy once pt stable and if continues to have severe anemia and melanotic stools, brought up the possibility of doing colonoscopy at some point, daughter does not want. We will monitor the situation Monitor HH and for active GI bleeding. Hematocrit dropped down to 27. We will monitor H&H Clinically patient looks much better. Educated the family regarding the color of the stool PT AWAKE AND FOLLOWING COMMAND There is no evidence of bleeding Consultation Date/Type/Reason Admit Date/Time April 03, 2019 at 12:57 Initial Consult Date Requesting Provider: GLORIA WISEMAN MD Date/Time of Note DATE: 04/15/19 TIME: 19:27 24 HR Interval Summary Constitutional: no complaints, improved Exam/Review of Systems Exam Vitals Vital Signs Date Temp Pulse Resp B/P (MAP) Pulse Ox O2 O2 Flow FiO2 Time Delivery Rate 04/15/19 97.9 76 20 115/56 98 19:10 (75) 04/15/19 Room Air 16:06 04/14/19 2.0 20:00 Intake and Output 04/14/19 04/14/19 04/15/19 1515:00 23:00 07:00 IntakeIntake Total 400 ml 400 ml BalanceBalance 400 ml 400 ml Constitutional: alert, oriented, well developed Psych: no complaints, nl mood/affect Head: normocephalic, atraumatic Eyes: nl conjunctiva, EOMI, nl lids, nl sclera, PERRL ENMT: nl external ears & nose, nl lips & teeth, nl nasal mucosa & septum Neck: supple, non-tender Respiratory: clear to auscultation, normal air movement Cardiovascular: regular rate and rhythm, nl pulses Gastrointestinal: soft, nl liver, spleen, non-tender Musculoskeletal: nl extremities to inspection, nl gait and stance Extremities: normal pulses 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: SU[employer] II-XII intact, nl mental status, nl speech, nl strength Skin: nl turgor; No rash or lesions Lymph: nl lymph nodes Results Result Diagram: 04/13/1954 04/13/19 0854 Medications Medication Current Medications Pantoprazole (Protonix Iv) 40 mg BID@06,18 IV Last administered on 04/14/19at 05:38; Admin Dose 40 MG; Start 04/03/19 at 20:00 Levetiracetam (Keppra) 250 mg BID PO Last administered on 04/15/19at 09:11; Admin Dose 250 MG; Start 04/03/19 at 23:30 Amiodarone HCl (Cordarone) 200 mg DAILY PO Last administered on 04/15/19at 09:11; Admin Dose 200 MG; Start 04/06/19 at 09:30 Losartan Potassium (Cozaar) 12.5 mg DAILY PO Last administered on 04/15/19at 09:12; Admin Dose 12.5 MG; Start 04/07/19 at 09:00 Hydromorphone HCl (Dilaudid) 0.2 mg Q1H PRN IV .BREAKTHROUGH PAIN Last administered on 04/08/19at 09:11; Admin Dose 0.2 MG; Start 04/07/19 at 19:00 Ondansetron HCl (Zofran Inj) 4 mg Q6H PRN IV NAUSEA/VOMITING; Start 04/07/19 at 19:00 Bisacodyl (Dulcolax Supp) 10 mg DAILY PRN [place] .CONSTIPATION; Start 04/07/19 at 19:00 Docusate Sodium (Colace) 100 mg BID PO Last administered on 04/11/19 21:21; Admin Dose 100 MG; Start 04/07/19 at 21:00 Naloxone HCl (Narcan) 0.2 mg Q2M PRN IV .RR 8 BREATHS/MIN OR LESS; Start 04/07/19 at 19:00 Neomycin/ Polymyxin/ Bacitracin (Neosporin Topical Oint) 1 applic BID TOP Last administered on 04/15/19 09:13; Admin Dose 1 APPLIC; Start 04/07/19 at 21:00 Clonidine HCl (Catapres-Tts 1 Patch) 1 patch Castaneda@1000 TRANSDERM Last administered on 04/08/19 12:26; Admin Dose 1 PATCH; Start 04/08/19 at 12:00 Acetaminophen (Tylenol Tab) 500 mg Q6H PRN PO MILD PAIN(1-3)OR ELEVATED TEMP Last administered on 04/11/19 04:29; Admin Dose 500 MG; Start 04/09/19 at 18:30 Amantadine HCl (Symmetrel) 100 mg BID PO Last administered on 04/15/19 09:11; Admin Dose 100 MG; Start 04/09/19 at 23:30 Memantine (Namenda) 10 mg BID PO Last administered on 04/15/19 09:11; Admin Dose 10 MG; Start 04/10/19 at 09:00 Benazepril HCl (Lotensin) 10 mg DAILY PO Last administered on 04/15/19 09:11; Admin Dose 10 MG; Start 04/10/19 at 09:00 Carbidopa/Levodopa (Sinemet Cr (50/ 200)) 1 tab TID PO Last administered on 04/15/19 13:35; Admin Dose 1 TAB; Start 04/10/19 at 01:40 Donepezil HCl (Aricept) 10 mg DAILY PO Last administered on 04/15/19 09:11; Admin Dose 10 MG; Start 04/10/19 at 01:30 WADE SHARMA MD Apr 15, 2019 19:27
[2019-04-15] MEDS: ACETAMINOPHEN 500 MG TAB PO PRN (20:25)
[2019-04-16] VITALS (11 sets, daily range): BP systolic 95–147; BP diastolic 50–70; PULSE 63–80; RESP 18–20
[2019-04-16] MEDS: PANTOPRAZOLE 40 MG INJ IV SCH ×2 (05:22→18:51)
--- NOTE | 2019-04-16 08:37 | PN ---
Date/Time of Note Date/Time of Note DATE: 04/16/19 TIME: 08:32 Assessment/Plan VTE Prophylaxis Risk score (from Ns)>0 risk: 7 [place]CD applied [place] [facility] [place] SCD contraindicated: other (on.) Pharmacological prophylaxis: other (Low H&H.) Pharm contraindication: other (Low H&H.) Lines/Catheters IV Catheter Type (from [facility] [place] [employer] line still needed: No Urinary Cath still in place: No Reason Cath still needed: urinary retention Assessment/Plan Assessment/Plan 1. Melena on and off still continues. 2. Weight loss more than 15 pounds during the last 2 months 3. Status post fall due to the severe weakness deconditioning and muscular wasting 4. Anemia chronic disease with a recent loss-iron level 28. 5. Status post right-sided adal trepanation with removal of subdural hematoma in the [facility] about 1/2 years ago. Patient had a subdural hematoma on the left side too.New on the top of the old subdural hematoma on the left on mri.S/P trephination and 2-3 cc of serous fluid in a bag. Altered level of consciousness but continues to be responsive without focal symptoms And CT evidence of recommendation of the fluid possible hemorrhagic component. 6. Ischemic heart disease angina. 7. Unstable gait with recurrent episodes of fall. 8. Deconditioning 9. Status post cataract ectomy 10. Constant snacking and chewing movements involuntarily being unable to stop mainly during last 3-4 months. 11. Bradycardia with history of syncopal episodes 12 osteoporosis and osteoarthritis 13. Dizziness 14. Hearing impairment 15. Dysphagia on and off 16. BPH with episodes of urinary incontinence 17. Dyslipidemia 18.S/p left clavicular FX(old, healed). Result Diagram: 04/13/19 0854 04/13/19 0854 Subjective 24 Hr Interval Summary Free Text/Dictation I feel better. With the help of her daughter is 24 hours nearby he is able to sit up very weak but able to walk. Constitutional: improved, poor po; No no complaints, No chills, No diaphoresis, No disoriented, No febrile, No requiring IVF, No requiring O2, No other Eyes: No no complaints, No pain, No discharge, No redness, No visual change, No other ENT: congestion; No no complaints, No bleeding, No pain, No discharge, No dysphagia, No sore throat, No other Respiratory: cough, pleuritic pain, shortness of breath; No no complaints, No pain, No sputum, No wheezing, No other Cardiovascular: chest pain; No no complaints, No edema, No lightheadedness, No orthopenea, No palpitations, No paroxysmal nocturnal dyspnea, No other Gastrointestinal: diarrhea, flatus, nausea, passing stool; No no complaints, No pain, No blood, No constipation, No decreased appetite, No vomiting, No other Genitourinary: dysuria; No no complaints, No bleeding, No discharge, No flank pain, No hematuria, No other Musculoskeletal: back pain, bone/joint pain; No no complaints, No neck pain, No restricted range of motion, No swelling, No other Skin: erythema, pruritis; No no complaints, No bruising, No laceration, No rash, No skin lesions, No other Neurologic: dizziness; No no complaints, No confusion, No focal-weakness, No headache, No syncope, No seizure, No other Endocrine: dry skin; No no complaints, No polyuria, No polydypsia, No temp intolerance, No other Lymphatic: No no complaints, No adenopathy, No tender nodes, No lymphadema, No other Psychological: anxiety; No no complaints, No nl mood/affect, No confusion, No depression, No suicidal, No other Immunologic: No no complaints, No immunodeficiency, No pruritis, No rhinitis, No urticaria, No other Exam/Review of Systems Exam Vitals Vital Signs Date Temp Pulse Resp B/P (MAP) Pulse Ox O2 O2 Flow FiO2 Time Delivery Rate 04/16/19 98.3 63 20 138/68 97 07:19 (91) 04/15/19 Room Air 16:06 04/14/19 2.0 20:00 Intake and Output 04/15/19 04/15/19 04/16/19 1515:00 23:00 07:00 IntakeIntake Total 700 ml BalanceBalance 700 ml Constitutional: well developed, frail, other; No alert, No oriented, No non-verbal, No distress, No obese Psych: anxiety, confusion; No no complaints, No nl mood/affect, No depression, No suicidal, No other Head: normocephalic, atraumatic Eyes: EOMI, nl lids, PERRL; No nl conjunctiva, No nl sclera, No icteric, No fundi, disc, No other ENMT: nl nasal mucosa & septum; No nl external ears & nose, No nl lips & teeth, No mucosa pink and moist, No intubated, No tympanic membranes, No other Neck: jvd; No supple, No non-tender, No bruits, No masses, No thyromegaly, No nuchal rigidity, No other Respiratory: No clear to auscultation, No normal air movement, No congested cough, No crackles/rales, No diminished breath sounds, No intercostal retraction, No labored breathing, No respirations, No tactile fremitus, No wheezing, No other Cardiovascular: nl pulses, systolic murmur; No regular rate and rhythm, No bruits, No diastolic murmur, No edema, No gallop, No irregular rhythm, No jugular venous distention (JVD), No murmurs/extra sounds, No rub, No S3, No S4, No other Gastrointestinal: soft; No nl liver, spleen, No non-tender, No ascites, No bowel sounds, No distended, No firm, No hepatomegaly, No mass, No rebound or guarding, No splenomegaly, No surgical scars, No tender, No other Musculoskeletal: joint tenderness, muscle tone, muscle weakness; No nl extremities to inspection, No nl gait and stance, No range of motion, No spine non-tender, No swelling, No other Extremities: No normal pulses, No calf tenderness, No cyanosis, No clubbing, No edema, No pitting pedal edema, No palpable cord, No tenderness, No other 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: CAN INTAKE WORKER II-XII intact, focal weakness, numbness; No nl mental status, No nl speech, No nl strength, No confused, No DTR's symmetric, No lethargic, No reflexes, No unresponsive, No other Medications Medication Current Medications Pantoprazole (Protonix Iv) 40 mg BID@06,18 IV Last administered on 04/16/19at 05:22; Admin Dose 40 MG; Start 04/03/19 at 20:00 Levetiracetam (Keppra) 250 mg BID PO Last administered on 04/15/19at 20:25; Admin Dose 250 MG; Start 04/03/19 at 23:30 Amiodarone HCl (Cordarone) 200 mg DAILY PO Last administered on 04/15/19 09:11; Admin Dose 200 MG; Start 04/06/19 at 09:30 Losartan Potassium (Cozaar) 12.5 mg DAILY PO Last administered on 04/15/19 09:12; Admin Dose 12.5 MG; Start 04/07/19 at 09:00 Hydromorphone HCl (Dilaudid) 0.2 mg Q1H PRN IV .BREAKTHROUGH PAIN Last administered on 04/08/19 09:11; Admin Dose 0.2 MG; Start 04/07/19 at 19:00 Ondansetron HCl (Zofran Inj) 4 mg Q6H PRN IV NAUSEA/VOMITING; Start 04/07/19 at 19:00 Bisacodyl (Dulcolax Supp) 10 mg DAILY PRN [place] .CONSTIPATION; Start 04/07/19 at 19:00 Docusate Sodium (Colace) 100 mg BID PO Last administered on 04/11/19 21:21; Admin Dose 100 MG; Start 04/07/19 at 21:00 Naloxone HCl (Narcan) 0.2 mg Q2M PRN IV .RR 8 BREATHS/MIN OR LESS; Start 04/07/19 at 19:00 Neomycin/ Polymyxin/ Bacitracin (Neosporin Topical Oint) 1 applic BID TOP Last administered on 04/15/19 09:13; Admin Dose 1 APPLIC; Start 04/07/19 at 21:00 Clonidine HCl (Catapres-Tts 1 Patch) 1 patch Castaneda@1000 TRANSDERM Last administered on 04/08/19 12:26; Admin Dose 1 PATCH; Start 04/08/19 at 12:00 Acetaminophen (Tylenol Tab) 500 mg Q6H PRN PO MILD PAIN(1-3)OR ELEVATED TEMP Last administered on 04/15/19 20:25; Admin Dose 500 MG; Start 04/09/19 at 18:30 Amantadine HCl (Symmetrel) 100 mg BID PO Last administered on 04/15/19 20:26; Admin Dose 100 MG; Start 04/09/19 at 23:30 Memantine (Namenda) 10 mg BID PO Last administered on 04/15/19 20:26; Admin Dose 10 MG; Start 04/10/19 at 09:00 Benazepril HCl (Lotensin) 10 mg DAILY PO Last administered on 04/15/19 09:11; Admin Dose 10 MG; Start 04/10/19 at 09:00 Carbidopa/Levodopa (Sinemet Cr (50/ 200)) 1 tab TID PO Last administered on 04/15/19 20:26; Admin Dose 1 TAB; Start 04/10/19 at 01:40 Donepezil HCl (Aricept) 10 mg DAILY PO Last administered on 04/15/19 09:11; Admin Dose 10 MG; Start 04/10/19 at 01:30 BROOKLYNN OCASIO MD Apr 16, 2019 08:36
[2019-04-16] MEDS: CARBIDOPA/LEVODOPA 50-200 (CR) TAB PO SCH ×3 (09:27→22:29)
[2019-04-16] MEDS: LEVETIRACETAM 250 MG TAB PO SCH ×2 (09:27→22:29)
[2019-04-16] MEDS: MEMANTINE 10 MG TAB PO SCH ×2 (09:27→22:29)
[2019-04-16] MEDS: AMANTADINE 100 MG CAP PO SCH ×2 (09:27→22:28)
[2019-04-16] MEDS: DONEPEZIL 10 MG TAB PO SCH (09:27)
[2019-04-16] MEDS: AMIODARONE 200 MG TAB PO SCH (09:27)
[2019-04-16] MEDS: NEOMYC/POLYMYX/BACIT 30 GM OINT TOP SCH ×2 (09:28→22:32)
[2019-04-16] MEDS: LOSARTAN 25 MG TAB PO SCH (09:28)
[2019-04-16] MEDS: BENAZEPRIL 10 MG TAB PO SCH (09:28)
--- NOTE | 2019-04-16 14:01 | PN ---
Date/Time of Note Date/Time of Note DATE: 04/10/19 TIME: 15:00 Copies To: Assessment/Plan Date of progress note: 04/10/2019 The patient is POD#3 status post left frontal and parietal bur hole craniectomy for evacuation of subdural hematoma in the ICU. The patient has been restarted on his baseline parkinsons and dementia medications. The patient's daughter who is at bedside now tells me that he is again a lot more talkative and more alert. He is awake, looks around and moves his upper and lower extremities to command with strength of 4/5. He is mainly Upper Sorbian speaking. He is oriented to his first and last name per baseline. The patient's daughter who is at bedside seems to be pleased with the patient's improvement. There is no further acute neurosurgical intervention indicated. The patient will benefit from further PT. I have relayed this information to Dr. Enriquez. GLORIA WISEMAN MD Apr 16, 2019 14:01
--- NOTE | 2019-04-16 16:59 | CONS ---
Consult Date/Type/Reason Admit Date/Time April 03, 2019 at 12:57 Initial Consult Date Type of Consultation: cv Requesting Provider: GLORIA WISEMAN MD Date/Time of Note DATE: 04/16/19 TIME: 16:58 Subjective Interventional cardiology progress note Subjective: Case discussed with the d/w staff TELE WAS reviewed. pt remains in NSR with rare PVC no cp or pressure or palpitations Events noted s/p burhole and evacuation of SDH on 04/07/19 Objective: General: no acute distress HEENT: NC, s/p burhole .. pupils are equal. round. NECK: NO JVD. no stridor. CV: RRR. systolic murmur; no gallop or rubs. PULM: no wheezing or rhonchi. GI: SOFT, NT, ND, no rebound or guarding Extremity: trace B/L LE edema. no clubbing. neuro: awake and alert and responds appropriately Psych: calm and pleasant rectal: deferred : normal EKG done today shows normal sinus rhythm with PVC. Nonspecific T wave abnormalities Of the old chart shows that echocardiogram done in my office on 10/02/2018 has shown ejection fraction about 40 to 45% LVH with mild to moderate aortic insufficiency diastolic dysfunction mild MR and TR MRI of the brain done April 04, 2019 shows: MRI of the brain demonstrates a large left subdural hematoma with varying ages however there is a 9 mm acute component with the overall measurement measuring up to 2.2 cm resulting in diffuse left cerebral mass effect with minimal [id number] midline shift. 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 Objective Vitals Vital Signs Date Temp Pulse Resp B/P (MAP) Pulse Ox O2 O2 Flow FiO2 Time Delivery Rate 04/16/19 75 16:40 04/16/19 98.0 20 95/50 (65) 95 15:33 04/15/19 Room Air 16:06 04/14/19 2.0 20:00 Intake and Output 04/15/19 04/15/19 04/16/19 1515:00 23:00 07:00 IntakeIntake Total 700 ml BalanceBalance 700 ml Results/Medications Result Diagram: 04/13/19 0854 04/13/19 0854 Home Meds Active Scripts Amiodarone Hcl* (Amiodarone Hcl*) 100 Mg Tablet, 100 MG PO DAILY, #30 TAB Prov:RONY AGUILA MD 09/07/17 Reported Medications Amantadine Hcl* (Amantadine Hcl*) 100 Mg Capsule, 100 MG PO BID, #60 CAP 04/03/19 Carbidopa-Levodopa* (Sinemet CR*) 50-200 Mg Tabsr, 1 TAB PO TID, TAB 04/03/19 Folic Acid* (Folic Acid*) 1 Mg Tablet, 1 MG PO DAILY, TAB 04/03/19 Donepezil* (Donepezil*) 10 Mg Tablet, 10 MG PO DAILY, #30 TAB 04/03/19 Ramipril (Ramipril) 2.5 Mg Capsule, 2.5 MG PO DAILY, CAP 04/03/19 Megestrol Acetate* (Megestrol Acetate*) 40 Mg Tablet, 40 MG PO TID, TAB 09/05/17 Finasteride* (Finasteride*) 5 Mg Tablet, 5 MG PO DAILY, TAB 09/05/17 Gemfibrozil* (Gemfibrozil*) 600 Mg Tablet, 600 MG PO DAILY, TAB 09/05/17 Memantine* (Namenda* XR) 28 Mg Cap.spr.24, 28 MG PO DAILY, #30 TAB 09/05/17 Medications Current Medications Pantoprazole (Protonix Iv) 40 mg BID@06,18 IV Last administered on 04/16/19at 05:22; Admin Dose 40 MG; Start 04/03/19 at 20:00 Levetiracetam (Keppra) 250 mg BID PO Last administered on 04/16/19at 09:27; Admin Dose 250 MG; Start 04/03/19 at 23:30 Amiodarone HCl (Cordarone) 200 mg DAILY PO Last administered on 04/16/19 09:27; Admin Dose 200 MG; Start 04/06/19 at 09:30 Losartan Potassium (Cozaar) 12.5 mg DAILY PO Last administered on 04/16/19 09:28; Admin Dose 12.5 MG; Start 04/07/19 at 09:00 Hydromorphone HCl (Dilaudid) 0.2 mg Q1H PRN IV .BREAKTHROUGH PAIN Last administered on 04/08/19 09:11; Admin Dose 0.2 MG; Start 04/07/19 at 19:00 Ondansetron HCl (Zofran Inj) 4 mg Q6H PRN IV NAUSEA/VOMITING; Start 04/07/19 at 19:00 Naloxone HCl (Narcan) 0.2 mg Q2M PRN IV .RR 8 BREATHS/MIN OR LESS; Start 04/07/19 at 19:00 Neomycin/ Polymyxin/ Bacitracin (Neosporin Topical Oint) 1 applic BID TOP Last administered on 04/16/19 09:28; Admin Dose 1 APPLIC; Start 04/07/19 at 21:00 Clonidine HCl (Catapres-Tts 1 Patch) 1 patch Castaneda@1000 TRANSDERM Last administere d on 04/08/19 12:26; Admin Dose 1 PATCH; Start 04/08/19 at 12:00 Acetaminophen (Tylenol Tab) 500 mg Q6H PRN PO MILD PAIN(1-3)OR ELEVATED TEMP Last administered on 04/15/19 20:25; Admin Dose 500 MG; Start 04/09/19 at 18:30 Amantadine HCl (Symmetrel) 100 mg BID PO Last administered on 04/16/19 09:27; Admin Dose 100 MG; Start 04/09/19 at 23:30 Memantine (Namenda) 10 mg BID PO Last administered on 04/16/19 09:27; Admin Dose 10 MG; Start 04/10/19 at 09:00 Benazepril HCl (Lotensin) 10 mg DAILY PO Last administered on 04/16/19 09:28; Admin Dose 10 MG; Start 04/10/19 at 09:00 Carbidopa/Levodopa (Sinemet Cr (50/ 200)) 1 tab TID PO Last administered on 04/16/19 13:10; Admin Dose 1 TAB; Start 04/10/19 at 01:40 Donepezil HCl (Aricept) 10 mg DAILY PO Last administered on 04/16/19 09:27; Admin Dose 10 MG; Start 04/10/19 at 01:30 Assessment/Plan Hospital Course (Demo Recall) 1. Cardiovascular preop evaluation, now s/p Left frontal and parietal burhole craniectomy for evacuation of SDH 04/07/19 2. Recurrent subdural hematoma and falls 3. History of marked bradycardia mostly secondary to frequent PVCs: Previously has been significantly improved on amiodarone p.o. 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 Aortic insufficiency 6. Anemia 7. Chronic kidney disease 8. Ventricular arrhythmias with very frequent PVCs as well as bigeminy's 9. Parkinson disease Recommendations correct lytes prn Follow-up with neurosurgery recommendation cont tele monitoring Continue with the Parkinson medication to be adjusted as per internal medicine. PT as tolerated decrease amiodarone Thank you for his referral. We will continue to follow along with you VIOLA GARAY MD [facility] VIOLA GARAY MD Apr 16, 2019 16:59
--- NOTE | 2019-04-16 17:31 | CONS ---
Assessment/Plan Assessment/Plan Assessment/Plan (Daily) Assessment/Plan Hospital Course (Demo Recall) 88 yo male with melena, s/p EGD and left frontoparietal lilia hole craniotomy and evacuation of subdural hematoma 1. Status post left frontoparietal lilia hole craniotomy and evacuation of subdural hematoma. -Per CT 04/09: New midline shift from left to right, New mildly increased left subdural mixed attenuation collection status post removal of the drain. Cannot exclude an acute versus recent hemorrhagic component at the left parietal subdural space. 2. Anemia. -HH has trended up and stable 3. Positive stool guaiac. -Normal CEA levels 4. History of multiple falls. 5. Benign prostatic hypertrophy. 6. Hearing impairment. 7. Chronic gastritis 8. Positive Gram negative rods in urine Plan Continue present care Physical therapy CBC in a.m. Consultation Date/Type/Reason Admit Date/Time April 03, 2019 at 12:57 Initial Consult Date Requesting Provider: GLORIA WISEMAN MD Date/Time of Note DATE: 04/16/19 TIME: 17:30 24 HR Interval Summary Free Text/Dictation Patient is sitting in a chair oriented and eating on his own Constitutional: no complaints, improved Exam/Review of Systems Exam Vitals Vital Signs Date Temp Pulse Resp B/P (MAP) Pulse Ox O2 O2 Flow FiO2 Time Delivery Rate 04/16/19 75 16:40 04/16/19 98.0 20 95/50 (65) 95 15:33 04/15/19 Room Air 16:06 04/14/19 2.0 20:00 Intake and Output 04/15/19 04/15/19 04/16/19 1515:00 23:00 07:00 IntakeIntake Total 700 ml BalanceBalance 700 ml Constitutional: alert, oriented, well developed Psych: no complaints, nl mood/affect Head: normocephalic, atraumatic Eyes: nl conjunctiva, EOMI, nl lids, nl sclera, PERRL ENMT: nl external ears & nose, nl lips & teeth, nl nasal mucosa & septum Neck: supple, non-tender Respiratory: clear to auscultation, normal air movement Cardiovascular: regular rate and rhythm, nl pulses Gastrointestinal: soft, nl liver, spleen, non-tender Musculoskeletal: nl extremities to inspection, nl gait and stance Extremities: normal pulses 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: SQL MANAGER II-XII intact, nl mental status, nl speech, nl strength Skin: nl turgor; No rash or lesions Lymph: nl lymph nodes Results Result Diagram: 04/13/1985304/13/19853 Medications Medication Current Medications Pantoprazole (Protonix Iv) 40 mg BID@06,18 IV Last administered on 04/16/19 05:22; Admin Dose 40 MG; Start 04/03/19 at 20:00 Levetiracetam (Keppra) 250 mg BID PO Last administered on 04/16/19 09:27; Admin Dose 250 MG; Start 04/03/19 at 23:30 Losartan Potassium (Cozaar) 12.5 mg DAILY PO Last administered on 04/16/19 09:28; Admin Dose 12.5 MG; Start 04/07/19 at 09:00 Hydromorphone HCl (Dilaudid) 0.2 mg Q1H PRN IV .BREAKTHROUGH PAIN Last administered on 04/08/19 09:11; Admin Dose 0.2 MG; Start 04/07/19 at 19:00 Ondansetron HCl (Zofran Inj) 4 mg Q6H PRN IV NAUSEA/VOMITING; Start 04/07/19 at 19:00 Naloxone HCl (Narcan) 0.2 mg Q2M PRN IV .RR 8 BREATHS/MIN OR LESS; Start 04/07/19 at 19:00 Neomycin/ Polymyxin/ Bacitracin (Neosporin Topical Oint) 1 applic BID TOP Last administered on 04/16/19 09:28; Admin Dose 1 APPLIC; Start 04/07/19 at 21:00 Clonidine HCl (Catapres-Tts 1 Patch) 1 patch Castaneda@1000 TRANSDERM Last administered on 04/08/19 12:26; Admin Dose 1 PATCH; Start 04/08/19 at 12:00 Acetaminophen (Tylenol Tab) 500 mg Q6H PRN PO MILD PAIN(1-3)OR ELEVATED TEMP Last administered on 04/15/19 20:25; Admin Dose 500 MG; Start 04/09/19 at 18:30 Amantadine HCl (Symmetrel) 100 mg BID PO Last administered on 04/16/19 09:27; Admin Dose 100 MG; Start 04/09/19 at 23:30 Memantine (Namenda) 10 mg BID PO Last administered on 04/16/19 09:27; Admin Dose 10 MG; Start 04/10/19 at 09:00 Benazepril HCl (Lotensin) 10 mg DAILY PO Last administered on 04/16/19 09:28; Admin Dose 10 MG; Start 04/10/19 at 09:00 Carbidopa/Levodopa (Sinemet Cr (50/ 200)) 1 tab TID PO Last administered on 04/16/19at 13:10; Admin Dose 1 TAB; Start 04/10/19 at 01:40 Donepezil HCl (Aricept) 10 mg DAILY PO Last administered on 04/16/19 09:27; Admin Dose 10 MG; Start 04/10/19 at 01:30 Amiodarone HCl (Cordarone) 100 mg DAILY PO ; Start 04/17/19 at 09:00 WADE SHARMA MD Apr 16, 2019 17:31
[2019-04-17] VITALS (9 sets, daily range): BP systolic 106–141; BP diastolic 56–72; PULSE 66–92; RESP 16–18
--- NOTE | 2019-04-17 00:08 | PDOCDIS ---
Discharge Instructions DIAGNOSIS Discharge Diagnosis Please see the progress note. CONDITION [id number] Patient Condition: [id number] Guarded HOME CARE INSTRUCTIONS: [id number] Diet Instructions: [id number] Bathing Restrictions: [id number] Sponge Bath FOLLOW UP/APPOINTMENTS Follow-up Plan to be transferred to rehab unit. SCHOOL/WORK RELEASE May return to School/Work with: With Restrictions (very high risk for fall.) BROOKLYNN OCASIO MD Apr 17, 2019 00:08
[2019-04-17] MEDS: PANTOPRAZOLE 40 MG INJ IV SCH (06:31)
--- NOTE | 2019-04-17 08:39 | CONS ---
Consult Date/Type/Reason Admit Date/Time April 03, 2019 at 12:57 Initial Consult Date Type of Consultation: cv Requesting Provider: GLORIA WISEMAN MD Date/Time of Note DATE: 04/17/19 TIME: 08:39 Subjective Interventional cardiology progress note Subjective: Case discussed with the daughter d/w staff TELE WAS reviewed. pt remains in NSR with rare PVC no cp or pressure or palpitations Events noted s/p burhole and evacuation of SDH on 04/07/19 Objective: General: no acute distress HEENT: NC, s/p burhole .. pupils are equal. round. NECK: NO JVD. no stridor. CV: RRR. systolic murmur; no gallop or rubs. PULM: no wheezing or rhonchi. GI: SOFT, NT, ND, no rebound or guarding Extremity: trace B/L LE edema. no clubbing. neuro: awake and alert and responds appropriately Psych: calm and pleasant rectal: deferred : normal EKG done today shows normal sinus rhythm with PVC. Nonspecific T wave abnormalities Of the old chart shows that echocardiogram done in my office on 10/02/2018 has shown ejection fraction about 40 to 45% LVH with mild to moderate aortic insufficiency diastolic dysfunction mild MR and TR MRI of the brain done April 04, 2019 shows: MRI of the brain demonstrates a large left subdural hematoma with varying ages however there is a 9 mm acute component with the overall measurement measuring up to 2.2 cm resulting in diffuse left cerebral mass effect with minimal [id number] midline shift. 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 Objective Vitals Vital Signs Date Temp Pulse Resp B/P (MAP) Pulse Ox O2 O2 Flow FiO2 Time Delivery Rate 04/17/19 66 08:38 04/17/19 98.0 16 110/56 96 07:28 (74) 04/15/19 Room Air 16:06 04/14/19 2.0 20:00 Intake and Output 04/16/19 04/16/19 04/17/19 1515:00 23:00 07:00 IntakeIntake Total 505 ml BalanceBalance 505 ml Results/Medications Result Diagram: 04/13/19 0854 04/13/19 0854 Home Meds Active Scripts Amiodarone Hcl* (Amiodarone Hcl*) 100 Mg Tablet, 100 MG PO DAILY, #30 TAB Prov:RONY AGUILA MD 09/07/17 Reported Medications Amantadine Hcl* (Amantadine Hcl*) 100 Mg Capsule, 100 MG PO BID, #60 CAP 04/03/19 Carbidopa-Levodopa* (Sinemet CR*) 50-200 Mg Tabsr, 1 TAB PO TID, TAB 04/03/19 Folic Acid* (Folic Acid*) 1 Mg Tablet, 1 MG PO DAILY, TAB 04/03/19 Donepezil* (Donepezil*) 10 Mg Tablet, 10 MG PO DAILY, #30 TAB 04/03/19 Ramipril (Ramipril) 2.5 Mg Capsule, 2.5 MG PO DAILY, CAP 04/03/19 Megestrol Acetate* (Megestrol Acetate*) 40 Mg Tablet, 40 MG PO TID, TAB 09/05/17 Finasteride* (Finasteride*) 5 Mg Tablet, 5 MG PO DAILY, TAB 09/05/17 Gemfibrozil* (Gemfibrozil*) 600 Mg Tablet, 600 MG PO DAILY, TAB 09/05/17 Memantine* (Namenda* XR) 28 Mg Cap.spr.24, 28 MG PO DAILY, #30 TAB 09/05/17 Medications Current Medications Pantoprazole (Protonix Iv) 40 mg BID@06,18 IV Last administered on 04/17/19at 06:31; Admin Dose 40 MG; Start 04/03/19 at 20:00 Levetiracetam (Keppra) 250 mg BID PO Last administered on 04/16/19at 22:29; Admin Dose 250 MG; Start 04/03/19 at 23:30 Losartan Potassium (Cozaar) 12.5 mg DAILY PO Last administered on 04/16/19at 09:28; Admin Dose 12.5 MG; Start 04/07/19 at 09:00 Hydromorphone HCl (Dilaudid) 0.2 mg Q1H PRN IV .BREAKTHROUGH PAIN Last admin istered on 04/08/19at 09:11; Admin Dose 0.2 MG; Start 04/07/19 at 19:00 Ondansetron HCl (Zofran Inj) 4 mg Q6H PRN IV NAUSEA/VOMITING; Start 04/07/19 at 19:00 Naloxone HCl (Narcan) 0.2 mg Q2M PRN IV .RR 8 BREATHS/MIN OR LESS; Start 04/07/19 at 19:00 Neomycin/ Polymyxin/ Bacitracin (Neosporin Topical Oint) 1 applic BID TOP Last administered on 04/16/19 22:32; Admin Dose 1 APPLIC; Start 04/07/19 at 21:00 Clonidine HCl (Catapres-Tts 1 Patch) 1 patch Castaneda@1000 TRANSDERM Last administered on 04/08/19 12:26; Admin Dose 1 PATCH; Start 04/08/19 at 12:00 Acetaminophen (Tylenol Tab) 500 mg Q6H PRN PO MILD PAIN(1-3)OR ELEVATED TEMP Last administered on 04/15/19 20:25; Admin Dose 500 MG; Start 04/09/19 at 18:30 Amantadine HCl (Symmetrel) 100 mg BID PO Last administered on 04/16/19 22:28; Admin Dose 100 MG; Start 04/09/19 at 23:30 Memantine (Namenda) 10 mg BID PO Last administered on 04/16/19 22:29; Admin Dose 10 MG; Start 04/10/19 at 09:00 Benazepril HCl (Lotensin) 10 mg DAILY PO Last administered on 04/16/19 09:28; Admin Dose 10 MG; Start 04/10/19 at 09:00 Carbidopa/Levodopa (Sinemet Cr (50/ 200)) 1 tab TID PO Last administered on 04/16/19 22:29; Admin Dose 1 TAB; Start 04/10/19 at 01:40 Donepezil HCl (Aricept) 10 mg DAILY PO Last administered on 04/16/19 09:27; Admin Dose 10 MG; Start 04/10/19 at 01:30 Amiodarone HCl (Cordarone) 100 mg DAILY PO ; Start 04/17/19 at 09:00 Assessment/Plan Hospital Course (Demo Recall) 1. Cardiovascular preop evaluation, now s/p Left frontal and parietal burhole craniectomy for evacuation of SDH 04/07/19 2. Recurrent subdural hematoma and falls 3. History of marked bradycardia mostly secondary to frequent PVCs: Previously has been significantly improved on amiodarone p.o. 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 Aortic insufficiency 6. Anemia 7. Chronic kidney disease 8. Ventricular arrhythmias with very frequent PVCs as well as bigeminy's 9. Parkinson disease Recommendations correct lytes prn Follow-up with neurosurgery recommendation cont tele monitoring Continue with the Parkinson medication to be adjusted as per internal medicine. PT as tolerated decrease amiodarone 100 mg daily only awaiting rehab transfer Thank you for his referral. We will continue to follow along with you VIOLA GARAY MD [facility] VIOLA GARAY MD Apr 17, 2019 08:39
[2019-04-17] MEDS ORDERED: AMIODARONE 200 MG TAB PO SCH ×2 (09:00→13:30)
[2019-04-17] MEDS: CARBIDOPA/LEVODOPA 50-200 (CR) TAB PO SCH ×2 (09:52→14:26)
[2019-04-17] MEDS: LOSARTAN 25 MG TAB PO SCH (09:53)
[2019-04-17] MEDS: AMANTADINE 100 MG CAP PO SCH (09:54)
[2019-04-17] MEDS: MEMANTINE 10 MG TAB PO SCH (09:54)
[2019-04-17] MEDS: LEVETIRACETAM 250 MG TAB PO SCH (09:54)
[2019-04-17] MEDS: DONEPEZIL 10 MG TAB PO SCH (09:55)
[2019-04-17] MEDS: BENAZEPRIL 10 MG TAB PO SCH (09:55)
[2019-04-17] MEDS: NEOMYC/POLYMYX/BACIT 30 GM OINT TOP SCH (10:01)
--- NOTE | 2019-04-17 12:01 | CONS ---
Assessment/Plan Assessment/Plan Assessment/Plan (Daily) Assessment/Plan (Daily) Assessment/Plan Hospital Course (Demo Recall) 88 yo male with melena, s/p EGD and left frontoparietal lilia hole craniotomy and evacuation of subdural hematoma 1. Status post left frontoparietal lilia hole craniotomy and evacuation of subdural hematoma. -Per CT 04/09: New midline shift from left to right, New mildly increased left subdural mixed attenuation collection status post removal of the drain. Cannot exclude an acute versus recent hemorrhagic component at the left parietal subdural space. 2. Anemia. -HH has trended up and stable 3. Positive stool guaiac. -Normal CEA levels 4. History of multiple falls. 5. Benign prostatic hypertrophy. 6. Hearing impairment. 7. Chronic gastritis 8. Positive Gram negative rods in urine Plan Continue present care Physical therapy CBC in a.m. Consultation Date/Type/Reason Admit Date/Time April 03, 2019 at 12:57 Initial Consult Date Requesting Provider: GLORIA WISEMAN MD Date/Time of Note DATE: 04/17/19 TIME: 12:00 24 HR Interval Summary Constitutional: no complaints, improved Exam/Review of Systems Exam Vitals Vital Signs Date Temp Pulse Resp B/P (MAP) Pulse Ox O2 O2 Flow FiO2 Time Delivery Rate 04/17/19 97.8 73 18 106/56 98 11:26 (73) 04/15/19 Room Air 16:06 04/14/19 2.0 20:00 Intake and Output 04/16/19 04/16/19 04/17/19 1515:00 23:00 07:00 IntakeIntake Total 505 ml BalanceBalance 505 ml Constitutional: alert, oriented Results Result Diagram: 04/13/19 0854 04/13/19 0854 Medications Medication Current Medications Pantoprazole (Protonix Iv) 40 mg BID@,18 IV Last administered on 04/17/19at 06:31; Admin Dose 40 MG; Start 04/03/19 at 20:00 Levetiracetam (Keppra) 250 mg BID PO Last administered on 04/17/19at 09:54; Admin Dose 250 MG; Start 04/03/19 at 23:30 Losartan Potassium (Cozaar) 12.5 mg DAILY PO Last administered on 04/17/19at 09:53; Admin Dose 12.5 MG; Start 04/07/19 at 09:00 Hydromorphone HCl (Dilaudid) 0.2 mg Q1H PRN IV .BREAKTHROUGH PAIN Last administered on 04/08/19 09:11; Admin Dose 0.2 MG; Start 04/07/19 at 19:00 Ondansetron HCl (Zofran Inj) 4 mg Q6H PRN IV NAUSEA/VOMITING; Start 04/07/19 at 19:00 Naloxone HCl (Narcan) 0.2 mg Q2M PRN IV .RR 8 BREATHS/MIN OR LESS; Start 04/07/19 at 19:00 Neomycin/ Polymyxin/ Bacitracin (Neosporin Topical Oint) 1 applic BID TOP Last administered on 04/17/19 10:01; Admin Dose 1 APPLIC; Start 04/07/19 at 21:00 Clonidine HCl (Catapres-Tts 1 Patch) 1 patch Castaneda@1000 TRANSDERM Last administe red on 04/08/19 12:26; Admin Dose 1 PATCH; Start 04/08/19 at 12:00 Acetaminophen (Tylenol Tab) 500 mg Q6H PRN PO MILD PAIN(1-3)OR ELEVATED TEMP Last administered on 04/15/19 20:25; Admin Dose 500 MG; Start 04/09/19 at 18:30 Amantadine HCl (Symmetrel) 100 mg BID PO Last administered on 04/17/19 09:54; Admin Dose 100 MG; Start 04/09/19 at 23:30 Memantine (Namenda) 10 mg BID PO Last administered on 04/17/19 09:54; Admin Dose 10 MG; Start 04/10/19 at 09:00 Benazepril HCl (Lotensin) 10 mg DAILY PO Last administered on 04/17/19 09:55; Admin Dose 10 MG; Start 04/10/19 at 09:00 Carbidopa/Levodopa (Sinemet Cr (50/ 200)) 1 tab TID PO Last administered on 04/17/19 09:52; Admin Dose 1 TAB; Start 04/10/19 at 01:40 Donepezil HCl (Aricept) 10 mg DAILY PO Last administered on 04/17/19 09:55; Admin Dose 10 MG; Start 04/10/19 at 01:30 Amiodarone HCl (Cordarone) 100 mg DAILY PO Last administered on 04/17/19at 09:53; Admin Dose 100 MG; Start 04/17/19 at 09:00 WADE SHARMA MD Apr 17, 2019 12:01
[2019-04-17] MEDS ORDERED: FOLIC ACID 1 MG TAB PO SCH (13:00)
[2019-04-17] MEDS ORDERED: FINASTERIDE 5 MG TAB PO SCH (13:30)
[2019-04-17] MEDS ORDERED: MEGESTROL 40 MG TAB PO SCH (21:00)
[2019-04-18] MEDS ORDERED: GEMFIBROZIL 600 MG TAB PO SCH (09:00)
== END 2019-04-17 15:40 | DRG 25 ==
LOC: 2NE 12:57 → TEL 04-06 18:20 → ICU 04-07 16:00 → TEL 04-08 18:56
PROVIDERS: ADMIT Family Medicine; ATTEND Family Medicine
PROC: 0DB68ZX Excision of Stomach, Via Natural or Artificial Opening Endoscopic, Diagnostic (ICD-10-PCS; 2019-04-04)
PROC: 00C40ZZ Extirpation of Matter from Intracranial Subdural Space, Open Approach (ICD-10-PCS; principal; 2019-04-07 15:30)
DX: S06.5X0A Traumatic subdural hemorrhage without loss of consciousness, initial encounter (principal); E43 Unspecified severe protein-calorie malnutrition; K29.51 Unspecified chronic gastritis with bleeding; K92.1 Melena; I13.0 Hypertensive heart and chronic kidney disease with heart failure and stage 1 through stage 4 chronic kidney disease, or unspecified chronic kidney disease; D63.8 Anemia in other chronic diseases classified elsewhere; E78.5 Hyperlipidemia, unspecified; I25.9 Chronic ischemic heart disease, unspecified; G20 Parkinson's disease; F02.80 Dementia in other diseases classified elsewhere, unspecified severity, without behavioral disturbance, psychotic disturbance, mood disturbance, and anxiety; I49.3 Ventricular premature depolarization; H91.90 Unspecified hearing loss, unspecified ear; I50.9 Heart failure, unspecified; I35.1 Nonrheumatic aortic (valve) insufficiency; M62.50 Muscle wasting and atrophy, not elsewhere classified, unspecified site; M81.0 Age-related osteoporosis without current pathological fracture; M19.90 Unspecified osteoarthritis, unspecified site; N40.0 Benign prostatic hyperplasia without lower urinary tract symptoms; N18.9 Chronic kidney disease, unspecified; R29.6 Repeated falls; R53.1 Weakness; R13.19 Other dysphagia; R53.81 Other malaise; R42 Dizziness and giddiness; W19.XXXA Unspecified fall, initial encounter; Z86.79 Personal history of other diseases of the circulatory system; Z68.23 Body mass index [BMI] 23.0-23.9, adult; Z87.891 Personal history of nicotine dependence
CPT/HCPCS: 70450; 70551; 71046; 71260; 74178; 80048; 80053; 80061; 81001; 82270; 82378; 83540; 83735; 84100; 84153; 84154; 84443; 84484; 85025; 85610; 86850; 86900; 86901; 87081; 87086; 88305; 88312; 93005; 93306; 95819; 97116; 97161; 97530; C9113; J0360; J0690; J1170; J2250; J2405; J2710; J2916; J3010; J3475; J3480; J7042; P9047; Q9967

== ENCOUNTER 2019-04-16 20:40 | Inpatient (IN) | payer MEDICARE, OTHER ==
[~2019-04-16] VITALS: Ht 165.1 cm; Wt 62.0 kg
[~2019-04-16 20:40] MED LIST changes: +AMAN100C96 PO; +DONE10TA7 PO; +FOLI-49 PO; +RAMI2.5C36 PO; +SIN50200 PO
--- NOTE | 2019-04-17 00:13 | HP ---
Date/Time of Note Date/Time of Note DATE: 04/17/19 TIME: 00:12 Assessment/Plan VTE Prophylaxis SCD contraindicated: other (on) Pharmacological prophylaxis: other (no) Pharm contraindication: bleeding Lines/Catheters IV Catheter Type (from Nrsg): Peripheral IV Central line still needed: No Urinary Cath still in place: No Reason Cath still needed: urinary retention Assessment/Plan Assessment/Plan 1. Melena on and off still continues. 2. Weight loss more than 15 pounds during the last 2 months 3. Status post fall due to the severe weakness deconditioning and muscular wasting 4. Anemia chronic disease with a recent loss-iron level 28. 5. Status post right-sided adal trepanation with removal of subdural hematoma in the [facility] about 1/2 years ago. Patient had a subdural hematoma on the left side too.New on the top of the old subdural hematoma on the left on mri.S/P trephination and 2-3 cc of serous fluid in a bag. Altered level of consciousness but continues to be responsive without focal symptoms And CT evidence of recommendation of the fluid possible hemorrhagic component. 6. Ischemic heart disease angina. 7. Unstable gait with recurrent episodes of fall. 8. Deconditioning 9. Status post cataract ectomy 10. Constant snacking and chewing movements involuntarily being unable to stop mainly during last 3-4 months. 11. Bradycardia with history of syncopal episodes 12 osteoporosis and osteoarthritis 13. Dizziness 14. Hearing impairment 15. Dysphagia on and off 16. BPH with episodes of urinary incontinence 17. Dyslipidemia 18.S/p left clavicular FX(old, healed). HPI/ROS Admit Date/Time Admit Date/Time Weakness. ROS Please see the h&p of [facility] admission. Constitutional: improved; No no complaints, No chills, No diaphoresis, No disoriented, No fatigue, No f ebrile, No nausea, No poor po, No weight change, No other Eyes: No no complaints, No pain, No discharge, No redness, No visual change, No other ENT: congestion, dysphagia; No no complaints, No bleeding, No pain, No discharge, No sore throat, No other Respiratory: cough, shortness of breath, sputum; No no complaints, No pain, No pleuritic pain, No wheezing, No other Cardiovascular: chest pain, lightheadedness, orthopenea; No no complaints, No edema, No palpitations, No paroxysmal nocturnal dyspnea, No other Gastrointestinal: constipation, decreased appetite, passing stool; No no complaints, No pain, No blood, No diarrhea, No flatus, No nausea, No vomiting, No other Genitourinary: dysuria, discharge; No no complaints, No bleeding, No flank pain, No hematuria, No other Musculoskeletal: back pain, bone/joint pain, neck pain; No no complaints, No restricted range of motion, No swelling, No other Skin: pruritis; No no complaints, No bruising, No erythema, No laceration, No rash, No skin lesions, No other Neurologic: dizziness, headache; No no complaints, No confusion, No focal-weakness, No syncope, No seizure, No other Lymphatic: No no complaints, No adenopathy, No tender nodes, No lymphadema, No other Psychological: confusion (on and off.); No no complaints, No nl mood/affect, No anxiety, No depression, No suicidal, No other PMH/Family/Social Past Medical History Medical History: angina, congestive heart failure, coronary artery disease, GERD, high cholesterol, hypothyroid, peptic ulcer disease, renal disease, urinary tract infection Coded Allergies: No Known Allergy (Unverified , 09/05/17) Past Surgical History Past Surgical Hx: other Family History Significant Family History: no pertinent family hx, heart disease, COPD, hypertension Social History Alcohol Use: none Smoking Status: Former smoker Drug Use: none Exam/Review of Systems Exam Constitutional: alert, oriented (not in time.), well developed, frail; No non-verbal, No distress, No other Psych: anxiety; No no complaints, No nl mood/affect, No confusion, No depression, No suicidal, No other Head: normocephalic, atraumatic; No lacerations, No hematomas, No other Eyes: EOMI, nl lids; No nl conjunctiva, No nl sclera, No PERRL, No icteric, No fundi, disc, No other ENMT: No nl external ears & nose, No nl lips & teeth, No nl nasal mucosa & septum, No mucosa pink and moist, No intubated, No tympanic membranes, No other Neck: non-tender, bruits; No supple, No jvd, No masses, No thyromegaly, No nuchal rigidity, No other Respiratory: normal air movement, congested cough, diminished breath sounds; No clear to auscultation, No crackles/rales, No intercostal retraction, No labored breathing, No respirations, No tactile fremitus, No wheezing, No other Cardiovascular: regular rate and rhythm, systolic murmur; No nl pulses, No bruits, No diastolic murmur, No edema, No gallop, No irregular rhythm, No jugular venous distention (JVD), No murmurs/extra sounds, No rub, No S3, No S4, No other Gastrointestinal: soft, nl liver, spleen; No non-tender, No ascites, No bowel sounds, No distended, No firm, No hepatomegaly, No mass, No rebound or guarding, No splenomegaly, No surgical scars, No tender, No other Genitourinary - Male: nl penis, nl scrotum; No CVA tenderness, No discharge, No other Musculoskeletal: joint tenderness, muscle tone (decreased.), muscle weakness (decreased.); No nl extremities to inspection, No nl gait and stance, No range of motion, No spine non-tender, No swelling, No other 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: BLOCK PLACER II-XII intact (decreased hearing.), nl mental status (on and off confused and lethargic), confused (on and off.), numbness; No nl speech, No nl strength, No DTR's symmetric, No focal weakness, No lethargic, No reflexes, No unresponsive, No other Skin: nl turgor (decreased.), ecchymosis; No rash or lesions, No diaphoresis, No laceration, No puncture, No other Lymph: nl lymph nodes; No enlarged, No nontender, No other BROOKLYNN OCASIO MD Apr 17, 2019 00:13
[2019-04-17] MEDS ORDERED: MEMANTINE 5 MG TAB PO ONE (13:30)
[2019-04-17] MEDS ORDERED: FINASTERIDE 5 MG TAB PO ONE (13:30)
[2019-04-17 15:50] VITALS: BP 111/60; RESP 18
[2019-04-17] MEDS ORDERED: PENDING SANTYL ORDER FOR WOUND CARE XX PRN (16:30)
[2019-04-17 16:44] VITALS: Ht 165.1 cm; Wt 62.0 kg
[2019-04-17] MEDS ORDERED: BISACODYL 10 MG SUPP PR PRN (17:00)
[2019-04-17] MEDS ORDERED: LACTULOSE 30ML CUP PO PRN (17:00)
[2019-04-17] MEDS ORDERED: ACETAMINOPHEN 650MG/20.3ML CUP PO PRN (17:00)
[2019-04-17] MEDS ORDERED: MAGNESIUM HYDROXIDE 30ML CUP PO PRN (17:00)
[2019-04-17] MEDS: MEGESTROL 40 MG TAB PO SCH ×2 (18:45→20:39)
[2019-04-17 19:00] VITALS: BP 140/81; PULSE 77; RESP 18
[2019-04-17] MEDS: AMANTADINE 100 MG CAP PO SCH (20:39)
[2019-04-17] MEDS: CARBIDOPA/LEVODOPA (10/100) TAB PO SCH (20:39)
[2019-04-17] MEDS: LEVETIRACETAM 500 MG TAB PO SCH (20:39)
[2019-04-17] MEDS: DONEPEZIL 5 MG TAB PO SCH (20:39)
[2019-04-17] MEDS: SENNA TAB PO SCH (20:40)
[2019-04-17] MEDS: DOCUSATE SODIUM 10 MG/ML (10ML CUP) PO SCH (20:40)
[2019-04-17] MEDS: NEOMYC/POLYMYX/BACIT 30 GM OINT TOP SCH (21:09)
[2019-04-18 02:00] VITALS: BP 114/63; PULSE 70; RESP 18
[2019-04-18 07:58] VITALS: BP 97/56; PULSE 69; RESP 18
[2019-04-18] MEDS ORDERED: DONEPEZIL 5 MG TAB NGT SCH (09:00)
[2019-04-18] MEDS: AMANTADINE 100 MG CAP PO SCH ×2 (09:57→20:49)
[2019-04-18] MEDS: CARBIDOPA/LEVODOPA (10/100) TAB PO SCH ×3 (09:57→20:49)
[2019-04-18] MEDS: LEVETIRACETAM 500 MG TAB PO SCH ×2 (09:57→20:49)
[2019-04-18] MEDS: AMIODARONE 200 MG TAB PO SCH (09:58)
[2019-04-18] MEDS: MEGESTROL 40 MG TAB PO SCH ×4 (09:58→20:49)
[2019-04-18] MEDS: ENALAPRIL 2.5 MG TAB PO SCH (10:00)
[2019-04-18] MEDS: DOCUSATE SODIUM 10 MG/ML (10ML CUP) PO SCH ×2 (10:00→21:00)
--- NOTE | 2019-04-18 12:52 | CONS ---
DATE OF ADMISSION: 04/17/2019 DATE OF CONSULTATION: 04/18/2019 REHABILITATION POST-ADMISSION PHYSICIAN EVALUATION REHABILITATION IMPAIRMENT CATEGORY: Left frontoparietal subdural hematoma subacute/chronic status po st lilia hole evacuation on 04/07/2019. ACTIVE COMORBIDITIES: 1. History of subdural hematoma. 2. Gastritis/GI bleed. 3. BPH. 4. Gastroesophageal reflux disease. 5. Hepatitis. 6. Hyperlipidemia. 7. Hypertension. 8. History of coronary artery disease. 9. History of CHF. 10. Dysphagia, on dysphagia diet. 11. Urinary tract infection. 12. Impairments in self-care, mobility and cognition. HISTORY OF PRESENT ILLNESS: The patient is an 88-year-old right handed gentleman with [facility] including subdural hematoma, coronary artery disease, gastritis and pep tic ulcer disease who was admitted to [facility] with altered mental status, freque nt falls and anemia. Workup did reveal a left frontoparietal temporal subdural hematoma. The patien t was followed closely and did undergo bur hole evacuation on 04/07/2019. The patient's hospital cou rse also notable for BPH, gastritis, dysphagia requiring pureed diet. The patient also notable to keith ve significant impairments in self-care and mobility as compared to baseline and was cleared to trans [place] to the rehabilitation unit for comprehensive interdisciplinary rehab care. FUNCTIONAL HISTORY: Prior to recent events, he was independent with self-care tasks and mobility. C urrently, he requires moderate to maximal assist for self-care and mobility tasks. I have reviewed the preadmission screen and the patient's current functional status is consistent wit h the preadmission screen. FAMILY AND SOCIAL HISTORY: The patient lives at home with family, who provide supervision for him an d they hope to have him return home upon discharge. PAST MEDICAL HISTORY: 1. Coronary artery disease. 2. Congestive heart failure. 3. Peptic ulcer disease. 4. Gastritis. 5. Gastrointestinal bleed. 6. Gastroesophageal reflux disease. 7. Benign prostatic hypertrophy. 8. Hyperlipidemia. 9. Hypertension. 10. Hepatitis. 11. Bradycardia. 12. Subdural hematoma as described above. CURRENT MEDICATIONS: 1. Amantadine 100 mg p.o. b.i.d. 2. Cordarone 100 mg p.o. daily. 3. Aricept 5 mg daily. 4. Vasotec 2.5 mg p.o. daily. 5. Proscar 5 mg daily. 6. Keppra 500 mg p.o. b.i.d. 7. Sinemet 10/100 one tab p.o. t.i.d. 8. Megace 40 mg p.o. q.i.d. 9. Namenda 5 mg daily. ALLERGIES: THE PATIENT WITH NO KNOWN DRUG ALLERGIES. PHYSICAL EXAMINATION: VITAL SIGNS: He is currently afebrile with stable vital signs. HEENT: The scalp incision site is clean, dry and intact with sutures in place. Extraocular motion in tact. Oropharynx is clear. NECK: Supple. LUNGS: Clear anteriorly. CARDIAC: S1, S2. ABDOMEN: Soft, nontender, positive bowel sounds. NEUROLOGIC: He is arousable. He will follow simple 1-step commands. He demonstrates antigravity st rength in bilateral upper extremity and lower extremity. He has impaired static and dynamic balance. PLAN: The patient has been admitted for comprehensive interdisciplinary acute rehab and is anticipat ed to tolerate 3 hours of daily therapy in divided doses for at least 5/7 days a week. The treatment plan will include: 1. Physical therapy to focus on bed mobility, transfers, and household ambulation with the goal of h aving the patient reach a standby assist level. 2. Occupational therapy to focus on hygiene, grooming, dressing, bathing, and toileting activities w ith the goal of having the patient reach a standby assist level. 3. Neuropsychology for full cognitive assessment and oversight of cognitive program. 4. Rehabilitation nursing for carryover of therapeutic interventions, the goal of continent of bowel and bladder, the goal of improved skin integrity, and patient and family education with regard to th e aforementioned issues. 5. Speech therapy for full cognitive assessment in addition to dysphagia management with the goal of having the patient meet nutritional needs by mouth and return to baseline cognition. ESTIMATED LENGTH OF STAY: 10 days. DISPOSITION GOAL: Home with family. REHABILITATION BARRIER: Dysphagia. INTERVENTION FOR BARRIER: Speech therapy. As a board certified regional rehabilitation director in physical medicine and rehabilitation, I attest that this patient qualifies for an interdisciplinary acute rehabilitation unit stay and is best managed a t this level of care and cannot appropriately be managed in a different level of care. The patient h as potential to make improvement and is in need of at least 2 of the following multidisciplinary ther apies including but not limited to physical therapy, occupational therapy, nutritional services, resp iratory therapy, neuropsychological assessments and speech therapy. After a thorough review of this patient's medical records, I believe that this patient has met criteria for acute rehabilitation unit level of care under [facility] guidelines. Dictated By: AMANDA VALENTE/ROCK Conf#: [id number] DID#: [id number]
[2019-04-18] MEDS: NEOMYC/POLYMYX/BACIT 30 GM OINT TOP SCH ×2 (13:36→22:56)
[2019-04-18 14:30] VITALS: BP 97/56; PULSE 82; RESP 16
--- NOTE | 2019-04-18 20:33 | PN ---
Date/Time of Note Date/Time of Note DATE: 04/18/19 TIME: 20:30 Assessment/Plan VTE Prophylaxis Risk score (from Ns)>0 risk: 4 SCD applied (from Ns): Yes SCD contraindicated: other (on.) Pharmacological prophylaxis: other (Stop.) Pharm contraindication: bleeding Lines/Catheters IV C[facility]ter Type [facility]from [facility] [place] [employer] Central line still needed: No Urinary Cath still in place: No Reason Cath still needed: urinary retention Assessment/Plan Assessment/Plan 1. Melena on and off still continues. 2. Weight loss more than 15 pounds during the last 2 months 3. Status post fall due to the severe weakness deconditioning and muscular wasting 4. Anemia chronic disease with a recent loss-iron level 28. 5. Status post right-sided adal trepanation with removal of subdural hematoma in the [facility] about 1/2 years ago. Patient had a subdural hematoma on the left side too.New on the top of the old subdural hematoma on the left on mri.S/P trephination and 2-3 cc of serous fluid in a bag. Altered level of consciousness but continues to be responsive without focal symptoms And CT evidence of recommendation of the fluid possible hemorrhagic component. 6. Ischemic heart disease angina. 7. Unstable gait with recurrent episodes of fall. 8. Deconditioning 9. Status post cataract ectomy 10. Constant snacking and chewing movements involuntarily being unable to stop mainly during last 3-4 months. 11. Bradycardia with history of syncopal episodes 12 osteoporosis and osteoarthritis 13. Dizziness 14. Hearing impairment 15. Dysphagia on and off 16. BPH with episodes of urinary incontinence 17. Dyslipidemia 18.S/p left clavicular FX(old, healed). Result Diagram: 04/18/1963204/18/19632 Results 24hrs Laboratory Tests Test 04/18/19 06:33 04/18/19 15:00 White Blood Count 7.7 # Red Blood Count 3.19 L Hemoglobin 9.5 L Hematocrit 29.8 L Mean Corpuscular Volume 93.4 Mean Corpuscular Hemoglobin 29.8 Mean Corpuscular Hemoglobin Concent 31.9 L Red Cell Distribution Width 13.4 Platelet Count 261 Mean Platelet Volume 8.6 Immature Granulocytes % 0.900 H Neutrophils % 60.0 Lymphocytes % 22.4 Monocytes % 8.0 Eosinophils % 7.9 H Basophils % 0.8 Nucleated Red Blood Cells % 0.0 Immature Granulocytes # 0.070 H Neutrophils # 4.7 Lymphocytes # 1.7 Monocytes # 0.6 Eosinophils # 0.6 H Basophils # 0.1 Nucleated Red Blood Cells # 0.0 Sodium Level 133 L Potassium Level 4.4 Chloride Level 101 Carbon Dioxide Level 26 Anion Gap 6 Blood Urea Nitrogen 16 Creatinine 1.00 Est Glomerular Filtrat Rate mL/min Glucose Level 94 Calcium Level 9.0 Magnesium Level 2.1 Iron Level 32 L Total Iron Binding Capacity 245 Percent Iron Saturation 13 L Total Bilirubin 0.5 Direct Bilirubin 0.00 Indirect Bilirubin 0.5 Aspartate Amino Transf (AST/SGOT) 12 L Alanine Aminotransferase (ALT/SGPT) 13 Alkaline Phosphatase 61 Total Protein 6.2 Albumin 3.4 Globulin 2.80 Albumin/Globulin Ratio 1.21 Urine Color YELLOW Urine Clarity SLIGHTLY CLOUDY A Urine pH 5.0 Urine Specific [place] 1.023 Urine Ketones TRACE A Urine Nitrite NEGATIVE Urine Bilirubin NEGATIVE Urine Urobilinogen 2+ H Urine Leukocyte Esterase NEGATIVE Urine Microscopic RBC 138 H Urine Microscopic WBC 4 Urine Mucus FEW A Urine Hemoglobin 2+ H Urine Glucose NEGATIVE Urine Total Protein 1+ H Subjective 24 Hr Interval Summary Free Text/Dictation He was able to walk. I feel more stable. No fever or chills. No nausea vomiting. Constitutional: improved; No no complaints, No chills, No diaphoresis, No disoriented, No febrile, No poor po, No requiring IVF, No requiring O2, No other Eyes: No no complaints, No pain, No discharge, No redness, No visual change, No other ENT: No no complaints, No bleeding, No pain, No congestion, No discharge, No dysphagia, No sore throat, No other Respiratory: cough; No no complaints, No pain, No pleuritic pain, No shortness of breath, No sputum, No wheezing, No other Cardiovascular: No no complaints, No chest pain, No edema, No lightheadedness, No orthopenea, No palpitations, No paroxysmal nocturnal dyspnea, No other Gastrointestinal: flatus, passing stool; No no complaints, No pain, No blood, No constipation, No decreased appetite, No diarrhea, No nausea, No vomiting, No other Genitourinary: dysuria; No no complaints, No bleeding, No discharge, No flank pain, No hematuria, No other Musculoskeletal: back pain, bone/joint pain; No no complaints, No neck pain, No restricted range of motion, No swelling, No other Skin: No no complaints, No bruising, No erythema, No laceration, No pruritis, No rash, No skin lesions, No other Neurologic: dizziness; No no complaints, No confusion, No focal-weakness, No headache, No syncope, No seizure, No other Endocrine: No no complaints, No polyuria, No polydypsia, No dry skin, No temp intolerance, No other Lymphatic: lymphadema; No no complaints, No adenopathy, No tender nodes, No other Psychological: anxiety, confusion, depression, other (Memory impairment.); No no complaints, No nl mood/affect, No suicidal Exam/Review of Systems Exam Vitals Vital Signs Date Temp Pulse Resp B/P (MAP) Pulse Ox O2 O2 Flow FiO2 Time Delivery Rate 04/18/19 97.8 82 16 97/56 (70) 96 Room Air 14:30 Constitutional: alert, oriented, well developed, frail Psych: anxiety, depression; No no complaints, No nl mood/affect, No confusion, No suicidal, No other Head: normocephalic, atraumatic Eyes: EOMI, nl lids, PERRL; No nl conjunctiva, No nl sclera, No icteric, No fundi, disc, No other ENMT: nl lips & teeth; No nl external ears & nose, No nl nasal mucosa & septum, No mucosa pink and moist, No intubated, No tympanic membranes, No other Neck: jvd, bruits, thyromegaly, nuchal rigidity; No supple, No non-tender, No masses, No other Respiratory: congested cough, crackles/rales, diminished breath sounds; No clear to auscultation, No normal air movement, No intercostal retraction, No labored breathing, No respirations, No tactile fremitus, No wheezing, No other Cardiovascular: regular rate and rhythm, systolic murmur; No nl pulses, No bruits, No diastolic murmur, No edema, No gallop, No irregular rhythm, No jugular venous distention (JVD), No murmurs/extra sounds, No rub, No S3, No S4, No other Gastrointestinal: bowel sounds; No soft, No nl liver, spleen, No non-tender, No ascites, No distended, No firm, No hepatomegaly, No mass, No rebound or guarding, No splenomegaly, No surgical scars, No tender, No other Genitourinary - Male: nl penis, nl scrotum; No CVA tenderness, No discharge, No other Musculoskeletal: joint tenderness, muscle tone, muscle weakness; No nl extremities to inspection, No nl gait and stance, No range of motion, No spine non-tender, No swelling, No other Extremities: No normal pulses, No calf tenderness, No cyanosis, No clubbing, No edema, No pitting pedal edema, No palpable cord, No tenderness, No other 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: [employer] II-XII intact, numbness; No nl mental status, No nl speech, No nl strength, No confused, No DTR's symmetric, No focal weakness, No lethargic, No reflexes, No unresponsive, No other Results Results 24hrs Laboratory Tests Test 04/18/19 06:33 04/18/19 15:00 White Blood Count 7.7 # Red Blood Count 3.19 L Hemoglobin 9.5 L Hematocrit 29.8 L Mean Corpuscular Volume 93.4 Mean Corpuscular Hemoglobin 29.8 Mean Corpuscular Hemoglobin Concent 31.9 L Red Cell Distribution Width 13.4 Platelet Count 261 Mean Platelet Volume 8.6 Immature Granulocytes % 0.900 H Neutrophils % 60.0 Lymphocytes % 22.4 Monocytes % 8.0 Eosinophils % 7.9 H Basophils % 0.8 Nucleated Red Blood Cells % 0.0 Immature Granulocytes # 0.070 H Neutrophils # 4.7 Lymphocytes # 1.7 Monocytes # 0.6 Eosinophils # 0.6 H Basophils # 0.1 Nucleated Red Blood Cells # 0.0 Sodium Level 133 L Potassium Level 4.4 Chloride Level 101 Carbon Dioxide Level 26 Anion Gap 6 Blood Urea Nitrogen 16 Creatinine 1.00 Est Glomerular Filtrat Rate mL/min Glucose Level 94 Calcium Level 9.0 Magnesium Level 2.1 Iron Level 32 L Total Iron Binding Capacity 245 Percent Iron Saturation 13 L Total Bilirubin 0.5 Direct Bilirubin 0.00 Indirect Bilirubin 0.5 Aspartate Amino Transf (AST/SGOT) 12 L Alanine Aminotransferase (ALT/SGPT) 13 Alkaline Phosphatase 61 Total Protein 6.2 Albumin 3.4 Globulin 2.80 Albumin/Globulin Ratio 1.21 Urine Color YELLOW Urine Clarity SLIGHTLY CLOUDY A Urine pH 5.0 Urine Specific [place] 1.023 Urine Ketones TRACE A Urine Nitrite NEGATIVE Urine Bilirubin NEGATIVE Urine Urobilinogen 2+ H Urine Leukocyte Esterase NEGATIVE Urine Microscopic RBC 138 H Urine Microscopic WBC 4 Urine Mucus FEW A Urine Hemoglobin 2+ H Urine Glucose NEGATIVE Urine Total Protein 1+ H Medications Medication Current Medications Carbidopa/Levodopa (Sinemet ()) 1 tab TID PO Last administered on 04/18/19at 13:35; Admin Dose 1 TAB; Start 04/17/19 at 21:00 Enalapril Maleate (Vasotec) 2.5 mg DAILY PO ; Start 04/18/19 at 09:00 Amiodarone HCl (Cordarone) 100 mg DAILY PO Last administered on 04/18/19at 09:58; Admin Dose 100 MG; Start 04/18/19 at 09:00 Amantadine HCl (Symmetrel) 100 mg BID PO Last administered on 04/18/19at 09:57; Admin Dose 100 MG; Start 04/17/19 at 21:00 Megestrol Acetate (Megace) 40 mg QID PO Last administered on 04/18/19at 13:36; Admin Dose 40 MG; Start 04/17/19 at 17:00 Levetiracetam (Keppra) 500 mg BID PO Last administered on 04/18/19at 09:57; Admin Dose 500 MG; Start 04/17/19 at 21:00 [facility] This patient keith... PRN PRN XX WOUND CARE; Start 04/17/19 at 16:30 Donepezil HCl (Aricept) 5 mg DAILY@2100 PO Last administered on 04/17/19at 20:39; Admin Dose 5 MG; Start 04/17/19 at 21:00 Docusate Sodium (Colace Liquid Cup) 100 mg BID PO ; Start 04/17/19 at 21:00 Senna (Senokot) 1 tab QHS PO ; Start 04/17/19 at 21:00 Acetaminophen (Tylenol Liquid) 650 mg Q4H PRN PO MILD PAIN(1-3)OR ELEVATED TEMP; Start 04/17/19 at 17:00 Bisacodyl (Dulcolax Supp) 10 mg DAILY PRN [place] CONSTIPATION; Start 04/17/19 at 17:00 Magnesium Hydroxide (Milk Of Mag) 30 ml BID PRN PO CONSTIPATION; Start 04/17/19 at 17:00 Lactulose (Enulose) 20 gm DAILY PRN PO CONSTIPATION; Start 04/17/19 at 17:00 Neomycin/ Polymyxin/ Bacitracin (Neosporin Topical Oint) 1 applic BID TOP Last administered on 04/18/19at 13:36; Admin Dose 1 APPLIC; Start 04/17/19 at 21:00 Betamethasone/ Clotrimazole (Lotrisone Cr) 1 applic BID TOP ; Start 04/18/19 at 21:00 BROOKLYNN OCASIO MD Apr 18, 2019 20:33
[2019-04-18 20:47] VITALS: BP 131/71; PULSE 80; RESP 16
[2019-04-18] MEDS: DONEPEZIL 5 MG TAB PO SCH (20:52)
[2019-04-18] MEDS: SENNA TAB PO SCH ×2 (21:00→22:54)
[2019-04-18] MEDS: BETAMETHASONE/CLOTRIMAZOLE 15 GM CR TOP SCH (22:56)
[2019-04-19 02:00] VITALS: BP 114/58; PULSE 74; RESP 18
[2019-04-19 07:00] VITALS: BP 104/69; PULSE 74; RESP 18
[2019-04-19] MEDS: LEVETIRACETAM 500 MG TAB PO SCH ×2 (08:51→22:41)
[2019-04-19] MEDS: DOCUSATE SODIUM 10 MG/ML (10ML CUP) PO SCH ×2 (08:51→21:00)
[2019-04-19] MEDS: AMIODARONE 200 MG TAB PO SCH (08:52)
[2019-04-19] MEDS: ENALAPRIL 2.5 MG TAB PO SCH (08:53)
[2019-04-19] MEDS: AMANTADINE 100 MG CAP PO SCH ×2 (08:53→22:41)
[2019-04-19] MEDS: CARBIDOPA/LEVODOPA (10/100) TAB PO SCH ×3 (08:57→22:41)
[2019-04-19] MEDS: MEGESTROL 40 MG TAB PO SCH ×4 (08:58→22:40)
--- NOTE | 2019-04-19 09:41 | CONS ---
Consult Date/Type/Reason Admit Date/Time Apr 17, 2019 at 15:53 Initial Consult Date Type of Consultation: cv Date/Time of Note DATE: 04/19/19 TIME: 09:37 Subjective Interventional cardiology progress note Subjective: Case discussed with the daughter d/w staff pt is in rehab now and off tele. he is cooperative with PT no cp or pressure or palpitations Events noted s/p burhole and evacuation of SDH on 04/07/19 Objective: General: no acute distress HEENT: NC, s/p burhole .. pupils are equal. round. NECK: NO JVD. no stridor. CV: RRR. systolic murmur; no gallop or rubs. PULM: no wheezing or rhonchi. GI: SOFT, NT, ND, no rebound or guarding Extremity: trace B/L LE edema. no clubbing. neuro: awake and alert and responds appropriately Psych: calm and pleasant rectal: deferred : normal EKG done today shows normal sinus rhythm with PVC. Nonspecific T wave abnormalities Of the old chart shows that echocardiogram done in my office on 10/02/2018 has shown ejection fraction about 40 to 45% LVH with mild to moderate aortic insufficiency diastolic dysfunction mild MR and TR MRI of the brain done April 04, 2019 shows: MRI of the brain demonstrates a large left subdural hematoma with varying ages however there is a 9 mm acute component with the overall measurement measuring up to 2.2 cm resulting in diffuse left cerebral mass effect with minimal left-to -right midline shift. 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 Objective Vitals Vital Signs Date Temp Pulse Resp B/P (MAP) Pulse Ox O2 O2 Flow FiO2 Time Delivery Rate 04/19/19 98.0 74 18 104/69 98 Room Air 07:00 (81) Intake and Output 04/18/19 04/18/19 04/19/19 1515:00 23:00 07:00 IntakeIntake Total 500 ml 400 ml OutputOutput Total 180 ml BalanceBalance 320 ml 400 ml Results/Medications Result Diagram: 04/18/1933 04/18/19632 Results 24 hrs Laboratory Tests Test 04/18/19 15:00 Urine Color YELLOW Urine Clarity SLIGHTLY CLOUDY A Urine pH 5.0 Urine Specific [place] 1.023 Urine Ketones TRACE A Urine Nitrite NEGATIVE Urine Bilirubin NEGATIVE Urine Urobilinogen 2+ H Urine Leukocyte Esterase NEGATIVE Urine Microscopic RBC 138 H Urine Microscopic WBC 4 Urine Mucus FEW A Urine Hemoglobin 2+ H Urine Glucose NEGATIVE Urine Total Protein 1+ H Home Meds Active Scripts Amiodarone Hcl* (Amiodarone Hcl*) 100 Mg Tablet, 100 MG PO DAILY, #30 TAB Prov:RONY AGUILA MD 09/07/17 Reported Medications Amantadine Hcl* (Amantadine Hcl*) 100 Mg Capsule, 100 MG PO BID, #60 CAP 04/03/19 Carbidopa-Levodopa* (Sinemet CR*) 50-200 Mg Tabsr, 1 TAB PO TID, TAB 04/03/19 Folic Acid* (Folic Acid*) 1 Mg Tablet, 1 MG PO DAILY, TAB 04/03/19 Donepezil* (Donepezil*) 10 Mg Tablet, 10 MG PO DAILY, #30 TAB 04/03/19 Ramipril (Ramipril) 2.5 Mg Capsule, 2.5 MG PO DAILY, CAP 04/03/19 Megestrol Acetate* (Megestrol Acetate*) 40 Mg Tablet, 40 MG PO TID, TAB 09/05/17 Finasteride* (Finasteride*) 5 Mg Tablet, 5 MG PO DAILY, TAB 09/05/17 Gemfibrozil* (Gemfibrozil*) 600 Mg Tablet, 600 MG PO DAILY, TAB 09/05/17 Memantine* (Namenda* XR) 28 Mg Cap.spr.24, 28 MG PO DAILY, #30 TAB 09/05/17 Medications Current Medications Carbidopa/Levodopa (Sinemet ()) 1 tab TID PO Last administered on 04/19/19at 08:57; Admin Dose 1 TAB; Start 04/17/19 at 21:00 Enalapril Maleate (Vasotec) 2.5 mg DAILY PO Last administered on 04/19/19at 08:53; Admin Dose 2.5 MG; Start 04/18/19 at 09:00 Amiodarone HCl (Cordarone) 100 mg DAILY PO Last administered on 04/19/19at 08:52; Admin Dose 100 MG; Start 04/18/19 at 09:00 Amantadine HCl (Symmetrel) 100 mg BID PO Last administered on 04/19/19 08:53; Admin Dose 100 MG; Start 04/17/19 at 21:00 Megestrol Acetate (Megace) 40 mg QID PO Last administered on 04/19/19 08:58; Admin Dose 40 MG; Start 04/17/19 at 17:00 Levetiracetam (Keppra) 500 mg BID PO Last administered on 04/19/19 08:51; Admin Dose 500 MG; Start 04/17/19 at 21:00 Miscellaneous Information (Pending Santyl Order For Wound Care) This patient keith... PRN PRN XX WOUND CARE; Start 04/17/19 at 16:30 Donepezil HCl (Aricept) 5 mg DAILY@2100 PO Last administered on 04/18/19 20:52; Admin Dose 5 MG; Start 04/17/19 at 21:00 Docusate Sodium (Colace Liquid Cup) 100 mg BID PO Last administered on 04/19/19 08:51; Admin Dose 100 MG; Start 04/17/19 at 21:00 Senna (Senokot) 1 tab QHS PO Last administered on 04/18/19 22:54; Admin Dose 1 TAB; Start 04/17/19 at 21:00 Acetaminophen (Tylenol Liquid) 650 mg Q4H PRN PO MILD PAIN(1-3)OR ELEVATED TEMP ; Start 04/17/19 at 17:00 Bisacodyl (Dulcolax Supp) 10 mg DAILY PRN [place] CONSTIPATION; Start 04/17/19 at 17:00 Magnesium Hydroxide (Milk Of Mag) 30 ml BID PRN PO CONSTIPATION; Start 04/17/19 at 17:00 Lactulose (Enulose) 20 gm DAILY PRN PO CONSTIPATION; Start 04/17/19 at 17:00 Neomycin/ Polymyxin/ Bacitracin (Neosporin Topical Oint) 1 applic BID TOP Last administered on 04/18/19at 22:56; Admin Dose 1 APPLIC; Start 04/17/19 at 21:00 Betamethasone/ Clotrimazole (Lotrisone Cr) 1 applic BID TOP Last administered on 04/18/19 22:56; Admin Dose 1 APPLIC; Start 04/18/19 at 21:00 Ferric Sodium Gluconate Complex 125 mg/Sodium Chloride 100 ml @ 100 mls/hr DAILY@1300 IVPB ; Start 04/19/19 at 13:00; Stop 04/21/19 at 13:59 Assessment/Plan Hospital Course (Demo Recall) 1. s/p Left frontal and parietal burhole craniectomy for evacuation of SDH 04/07/19 2. Recurrent subdural hematoma and falls 3. History of marked bradycardia mostly secondary to frequent PVCs: Previously has been significantly improved on amiodarone p.o. 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 Aortic insufficiency 6. Anemia 7. Chronic kidney disease 8. Ventricular arrhythmias with very frequent PVCs as well as bigeminy's 9. Parkinson disease Recommendations correct lytes prn Follow-up with neurosurgery recommendation cont tele monitoring Continue with the Parkinson medication to be adjusted as per internal medicine. PT as tolerated CONT amiodarone 100 mg daily only Thank you for his referral. We will continue to follow along with you VIOLA GARAY MD [facility] VIOLA GARAY MD Apr 19, 2019 09:41
--- NOTE | 2019-04-19 11:37 | PN ---
Date/Time of Note Date/Time of Note DATE: 04/19/19 TIME: 11:34 Assessment/Plan VTE Prophylaxis Risk score (from Ns)>0 risk: 5 SCD applied (from Ns): No SCD contraindicated: other (on.) Pharmacological prophylaxis: other (Contraindicated.) Pharm contraindication: bleeding Lines/Catheters IV [facility]ter Type [facility]from [facility]): [place] line still needed: No Urinary Cath still in place: No Reason Cath still needed: urinary retention Assessment/Plan Assessment/Plan 1. Melena on and off still continues. 2. Weight loss more than 15 pounds during the last 2 months 3. Status post fall due to the severe weakness deconditioning and muscular wasting 4. Anemia chronic disease with a recent loss-iron level 28. 5. Status post right-sided adal trepanation with removal of subdural hematoma in the [facility] about 1/2 years ago. Patient had a subdural hematoma on the left side too.New on the top of the old subdural hematoma on the left on mri.S/P trephination and 2-3 cc of serous fluid in a bag. Altered level of consciousness but continues to be responsive without focal symptoms And CT evidence of recommendation of the fluid possible hemorrhagic component. 6. Ischemic heart disease angina. 7. Unstable gait with recurrent episodes of fall. 8. Deconditioning 9. Status post cataract ectomy 10. Constant snacking and chewing movements involuntarily being unable to stop mainly during last 3-4 months. 11. Bradycardia with history of syncopal episodes 12 osteoporosis and osteoarthritis 13. Dizziness 14. Hearing impairment 15. Dysphagia on and off 16. BPH with episodes of urinary incontinence 17. Dyslipidemia 18.S/p left clavicular FX(old, healed). 19. Hyponatremia-supplement. Result Diagram: 04/18/1933 04/18/19632 Results 24hrs Laboratory Tests Test 04/18/19 15:00 Urine Color YELLOW Urine Clarity SLIGHTLY CLOUDY A Urine pH 5.0 Urine Specific [place] 1.023 Urine Ketones TRACE A Urine Nitrite NEGATIVE Urine Bilirubin NEGATIVE Urine Urobilinogen 2+ H Urine Leukocyte Esterase NEGATIVE Urine Microscopic RBC 138 H Urine Microscopic WBC 4 Urine Mucus FEW A Urine Hemoglobin 2+ H Urine Glucose NEGATIVE Urine Total Protein 1+ H Subjective 24 Hr Interval Summary Free Text/Dictation I feel more strained. I am afraid to stay up alone. I feel confident in 1 of 2 people are supporting me. I feel I am recovering. Constitutional: improved; No no complaints, No chills, No diaphoresis, No disoriented, No febrile, No poor po, No requiring IVF, No requiring O2, No other Eyes: No no complaints, No pain, No discharge, No redness, No visual change, No other ENT: dysphagia, other (Recurrent chewing movements within it with inability to stop.); No no complaints, No bleeding, No pain, No congestion, No discharge, No sore throat Respiratory: No no complaints, No pain, No cough, No pleuritic pain, No shortness of breath, No sputum, No wheezing, No other Cardiovascular: chest pain, lightheadedness, orthopenea; No no complaints, No edema, No palpitations, No paroxysmal nocturnal dyspnea, No other Gastrointestinal: No no complaints, No pain, No blood, No constipation, No decreased appetite, No diarrhea, No flatus, No nausea, No passing stool, No vomiting, No other Genitourinary: dysuria; No no complaints, No bleeding, No discharge, No flank pain, No hematuria, No other Musculoskeletal: back pain, bone/joint pain; No no complaints, No neck pain, No restricted range of motion, No swelling, No other Skin: No no complaints, No bruising, No erythema, No laceration, No pruritis, N o rash, No skin lesions, No other Neurologic: No no complaints, No confusion, No dizziness, No focal-weakness, No headache, No syncope, No seizure, No other Endocrine: No no complaints, No polyuria, No polydypsia, No dry skin, No temp intolerance, No other Lymphatic: No no complaints, No adenopathy, No tender nodes, No lymphadema, No other Psychological: anxiety; No no complaints, No nl mood/affect, No confusion, No depression, No suicidal, No other Immunologic: No no complaints, No immunodeficiency, No pruritis, No rhinitis, No urticaria, No other Exam/Review of Systems Exam Vitals Vital Signs Date Temp Pulse Resp B/P (MAP) Pulse Ox O2 O2 Flow FiO2 Time Delivery Rate 04/19/19 98.0 74 18 104/69 98 Room Air 07:00 (81) Intake and Output 04/18/19 04/18/19 04/19/19 1515:00 23:00 07:00 IntakeIntake Total 500 ml 400 ml OutputOutput Total 180 ml BalanceBalance 320 ml 400 ml Constitutional: alert, oriented, well developed, distress, frail; No non-verbal, No obese, No other Psych: anxiety, confusion Head: normocephalic, atraumatic; No lacerations, No hematomas, No other Eyes: EOMI, nl lids; No nl conjunctiva, No nl sclera, No PERRL, No icteric, No fundi, disc, No other ENMT: No nl external ears & nose, No nl lips & teeth, No nl nasal mucosa & septum, No mucosa pink and moist, No intubated, No tympanic membranes, No other Neck: jvd, bruits, nuchal rigidity; No supple, No non-tender, No masses, No thyromegaly, No other Respiratory: normal air movement, crackles/rales, diminished breath sounds, intercostal retraction; No clear to auscultation, No congested cough, No labored breathing, No respirations, No tactile fremitus, No wheezing, No other Cardiovascular: No regular rate and rhythm, No nl pulses, No bruits, No diastolic murmur, No edema, No gallop, No irregular rhythm, No jugular venous distention (JVD), No murmurs/extra sounds, No rub, No systolic murmur, No S3, No S4, No other Gastrointestinal: soft, nl liver, spleen, non-tender; No ascites, No bowel sounds, No distended, No firm, No hepatomegaly, No mass, No rebound or guarding, No splenomegaly, No surgical scars, No tender, No other Genitourinary - Male: nl penis, nl scrotum Musculoskeletal: joint tenderness; No nl extremities to inspection, No nl gait and stance, No muscle tone, No muscle weakness, No range of motion, No spine non-tender, No swelling, No other Extremities: No normal pulses, No calf tenderness, No cyanosis, No clubbing, No edema, No pitting pedal edema, No palpable cord, No tenderness, No other 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: FOREST EXAMINER II-XII intact (Doing impairment. Repetitive chewing movements.) Results Results 24hrs Laboratory Tests Test 04/18/19 15:00 Urine Color YELLOW Urine Clarity SLIGHTLY CLOUDY A Urine pH 5.0 Urine Specific [place] 1.023 Urine Ketones TRACE A Urine Nitrite NEGATIVE Urine Bilirubin NEGATIVE Urine Urobilinogen 2+ H Urine Leukocyte Esterase NEGATIVE Urine Microscopic RBC 138 H Urine Microscopic WBC 4 Urine Mucus FEW A Urine Hemoglobin 2+ H Urine Glucose NEGATIVE Urine Total Protein 1+ H Medications Medication Current Medications Carbidopa/Levodopa (Sinemet (10/ 100)) 1 tab TID PO Last administered on 04/19/19 08:57; Admin Dose 1 TAB; Start 04/17/19 at 21:00 Enalapril Maleate (Vasotec) 2.5 mg DAILY PO Last administered on 04/19/19 08:53; Admin Dose 2.5 MG; Start 04/18/19 at 09:00 Amiodarone HCl (Cordarone) 100 mg DAILY PO Last administered on 04/19/19 08:52; Admin Dose 100 MG; Start 04/18/19 at 09:00 Amantadine HCl (Symmetrel) 100 mg BID PO Last administered on 04/19/19 08:53; Admin Dose 100 MG; Start 04/17/19 at 21:00 Megestrol Acetate (Megace) 40 mg QID PO Last administered on 04/19/19 08:58; Admin Dose 40 MG; Start 04/17/19 at 17:00 Levetiracetam (Keppra) 500 mg BID PO Last administered on 04/19/19 08:51; Admin Dose 500 MG; Start 04/17/19 at 21:00 Miscellaneous Information (Pending [facility] Order For Wound Care) This patient keith... PRN PRN XX WOUND CARE; Start 04/17/19 at 16:30 Donepezil HCl (Aricept) 5 mg DAILY@2100 PO Last administered on 04/18/19 20:52; Admin Dose 5 MG; Start 04/17/19 at 21:00 Docusate Sodium (Colace Liquid Cup) 100 mg BID PO Last administered on 04/19/19 08:51; Admin Dose 100 MG; Start 04/17/19 at 21:00 Senna (Senokot) 1 tab QHS PO Last administered on 04/18/19 22:54; Admin Dose 1 TAB; Start 04/17/19 at 21:00 Acetaminophen (Tylenol Liquid) 650 mg Q4H PRN PO MILD PAIN(1-3)OR ELEVATED TEMP; Start 04/17/19 at 17:00 Bisacodyl (Dulcolax Supp) 10 mg DAILY PRN [place] CONSTIPATION; Start 04/17/19 at 17:00 Magnesium Hydroxide (Milk Of Mag) 30 ml BID PRN PO CONSTIPATION; Start 04/17/19 at 17:00 Lactulose (Enulose) 20 gm DAILY PRN PO CONSTIPATION; Start 04/17/19 at 17:00 Neomycin/ Polymyxin/ Bacitracin (Neosporin Topical Oint) 1 applic BID TOP Last administered on 04/18/19at 22:56; Admin Dose 1 APPLIC; Start 04/17/19 at 21:00 Betamethasone/ Clotrimazole (Lotrisone Cr) 1 applic BID TOP Last administered on 04/18/19at 22:56; Admin Dose 1 APPLIC; Start 04/18/19 at 21:00 Ferric Sodium Gluconate Complex 125 mg/Sodium Chloride 100 ml @ 100 mls/hr DAILY@1300 IVPB ; Start 04/19/19 at 13:00; Stop 04/21/19 at 13:59 BROOKLYNN OCASIO MD Apr 19, 2019 11:37
--- NOTE | 2019-04-19 11:39 | PN ---
Date/Time of Note Date/Time of Note DATE: 04/19/19 TIME: 11:06 Objective Vital Signs Date Temp Pulse Resp B/P (MAP) Pulse Ox O2 O2 Flow FiO2 Time Delivery Rate 04/19/19 98.0 74 18 104/69 98 Room Air 07:00 (81) Intake and Output 04/18/19 04/18/19 04/19/19 1515:00 23:00 07:00 IntakeIntake Total 500 ml 400 ml OutputOutput Total 180 ml BalanceBalance 320 ml 400 ml Exam INTERDISCIPLINARY TEAM CONFERENCE Attended by PT, OT, ST, Operator Weapon Locating Radar, Social Work, Rehabilitation Nursing, Cooker Pie Filling and Gunner'S Mate GCrown Assembly Machine Operator Exam: Pulm- cta Abd- soft BOWEL- Cont BLADDER-Cont/incont SKIN- improving OT- DRESSING-cga/mod BATHING-mod TOILETING-mod PT- BED MOBILITY-max TRANSFERS-max AMBULATION-max 45 feet SPEECH- COGNITION- mod Dysphagia- puree and thin A/P- Interdisciplinary team conference held today. Please see interdisciplinary sheet. Working toward d.c. on 04/25 with post discharge follow up of physical therapy, occupational therapy. Results/Medications Result Diagram: 04/18/1963204/18/19632 Results 24 hrs Laboratory Tests Test 04/18/19 15:00 Urine Color YELLOW Urine Clarity SLIGHTLY CLOUDY A Urine pH 5.0 Urine Specific [place] 1.023 Urine Ketones TRACE A Urine Nitrite NEGATIVE Urine Bilirubin NEGATIVE Urine Urobilinogen 2+ H Urine Leukocyte Esterase NEGATIVE Urine Microscopic RBC 138 H Urine Microscopic WBC 4 Urine Mucus FEW A Urine Hemoglobin 2+ H Urine Glucose NEGATIVE Urine Total Protein 1+ H Medications Current Medications Carbidopa/Levodopa (Sinemet (10/ 100)) 1 tab TID PO Last administered on 04/19/19at 08:57; Admin Dose 1 TAB; Start 04/17/19 at 21:00 Enalapril Maleate (Vasotec) 2.5 mg DAILY PO Last administered on 04/19/19at 08:53; Admin Dose 2.5 MG; Start 04/18/19 at 09:00 Amiodarone HCl (Cordarone) 100 mg DAILY PO Last administered on 04/19/19at 08:52; Admin Dose 100 MG; Start 04/18/19 at 09:00 Amantadine HCl (Symmetrel) 100 mg BID PO Last administered on 04/19/19 08:53; Admin Dose 100 MG; Start 04/17/19 at 21:00 Megestrol Acetate (Megace) 40 mg QID PO Last administered on 04/19/19 08:58; Admin Dose 40 MG; Start 04/17/19 at 17:00 Levetiracetam (Keppra) 500 mg BID PO Last administered on 04/19/19 08:51; Admin Dose 500 MG; Start 04/17/19 at 21:00 Miscellaneous Information (Pending [facility] Order For Wound Care) This patient h a... PRN PRN XX WOUND CARE; Start 04/17/19 at 16:30 Donepezil HCl (Aricept) 5 mg DAILY@2100 PO Last administered on 04/18/19 20:52; Admin Dose 5 MG; Start 04/17/19 at 21:00 Docusate Sodium (Colace Liquid Cup) 100 mg BID PO Last administered on 04/19/19 08:51; Admin Dose 100 MG; Start 04/17/19 at 21:00 Senna (Senokot) 1 tab QHS PO Last administered on 04/18/19 22:54; Admin Dose 1 TAB; Start 04/17/19 at 21:00 Acetaminophen (Tylenol Liquid) 650 mg Q4H PRN PO MILD PAIN(1-3)OR ELEVATED TEMP; Start 04/17/19 at 17:00 Bisacodyl (Dulcolax Supp) 10 mg DAILY PRN [place] CONSTIPATION; Start 04/17/19 at 17:00 Magnesium Hydroxide (Milk Of Mag) 30 ml BID PRN PO CONSTIPATION; Start 04/17/19 at 17:00 Lactulose (Enulose) 20 gm DAILY PRN PO CONSTIPATION; Start 04/17/19 at 17:00 Neomycin/ Polymyxin/ Bacitracin (Neosporin Topical Oint) 1 applic BID TOP Last administered on 04/18/19 22:56; Admin Dose 1 APPLIC; Start 04/17/19 at 21:00 Betamethasone/ Clotrimazole (Lotrisone Cr) 1 applic BID TOP Last administered on 04/18/19 22:56; Admin Dose 1 APPLIC; Start 04/18/19 at 21:00 Ferric Sodium Gluconate Complex 125 mg/Sodium Chloride 100 ml @ 100 mls/hr DAILY@1300 IVPB ; Start 04/19/19 at 13:00; Stop 04/21/19 at 13:59 AMANDA DONOVAN MD Apr 19, 2019 11:39
[2019-04-19] MEDS: NEOMYC/POLYMYX/BACIT 30 GM OINT TOP SCH ×2 (13:15→22:42)
[2019-04-19] MEDS: BETAMETHASONE/CLOTRIMAZOLE 15 GM CR TOP SCH ×2 (13:16→22:42)
[2019-04-19] MEDS: SOD FERRIC GLUC COMPLX 125 MG in SOD CHLORIDE 0.9% 100 ML IVPB SCH (13:16)
[2019-04-19 14:00] VITALS: BP 125/65; PULSE 78; RESP 18
[2019-04-19 19:43] VITALS: BP 128/62; PULSE 80; RESP 18
[2019-04-19] MEDS: SENNA TAB PO SCH (21:00)
[2019-04-19] MEDS: DONEPEZIL 5 MG TAB PO SCH (22:41)
[2019-04-20 07:00] VITALS: BP 117/62; PULSE 69; RESP 18
[2019-04-20] MEDS: DOCUSATE SODIUM 10 MG/ML (10ML CUP) PO SCH (09:00)
[2019-04-20] MEDS: MEGESTROL 40 MG TAB PO SCH ×4 (09:07→20:28)
[2019-04-20] MEDS: AMIODARONE 200 MG TAB PO SCH (09:08)
[2019-04-20] MEDS: LEVETIRACETAM 500 MG TAB PO SCH ×2 (09:08→20:28)
[2019-04-20] MEDS: AMANTADINE 100 MG CAP PO SCH ×2 (09:08→20:28)
[2019-04-20] MEDS: CARBIDOPA/LEVODOPA (10/100) TAB PO SCH ×3 (09:09→20:28)
[2019-04-20] MEDS: ENALAPRIL 2.5 MG TAB PO SCH (09:09)
[2019-04-20] MEDS: NEOMYC/POLYMYX/BACIT 30 GM OINT TOP SCH ×2 (09:12→20:28)
[2019-04-20] MEDS: BETAMETHASONE/CLOTRIMAZOLE 15 GM CR TOP SCH ×2 (09:12→20:28)
[2019-04-20] MEDS ORDERED: BARIUM SULFATE 135 ML (E-Z HD) PO ONE (09:30)
[2019-04-20 14:00] VITALS: BP 113/67; PULSE 85; RESP 18
--- NOTE | 2019-04-20 14:10 | PN ---
Date/Time of Note Date/Time of Note DATE: 04/20/19 TIME: 14:08 Subjective overall doing well with therapy Objective Vital Signs Date Temp Pulse Resp B/P (MAP) Pulse Ox O2 O2 Flow FiO2 Time Delivery Rate 04/20/19 98.2 69 18 117/62 97 Room Air 07:00 (80) Intake and Output 04/19/19 04/19/19 04/20/19 1515:00 23:00 07:00 IntakeIntake Total 100 ml 800 ml BalanceBalance 100 ml 800 ml Exam min assist [id number] abd-soft Results/Medications Result Diagram: 04/18/1963204/18/19632 Medications Current Medications Carbidopa/Levodopa (Sinemet ()) 1 tab TID PO Last administered on 04/20/19at 09:09; Admin Dose 1 TAB; Start 04/17/19 at 21:00 Enalapril Maleate (Vasotec) 2.5 mg DAILY PO Last administered on 04/20/19 09:09; Admin Dose 2.5 MG; Start 04/18/19 at 09:00 Amiodarone HCl (Cordarone) 100 mg DAILY PO Last administered on 04/20/19 09:08; Admin Dose 100 MG; Start 04/18/19 at 09:00 Amantadine HCl (Symmetrel) 100 mg BID PO Last administered on 04/20/19at 09:08; Admin Dose 100 MG; Start 04/17/19 at 21:00 Megestrol Acetate (Megace) 40 mg QID PO Last administered on 04/20/19at 09:07; Admin Dose 40 MG; Start 04/17/19 at 17:00 Levetiracetam (Keppra) 500 mg BID PO Last administered on 04/20/19 09:08; Admin Dose 500 MG; Start 04/17/19 at 21:00 Miscellaneous Information (Pending [facility] Order For Wound Care) This patient keith... PRN PRN XX WOUND CARE; Start 04/17/19 at 16:30 Donepezil HCl (Aricept) 5 mg DAILY@2100 PO Last administered on 04/19/19at 22:41; Admin Dose 5 MG; Start 04/17/19 at 21:00 Docusate Sodium (Colace Liquid Cup) 100 mg BID PO Last administered on 04/19/19at 08:51; Admin Dose 100 MG; Start 04/17/19 at 21:00 Senna (Senokot) 1 tab QHS PO Last administered on 04/18/19at 22:54; Admin Dose 1 TAB; Start 04/17/19 at 21:00 Acetaminophen (Tylenol Liquid) 650 mg Q4H PRN PO MILD PAIN(1-3)OR ELEVATED TEMP; Start 04/17/19 at 17:00 Bisacodyl (Dulcolax Supp) 10 mg DAILY PRN [place] CONSTIPATION; Start 04/17/19 at 17:00 Magnesium Hydroxide (Milk Of Mag) 30 ml BID PRN PO CONSTIPATION; Start 04/17/19 at 17:00 Lactulose (Enulose) 20 gm DAILY PRN PO CONSTIPATION; Start 04/17/19 at 17:00 Neomycin/ Polymyxin/ Bacitracin (Neosporin Topical Oint) 1 applic BID TOP Last administered on 04/20/19at 09:12; Admin Dose 1 APPLIC; Start 04/17/19 at 21:00 Betamethasone/ Clotrimazole (Lotrisone Cr) 1 applic BID TOP Last administered on 04/20/19at 09:12; Admin Dose 1 APPLIC; Start 04/18/19 at 21:00 Ferric Sodium Gluconate Complex 125 mg/Sodium Chloride 100 ml @ 100 mls/hr DAILY@1300 IVPB Last administered on 04/19/19at 13:16; Admin Dose 100 MLS/HR; Start 04/19/19 at 13:00; Stop 04/21/19 at 13:59 Assessment/Plan Additional Assessment/Plan Rehab- Left frontoparietal subdural hematoma subacute/chronic status post lilia hole evacuation on 04/07/2019. Continue rehab activities GI- Gastritis/GI bleed; GERD BPH. Hepatitis. Hyperlipidemia. Hypertension. Card- History of coronary artery disease, CHF. Dysphagia, on dysphagia diet. Urinary tract infection. AMANDA DONOVAN MD Apr 20, 2019 14:10
[2019-04-20] MEDS: SOD FERRIC GLUC COMPLX 125 MG in SOD CHLORIDE 0.9% 100 ML IVPB SCH (14:57)
--- NOTE | 2019-04-20 17:23 | CONS ---
Consult Date/Type/Reason Admit Date/Time Apr 17, 2019 at 15:53 Initial Consult Date Type of Consultation: cv Date/Time of Note DATE: 04/20/19 TIME: 17:22 Subjective Interventional cardiology progress note Subjective: Case discussed with the d/w staff pt is in rehab now and off tele. he is cooperative with PT no cp or pressure or palpitations Events noted s/p burhole and evacuation of SDH on 04/07/19 Objective: General: no acute distress HEENT: NC, s/p burhole .. pupils are equal. round. NECK: NO JVD. no stridor. CV: RRR. systolic murmur; no gallop or rubs. PULM: no wheezing or rhonchi. GI: SOFT, NT, ND, no rebound or guarding Extremity: trace B/L LE edema. no clubbing. neuro: awake and alert and responds appropriately Psych: calm and pleasant rectal: deferred : normal EKG done today shows normal sinus rhythm with PVC. Nonspecific T wave abno rmalities Of the old chart shows that echocardiogram done in my office on 10/02/2018 has shown ejection fraction about 40 to 45% LVH with mild to moderate aortic insufficiency diastolic dysfunction mild MR and TR MRI of the brain done April 04, 2019 shows: MRI of the brain demonstrates a large left subdural hematoma with varying ages however there is a 9 mm acute component with the overall measurement measuring up to 2.2 cm resulting in diffuse left cerebral mass effect with minimal [id number] midline shift. 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 Objective Vitals Vital Signs Date Temp Pulse Resp B/P (MAP) Pulse Ox O2 O2 Flow FiO2 Time Delivery Rate 04/20/19 97.4 85 18 113/67 97 Room Air 14:00 (82) Intake and Output 04/19/19 04/19/19 04/20/19 1515:00 23:00 07:00 IntakeIntake Total 100 ml 800 ml BalanceBalance 100 ml 800 ml Results/Medications Result Diagram: 04/18/1963204/18/19632 Home Meds Active Scripts Amiodarone Hcl* (Amiodarone Hcl*) 100 Mg Tablet, 100 MG PO DAILY, #30 TAB Prov:RONY AGUILA MD 09/07/17 Reported Medications Amantadine Hcl* (Amantadine Hcl*) 100 Mg Capsule, 100 MG PO BID, #60 CAP 04/03/19 Carbidopa-Levodopa* (Sinemet CR*) 50-200 Mg Tabsr, 1 TAB PO TID, TAB 04/03/19 Folic Acid* (Folic Acid*) 1 Mg Tablet, 1 MG PO DAILY, TAB 04/03/19 Donepezil* (Donepezil*) 10 Mg Tablet, 10 MG PO DAILY, #30 TAB 04/03/19 Ramipril (Ramipril) 2.5 Mg Capsule, 2.5 MG PO DAILY, CAP 04/03/19 Megestrol Acetate* (Megestrol Acetate*) 40 Mg Tablet, 40 MG PO TID, TAB 09/05/17 Finasteride* (Finasteride*) 5 Mg Tablet, 5 MG PO DAILY, TAB 09/05/17 Gemfibrozil* (Gemfibrozil*) 600 Mg Tablet, 600 MG PO DAILY, TAB 09/05/17 Memantine* (Namenda* XR) 28 Mg Cap.spr.24, 28 MG PO DAILY, #30 TAB 09/05/17 Medications Current Medications Carbidopa/Levodopa (Sinemet ()) 1 tab TID PO Last administered on 04/20/19at 14:56; Admin Dose 1 TAB; Start 04/17/19 at 21:00 Enalapril Maleate (Vasotec) 2.5 mg DAILY PO Last administered on 04/20/19 09:09; Admin Dose 2.5 MG; Start 04/18/19 at 09:00 Amiodarone HCl (Cordarone) 100 mg DAILY PO Last administered on 04/20/19 09:08; Admin Dose 100 MG; Start 04/18/19 at 09:00 Amantadine HCl (Symmetrel) 100 mg BID PO Last administered on 04/20/19 09:08; Admin Dose 100 MG; Start 04/17/19 at 21:00 Megestrol Acetate (Megace) 40 mg QID PO Last administered on 04/20/19at 14:56; Admin Dose 40 MG; Start 04/17/19 at 17:00 Levetiracetam (Keppra) 500 mg BID PO Last administered on 04/20/19 09:08; Admin Dose 500 MG; Start 04/17/19 at 21:00 [facility] This patient keith... PRN PRN XX WOUND CARE; Start 04/17/19 at 16:30 Donepezil HCl (Aricept) 5 mg DAILY@2100 PO Last administered on 04/19/19at 22:41; Admin Dose 5 MG; Start 04/17/19 at 21:00 Docusate Sodium (Colace Liquid Cup) 100 mg BID PO Last administered on 04/19/19 08:51; Admin Dose 100 MG; Start 04/17/19 at 21:00 Senna (Senokot) 1 tab QHS PO Last administered on 04/18/19at 22:54; Admin Dose 1 TAB; Start 04/17/19 at 21:00 Acetaminophen (Tylenol Liquid) 650 mg Q4H PRN PO MILD PAIN(1-3)OR ELEVATED TEMP; Start 04/17/19 at 17:00 Bisacodyl (Dulcolax Supp) 10 mg DAILY PRN [place] CONSTIPATION; Start 04/17/19 at 17:00 Magnesium Hydroxide (Milk Of Mag) 30 ml BID PRN PO CONSTIPATION; Start 04/17/19 at 17:00 Lactulose (Enulose) 20 gm DAILY PRN PO CONSTIPATION; Start 04/17/19 at 17:00 Neomycin/ Polymyxin/ Bacitracin (Neosporin Topical Oint) 1 applic BID TOP Last administered on 04/20/19at 09:12; Admin Dose 1 APPLIC; Start 04/17/19 at 21:00 Betamethasone/ Clotrimazole (Lotrisone Cr) 1 applic BID TOP Last administered on 04/20/19 09:12; Admin Dose 1 APPLIC; Start 04/18/19 at 21:00 Ferric Sodium Gluconate Complex 125 mg/Sodium Chloride 100 ml @ 100 mls/hr DAILY@1300 IVPB Last administered on 04/20/19 14:57; Admin Dose 100 MLS/HR; Start 04/19/19 at 13:00; Stop 04/21/19 at 13:59 Assessment/Plan Hospital Course (Demo Recall) 1. s/p Left frontal and parietal burhole craniectomy for evacuation of SDH 04/07/19 2. Recurrent subdural hematoma and falls 3. History of marked bradycardia mostly secondary to frequent PVCs: Previously has been significantly improved on amiodarone p.o. 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 Aortic insufficiency 6. Anemia 7. Chronic kidney disease 8. Ventricular arrhythmias with very frequent PVCs as well as bigeminy's 9. Parkinson disease 10. Dysphagia and silent aspirations : will defer to IM Recommendations correct lytes prn cont tele monitoring Continue with the Parkinson medication to be adjusted as per internal medicine. PT as tolerated CONT amiodarone 100 mg daily only Thank you for his referral. We will continue to follow along with you VIOLA GARAY MD [facility] VIOLA GARAY MD Apr 20, 2019 17:23
--- NOTE | 2019-04-20 19:19 | PN ---
Date/Time of Note Date/Time of Note DATE: 04/20/19 TIME: 19:15 Assessment/Plan VTE Prophylaxis Risk score (from Ns)>0 risk: 4 SCD applied (from [facility]): Yes SCD contraindicated: other (on) Pharmacological prophylaxis: NA/contraindicated, other Pharm contraindication: bleeding Lines/Catheters IV Catheter Type (from [facility] Saline Lock Central line still needed: No Urinary Cath still in place: No Reason Cath still needed: urinary retention Assessment/Plan Assessment/Plan 1. Melena ; controlled. 2. Weight loss more than 15 pounds during the last 2 months 3. Status post fall due to the severe weakness deconditioning and muscular wasting 4. Anemia chronic disease with a recent loss-iron level 28. 5. Status post right-sided adal trepanation with removal of subdural hematoma in the [facility] about 1/2 years ago. Patient had a subdural hematoma on the left side too.New on the top of the old subdural hematoma on the left on mri.S/P trephination and 2-3 cc of serous fluid in a bag. Altered level of consciousness but continues to be responsive without focal symptoms And CT evidence of recommendation of the fluid possible hemorrhagic component. 6. Ischemic heart disease angina. 7. Unstable gait with recurrent episodes of fall. 8. Deconditioning 9. Status post cataract ectomy 10. Constant snacking and chewing movements involuntarily being unable to stop mainly during last 3-4 months. 11. Bradycardia with history of syncopal episodes 12 osteoporosis and osteoarthritis 13. Dizziness 14. Hearing impairment 15. Dysphagia on and off 16. BPH with episodes of urinary incontinence 17. Dyslipidemia 18.S/p left clavicular FX(old, healed). 19. Hyponatremia-supplement. Result Diagram: 04/18/19 0633 04/18/19 0633 Subjective 24 Hr Interval Summary Free Text/Dictation I was able to walk 3 around on the floor. I can stop chewing movements. I do not feel stable when I am getting up. But when they are helping him I am able to move. Constitutional: improved, poor po, requiring O2; No no complaints, No chills, No diaphoresis, No disoriented, No febrile, No requiring IVF, No other Eyes: No no complaints, No pain, No discharge, No redness, No visual change, No other ENT: dysphagia; No no complaints, No bleeding, No pain, No congestion, No discharge, No sore throat, No other Respiratory: No no complaints, No pain, No cough, No pleuritic pain, No shortness of breath, No sputum, No wheezing, No other Cardiovascular: chest pain, lightheadedness; No no complaints, No edema, No orthopenea, No palpitations, No paroxysmal nocturnal dyspnea, No other Gastrointestinal: flatus, passing stool; No no complaints, No pain, No blood, No constipation, No decreased appetite, No diarrhea, No nausea, No vomiting, No other Genitourinary: dysuria; No no complaints, No bleeding, No discharge, No flank pain, No hematuria, No other Musculoskeletal: back pain, bone/joint pain; No no complaints, No neck pain, No restricted range of motion, No swelling, No other Neurologic: No no complaints, No confusion, No dizziness, No focal-weakness, No headache, No syncope, No seizure, No other Endocrine: dry skin; No no complaints, No polyuria, No polydypsia, No temp intolerance, No other Exam/Review of Systems Exam Vitals Vital Signs Date Temp Pulse Resp B/P (MAP) Pulse Ox O2 O2 Flow FiO2 Time Delivery Rate 04/20/19 97.4 85 18 113/67 97 Room Air 14:00 (82) Intake and Output 04/19/19 04/19/19 04/20/19 1515:00 23:00 07:00 IntakeIntake Total 100 ml 800 ml BalanceBalance 100 ml 800 ml Constitutional: alert, oriented, well developed, distress, frail, other (Not involving time and days.) Psych: anxiety, other (Forgetful.); No no complaints, No nl mood/affect, No confusion, No depression, No suicidal Head: normocephalic, atraumatic; No lacerations, No hematomas, No other Eyes: EOMI, nl lids; No nl conjunctiva, No nl sclera, No PERRL, No icteric, No fundi, disc, No other ENMT: other; No nl external ears & nose, No nl lips & teeth, No nl nasal mucosa & septum, No mucosa pink and moist, No intubated, No tympanic membranes Neck: jvd, bruits, nuchal rigidity Respiratory: normal air movement, crackles/rales, diminished breath sounds; No clear to auscultation, No congested cough, No intercostal retraction, No labored breathing, No respirations, No tactile fremitus, No wheezing, No other Cardiovascular: regular rate and rhythm, nl pulses, edema, systolic murmur; No bruits, No diastolic murmur, No gallop, No irregular rhythm, No jugular venous distention (JVD), No murmurs/extra sounds, No rub, No S3, No S4, No other Gastrointestinal: soft, nl liver, spleen, bowel sounds, distended; No non-tender, No ascites, No firm, No hepatomegaly, No mass, No rebound or guarding, No splenomegaly, No surgical scars, No tender, No other Genitourinary - Male: nl penis, nl scrotum; No CVA tenderness, No discharge, No other Musculoskeletal: joint tenderness Extremities: No normal pulses, No calf tenderness, No cyanosis, No clubbing, No edema, No pitting pedal edema, No palpable cord, No tenderness, No other 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: SEVERITY OF ILLNESS COORDINATOR II-XII intact; No nl mental status, No nl speech, No nl strength, No confused, No DTR's symmetric, No focal weakness, No lethargic, No numbness, No reflexes, No unresponsive, No other Medications Medication Current Medications Carbidopa/Levodopa (Sinemet (10/ 100)) 1 tab TID PO Last administered on 04/20/19 14:56; Admin Dose 1 TAB; Start 04/17/19 at 21:00 Enalapril Maleate (Vasotec) 2.5 mg DAILY PO Last administered on 04/20/19 09:09; Admin Dose 2.5 MG; Start 04/18/19 at 09:00 Amiodarone HCl (Cordarone) 100 mg DAILY PO Last administered on 04/20/19 09:08; Admin Dose 100 MG; Start 04/18/19 at 09:00 Amantadine HCl (Symmetrel) 100 mg BID PO Last administered on 04/20/19 09:08; Admin Dose 100 MG; Start 04/17/19 at 21:00 Megestrol Acetate (Megace) 40 mg QID PO Last administered on 04/20/19 14:56; Admin Dose 40 MG; Start 04/17/19 at 17:00 Levetiracetam (Keppra) 500 mg BID PO Last administered on 04/20/19 09:08; Admin Dose 500 MG; Start 04/17/19 at 21:00 Miscellaneous Information (Pending Santyl Order For Wound Care) This patient keith... PRN PRN XX WOUND CARE; Start 04/17/19 at 16:30 Donepezil HCl (Aricept) 5 mg DAILY@2100 PO Last administered on 04/19/19 22:41; Admin Dose 5 MG; Start 04/17/19 at 21:00 Docusate Sodium (Colace Liquid Cup) 100 mg BID PO Last administered on 04/19/19 08:51; Admin Dose 100 MG; Start 04/17/19 at 21:00 Senna (Senokot) 1 tab QHS PO Last administered on 04/18/19 22:54; Admin Dose 1 TAB; Start 04/17/19 at 21:00 Acetaminophen (Tylenol Liquid) 650 mg Q4H PRN PO MILD PAIN(1-3)OR ELEVATED TEMP; Start 04/17/19 at 17:00 Bisacodyl (Dulcolax Supp) 10 mg DAILY PRN [place] CONSTIPATION; Start 04/17/19 at 17:00 Magnesium Hydroxide (Milk Of Mag) 30 ml BID PRN PO CONSTIPATION; Start 04/17/19 at 17:00 Lactulose (Enulose) 20 gm DAILY PRN PO CONSTIPATION; Start 04/17/19 at 17:00 Neomycin/ Polymyxin/ Bacitracin (Neosporin Topical Oint) 1 applic BID TOP Last administered on 04/20/19 09:12; Admin Dose 1 APPLIC; Start 04/17/19 at 21:00 Betamethasone/ Clotrimazole (Lotrisone Cr) 1 applic BID TOP Last administered on 04/20/19 09:12; Admin Dose 1 APPLIC; Start 04/18/19 at 21:00 Ferric Sodium Gluconate Complex 125 mg/Sodium Chloride 100 ml @ 100 mls/hr DAILY@1300 IVPB Last administered on 04/20/19 14:57; Admin Dose 100 MLS/HR; Start 04/19/19 at 13:00; Stop 04/21/19 at 13:59 BROOKLYNN OCASIO MD Apr 20, 2019 19:19
[2019-04-20 19:59] VITALS: BP 131/74; PULSE 80; RESP 18
[2019-04-20] MEDS: DONEPEZIL 5 MG TAB PO SCH (20:28)
[2019-04-21 02:00] VITALS: BP 122/68; PULSE 75; RESP 18
[2019-04-21 07:00] VITALS: BP 125/71; PULSE 70; RESP 18
[2019-04-21] MEDS: MEGESTROL 40 MG TAB PO SCH ×4 (09:16→20:14)
[2019-04-21] MEDS: LEVETIRACETAM 500 MG TAB PO SCH ×2 (09:16→20:14)
[2019-04-21] MEDS: ENALAPRIL 2.5 MG TAB PO SCH (09:16)
[2019-04-21] MEDS: AMIODARONE 200 MG TAB PO SCH (09:17)
[2019-04-21] MEDS: CARBIDOPA/LEVODOPA (10/100) TAB PO SCH ×3 (09:17→20:15)
[2019-04-21] MEDS: AMANTADINE 100 MG CAP PO SCH ×2 (09:17→20:15)
[2019-04-21] MEDS: BETAMETHASONE/CLOTRIMAZOLE 15 GM CR TOP SCH ×2 (09:25→20:15)
[2019-04-21] MEDS: NEOMYC/POLYMYX/BACIT 30 GM OINT TOP SCH ×2 (09:26→20:15)
--- NOTE | 2019-04-21 11:48 | PN ---
Date/Time of Note Date/Time of Note DATE: 04/21/19 TIME: 11:45 Subjective Family prefers the puree diet. Family would like for patient to return home on Tuesday Objective Vital Signs Date Temp Pulse Resp B/P (MAP) Pulse Ox O2 O2 Flow FiO2 Time Delivery Rate 04/21/19 98.1 70 18 125/71 95 Room Air 07:00 (89) Intake and Output 04/20/19 04/20/19 04/21/19 1515:00 23:00 07:00 IntakeIntake Total 1500 ml 950 ml OutputOutput Total 600 ml BalanceBalance 900 ml 950 ml Exam pulm-cta abd-soft amb 60 feet Results/Medications Result Diagram: 04/18/1963204/18/19632 Medications Current Medications Carbidopa/Levodopa (Sinemet ()) 1 tab TID PO Last administered on 04/21/19 09:17; Admin Dose 1 TAB; Start 04/17/19 at 21:00 Enalapril Maleate (Vasotec) 2.5 mg DAILY PO Last administered on 04/21/19 09:16; Admin Dose 2.5 MG; Start 04/18/19 at 09:00 Amiodarone HCl (Cordarone) 100 mg DAILY PO Last administered on 04/21/19 09:17; Admin Dose 100 MG; Start 04/18/19 at 09:00 Amantadine HCl (Symmetrel) 100 mg BID PO Last administered on 04/21/19 09:17; Admin Dose 100 MG; Start 04/17/19 at 21:00 Megestrol Acetate (Megace) 40 mg QID PO Last administered on 04/21/19 09:16; Admin Dose 40 MG; Start 04/17/19 at 17:00 Levetiracetam (Keppra) 500 mg BID PO Last administered on 04/21/19 09:16; Admin Dose 500 MG; Start 04/17/19 at 21:00 [facility] This patient keith... PRN PRN XX WOUND CARE; Start 04/17/19 at 16:30 Donepezil HCl (Aricept) 5 mg DAILY@2100 PO Last administered on 04/20/19at 20:28; Admin Dose 5 MG; Start 04/17/19 at 21:00 Acetaminophen (Tylenol Liquid) 650 mg Q4H PRN PO MILD PAIN(1-3)OR ELEVATED TEMP; Start 04/17/19 at 17:00 Magnesium Hydroxide (Milk Of Mag) 30 ml BID PRN PO CONSTIPATION; Start 04/17/19 at 17:00 Lactulose (Enulose) 20 gm DAILY PRN PO CONSTIPATION; Start 04/17/19 at 17:00 Neomycin/ Polymyxin/ Bacitracin (Neosporin Topical Oint) 1 applic BID TOP Last administered on 04/21/19at 09:26; Admin Dose 1 APPLIC; Start 04/17/19 at 21:00 Betamethasone/ Clotrimazole (Lotrisone Cr) 1 applic BID TOP Last administered on 04/21/19at 09:25; Admin Dose 1 APPLIC; Start 04/18/19 at 21:00 Ferric Sodium Gluconate Complex 125 mg/Sodium Chloride 100 ml @ 100 mls/hr DAILY@1300 IVPB Last administered on 04/20/19at 14:57; Admin Dose 100 MLS/HR; Start 04/19/19 at 13:00; Stop 04/21/19 at 13:59 Assessment/Plan Additional Assessment/Plan Rehab- Left frontoparietal subdural hematoma subacute/chronic status post lilia hole evacuation on 04/07/2019. Continue rehab activities, and work towards home Tuesday per family request GI- Gastritis/GI bleed; GERD BPH. Hepatitis. Hyperlipidemia. Hypertension. Card- History of coronary artery disease, CHF. Dysphagia, on dysphagia diet. Urinary tract infection. AMANDA DONOVAN MD Apr 21, 2019 11:47
[2019-04-21] MEDS: SOD FERRIC GLUC COMPLX 125 MG in SOD CHLORIDE 0.9% 100 ML IVPB SCH (13:53)
[2019-04-21 14:00] VITALS: BP 109/56; PULSE 82; RESP 18
--- NOTE | 2019-04-21 15:16 | PN ---
Date/Time of Note Date/Time of Note DATE: 04/21/19 TIME: 15:14 Assessment/Plan VTE Prophylaxis Risk score (from Ns)>0 risk: 4 SCD applied (from Ns): Yes SCD contraindicated: other (on.) Pharmacological prophylaxis: NA/contraindicated Pharm contraindication: bleeding Lines/Catheters IV Catheter Type (from [facility]): Saline Lock Central line still needed: No Urinary Cath still in place: No Assessment/Plan Assessment/Plan 1. Melena ; controlled. 2. Weight loss more than 15 pounds during the last 2 months 3. Status post fall due to the severe weakness deconditioning and muscular wasting 4. Anemia chronic disease with a recent loss-iron level 28. 5. Status post right-sided adal trepanation with removal of subdural hematoma in the [facility] about 1/2 years ago. Patient had a subdural hematoma on the left side too.New on the top of the old subdural hematoma on the left on mri.S/P trephination and 2-3 cc of serous fluid in a bag. Altered level of consciousness but continues to be responsive without focal symptoms And CT evidence of recommendation of the fluid possible hemorrhagic component. 6. Ischemic heart disease angina. 7. Unstable gait with recurrent episodes of fall. 8. Deconditioning 9. Status post cataract ectomy 10. Constant snacking and chewing movements involuntarily being unable to stop mainly during last 3-4 months. 11. Bradycardia with history of syncopal episodes 12 osteoporosis and osteoarthritis 13. Dizziness 14. Hearing impairment 15. Dysphagia on and off 16. BPH with episodes of urinary incontinence 17. Dyslipidemia 18.S/p left clavicular FX(old, healed). 19. Hyponatremia-supplement. Result Diagram: 04/18/19 0633 04/18/19 06 Subjective 24 Hr Interval Summary Free Text/Dictation I am ok. My gate is unstable. Eyes: redness ENT: dysphagia; No no complaints, No bleeding, No pain, No congestion, No discharge, No sore throat, No other Respiratory: shortness of breath Cardiovascular: chest pain, lightheadedness, orthopenea; No no complaints, No edema, No palpitations, No paroxysmal nocturnal dyspnea, No other Gastrointestinal: decreased appetite; No no complaints, No pain, No blood, No constipation, No diarrhea, No flatus, No nausea, No passing stool, No vomiting, No other Genitourinary: dysuria; No no complaints, No bleeding, No discharge, No flank pain, No hematuria, No other Musculoskeletal: back pain, neck pain Neurologic: headache; No no complaints, No confusion, No dizziness, No focal-weakness, No syncope, No seizure, No other Exam/Review of Systems Exam Vitals Vital Signs Date Temp Pulse Resp B/P (MAP) Pulse Ox O2 O2 Flow FiO2 Time Delivery Rate 04/21/19 98.1 70 18 125/71 95 Room Air 07:00 (89) Intake and Output 04/20/19 04/20/19 04/21/19 1515:00 23:00 07:00 IntakeIntake Total 1500 ml 950 ml OutputOutput Total 600 ml BalanceBalance 900 ml 950 ml Constitutional: alert, oriented (not in time.) Psych: anxiety, confusion (on and off.); No no complaints, No nl mood/affect, No depression, No suicidal, No other Head: normocephalic, atraumatic; No lacerations, No hematomas, No other Eyes: EOMI, nl lids; No nl conjunctiva, No nl sclera, No PERRL, No icteric, No fundi, disc, No other ENMT: No nl external ears & nose, No nl lips & teeth, No nl nasal mucosa & septum, No mucosa pink and moist, No intubated, No tympanic membranes, No other Neck: No supple, No non-tender, No jvd, No bruits, No masses, No thyromegaly, No nuchal rigidity, No other Respiratory: normal air movement, diminished breath sounds; No clear to auscultation, No congested cough, No crackles/rales, No intercostal retraction, No labored breathing, No respirations, No tactile fremitus, No wheezing, No other Cardiovascular: regular rate and rhythm, systolic murmur; No nl pulses, No bruits, No diastolic murmur, No edema, No gallop, No irregular rhythm, No jugular venous distention (JVD), No murmurs/extra sounds, No rub, No S3, No S4, No other Gastrointestinal: nl liver, spleen, bowel sounds, hepatomegaly; No soft, No non-tender, No ascites, No distended, No firm, No mass, No rebo und or guarding, No splenomegaly, No surgical scars, No tender, No other Genitourinary - Male: nl penis, nl scrotum; No CVA tenderness, No discharge, No other Medications Medication Current Medications Carbidopa/Levodopa (Sinemet (10/ 100)) 1 tab TID PO Last administered on 04/21/19 12:15; Admin Dose 1 TAB; Start 04/17/19 at 21:00 Enalapril Maleate (Vasotec) 2.5 mg DAILY PO Last administered on 04/21/19 09:16; Admin Dose 2.5 MG; Start 04/18/19 at 09:00 Amiodarone HCl (Cordarone) 100 mg DAILY PO Last administered on 04/21/19 09:17; Admin Dose 100 MG; Start 04/18/19 at 09:00 Amantadine HCl (Symmetrel) 100 mg BID PO Last administered on 04/21/19 09:17; Admin Dose 100 MG; Start 04/17/19 at 21:00 Megestrol Acetate (Megace) 40 mg QID PO Last administered on 04/21/19 12:15; Admin Dose 40 MG; Start 04/17/19 at 17:00 Levetiracetam (Keppra) 500 mg BID PO Last administered on 04/21/19 09:16; Admin Dose 500 MG; Start 04/17/19 at 21:00 Miscellaneous Information (Pending [facility] Order For Wound Care) This patient keith... PRN PRN XX WOUND CARE; Start 04/17/19 at 16:30 Donepezil HCl (Aricept) 5 mg DAILY@2100 PO Last administered on 04/20/19at 20:28; Admin Dose 5 MG; Start 04/17/19 at 21:00 Acetaminophen (Tylenol Liquid) 650 mg Q4H PRN PO MILD PAIN(1-3)OR ELEVATED TEMP; Start 04/17/19 at 17:00 Magnesium Hydroxide (Milk Of Mag) 30 ml BID PRN PO CONSTIPATION; Start 04/17/19 at 17:00 Lactulose (Enulose) 20 gm DAILY PRN PO CONSTIPATION; Start 04/17/19 at 17:00 Neomycin/ Polymyxin/ Bacitracin (Neosporin Topical Oint) 1 applic BID TOP Last administered on 6/15/19at 09:26; Admin Dose 1 APPLIC; Start 04/17/19 at 21:00 Betamethasone/ Clotrimazole (Lotrisone Cr) 1 applic BID TOP Last administered on 04/21/19at 09:25; Admin Dose 1 APPLIC; Start 04/18/19 at 21:00 BROOKLYNN OCASIO MD Apr 21, 2019 15:16
[2019-04-21 19:31] VITALS: BP 113/64; PULSE 76; RESP 19
[2019-04-21] MEDS: DONEPEZIL 5 MG TAB PO SCH (20:15)
[2019-04-22 02:25] VITALS: BP 111/63; PULSE 75; RESP 19
[2019-04-22 07:30] VITALS: BP 132/71; PULSE 73; RESP 20
[2019-04-22] MEDS: MEGESTROL 40 MG TAB PO SCH ×4 (08:35→20:36)
[2019-04-22] MEDS: LEVETIRACETAM 500 MG TAB PO SCH ×2 (08:35→20:37)
[2019-04-22] MEDS: AMANTADINE 100 MG CAP PO SCH ×2 (08:35→20:38)
[2019-04-22] MEDS: CARBIDOPA/LEVODOPA (10/100) TAB PO SCH ×3 (08:35→20:38)
[2019-04-22] MEDS: ENALAPRIL 2.5 MG TAB PO SCH (08:38)
[2019-04-22] MEDS: AMIODARONE 200 MG TAB PO SCH (08:39)
[2019-04-22] MEDS: NEOMYC/POLYMYX/BACIT 30 GM OINT TOP SCH ×2 (08:42→20:46)
[2019-04-22] MEDS: BETAMETHASONE/CLOTRIMAZOLE 15 GM CR TOP SCH ×2 (08:42→20:46)
[2019-04-22 08:43] VITALS: BP 115/70; PULSE 88; RESP 18
--- NOTE | 2019-04-22 11:41 | PN ---
Date/Time of Note Date/Time of Note DATE: 04/22/19 TIME: 11:37 Assessment/Plan VTE Prophylaxis Risk score (from Ns)>0 risk: 4 SCD applied (from Ns): Yes SCD contraindicated: other (on.) Pharmacological prophylaxis: NA/contraindicated Pharm contraindication: bleeding Lines/Catheters [facility] (from [facility] Saline Lock Central line still needed: No Urinary Cath still in place: No Reason Cath still needed: urinary retention Assessment/Plan Assessment/Plan 1. Melena ; controlled. 2. Weight loss more than 15 pounds during the last 2 months 3. Status post fall due to the severe weakness deconditioning and muscular wasting 4. Anemia chronic disease with a recent loss-iron level 28. 5. Status post right-sided adal trepanation with removal of subdural hematoma in the [facility] about 1/2 years ago. Patient had a subdural hematoma on the left side too.New on the top of the old subdural hematoma on the left on mri.S/P trephination and 2-3 cc of serous fluid in a bag. Altered level of consciousness but continues to be responsive without focal symptoms And CT evidence of recommendation of the fluid possible hemorrhagic component. 6. Ischemic heart disease angina. 7. Unstable gait with recurrent episodes of fall. 8. Deconditioning 9. Status post cataract ectomy 10. Constant snacking and chewing movements involuntarily being unable to stop mainly during last 3-4 months. 11. Bradycardia with history of syncopal episodes 12 osteoporosis and osteoarthritis 13. Dizziness 14. Hearing impairment 15. Dysphagia on and off 16. BPH with episodes of urinary incontinence 17. Dyslipidemia 18.S/p left clavicular FX(old, healed). 19. Hyponatremia-supplement. Result Diagram: 04/18/19 0633 04/18/19 0633 Subjective 24 Hr Interval Summary Free Text/Dictation Weakness. Irresistible mandibular joint movements with constant chewing which is assessing unable to control. No headaches no loss of consciousness getting dizzy while standing then feels okay. Constitutional: improved; No no complaints, No chills, No diaphoresis, No disoriented, No febrile, No poor po, No requiring IVF, No requiring O2, No other Eyes: No no complaints, No pain, No discharge, No redness, No visual change, No other ENT: dysphagia; No no complaints, No bleeding, No pain, No congestion, No discharge, No sore throat, No other Respiratory: cough (On and off.); No no complaints, No pain, No pleuritic pain, No shortness of breath, No sputum, No wheezing, No other Cardiovascular: No no complaints, No chest pain, No edema, No lightheadedness, No orthopenea, No palpitations, No paroxysmal nocturnal dyspnea, No other Gastrointestinal: decreased appetite, nausea, passing stool; No no complaints, No pain, No blood, No constipation, No diarrhea, No flatus, No vomiting, No other Genitourinary: dysuria, flank pain; No no complaints, No bleeding, No discharge, No hematuria, No other Musculoskeletal: back pain, bone/joint pain, neck pain; No no complaints, No restricted range of motion, No swelling, No other Skin: No no complaints, No bruising, No erythema, No laceration, No pruritis, No rash, No skin lesions, No other Neurologic: dizziness, headache; No no complaints, No confusion, No syncope, No seizure, No other Endocrine: polyuria; No no complaints, No polydypsia, No dry skin, No temp intolerance, No other Lymphatic: No no complaints, No adenopathy, No tender nodes, No lymphadema, No other Psychological: anxiety, confusion, depression; No no complaints, No nl mood/affect, No suicidal, No other Exam/Review of Systems Exam Vitals Vital Signs Date Temp Pulse Resp B/P (MAP) Pulse Ox O2 O2 Flow FiO2 Time Delivery Rate 04/22/19 88 18 115/70 100 Room Air 08:43 (85) 04/22/19 97.8 07:30 Intake and Output 04/21/19 04/21/19 04/22/19 1515:00 23:00 07:00 IntakeIntake Total 360 ml 530 ml OutputOutput Total 400 ml 200 ml 1 ml BalanceBalance -40 ml 330 ml -1 ml Constitutional: alert, oriented (Not in time.), distress, frail; No well developed, No non-verbal, No obese, No other Psych: anxiety, confusion; No no complaints, No nl mood/affect, No depression, No suicidal, No other Head: normocephalic, atraumatic Eyes: EOMI, nl lids, PERRL; No nl conjunctiva, No nl sclera, No icteric, No fundi, disc, No other ENMT: No nl external ears & nose, No nl lips & teeth, No nl nasal mucosa & septum, No mucosa pink and moist, No intubated, No tympanic membranes, No other Neck: jvd, thyromegaly, nuchal rigidity; No supple, No non-tender, No bruits, No masses, No other Respiratory: clear to auscultation, normal air movement, diminished breath s ounds Cardiovascular: regular rate and rhythm, edema, jugular venous distention (JVD), systolic murmur; No nl pulses, No bruits, No diastolic murmur, No gallop, No irregular rhythm, No murmurs/extra sounds, No rub, No S3, No S4, No other Gastrointestinal: soft, nl liver, spleen, non-tender, bowel sounds; No ascites, No distended, No firm, No hepatomegaly, No mass, No rebound or guarding, No splenomegaly, No surgical scars, No tender, No other Genitourinary - Male: nl penis, nl scrotum Musculoskeletal: nl gait and stance, joint tenderness, muscle tone, muscle weakness; No nl extremities to inspection, No range of motion, No spine non-tender, No swelling, No other Extremities: No normal pulses, No calf tenderness, No cyanosis, No clubbing, No edema, No pitting pedal edema, No palpable cord, No tenderness, No other 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: EVENT EXECUTIVE II-XII intact, confused, lethargic; No nl mental status, No nl speech, No nl strength, No DTR's symmetric, No focal weakness, No numbness, No reflexes, No unresponsive, No other Skin: nl turgor (Decreased.); No rash or lesions, No diaphoresis, No ecchymosis, No laceration, No puncture, No other Lymph: nl lymph nodes; No enlarged, No nontender, No other Medications Medication Current Medications Carbidopa/Levodopa (Sinemet (10/ 100)) 1 tab TID PO Last administered on 04/22/19at 08:35; Admin Dose 1 TAB; Start 04/17/19 at 21:00 Enalapril Maleate (Vasotec) 2.5 mg DAILY PO Last administered on 04/22/19at 08:38; Admin Dose 2.5 MG; Start 04/18/19 at 09:00 Amiodarone HCl (Cordarone) 100 mg DAILY PO Last administered on 04/22/19 08:39; Admin Dose 100 MG; Start 04/18/19 at 09:00 Amantadine HCl (Symmetrel) 100 mg BID PO Last administered on 04/22/19 08:35; Admin Dose 100 MG; Start 04/17/19 at 21:00 Megestrol Acetate (Megace) 40 mg QID PO Last administered on 04/22/19 08:35; Admin Dose 40 MG; Start 04/17/19 at 17:00 Levetiracetam (Keppra) 500 mg BID PO Last administered on 04/22/19 08:35; Admin Dose 500 MG; Start 04/17/19 at 21:00 [facility] This patient keith... PRN PRN XX WOUND CARE; Start 04/17/19 at 16:30 Donepezil HCl (Aricept) 5 mg DAILY@2100 PO Last administered on 04/21/19 20:15; Admin Dose 5 MG; Start 04/17/19 at 21:00 Acetaminophen (Tylenol Liquid) 650 mg Q4H PRN PO MILD PAIN(1-3)OR ELEVATED TEMP; Start 04/17/19 at 17:00 Magnesium Hydroxide (Milk Of Mag) 30 ml BID PRN PO CONSTIPATION; Start 04/17/19 at 17:00 Lactulose (Enulose) 20 gm DAILY PRN PO CONSTIPATION; Start 04/17/19 at 17:00 Neomycin/ Polymyxin/ Bacitracin (Neosporin Topical Oint) 1 applic BID TOP Last administered on 04/22/19at 08:42; Admin Dose 1 APPLIC; Start 04/17/19 at 21:00 Betamethasone/ Clotrimazole (Lotrisone Cr) 1 applic BID TOP Last administered on 04/22/19at 08:42; Admin Dose 1 APPLIC; Start 04/18/19 at 21:00 BROOKLYNN OCASIO MD Apr 22, 2019 11:41
[2019-04-22 20:00] VITALS: BP 109/63; PULSE 81; RESP 16
[2019-04-22] MEDS: DONEPEZIL 5 MG TAB PO SCH (20:40)
[2019-04-23 02:20] VITALS: BP 112/68; PULSE 79; RESP 18
[2019-04-23 07:00] VITALS: BP 102/59; PULSE 79; RESP 18
[2019-04-23] MEDS: MEGESTROL 40 MG TAB PO SCH ×2 (08:07→12:16)
[2019-04-23] MEDS: CARBIDOPA/LEVODOPA (10/100) TAB PO SCH ×2 (08:07→12:16)
[2019-04-23] MEDS: LEVETIRACETAM 500 MG TAB PO SCH (08:07)
[2019-04-23] MEDS: AMANTADINE 100 MG CAP PO SCH (08:09)
[2019-04-23] MEDS: AMIODARONE 200 MG TAB PO SCH (08:09)
[2019-04-23] MEDS: NEOMYC/POLYMYX/BACIT 30 GM OINT TOP SCH (08:10)
[2019-04-23] MEDS: BETAMETHASONE/CLOTRIMAZOLE 15 GM CR TOP SCH (08:10)
[2019-04-23] MEDS: ENALAPRIL 2.5 MG TAB PO SCH (08:13)
--- NOTE | 2019-04-23 08:37 | PN ---
Date/Time of Note Date/Time of Note DATE: 04/23/19 TIME: 08:33 Assessment/Plan VTE Prophylaxis Risk score (from Ns)>0 risk: 5 SCD applied (from Ns): Yes SCD contraindicated: other (on.) Pharmacological prophylaxis: NA/contraindicated Pharm contraindication: bleeding Lines/Catheters IV C[facility]ter Type (from [facility]): [place] [employer] line still needed: No Urinary Cath still in place: No Reason Cath still needed: urinary retention Assessment/Plan Assessment/Plan 1. Melena ; controlled. 2. Weight loss more than 15 pounds during the last 2 months 3. Status post fall due to the severe weakness deconditioning and muscular wasting 4. Anemia chronic disease with a recent loss-iron level 28. 5. Status post right-sided adal trepanation with removal of subdural hematoma in the [facility] about 1/2 years ago. Patient had a subdural hematoma on the left side too.New on the top of the old subdural hematoma on the left on mri.S/P trephination and 2-3 cc of serous fluid in a bag. Altered level of consciousness but continues to be responsive without focal symptoms And CT evidence of recommendation of the fluid possible hemorrhagic component. 6. Ischemic heart disease angina. 7. Unstable gait with recurrent episodes of fall. 8. Deconditioning 9. Status post cataract ectomy 10. Constant snacking and chewing movements involuntarily being unable to stop mainly during last 3-4 months. 11. Bradycardia with history of syncopal episodes 12 osteoporosis and osteoarthritis 13. Dizziness 14. Hearing impairment 15. Dysphagia on and off 16. BPH with episodes of urinary incontinence 17. Dyslipidemia 18.S/p left clavicular FX(old, healed). 19. Hyponatremia-supplement. Subjective 24 Hr Interval Summary Free Text/Dictation Weakness, dizziness when getting up. I feel much better now more confident that I am able to walk. Needs support. Constitutional: improved, disoriented (not following the time.), poor po, other (Wound of the left temporofrontal area of trephination healed very well.); No no complaints, No chills, No diaphoresis, No febrile, No requiring IVF, No requiring O2 Eyes: No no complaints, No pain, No discharge, No redness, No visual change, No other ENT: No no complaints, No bleeding, No pain, No congestion, No discharge, No dysphagia, No sore throat, No other Respiratory: cough, shortness of breath; No no complaints, No pain, No pleuritic pain, No sputum, No wheezing, No other Cardiovascular: chest pain, lightheadedness, orthopenea; No no complaints, No edema, No palpitations, No paroxysmal nocturnal dyspnea, No other Gastrointestinal: constipation, diarrhea (On and off diarrhea constipation.), flatus, nausea Genitourinary: dysuria Musculoskeletal: back pain, bone/joint pain; No no complaints, No neck pain, No restricted range of motion, No swelling, No other Skin: bruising; No no complaints, No erythema, No laceration, No pruritis, No rash, No skin lesions, No other Neurologic: dizziness, headache; No no complaints, No confusion, No focal-weakness, No syncope, No seizure, No other Endocrine: No no complaints, No polyuria, No polydypsia, No dry skin, No temp intolerance, No other Lymphatic: No no complaints, No adenopathy, No tender nodes, No lymphadema, No other Exam/Review of Systems Exam Vitals Vital Signs Date Temp Pulse Resp B/P (MAP) Pulse Ox O2 O2 Flow FiO2 Time Delivery Rate 04/23/19 98.4 79 18 102/59 98 Room Air 07:00 (73) Intake and Output 04/22/19 04/22/19 04/23/19 1515:00 23:00 07:00 IntakeIntake Total 660 ml BalanceBalance 660 ml Constitutional: alert, oriented, well developed, distress, frail, other (Not following days.) Psych: anxiety; No no complaints, No nl mood/affect, No confusion, No depression, No suicidal, No other Head: normocephalic, atraumatic; No lacerations, No hematomas, No other Eyes: No nl conjunctiva, No EOMI, No nl lids, No nl sclera, No PERRL, No icteric, No fundi, disc, No other ENMT: nl external ears & nose, nl lips & teeth (dentures need a repair.), nl nasal mucosa & septum Neck: No supple, No non-tender, No jvd, No bruits, No masses, No thyromegaly, No nuchal rigidity, No other Respiratory: normal air movement, diminished breath sounds; No clear to auscultation, No congested cough, No crackles/rales, No intercostal retraction, No labored breathing, No respirations, No tactile fremitus, No wheezing, No other Cardiovascular: regular rate and rhythm, nl pulses, bruits; No diastolic murmur, No edema, No gallop, No irregular rhythm, No jugular venous distention (JVD), No murmurs/extra sounds, No rub, No systolic murmur, No S3, No S4, No other Gastrointestinal: soft, nl liver, spleen, non-tender, bowel sounds; No ascites, No distended, No firm, No hepatomegaly, No mass, No rebound or guarding, No splenomegaly, No surgical scars, No tender, No other Genitourinary - Male: nl penis, nl scrotum Musculoskeletal: muscle tone, muscle weakness; No nl extremities to inspection, No nl gait and stance, No joint tenderness, No range of motion, No spine non-tender, No swelling, No other Extremities: No normal pulses, No calf tenderness, No cyanosis, No clubbing, No edema, No pitting pedal edema, No palpable cord, No tenderness, No other 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: [employer] II-XII intact (noah impairment.); No nl mental status, No nl speech, No nl strength, No confused, No DTR's symmetric, No focal weakness, No lethargic, No numbness, No reflexes, No unresponsive, No other Medications Medication Current Medications Carbidopa/Levodopa (Sinemet (10/ 100)) 1 tab TID PO Last administered on 04/23/19at 08:07; Admin Dose 1 TAB; Start 04/17/19 at 21:00 Enalapril Maleate (Vasotec) 2.5 mg DAILY PO Last administered on 04/22/19at 08:38; Admin Dose 2.5 MG; Start 04/18/19 at 09:00 Amiodarone HCl (Cordarone) 100 mg DAILY PO Last administered on 04/23/19at 08:09; Admin Dose 100 MG; Start 04/18/19 at 09:00 Amantadine HCl (Symmetrel) 100 mg BID PO Last administered on 04/23/19at 08:09; Admin Dose 100 MG; Start 04/17/19 at 21:00 Megestrol Acetate (Megace) 40 mg QID PO Last administered on 04/23/19 08:07; Admin Dose 40 MG; Start 04/17/19 at 17:00 Levetiracetam (Keppra) 500 mg BID PO Last administered on 04/23/19 08:07; Admin Dose 500 MG; Start 04/17/19 at 21:00 Miscellaneous Information (Pending Santyl Order For Wound Care) This patient keith... PRN PRN XX WOUND CARE; Start 04/17/19 at 16:30 Donepezil HCl (Aricept) 5 mg DAILY@2100 PO Last administered on 04/22/19 20:40; Admin Dose 5 MG; Start 04/17/19 at 21:00 Acetaminophen (Tylenol Liquid) 650 mg Q4H PRN PO MILD PAIN(1-3)OR ELEVATED TEMP; Start 04/17/19 at 17:00 Magnesium Hydroxide (Milk Of Mag) 30 ml BID PRN PO CONSTIPATION; Start 04/17/19 at 17:00 Lactulose (Enulose) 20 gm DAILY PRN PO CONSTIPATION; Start 04/17/19 at 17:00 Neomycin/ Polymyxin/ Bacitracin (Neosporin Topical Oint) 1 applic BID TOP Last administered on 04/23/19 08:10; Admin Dose 1 APPLIC; Start 04/17/19 at 21:00 Betamethasone/ Clotrimazole (Lotrisone Cr) 1 applic BID TOP Last administered on 04/23/19 08:10; Admin Dose 1 APPLIC; Start 04/18/19 at 21:00 BROOKLYNN OCASIO MD Apr 23, 2019 08:37
--- NOTE | 2019-04-23 11:23 | DS ---
Date/Time of Note Date/Time of Note DATE: 04/23/19 TIME: 11:21 Discharge Summary Admission/Discharge Info Admit Date/Time Apr 17, 2019 at 15:53 Discharge Date/Time Discharge Diagnosis 1. Left frontoparietal subdural hematoma subacute/chronic status post lilia hole evacuation on 04/07/2019. 2. H.O. Gastritis/GI bleed. 3. BPH. 4. Gastroesophageal reflux disease. 5. Hepatitis. 6. Hyperlipidemia. 7. Hypertension. 8. History of coronary artery disease. 9. History of CHF. 10. Dysphagia, on dysphagia diet. 11. Urinary tract infection. 12. Improvements in self care, mobility and cognition Patient Condition: Good Hospital Course The patient was admitted for comprehensive interdisciplinary rehabilitation and made steady functional gains from a Max level to a Min level for self care tasks and mobility including ambulating over 150 feet with the use of a FWW. Family received caregiver training and was able to demonstrate safe carryover of technique. Patient is being discharged home with the recommendation of home health PT, OT, Speech and RN follow up. The DC meds are per the medication reconciliation sheet. The discharge equipment recommendations include: FWW, BSC, shower chair. The patient will follow up with PMD upon DC. Home Meds Active Scripts Amiodarone Hcl* (Amiodarone Hcl*) 100 Mg Tablet, 100 MG PO DAILY, #30 TAB Prov:RONY AGUILA MD 09/07/17 Reported Medications Amantadine Hcl* (Amantadine Hcl*) 100 Mg Capsule, 100 MG PO BID, #60 CAP 04/03/19 Carbidopa-Levodopa* (Sinemet CR*) 50-200 Mg Tabsr, 1 TAB PO TID, TAB 04/03/19 Folic Acid* (Folic Acid*) 1 Mg Tablet, 1 MG PO DAILY, TAB 04/03/19 Donepezil* (Donepezil*) 10 Mg Tablet, 10 MG PO DAILY, #30 TAB 04/03/19 Ramipril (Ramipril) 2.5 Mg Capsule, 2.5 MG PO DAILY, CAP 04/03/19 Megestrol Acetate* (Megestrol Acetate*) 40 Mg Tablet, 40 MG PO TID, TAB 09/05/17 Finasteride* (Finasteride*) 5 Mg Tablet, 5 MG PO DAILY, TAB 09/05/17 Gemfibrozil* (Gemfibrozil*) 600 Mg Tablet, 600 MG PO DAILY, TAB 09/05/17 Memantine* (Namenda* XR) 28 Mg Cap.spr.24, 28 MG PO DAILY, #30 TAB 09/05/17 Primary Care Provider Renetta Enriquez MD Pending Labs Laboratory Tests Test 04/23/19 09:12 White Blood Count 12.3 10^3/ul (4.8-10.8) Red Blood Count 3.36 10^6/ul (4.70-6.10) Hemoglobin 10.0 g/dl (14.0-18.0) Hematocrit 31.6 % (42.0-52.0) Mean Corpuscular Volume 94.0 fl (82.0-101.0) Mean Corpuscular Hemoglobin 29.8 pg (29.0-33.0) Mean Corpuscular Hemoglobin Concent 31.6 g/dl (32.0-37.0) Red Cell Distribution Width 13.6 % (11.5-14.5) Platelet Count 329 10^3/UL (140-415) Mean Platelet Volume 8.5 fl (7.4-10.4) Immature Granulocytes % 0.700 % (0.001-0.429) Neutrophils % 58.2 % (39.0-77.0) Lymphocytes % 20.2 % (15.0-51.0) Monocytes % 7.0 % (0.0-11.0) Eosinophils % 13.0 % (0.0-7.0) Basophils % 0.9 % (0.0-2.0) Nucleated Red Blood Cells % 0.0 /100WBC (0.0-0.0) Immature Granulocytes # 0.090 10^3/ul (0.0-0.031) Neutrophils # 7.1 10^3/ul (1.6-7.5) Lymphocytes # 2.5 10^3/ul (0.8-2.9) Monocytes # 0.9 10^3/ul (0.3-0.9) Eosinophils # 1.6 10^3/ul (0.0-0.5) Basophils # 0.1 10^3/ul (0.0-0.1) Nucleated Red Blood Cells # 0.0 10^3/ul (0.0-0.0) Sodium Level 135 mmol/L (135-144) Potassium Level 4.5 mmol/L (3.5-5.1) Chloride Level 102 mmol/L (97-110) Carbon Dioxide Level 22 mmol/L (21-31) Anion Gap 11 (5-13) Blood Urea Nitrogen 26 mg/dl (7-20) Creatinine 1.07 mg/dl (0.61-1.24) Est Glomerular Filtrat Rate mL/min mL/min (>60) Glucose Level 119 mg/dl (70-220) Calcium Level 9.1 mg/dl (8.4-10.2) Total Bilirubin 0.5 mg/dl (0.2-1.3) Direct Bilirubin 0.00 mg/dl (0.00-0.20) Indirect Bilirubin 0.5 mg/dl (0-1.1) Aspartate Amino Transf (AST/SGOT) 10 IU/L (15-46) Alanine Aminotransferase (ALT/SGPT) 11 IU/L (13-69) Alkaline Phosphatase 69 IU/L (42-121) Total Protein 6.5 g/dl (6.1-8.1) Albumin 3.5 g/dl (3.3-4.9) Globulin 3.00 g/dl (1.3-3.2) Albumin/Globulin Ratio 1.16 AMANDA DONOVAN MD Apr 23, 2019 11:23
--- NOTE | 2019-04-24 15:02 | RADRPT ---
Vent Rate: 90 bpm RR Interval: 668 msec ND Interval: 168 msec QRS Duration: 93 msec QT Interval: 402 msec QTC Interval: 492 msec P-R-T [place]: 6 - -31 - 56 degrees Sinus rhythm...normal P axis, V-rate 50- 99 Inferior infarct, old...Q >35mS, II III aVF Electronically Signed By: Osiel Vann
== END 2019-04-23 13:45 | disposition home health service (06) | DRG 86 ==
LOC: VRC 04-17 15:53
PROVIDERS: ADMIT Physical Medicine & Rehabilitation; ATTEND Family Medicine
PROC: F07Z9FZ Gait Training/Functional Ambulation Treatment using Assistive, Adaptive, Supportive or Protective Equipment (ICD-10-PCS; principal; 2019-04-17)
PROC: F07Z8FZ Transfer Training Treatment using Assistive, Adaptive, Supportive or Protective Equipment (ICD-10-PCS; 2019-04-17)
PROC: F07Z5FZ Bed Mobility Treatment using Assistive, Adaptive, Supportive or Protective Equipment (ICD-10-PCS; 2019-04-17)
PROC: F08Z2FZ Grooming/Personal Hygiene Treatment using Assistive, Adaptive, Supportive or Protective Equipment (ICD-10-PCS; 2019-04-17)
PROC: F08Z0FZ Bathing/Showering Techniques Treatment using Assistive, Adaptive, Supportive or Protective Equipment (ICD-10-PCS; 2019-04-17)
PROC: F08Z1FZ Dressing Techniques Treatment using Assistive, Adaptive, Supportive or Protective Equipment (ICD-10-PCS; 2019-04-17)
DX: S06.5X0A Traumatic subdural hemorrhage without loss of consciousness, initial encounter (principal); E87.1 Hypo-osmolality and hyponatremia; N39.0 Urinary tract infection, site not specified; R63.4 Abnormal weight loss; Z68.22 Body mass index [BMI] 22.0-22.9, adult; D63.8 Anemia in other chronic diseases classified elsewhere; R26.9 Unspecified abnormalities of gait and mobility; M81.0 Age-related osteoporosis without current pathological fracture; N40.1 Benign prostatic hyperplasia with lower urinary tract symptoms; N39.498 Other specified urinary incontinence; E78.5 Hyperlipidemia, unspecified; I50.9 Heart failure, unspecified; I11.0 Hypertensive heart disease with heart failure; K21.9 Gastro-esophageal reflux disease without esophagitis; R13.10 Dysphagia, unspecified; I35.1 Nonrheumatic aortic (valve) insufficiency; N18.9 Chronic kidney disease, unspecified; I25.119 Atherosclerotic heart disease of native coronary artery with unspecified angina pectoris; G20 Parkinson's disease; Z91.81 History of falling; Z98.890 Other specified postprocedural states; Z86.79 Personal history of other diseases of the circulatory system; Z87.11 Personal history of peptic ulcer disease; Z87.81 Personal history of (healed) traumatic fracture; W19.XXXD Unspecified fall, subsequent encounter
CPT/HCPCS: 74230; 80053; 81001; 83540; 83735; 85025; 87045; 87081; 87086; 92523; 92526; 92610; 92611; 93005; 97110; 97112; 97116; 97163; 97167; 97530; 97535; J2916